=== PATIENT | female | born 1935 | race Caucasian/White ===

== ENCOUNTER → 2016-11-16 | Outpatient (CLI) | payer BC ==
[~2016-11-16] MED LIST: AMB10 PO; ASPI325T39 PO; ATEN50TA8 PO; ATV5 PO; CHOLTAB3 PO; EZET10TA41 PO; GLIP10TA3 PO; HYDR12.56 PO; LISI-725 PO; METF-384 PO; MGN PO; MULT-506 PO; NIFE30TA83 PO; NXM/40 PO
[2016-11-16 09:37] LABS: BASO % 0.5 %; BASO ABS # 0.05 K/uL (0-0.2); COMPLETE YES; EOS % 3.7 %; HEMATOCRIT 40.8 % (37-47); IG% 0.3 %; LYMPH % 34.7 %; LYMPH ABS # 3.18 K/uL (1.2-3.4); MEAN CELL VOLUME 92.1 fL (80-100); MEAN CORPUSCULAR HEMOGLOBIN 28.4 pg (25-34); MEAN CORPUSCULAR HGB CONC 30.9 g/dl (32-36); MONO % 9.7 %; NEUT % 51.1 %; PLATELET COUNT 317 K/uL (130-400); RED BLOOD COUNT 4.43 M/uL (4.2-5.4); WHITE BLOOD COUNT 9.16 K/uL (4.8-10.8)
[2016-11-16 09:51] LABS: ALT/SGPT 18 U/L (12-78); BLOOD UREA NITROGEN 17 mg/dl (7-18); BUN/CREATININE RATIO 20.9 (10-20); CARBON DIOXIDE 25 mmol/L (21-32); CHLORIDE 103 mmol/L (98-107); CHOLESTEROL 122 mg/dl (0-200); GLUCOSE 116 mg/dl (70-99); POTASSIUM 4.2 mmol/L (3.5-5.1); SODIUM 138 mmol/L (136-145); TRIGLYCERIDES 177 mg/dl (0-150); VERY LOW DENSITY LIPOPROT CALC 35 mg/dl
[2016-11-16 09:54] LABS: CALCIUM 9.5 mg/dl (8.5-10.1)
[2016-11-16 10:01] LABS: ALB/GLOB RATIO 0.9 (0.9-2); ALKALINE PHOSPHATASE 52 U/L (45-117); AST/SGOT 17 U/L (15-37); CHOLESTEROL/HDL RATIO 2.8; HDL CHOLESTEROL 43 mg/dl; LDL CHOLESTEROL CALCULATED 44 mg/dl
[2016-11-16 10:25] LABS: ESTIMATED AVERAGE GLUCOSE 160 mg/dl; HA1C FLAG Normal (Normal)
== END | disposition home or self-care (01) ==
LOC: C.LAB1850 06:54
PROVIDERS: ATTEND Family Medicine
DX: I25.10 Atherosclerotic heart disease of native coronary artery without angina pectoris (principal); E78.00 Pure hypercholesterolemia, unspecified; E11.9 Type 2 diabetes mellitus without complications; I10 Essential (primary) hypertension; I48.0 Paroxysmal atrial fibrillation; G31.84 Mild cognitive impairment of uncertain or unknown etiology

== ENCOUNTER 2017-07-08 14:27 | Emergency (ER) | payer BC ==
[~2017-07-08] VITALS: Ht 154.9 cm; Wt 85.0 kg
[2017-07-08 14:33] VITALS: TEMP 36.7; Ht 154.9 cm; Wt 85.0 kg
[2017-07-08] MEDS ORDERED: ALBUTEROL 0.083% NEBU SOLN 3 ML VIAL INH STA (14:51)
[2017-07-08 15:09] VITALS: O2SAT 92
[2017-07-08 15:41] LABS: BASO % 0.2 %; BASO ABS # 0.02 K/uL (0-0.2); EOS % 2.5 %; EOS ABS # 0.21 K/uL (0-0.5); HEMATOCRIT 38.3 % (37-47); HEMOGLOBIN 12.3 g/dL (12.0-16.0); IG# 0.03 K/uL (0.00-0.02); LYMPH % 28.4 %; LYMPH ABS # 2.42 K/uL (1.2-3.4); MEAN CELL VOLUME 93.9 fL (80-100); MEAN CORPUSCULAR HEMOGLOBIN 30.1 pg (25-34); MEAN CORPUSCULAR HGB CONC 32.1 g/dl (32-36); MEAN PLATELET VOLUME 10.1 fL (7.4-10.4); MONO % 8.3 %; MONO ABS # 0.71 K/uL (0.11-0.59); NEUT % 60.2 %; NEUT ABS # 5.12 K/uL (1.4-6.5); PLATELET COUNT 261 K/uL (130-400); RED CELL DISTRIBUTION WIDTH CV 16.1 % (11.5-14.5); RED CELL DISTRIBUTION WIDTH SD 55.2 fL (36.4-46.3); WHITE BLOOD COUNT 8.51 K/uL (4.8-10.8)
[2017-07-08 15:50] LABS: ALBUMIN 3.2 gm/dl (3.4-5.0); ALT/SGPT 17 U/L (12-78); BLOOD UREA NITROGEN 28 mg/dl (7-18); CALCIUM 8.9 mg/dl (8.5-10.1); CARBON DIOXIDE 24 mmol/L (21-32); CREATININE 1.12 mg/dl (0.60-1.20); GLUCOSE 231 mg/dl (70-99); INR 0.9 (0.9-1.1); POTASSIUM 3.7 mmol/L (3.5-5.1); PTT PATIENT 28.9 SECONDS (21.0-31.0); SODIUM 135 mmol/L (136-145)
--- NOTE | 2017-07-08 15:52 | DIAGNOSTIC IMAGING REPORT ---
CHEST 2 VIEWS ROUTINE HISTORY: 81 years-old Female EVALUATE RESPIRATORY DISTRESS.DYSPNEA acute respiratory distress. COMPARISON: Chest radiographs 05/17/2011 and 07/14/2009 TECHNIQUE: PA and lateral views of the chest FINDINGS: Cardiac silhouette is moderately enlarged. Atherosclerosis of the aorta with tortuosity of the descending portion. There is no pneumothorax, pleural effusion, focal airspace consolidation or overt pulmonary edema. Multilevel degenerative changes of the spine are noted. Post traumatic deformity of the right humeral head suggests remote fracture. IMPRESSION: 1. Cardiomegaly without overt pulmonary edema. 2. No focal airspace consolidation to suggest pneumonia. The above report was generated using voice recognition software. It may contain grammatical, syntax or spelling errors. Electronically signed by: Carlos Martinez M.D. 07/08/2017 3:50 PM Dictated Date/Time: 07/08/2017 3:49 PM
[2017-07-08 15:56] LABS: ALKALINE PHOSPHATASE 48 U/L (45-117); AST/SGOT 19 U/L (15-37); TOTAL PROTEIN 7.5 gm/dl (6.4-8.2)
[2017-07-08] MEDS ORDERED: CALC667C4 PO (16:16)
[2017-07-08 16:18] LABS: INFLUENZA B PCR Neg for Influ B (NEG)
[2017-07-08 16:19] LABS: INFLUENZA A PCR POS for Influ A (NEG)
[2017-07-08] MEDS ORDERED: OSELTAMIVIR PHOSPHATE 75 MG CAP PO STA (16:47)
[2017-07-08 17:00] VITALS: BP 130/58; PULSE 77; O2SAT 94
[2017-07-08] MEDS ORDERED: BENZ100C18 PO (17:29)
[2017-07-08] MEDS ORDERED: CEPH-571 PO (17:29)
[2017-07-08] MEDS ORDERED: OSEL75CA12 PO (17:29)
[2017-07-08] MEDS ORDERED: PRVHFAIN INH (17:30)
[2017-07-08] MEDS ORDERED: CEPHALEXIN MONOHYDRATE 250 MG CAP PO ONE (17:30)
--- NOTE | 2017-07-08 19:43 | EMERGENCY ROOM VISIT NOTE ---
History Report prepared by Alida: Jared Johnson Under the Supervision of: Dr. Tobias Santos D.O. First contact with patient: 14:37 Chief Complaint: RESPIRATORY PROBLEMS Stated Complaint: PNEUMONIA Nursing Triage Summary: pt to the ED c/o cough with yellow sputum since yesterday + SOB no O2 at home had a breathing treatment at [facility] office and her O2 went down and they sent her here History of Present Illness The patient is an 81 year old female who presents to the Emergency Room with complaints of a persistent cough for the past 2 days. The patient states that she has been coughing and having a runny nose, and three days ago she had vomiting and diarrhea, though she has not vomited or had an episode of diarrhea today. She denies having any sick contacts, and she states that she was a smoker a long time ago. He has a history of a heart attack in 1989, and she has A-fib and takes a 325mg aspirin daily. Pt denies headache, change in vision, fevers, abdominal pain, chest pain, pain with urination, and melena. Source of History: patient Onset: 2 days ago Position: other (global) Quality: other (cough) Timing: other (persistent) Associated Symptoms: + vomiting, + diarrhea, No abdominal pain Note: Associated symptoms: Runny nose Review of Systems See HPI for pertinent positives & negatives. A total of 10 systems reviewed and were otherwise negative. Past Medical & Surgical Medical Problems: (1) A-fib (2) [place] (myocardial infarction) Social History Smoking Status: Former Smoker Alcohol Use: none Housing Status: lives alone Current/Historical Medications Scheduled Albuterol (Ventolin Hfa), 2 PUFFS INH QID Aspirin (Aspirin Ec), 325 MG PO DAILYBB Atenolol (Tenormin), 75 MG PO BID Benzonatate (Tessalon Perles), 100 MG PO TID Calcium Acetate (Phoslo 667 Mg), 1 CAP PO QAM Cephalexin (Keflex), 1 CAP PO TID Ergocalciferol (Vitamin D), 1 TAB PO DAILY Esomeprazole Magnesium (Nexium), 40 MG PO QAM Ezetimibe/Simvastatin (Vytorin 10MG/40MG), 1 TAB PO QPM Glipizide (Glucotrol), 10 MG PO BID Lisinopril (Zestril), 20 MG PO QAM Lorazepam (Ativan *), 0.5 MG PO BID PRN Magnesium (Magnesium), 400 MG PO BID Metformin Hcl (Glucophage), 1,000 MG PO BID Multivitamin (Multivitamin), 1 TAB PO DAILY Nifedipine Ext Rel (Procardia Xl Ext Rel), 30 MG PO QAM Oseltamivir (Tamiflu), 75 MG PO BID Zolpidem Tartrate (Ambien *), 10 MG PO HS Scheduled PRN Hydrochlorothiazide (Hctz), 12.5 MG PO DAILY PRN for EDEMA Allergies Coded Allergies: Iodinated Contrast Media (Verified Allergy, Intermediate, HIVES, 07/08/17) Penicillin G (Verified Allergy, Unknown, UNKNOWN, 07/08/17) Physical Exam Vital Signs Date Time Temp Pulse Resp B/P (MAP) Pulse Ox O2 Delivery O2 Flow Rate FiO2 07/08/17 17:00 77 22 130/58 94 Room Air 07/08/17 16:02 86 18 143/53 90 Room Air 07/08/17 16:02 79 18 143/53 93 Room Air 07/08/17 15:23 84 07/08/17 15:09 92 Room Air 07/08/17 15:09 92 Room Air 07/08/17 14:33 36.7 81 28 134/67 93 Physical Exam GENERAL: Sitting up in bed, slightly dyspneic on exertion. No significant distress. EYE EXAM: normal conjunctiva. OROPHARYNX: no exudate, no erythema, lips, buccal mucosa, and tongue normal and mucous membranes are moist NECK: supple, no nuchal rigidity, no adenopathy, non-tender, no JVD LUNGS: Diffuse wheezing bilaterally. Normal chest wall mechanics HEART: no murmurs, S1 normal and S2 normal ABDOMEN: abdomen soft, non-tender, normo-active bowel sounds, no masses, no rebound or guarding. BACK: Back is symmetrical on inspection and there is no deformity, no midline tenderness, no CVA tenderness. SKIN: no rashes and no bruising UPPER EXTREMITIES: upper extremities are grossly normal. LOWER EXTREMITIES: Calves are equal bilaterally.No pitting edema. NEURO EXAM: Normal sensorium, cranial nerves II-XII grossly intact, normal speech, no gross weakness of arms, no gross weakness of legs. Medical Decision & Procedures ER Provider Diagnostic Interpretation: Radiology results as stated below per my review and the radiologist's interpretation: CHEST 2 VIEWS ROUTINE HISTORY: 81 years-old Female EVALUATE RESPIRATORY DISTRESS.DYSPNEA acute respiratory distress. COMPARISON: Chest radiographs 05/17/2011 and 07/14/2009 TECHNIQUE: PA and lateral views of the chest FINDINGS: Cardiac silhouette is moderately enlarged. Atherosclerosis of the aorta with tortuosity of the descending portion. There is no pneumothorax, pleural effusion, focal airspace consolidation or overt pulmonary edema. Multilevel degenerative changes of the spine are noted. Post traumatic deformity of the right humeral head suggests remote fracture. IMPRESSION: 1. Cardiomegaly without overt pulmonary edema. 2. No focal airspace consolidation to suggest pneumonia. The above report was generated using voice recognition software. It may contain grammatical, syntax or spelling errors. Electronically signed by: Carlos Martinez M.D. 07/08/2017 3:50 PM Dictated Date/Time: 07/08/2017 3:49 PM Laboratory Results 07/08/17 14:58 Red Blood Count 4.08, Mean Corpuscular Volume 93.9, Mean Corpuscular Hemoglobin 30.1, Mean Corpuscular Hemoglobin Concent 32.1, Mean Platelet Volume 10.1, Neutrophils (%) (Auto) 60.2, Lymphocytes (%) (Auto) 28.4, Monocytes (%) (Auto) 8.3, Eosinophils (%) (Auto) 2.5, Basophils (%) (Auto) 0.2, Neutrophils # (Auto) 5.12, Lymphocytes # (Auto) 2.42, Monocytes # (Auto) 0.71, Eosinophils # (Auto) 0.21, Basophils # (Auto) 0.02 07/08/17 14:58 Test 07/08/17 14:51 07/08/17 14:58 07/08/17 15:01 Urine Color DK YELLOW Urine Appearance CLEAR (CLEAR) Urine pH 5.0 (4.5-7.5) Urine Specific [place] 1.022 (1.000-1.030) Urine Protein NEG (NEG) Urine Glucose (UA) NEG (NEG) Urine Ketones NEG (NEG) Urine Occult Blood NEG (NEG) Urine Nitrite POS (NEG) Urine Bilirubin NEG (NEG) Urine Urobilinogen NEG (NEG) Urine Leukocyte Esterase MODERATE (NEG) Urine WBC (Auto) >30 /hpf (0-5) Urine RBC (Auto) 0-4 /hpf (0-4) Urine Hyaline Casts (Auto) 1-5 /lpf (0-5) Urine Epithelial Cells (Auto) 5-10 /lpf (0-5) Urine Bacteria (Auto) 4+ (NEG) White Blood Count 8.51 K/uL (4.8-10.8) Red Blood Count 4.08 M/uL (4.2-5.4) Hemoglobin 12.3 g/dL (12.0-16.0) Hematocrit 38.3 % (37-47) Mean Corpuscular Volume 93.9 fL (80-100) Mean Corpuscular Hemoglobin 30.1 pg (25-34) Mean Corpuscular Hemoglobin Concent 32.1 g/dl (32-36) Platelet Count 261 K/uL (130-400) Mean Platelet Volume 10.1 fL (7.4-10.4) Neutrophils (%) (Auto) 60.2 % Lymphocytes (%) (Auto) 28.4 % Monocytes (%) (Auto) 8.3 % Eosinophils (%) (Auto) 2.5 % Basophils (%) (Auto) 0.2 % Neutrophils # (Auto) 5.12 K/uL (1.4-6.5) Lymphocytes # (Auto) 2.42 K/uL (1.2-3.4) Monocytes # (Auto) 0.71 K/uL (0.11-0.59) Eosinophils # (Auto) 0.21 K/uL (0-0.5) Basophils # (Auto) 0.02 K/uL (0-0.2) RDW Standard Deviation 55.2 fL (36.4-46.3) RDW Coefficient of Variation 16.1 % (11.5-14.5) Immature Granulocyte % (Auto) 0.4 % Immature Granulocyte # (Auto) 0.03 K/uL (0.00-0.02) Prothrombin Time 9.9 SECONDS (9.0-12.0) Prothromb Time International Ratio 0.9 (0.9-1.1) Activated Partial Thromboplast Time 28.9 SECONDS (21.0-31.0) Partial Thromboplastin Ratio 1.1 Anion Gap 11.0 mmol/L (3-11) Est Creatinine Clear Calc Drug Dose 38.3 ml/min Estimated GFR () 53.0 Estimated GFR (Non- 45.7 BUN/Creatinine Ratio 25.0 (10-20) Calcium Level 8.9 mg/dl (8.5-10.1) Total Bilirubin 0.3 mg/dl (0.2-1) Aspartate Amino Transf (AST/SGOT) 19 U/L (15-37) Alanine Aminotransferase (ALT/SGPT) 17 U/L (12-78) Alkaline Phosphatase 48 U/L (45-117) Troponin I < 0.015 ng/ml (0-0.045) Pro-B-Type Natriuretic Peptide 1389 pg/ml (0-1800) Total Protein 7.5 gm/dl (6.4-8.2) Albumin 3.2 gm/dl (3.4-5.0) Globulin 4.3 gm/dl (2.5-4.0) Albumin/Globulin Ratio 0.8 (0.9-2) Influenza Type A (RT-PCR) POS for Influ A (NEG) Influenza Type B (RT-PCR) Neg for Influ B (NEG) Laboratory results per my review. Medications Administered Medications (Trade) Dose Ordered Sig/Ankit Route Start Time Stop Time Status Last Admin Dose Admin Albuterol Sulfate (Ventolin 0.083% 2.5MG/3ML Neb) 2.5 mg NOW STAT INH 07/08/17 14:51 07/08/17 14:52 DC 07/08/17 15:06 2.5 MG Oseltamivir Phosphate (Tamiflu Cap) 75 mg NOW STAT PO 07/08/17 16:47 07/08/17 16:48 DC 07/08/17 17:05 75 MG Cephalexin Monohydrate (Keflex Cap) 500 mg NOW ONCE PO 07/08/17 17:30 07/08/17 17:31 DC 07/08/17 17:32 500 MG ECG Indication: SOB/dyspnea, other (cough) Rate (beats per minute): 82 Rhythm: atrial fibrillation Findings: other (Normal axis and normal intervals) Change: Patient's EKG interpreted by me ED Course ED COURSE: Vital signs were reviewed and showed normal vitals The patients medical record was reviewed The above diagnostic studies were performed and reviewed. ED treatments and interventions as stated above. 1437: The patient was evaluated in room B11. A complete history and physical examination was performed. 1451: Albuterol Sulfate 2.5mg INH 1521: I reevaluated the patient, and she is doing okay. 1640: On reassessment, the patient is still doing okay. 1647: Tamiflu Cap 75mg PO 1730: Keflex Cap 500mg PO 1736: Upon reevaluation, the patient is able to ambulate well, and she is feeling better. I discussed my findings with the patient and she understands and agrees with the treatment plan. Based on the patients age, coexisting illnesses, exam and lab findings the decision to treat as an outpatient was made. The patient remained stable while under my care. The patient appeared well at the time of discharge. Medical Decision Differential diagnoses includes but is not limited to pneumonia, bronchitis, COPD/Asthma exacerbation, pneumothorax, pulmonary embolism, congestive heart failure, acute coronary syndrome Patient is an 7-year-old female referred in by PCP for cough and runny nose which is been present since this past Saturday. On Saturday she had diarrhea and vomiting but this has resolved. On exam she does have wheezing. EKG was unremarkable. CBC along with BMP, LFTs, bilirubin and troponin was negative. BNP was normal. Influenza A was positive. UA with nitrites, leuks, whites and +4 bacteria. We'll treat at this time. Patient was given Keflex. Patient was placed on Tamiflu. She was ambulated twice from the ER and pulse ox never dropped less than 90%. Patient was updated bedside and discharged follow-up with PCP as an outpatient. Her allergy to penicillin was a headache and consequently I did feel is reasonable to give her Keflex at this time. Discussed with Pt concerning signs and symptoms to watch out for. Pt was instructed to follow up with their PCP and discussed with the patient their option to return to the ED at anytime for persistent or worsening symptoms. The appropriate anticipatory guidance and out-patient management, including indications for return to the emergency department, were explained at length to the patient and understood. Medication Reconcilliation Current Medication List: was personally reviewed by me Blood Pressure Screening Patient's blood pressure: Normal blood pressure Impression Primary Impression: Influenza Additional Impression: UTI (urinary tract infection) Scribe Attestation The scribe's documentation has been prepared under my direction and personally reviewed by me in its entirety. I confirm that the note above accurately reflects all work, treatment, procedures, and medical decision making performed by me. Departure Information Dispostion Home / Self-Care Prescriptions Albuterol (Ventolin Hfa) 60 Puffs/5400 Mcg Aers 2 PUFFS INH QID for 5 Days, INHALER Prov: Tobias Santos, DO 07/08/17 Benzonatate (TESSALON PERLES) 100 Mg Cap 100 MG PO TID for Cough, #30 CAP Prov: Tobias Santos, DO 07/08/17 Cephalexin (KEFLEX) 500 Mg Cap 1 CAP PO TID for 7 Days, #21 CAP Prov: Tobias Santos, DO 07/08/17 Oseltamivir (Tamiflu) 75 Mg Cap 75 MG PO BID, #10 CAP Prov: Tobias Santos, DO 07/08/17 Referrals Christy Go C.R.N.P. (PCP) Forms HOME CARE DOCUMENTATION FORM, IMPORTANT VISIT INFORMATION, WORK / SCHOOL INSTRUCTIONS Patient Instructions ED UTI Cystitis Female, My [facility], Oseltamivir capsules, Rapid Influenza Antigen Nasal or Throat Swab Additional Instructions Please follow up with your primary care doctor or with in the next 24 hours. Any worsening of your symptoms, please return to the ED immediately. This includes any fevers greater than 100.4, worsening pain, chest pain, shortness breath, persistent nausea, vomiting, unable to eat or drink, or any other concerning signs or symptoms from your standpoint. Please take Tamiflu as prescribed. Please take Tylenol or Motrin as needed for muscle aches and fevers. Please take Tessalon Perles as needed for coughing. Please take Keflex as needed for UTI. Problem Qualifiers Additional Impression: UTI (urinary tract infection) Urinary tract infection type: site unspecified Hematuria presence: without hematuria Qualified Codes: N39.0 - Urinary tract infection, site not specified
== END 2017-07-08 17:52 | disposition home or self-care (01) ==
LOC: C.EDB 14:30
DX: J11.1 Influenza due to unidentified influenza virus with other respiratory manifestations (principal); N39.0 Urinary tract infection, site not specified; I48.91 Unspecified atrial fibrillation; I25.2 Old myocardial infarction; Z87.891 Personal history of nicotine dependence; Z79.82 Long term (current) use of aspirin

== ENCOUNTER → 2017-12-18 | Outpatient (CLI) | payer BC ==
[~2017-12-18] MED LIST changes: +CALC667C4 PO; +OSEL75CA12 PO
[2017-12-18 10:49] LABS: ALBUMIN 3.4 gm/dl (3.4-5.0); ALKALINE PHOSPHATASE 54 U/L (45-117); ALT/SGPT 16 U/L (12-78); AST/SGOT 15 U/L (15-37); BLOOD UREA NITROGEN 25 mg/dl (7-18); CARBON DIOXIDE 23 mmol/L (21-32); CREATININE 1.42 mg/dl (0.60-1.20); GLUCOSE 214 mg/dl (70-99); POTASSIUM 5.8 mmol/L (3.5-5.1); SODIUM 134 mmol/L (136-145); TOTAL PROTEIN 7.1 gm/dl (6.4-8.2)
== END | disposition home or self-care (01) ==
LOC: C.LAB1850 09:12
PROVIDERS: ATTEND Nurse Practitioner Family
DX: L03.115 Cellulitis of right lower limb (principal)

== ENCOUNTER → 2017-12-23 | Outpatient (CLI) | payer BC ==
[2017-12-23 10:05] LABS: BLOOD UREA NITROGEN 23 mg/dl (7-18); CALCIUM 8.9 mg/dl (8.5-10.1); CARBON DIOXIDE 22 mmol/L (21-32); GLUCOSE 228 mg/dl (70-99); POTASSIUM 4.8 mmol/L (3.5-5.1); SODIUM 135 mmol/L (136-145)
== END | disposition home or self-care (01) ==
LOC: C.LAB1850 08:51
PROVIDERS: ATTEND Nurse Practitioner Family
DX: R79.89 Other specified abnormal findings of blood chemistry (principal); E87.5 Hyperkalemia

== ENCOUNTER 2020-01-26 00:22 | Observation (INO) ==
--- NOTE | 2020-01-26 00:58 | Emergency Department Note ---
Impression & Plan Hypoxia, CHF (congestive heart failure) ED Provider Note NAME: DONOVAN BERMUDEZ AGE: 84 SEX: F ARRIVES VIA: Ambulance INFORMANT: Patient, her daughter ED PROVIDER(S): Evelin Street DO CHIEF COMPLAINT: Shortness of breath PLAN: Disposition: Admitted to the [facility] hospitalist service Condition: Fair MEDICAL DECISION MAKING: This is an 84-year-old female patient who presents to the emergency department with worsening shortness of breath. Patient describes orthopnea and was noted to have congestive heart failure on chest x-ray. She also has peripheral edema noted on physical exam. Patient was given IV Lasix and began to diurese. The patient's oxygen saturation was 86% n on room air. O2 saturations were stable on 4 L by nasal cannula. The case was discussed with the [facility] hospitalist group and they will evaluate for further management. Triage Nursing notes reviewed and agree them. Additional history obtained from patient's daughter Prior medical records reviewed Vital Signs: reviewed and on Differential diagnosis: CHF, pneumonia, A. fib with RVR, anxiety ER treatment provided: IV Lasix Diagnostics interpreted by me: ECG: Atrial fibrillation at [address] segment elevation or signs of ischemia. There is no ectopy Cardiac Monitoring: A. fib at 56 Laboratory studies: See below Imaging studies: As per my interpretation Chest x-ray: CHF HPI: 84/F arrives for evaluation of increasing shortness of breath. The patient developed some mild shortness of breath around 6 PM this evening. She describes having a very mild cough. She noticed that her shortness of breath became much worse when she attempted to lie flat. She was unable to do so. She had a similar episode 2 years ago and was diagnosed with congestive heart failure at that time. Patient does have a history of A. fib and takes Xarelto. She does take HCTZ. ROS: See above HPI for pertinent positives & negatives. A total of 10 systems reviewed and were otherwise negative. PAST MEDICAL HISTORY:See Below PAST SURGICAL HISTORY:See Below FAMILY HISTORY:See Below SOCIAL HISTORY:See Below HOME MEDICATIONS:See list ALLERGIES:See list VITALS:See Below PHYSICAL EXAMINATION: HEENT: Head - normocephalic and atraumatic Pupils are equal, round, and reactive to light. Extraocular eye muscles are intact, and sclera are anicteric. Nose - moist nasal mucosa without discharge. Mouth - moist buccal mucosa. Oropharynx is nonerythematous and there is no tonsillar exudate or edema noted. Neck: Supple; no JVD, nuchal rigidity, cervical lymphadenopathy, or auscultated bruits. Heart: Irregularly irregular rhythm. There is a normal S1 and S2 with no murmurs, clicks, or gallops appreciated. Lungs: Diffuse rales throughout all lung dockery Abdomen: Soft, completely nontender, nondistended, with good bowel sounds. There are no palpable pulsatile masses or hepatosplenomegaly. There is no guarding, rigidity, or rebound noted. Extremities: She had 1-2+ pitting edema in both lower extremities there are easily palpable peripheral pulses. Skin: warm and dry with good turgor and no rashes. ED COURSE: Times/Reassessments: 0045: Patient was evaluated in room A4. A complete history and physical was performed. Laboratory studies were drawn as above. An order was placed for continuous cardiac monitoring. The patient was in A. fib at a rate of 62. A twelve-lead EKG was obtained as described above. A portable chest x-ray was performed. The patient was given 40 mg of IV Lasix. Case was discussed with the [facility] hospitalist group I have personally spent greater than 30 minutes of critical care time in the direct management of this patient. This includes bedside care, interpretation of diagnostic studies, and testing, discussion with consultants, patient, and family members, and other required patient management activities. This 30 minutes is in excess of all separately billable procedures. Evelin Street DO Past Med/Surg History Medical History (Updated 01/26/20 @ 04:[address] DO) Acute on chronic diastolic CHF (congestive heart failure) Candidal intertrigo Fracture of left distal radius Fracture, humerus closed Hyperkalemia Hypoxia Influenza Left knee DJD Pulmonary edema Rupture of UCL of right thumb UTI (urinary tract infection) Surgical History H/O oral surgery No history of previous surgery S/P knee surgery S/P wisdom tooth extraction Family History Mother Myocardial infarction Father Myocardial infarction Other No pertinent family history Denies family history of Ovarian cancer Prostate cancer Breast cancer Colorectal cancer Social History Smoking Status: Former smoker Hx Alcohol Use: No Hx Substance Use: No Preferred Language: Zimbabwean Communication Ability: Effective Visual Impairment: No Limitations Hearing Ability: Normal Beliefs That Will Affect Care: None marital status: / Current Living Situation: Alone current occupational status: retired Feels Safe at Home: Yes Dental Care, Regularly: No Physical Activity Frequency: 3-4 Times per Week Seatbelt Use: always Sunscreen Use: No Allergies Allergies Allergy/AdvReac Type Severity Reaction Status Date / Time Iodinated Contrast Media Allergy Intermediate HIVES Verified 01/26/20 01:56 penicillin G Allergy Unknown HAPPENED Verified 01/26/20 01:56 MANY YEARS AGO Home Meds Home Medications Medication Instructions Recorded Confirmed Centrum Silver 1 tab PO DAILY 03/13/18 01/26/20 calcium carbonate-vitamin D3 1 tab PO DAILY 03/13/18 01/26/20 [Calcium 600 + D(3)] cholecalciferol (vitamin D3) 1,000 - 2,000 unit PO DAILY 03/13/18 01/26/20 [Vitamin D3] cyanocobalamin (vitamin B-12) 1,000 mcg PO DAILY 03/13/18 01/26/20 [Vitamin B-12] magnesium 250 mg PO DAILY 03/13/18 01/26/20 coenzyme Q10 10 mg capsule 10 mg PO DAILY cap 05/07/19 01/26/20 Previous Rx's Medication Instructions Recorded nitroglycerin 0.4 mg sublingual 0.4 mg SUBLINGUAL DIRECTED PRN 03/02/19 tablet #7 tab glimepiride 2 mg tablet 4 mg PO BID 90 Days #360 tab 08/06/19 lorazepam 0.5 mg tablet 0.5 mg PO BID PRN #180 tab 10/07/19 metformin 500 mg tablet 500 mg PO BID #180 tab 11/06/19 OneTouch Ultra Blue Test Strip #200 ea NS 11/25/19 zolpidem 10 mg tablet 10 mg PO HS PRN #90 tab 12/18/19 atenolol 50 mg tablet 75 mg PO BID #270 tab 01/15/20 esomeprazole magnesium 40 mg 40 mg PO DAILY #90 cap 01/15/20 capsule,delayed release ezetimibe 10 mg-simvastatin 40 mg 1 tab PO PM #90 tab 01/15/20 tablet hydrochlorothiazide 12.5 mg capsule 12.5 mg PO DAILY #90 cap 01/15/20 lisinopril 20 mg tablet 20 mg PO DAILY #90 tab 01/15/20 nifedipine 30 mg tablet,extended 30 mg PO DAILY #90 tab 01/15/20 release 24 hr rivaroxaban 20 mg tablet 20 mg PO DAILY #90 tab 01/15/20 Results & Data (ED) Vital Signs Vital Signs - 24 hr 01/26/20 00:26 01/26/20 00:28 01/26/20 00:29 Temperature 36.7 C Temperature Source Oral Pulse Rate 74 73 69 Pulse Rate [Apical] Pulse Rate from SpO2 Sensor 72 70 Pulse Rhythm Irregular Respiratory Rate 24 26 H 19 Respiratory Effort / Characteristics Spontaneous Labored Respiratory Depth Blood Pressure 154/116 H 166/57 H Blood Pressure [Right Arm] Blood Pressure Mean 125 93 Blood Pressure Mean [Right Arm] Blood Pressure Position Sitting Blood Pressure Position [Right Arm] Pulse Oximetry 95 86 L 97 Oxygen Delivery Method Room Air Oxygen Flow Rate Sepsis Recent Fever Within 48 Hours No Sepsis New/Unexplained Change in Mental Status No Sepsis Action Taken by Nursing No Action Required Oxygen Flow Rate - Titration Pulse Oximetry Post Tiitration 01/26/20 00:30 01/26/20 00:31 01/26/20 00:40 Temperature Temperature Source Pulse Rate 72 86 69 Pulse Rate [Apical] Pulse Rate from SpO2 Sensor 73 71 67 Pulse Rhythm Respiratory Rate 18 26 H 20 Respiratory Effort / Characteristics Respiratory Depth Blood Pressure 166/57 H Blood Pressure [Right Arm] Blood Pressure Mean 95 Blood Pressure Mean [Right Arm] Blood Pressure Position Blood Pressure Position [Right Arm] Pulse Oximetry 96 99 93 Oxygen Delivery Method Oxygen Flow Rate Sepsis Recent Fever Within 48 Hours Sepsis New/Unexplained Change in Mental Status Sepsis Action Taken by Nursing Oxygen Flow Rate - Titration Pulse Oximetry Post Tiitration 01/26/20 00:50 01/26/20 00:56 01/26/20 01:00 Temperature Temperature Source Pulse Rate 66 65 Pulse Rate [Apical] Pulse Rate from SpO2 Sensor 67 68 Pulse Rhythm Respiratory Rate 27 H 22 Respiratory Effort / Characteristics Respiratory Depth Blood Pressure 138/76 Blood Pressure [Right Arm] Blood Pressure Mean 114 Blood Pressure Mean [Right Arm] Blood Pressure Position Blood Pressure Position [Right Arm] Pulse Oximetry 97 86 L 97 Oxygen Delivery Method Nasal Cannula Oxygen Flow Rate 0 Sepsis Recent Fever Within 48 Hours Sepsis New/Unexplained Change in Mental Status Sepsis Action Taken by Nursing Oxygen Flow Rate - Titration 4 Pulse Oximetry Post Tiitration 95 01/26/20 01:01 01/26/20 01:02 01/26/20 01:10 Temperature Temperature Source Pulse Rate 68 69 Pulse Rate [Apical] 73 Pulse Rate from SpO2 Sensor 68 65 Pulse Rhythm Respiratory Rate 22 26 H 23 Respiratory Effort / Characteristics Non-Labored Spontaneous Respiratory Depth Normal Blood Pressure Blood Pressure [Right Arm] 138/76 Blood Pressure Mean Blood Pressure Mean [Right Arm] 96 Blood Pressure Position Blood Pressure Position [Right Arm] Sitting Pulse Oximetry 99 96 95 Oxygen Delivery Method Nasal Cannula Oxygen Flow Rate 4 Sepsis Recent Fever Within 48 Hours Sepsis New/Unexplained Change in Mental Status Sepsis Action Taken by Nursing Oxygen Flow Rate - Titration Pulse Oximetry Post Tiitration 01/26/20 01:20 01/26/20 01:30 01/26/20 01:31 Temperature Temperature Source Pulse Rate 67 59 L 65 Pulse Rate [Apical] Pulse Rate from SpO2 Sensor 64 60 68 Pulse Rhythm Respiratory Rate 22 22 21 Respiratory Effort / Characteristics Respiratory Depth Blood Pressure 135/70 Blood Pressure [Right Arm] Blood Pressure Mean 110 Blood Pressure Mean [Right Arm] Blood Pressure Position Blood Pressure Position [Right Arm] Pulse Oximetry 100 100 100 Oxygen Delivery Method Oxygen Flow Rate Sepsis Recent Fever Within 48 Hours Sepsis New/Unexplained Change in Mental Status Sepsis Action Taken by Nursing Oxygen Flow Rate - Titration Pulse Oximetry Post Tiitration 01/26/20 01:40 01/26/20 01:50 01/26/20 01:57 Temperature Temperature Source Pulse Rate 64 63 67 Pulse Rate [Apical] Pulse Rate from SpO2 Sensor 62 58 L Pulse Rhythm Respiratory Rate 19 23 Respiratory Effort / Characteristics Respiratory Depth Blood Pressure 121/53 L Blood Pressure [Right Arm] Blood Pressure Mean 77 Blood Pressure Mean [Right Arm] Blood Pressure Position Blood Pressure Position [Right Arm] Pulse Oximetry 100 98 Oxygen Delivery Method Oxygen Flow Rate Sepsis Recent Fever Within 48 Hours Sepsis New/Unexplained Change in Mental Status Sepsis Action Taken by Nursing Oxygen Flow Rate - Titration Pulse Oximetry Post Tiitration 01/26/20 02:00 01/26/20 02:01 01/26/20 02:10 Temperature Temperature Source Pulse Rate 66 60 67 Pulse Rate [Apical] Pulse Rate from SpO2 Sensor Pulse Rhythm Respiratory Rate 24 21 21 Respiratory Effort / Characteristics Respiratory Depth Blood Pressure 113/47 L Blood Pressure [Right Arm] Blood Pressure Mean 78 Blood Pressure Mean [Right Arm] Blood Pressure Position Blood Pressure Position [Right Arm] Pulse Oximetry Oxygen Delivery Method Oxygen Flow Rate Sepsis Recent Fever Within 48 Hours Sepsis New/Unexplained Change in Mental Status Sepsis Action Taken by Nursing Oxygen Flow Rate - Titration Pulse Oximetry Post Tiitration 01/26/20 02:20 01/26/20 02:30 01/26/20 02:31 Temperature Temperature Source Pulse Rate 60 63 66 Pulse Rate [Apical] Pulse Rate from SpO2 Sensor Pulse Rhythm Respiratory Rate 18 20 25 H Respiratory Effort / Characteristics Respiratory Depth Blood Pressure 113/49 L Blood Pressure [Right Arm] Blood Pressure Mean 62 Blood Pressure Mean [Right Arm] Blood Pressure Position Blood Pressure Position [Right Arm] Pulse Oximetry Oxygen Delivery Method Oxygen Flow Rate Sepsis Recent Fever Within 48 Hours Sepsis New/Unexplained Change in Mental Status Sepsis Action Taken by Nursing Oxygen Flow Rate - Titration Pulse Oximetry Post Tiitration 01/26/20 02:44 01/26/20 02:50 01/26/20 03:00 Temperature Temperature Source Pulse Rate 71 59 L 56 L Pulse Rate [Apical] Pulse Rate from SpO2 Sensor 59 L 59 L Pulse Rhythm Respiratory Rate 26 H 19 21 Respiratory Effort / Characteristics Respiratory Depth Blood Pressure 139/53 L Blood Pressure [Right Arm] Blood Pressure Mean 115 Blood Pressure Mean [Right Arm] Blood Pressure Position Blood Pressure Position [Right Arm] Pulse Oximetry 100 100 Oxygen Delivery Method Oxygen Flow Rate Sepsis Recent Fever Within 48 Hours Sepsis New/Unexplained Change in Mental Status Sepsis Action Taken by Nursing Oxygen Flow Rate - Titration Pulse Oximetry Post Tiitration 01/26/20 03:01 Temperature Temperature Source Pulse Rate 56 L Pulse Rate [Apical] Pulse Rate from SpO2 Sensor 59 L Pulse Rhythm Respiratory Rate 20 Respiratory Effort / Characteristics Respiratory Depth Blood Pressure Blood Pressure [Right Arm] Blood Pressure Mean Blood Pressure Mean [Right Arm] Blood Pressure Position Blood Pressure Position [Right Arm] Pulse Oximetry 98 Oxygen Delivery Method Oxygen Flow Rate Sepsis Recent Fever Within 48 Hours Sepsis New/Unexplained Change in Mental Status Sepsis Action Taken by Nursing Oxygen Flow Rate - Titration Pulse Oximetry Post Tiitration Laboratory Data Result diagrams: 01/26/20 Unknown 01/26/20 Unknown Administered Medications Discontinued Medications Furosemide (Furosemide 40 Mg/4 Ml Vial) 40 mg IV NOW STA Stop: 01/26/20 01:44 Last Admin: 01/26/20 01:57 Dose: 40 mg Documented by: [id number] Discharge Plan Visit Data Chief Complaint: Shortness of Breath/Dyspnea Stated Complaint: SHORT OF BREATH ED Provider: Evelin Street Discharge Problem: Hypoxia, CHF (congestive heart failure) Discharge Instructions Interventions: ED Discharge Assessment Last Done: 01/26/20 03:32 Discharge Problem: CHF (congestive heart failure) Qualifiers: Heart failure type: unspecified Heart failure chronicity: acute on chronic Qual ified Code(s): I50.9 - Heart failure, unspecified
[2020-01-26 01:10] LABS: Basophils # (auto) 0.06 K/uL (0-0.2); Basophils % (auto) 0.4 %; Eosinophils % (auto) 2.9 %; Hematocrit (blood only) 32.6 % (37-47); Hemoglobin 10.3 g/dL (12.0-16.0); Immature Granulocytes # (auto) 0.03 K/uL (0.00-0.02); Immature Granulocytes % (auto) 0.2 %; Lymphocytes # (auto) 2.91 K/uL (1.2-3.4); Lymphocytes % (auto) 21.2 %; Mean Corpuscular Hemoglobin 28.3 pg (25-34); Mean Corpuscular Hgb Conc 31.6 g/dL (32-36); Mean Corpuscular Volume 89.6 fL (80-100); Mean Platelet Volume 9.2 fL (7.4-10.4); Monocytes # (auto) 1.31 K/uL (0.11-0.59); Monocytes % (auto) 9.5 %; Neutrophils # (auto) 9.02 K/uL (1.4-6.5); Neutrophils % (auto) 65.8 %; Platelet Count 412 K/uL (130-400); RDW Coefficient of Variation 17.9 % (11.5-14.5); RDW Standard Deviation 58.6 fL (36.4-46.3); Red Blood Count 3.64 M/uL (4.2-5.4); White Blood Count 13.73 K/uL (4.8-10.8)
[2020-01-26 01:18] LABS: Alanine Aminotransferase 34 U/L (12-78); Albumin Level 3.5 gm/dl (3.4-5.0); Aspartate Aminotransferase 19 U/L (15-37); BUN Creatinine Ratio 32.9 (10-20); Blood Urea Nitrogen 36 mg/dl (7-18); Calcium 9.2 mg/dl (8.5-10.1); Carbon Dioxide 23 mmol/L (21-32); Chloride 104 mmol/L (98-107); Creatinine Clr Calc Pharmacy 35.3 ml/min; Est GFR (African American) 52.4; Est GFR (Non-African American) 45.2; Glucose 158 mg/dl (70-99); Potassium 4.8 mmol/L (3.5-5.1); Sodium 136 mmol/L (136-145)
[2020-01-26 01:22] LABS: INR 1.2 (0.9-1.1); Partial Thromboplastin Ratio 1.2; Partial Thromboplastin Time 32.8 Seconds (21.0-31.0)
[2020-01-26 01:23] LABS: Albumin Globulin Ratio 0.8 (0.9-2); Alkaline Phosphatase 75 U/L (45-117); Bilirubin,Total 0.6 mg/dl (0.2-1); Globulin 4.4 gm/dl (2.5-4.0); Total Protein 7.9 gm/dl (6.4-8.2); Troponin I < 0.015 ng/ml (0-0.045)
[2020-01-26] MEDS ORDERED: FUROSEMIDE 40 MG/4 ML VIAL IV STA (01:43)
--- NOTE | 2020-01-26 02:48 | History & Physical Report ---
Date of Service January 26, 2020 Assessment & Plan (1) Acute on chronic diastolic CHF (congestive heart failure): Samira Norton is a 84 y/o female with past medical hx of hypertension, hypercholesterolemia, paroxysmal atrial fibrillation on Xarelto, chronic diastolic CHF (March 2018), CAD (IMI, RCA PTCA, 1989), insomnia who presented to [facility] for Dyspnea. - Presumed Acute CHF exacerbation based on CXR and now feeling improved s/p diuretics. - Continue with another round of Lasix 40mg IV in AM - Echo ordered to determine if worsening left sided EF. Last was two years ago. - Trend labs - Try to wean from supplemental Oxygen once further diuresis. Still on 4L in ED. - Discussed low salt diet, less than 2gm per day diet. FENGI: Heart healthy/DM2, Pepcid 20mg PO DVT ppx: C/w home Xarelto Dispo: Med surg tele - Obs Code: Full Code (2) CAD (coronary artery disease): c/w home ezetimibe 10mg-simvastatin 40mg PO ECG PRN for chest pain no chest pain here trop in ED negative (3) Essential hypertension: c/w home lisinopril 20mg hold home HCTZ since giving IV lasix (4) Anxiety: will give dose of Ativan 0.5mg PO tonight. (5) GERD (gastroesophageal reflux disease): home med NF Pepcid 20mg PO ordered (6) Insomnia: Discussed worry about being on ambien and Ativan being 84 y/o. Will hold on ambien, she's going to be needing to pee and would be a fall risk overnight. Will give her her night time dose of Ativan 0.5mg PO and will give Remeron as well as more friendly in the elderly. discussed that she will probably have poor sleep being in the hospital but do not suspect stay to be long (7) Controlled type 2 diabetes with neuropathy: Hold home PO meds Insulin SS odered (8) Obesity: (9) Paroxysmal atrial fibrillation: c/w home Xarelto c/w home atenolol 75mg PO BID History of Present Illness Chief Complaint: Dyspnea Primary Care Provider: Gurmeet Smith DO Samira Norton is a 84 y/o female with past medical hx of hypertension, hypercholesterolemia, paroxysmal atrial fibrillation on Xarelto, chronic diastolic CHF (March 2018), CAD (IMI, RCA PTCA, 1989), insomnia who presented to [facility] for Dyspnea. She noted onset of shortness of breath around 6pm today. She notes it was gradual. She had no chest pain, cough at onset, nausea, vomiting. She doesn't watch her salt intake. She had subs (sandwhiches for lunch today). She notes she doesn't add salt to food but acknowledges that foods can contain salt. She has no recent illness. She noted the shortness of breath was worse when she was moving about the house and did not get better with rest. She denies any worsening leg swelling. She notes she weighs herself daily and has been 179 pounds. She follows with [facility] and saw them in November 2019 with note - The patient follows daily weights at home and notes a dry weight of 177 pounds with a trigger weight of 180 pounds. She typically takes hydrochlorothiazide 12.5 mg daily with an additional dose when necessary for weight gain. She denies needing to take any additional doses of HCTZ. She notes she feels better with Lasix 40mg IV here in ED. She notes she has insomnia and takes Ambien everynight. She also takes Ativan BID. She is requesting medication for sleep including an ambien. Echo 03/14/18 - Normal LV size, mild concentric LVH, EF 50-55% - inferior akinesis at the base - dilated RV w/borderline function - Mild to moderate eccentric mitral regurg and tricuspid regurg - severe pulmonary HTN, estimated PASP 60-65mmHg. Allergies Allergy/AdvReac Type Severity Reaction Status Date / Time Iodinated Contrast Media Allergy Intermediate HIVES Verified 01/26/20 01:56 penicillin G Allergy Unknown HAPPENED Verified 01/26/20 01:56 MANY YEARS AGO Home Medications Home Medications Medication Instructions Recorded Confirmed Type Centrum Silver 1 tab PO DAILY 03/13/18 02/02/20 History calcium carbonate-vitamin D3 1 tab PO DAILY 03/13/18 02/02/20 History [Calcium 600 + D(3)] cholecalciferol (vitamin D3) 1,000 - 2,000 unit PO DAILY 03/13/18 02/02/20 History [Vitamin D3] magnesium 250 mg PO DAILY 03/13/18 02/02/20 History nitroglycerin 0.4 mg sublingual 0.4 mg SUBLINGUAL DIRECTED PRN 03/02/19 02/02/20 Rx tablet #7 tab glimepiride 2 mg tablet 4 mg PO BID 90 Days #360 tab 08/06/19 02/02/20 Rx metformin 500 mg tablet 500 mg PO BID #180 tab 11/06/19 02/02/20 Rx OneTouch Ultra Blue Test Strip #200 ea NS 11/25/19 02/02/20 Rx atenolol 50 mg tablet 75 mg PO BID #270 tab 01/15/20 02/02/20 Rx esomeprazole magnesium 40 mg 40 mg PO DAILY #90 cap 01/15/20 02/02/20 Rx capsule,delayed release ezetimibe 10 mg-simvastatin 40 mg 1 tab PO PM #90 tab 01/15/20 02/02/20 Rx tablet lisinopril 20 mg tablet 20 mg PO DAILY #90 tab 01/15/20 02/02/20 Rx nifedipine 30 mg tablet,extended 30 mg PO DAILY #90 tab 01/15/20 02/02/20 Rx release 24 hr rivaroxaban 20 mg tablet 20 mg PO DAILY #90 tab 01/15/20 02/02/20 Rx mirtazapine 15 mg PO HS #30 tab 01/27/20 02/02/20 Rx coenzyme Q10 100 mg capsule 100 mg PO DAILY 02/02/20 02/02/20 History cyanocobalamin (vitamin B-12) 2,500 mcg SUBLINGUAL DAILY 02/02/20 02/02/20 History 2,500 mcg sublingual tablet furosemide 40 mg tablet 20 mg PO QAM #30 tab 02/02/20 Rx lorazepam 0.5 mg tablet 0.5 mg PO DAILY PRN 02/02/20 02/02/20 History vitamin B complex 1 cap PO DAILY 02/02/20 02/02/20 History Past Med/Surg History Medical History (Updated 01/29/20 @ 23:07 by Sheyla Javier MD) Acute on chronic diastolic CHF (congestive heart failure) Candidal intertrigo Fracture of left distal radius Fracture, humerus closed Hyperkalemia Hypoxia Influenza Left knee DJD Pulmonary edema Pulmonary hypertension Rupture of UCL of right thumb Severe tricuspid regurgitation UTI (urinary tract infection) Surgical History H/O oral surgery No history of previous surgery S/P knee surgery S/P wisdom tooth extraction Family History Mother Myocardial infarction Father Myocardial infarction Other No pertinent family history Denies family history of Ovarian cancer Prostate cancer Breast cancer Colorectal cancer Social History Smoking Status: Former smoker Hx Alcohol Use: No Hx Substance Use: No Preferred Language: Austrian Communication Ability: Effective Visual Impairment: No Limitations Hearing Ability: Normal Beliefs That Will Affect Care: None marital status: / Current Living Situation: Alone current occupational status: retired Feels Safe at Home: Yes Dental Care, Regularly: No Physical Activity Frequency: 3-4 Times per Week Seatbelt Use: always Sunscreen Use: No Review of Systems Review of Systems: All systems reviewed & are unremarkable except as noted in HPI & below Constitutional: no fever and no chills Eyes: no diplopia and no spots in vision Ear, Nose, Mouth, Throat: no nasal congestion, no nasal obstruction and no epistaxis Respiratory: + dyspnea mild cough only with deep breaths on physical exam Cardiovascular: no chest pain and no palpitations Gastrointestinal: no abdominal pain, no nausea and no vomiting Genitourinary: no dysuria and no urinary frequency Musculoskeletal: no back pain and no neck pain Integumentary: no rash and no lesions Neurologic: no localized weakness and no numbness Physical Exam Constitutional: + obese, cooperative and comfortable; no acute distress Eyes: PERRL, conjunctivae normal, anicteric sclerae ENMT: external ear and nose normal, oropharynx normal Neck: normal visual inspection and trachea midline Respiratory: no respiratory distress Auscultation: + diminished lung sounds (at bases) and + crackles (at bases) Cardiovascular: Rate/Rhythm: regular rate and regular rhythm Extremities: no pedal edema Gastrointestinal (Abdomen): Percussion/Palpation: abdomen soft; abdomen nontender, no guarding and abdomen not rigid Musculoskeletal: Head/Neck/Chest: normocephalic and head atraumatic Skin: no rashes, warm and dry Neurologic: moves all extremities and awake Psychiatric: A+Ox3, euthymic affect Results & Data Results & Data ([facility]) Vital Signs (Past 12 Hours) Vital Signs Temp Pulse Pulse Resp BP BP Pulse Ox 01/26/20 01:02 73 26 H 138/76 96 01/26/20 00:56 86 L 01/26/20 00:28 36.7 C 73 26 H 166/57 H 86 L Laboratory Results Laboratory Results - last 24 hr 01/26/20 01/26/20 01/26/20 Unknown Unknown Unknown WBC 13.73 H RBC 3.64 L Hgb 10.3 L Hct 32.6 L MCV 89.6 MCH 28.3 MCHC 31.6 L RDW Std Deviation 58.6 H RDW Coeff of Toby 17.9 H Plt Count 412 H MPV 9.2 Immature Gran % (Auto) 0.2 Neut % (Auto) 65.8 Lymph % (Auto) 21.2 [place] % (Auto) 9.5 Eos % (Auto) 2.9 Baso % (Auto) 0.4 Neut # (Auto) 9.02 H Lymph # (Auto) 2.91 [place] # (Auto) 1.31 H Eos # (Auto) 0.40 Baso # (Auto) 0.06 Immature Gran # (Auto) 0.03 H PT 13.0 H INR 1.2 H APTT 32.8 H PTT Ratio 1.2 Sodium 136 Potassium 4.8 Chloride 104 Carbon Dioxide 23 Anion Gap 9.0 BUN 36 H Creatinine 1.11 Est Cr Clr Drug Dosing 35.3 Est GFR ( Amer) 52.4 Est GFR (Non-Af Amer) 45.2 BUN/Creatinine Ratio 32.9 H Glucose 158 H Calcium 9.2 Total Bilirubin 0.6 AST 19 ALT 34 Alkaline Phosphatase 75 Troponin I < 0.015 Total Protein 7.9 Albumin 3.5 Globulin 4.4 H Albumin/Globulin Ratio 0.8 L Code Status & VTE Plan Code Status full Code VTE Prophylaxis Plan VTE Prophylaxis will be ordered: Yes Supervising Physician Co-Signing Physician Notes Patient seen and examined, chart reviewed, case discussed with Dr. Kelly and I agree with his assessment and plan as documented above Resident Activity Tracking Resident Involvement: Resident Care Provided Care Provided: Adult Hospital Medicine
[2020-01-26] MEDS ORDERED: DEXTROSE 50% 50 ML SYRINGE IV PRN (04:31)
[2020-01-26] MEDS ORDERED: ALUMINUM/MAGNESIUM SUSP 30 ML UDC PO PRN (04:31)
[2020-01-26] MEDS ORDERED: LORazepam 0.5 MG TAB PO STA (04:31)
[2020-01-26] MEDS ORDERED: POLYETHYLENE (MIRALAX) 17 GM PACK PO PRN (04:31)
[2020-01-26] MEDS ORDERED: ONDANSETRON INJ 2 MG/ML 2 ML VIAL IV PRN (04:31)
[2020-01-26] MEDS ORDERED: NITROGLYCERIN SL 0.4 MG/TAB TAB SL PRN (04:31)
[2020-01-26] MEDS ORDERED: ACETAMINOPHEN 325 MG TAB PO PRN (04:31)
[2020-01-26] MEDS ORDERED: MIRTAZAPINE TAB 15 MG TAB PO ONE (04:31)
[2020-01-26] MEDS ORDERED: GLUCOSE 10 TABS/TUBE PO PRN (04:31)
[2020-01-26] MEDS ORDERED: GLUCAGON FOR INJ 1 MG VIAL SQ PRN (04:31)
[2020-01-26] MEDS ORDERED: GLUCOSE 40% GEL 15 GM TUBE PO PRN (04:31)
[2020-01-26] MEDS ORDERED: CARBOHYDRATES FOR HYPOGLYCEMIA PO PRN (04:31)
[2020-01-26] MEDS ORDERED: MAGNESIUM HYDROXIDE SUSP 30 ML UDC PO PRN (04:31)
[2020-01-26] MEDS ORDERED: FUROSEMIDE 40 MG/4 ML VIAL IV SCH (07:00)
[2020-01-26] MEDS ORDERED: FUROSEMIDE 40 MG in SYRINGE 0 ML IV SCH (07:00)
--- NOTE | 2020-01-26 07:39 | XRay Report ---
SINGLE VIEW CHEST CLINICAL HISTORY: Dyspnea. FINDINGS: An AP, portable, upright chest radiograph is compared to study dated 03/13/2018. The examin ation is degraded by portable technique and patient rotation. The heart is markedly enlarged noting atherosclerotic calcification of the thoracic aorta. There is pulmonary vascular congestion. There a re hazy bilateral airspace opacities, most confluent in the lung bases. No large pleural effusion or pneumothorax is seen. The skeletal structures are osteopenic. There is chronic posttraumatic deformit y of the right proximal humerus. IMPRESSION: 1. Cardiomegaly with evidence of congestive failure. 2. Hazy bilateral airspace opacities likely represent a component of interstitial edema. Correlate cl inically for evidence of a superimposed infectious/inflammatory pneumonitis. Radiographic follow-up t o resolution is recommended. ACT 112: Negative or not required by law. Electronically signed by: Sterling Aguirre M.D. 01/26/2020 7:38 AM
[2020-01-26] MEDS: ATENOLOL 25 MG TABLET PO SCH ×2 (08:08→20:36)
[2020-01-26] MEDS: lisinopriL 20 MG TAB PO SCH (08:08)
[2020-01-26] MEDS: RIVAROXABAN 20 MG TAB PO SCH (08:08)
[2020-01-26] MEDS: INSULIN ASPART 100 UNITS/ML 3 ML PEN SC SCH ×4 (08:09→20:19)
--- NOTE | 2020-01-26 08:47 | Electrocardiogram Report ---
Test Reason : Blood Pressure : / mmHG Vent. Rate : 069 BPM Atrial Rate : 060 BPM P-R Int : 000 ms QRS Dur : 102 ms QT Int : 398 ms P-R-T Axes : 000 021 058 degrees QTc Int : 426 ms Probable Atrial fibrillation Abnormal ECG When compared with ECG of 13-MAR-2018 15:15, No significant change Confirmed by Jim Snider ([id number]) on 01/26/2020 8:47:45 AM Referred By: REFERRED SELF Confirmed By:Jim Snider
[2020-01-26] MEDS ORDERED: FAMOTIDINE 20 MG TAB PO SCH (09:00)
[2020-01-26 09:01] LABS: Basophils # (auto) 0.03 K/uL (0-0.2); Basophils % (auto) 0.3 %; Eosinophils # (auto) 0.21 K/uL (0-0.5); Eosinophils % (auto) 2.2 %; Hematocrit (blood only) 31.3 % (37-47); Hemoglobin 9.8 g/dL (12.0-16.0); Immature Granulocytes # (auto) 0.02 K/uL (0.00-0.02); Immature Granulocytes % (auto) 0.2 %; Lymphocytes # (auto) 2.22 K/uL (1.2-3.4); Lymphocytes % (auto) 23.1 %; Mean Corpuscular Hemoglobin 28.1 pg (25-34); Mean Corpuscular Hgb Conc 31.3 g/dL (32-36); Mean Corpuscular Volume 89.7 fL (80-100); Mean Platelet Volume 8.8 fL (7.4-10.4); Monocytes # (auto) 0.87 K/uL (0.11-0.59); Neutrophils # (auto) 6.27 K/uL (1.4-6.5); Neutrophils % (auto) 65.2 %; Platelet Count 375 K/uL (130-400); RDW Coefficient of Variation 17.8 % (11.5-14.5); RDW Standard Deviation 58.1 fL (36.4-46.3); Red Blood Count 3.49 M/uL (4.2-5.4); White Blood Count 9.62 K/uL (4.8-10.8)
[2020-01-26 09:02] LABS: BUN Creatinine Ratio 37.2 (10-20); Calcium 9.3 mg/dl (8.5-10.1); Creatinine Clr Calc Pharmacy 42.1 ml/min; Potassium 4.2 mmol/L (3.5-5.1)
--- NOTE | 2020-01-26 10:09 | XRay Report ---
SINGLE VIEW CHEST CLINICAL HISTORY: Hypoxia. FINDINGS: An AP, portable, upright chest radiograph is compared to study performed earlier the same d ay 01/26/2020. The examination is degraded by portable technique and patient rotation. The heart is ma rkedly enlarged noting atherosclerotic calcification of the thoracic aorta. Pulmonary vascular conges tion has improved. There are mild residual bibasilar airspace opacities. No large pleural effusion or pneumothorax is seen. The skeletal structures are osteopenic. There is chronic posttraumatic deformi ty of the right proximal humerus. IMPRESSION: 1. Cardiomegaly. Pulmonary vascular congestion has improved from today's earlier examination. 2. Bilateral airspace opacities have also improved. Clinical correlation will be required. ACT 112: Negative or not required by law. Electronically signed by: Sterling Aguirre M.D. 01/26/2020 10:07 AM
--- NOTE | 2020-01-26 13:43 | History & Physical Bridge Note ---
Date of Service January 26, 2020 History & Physical Bridge Note I have examined the patient, reviewed the History & Physical and in the interval since the performance of the History & Physical I have noted the following changes of clinical significance: Feeling much better but received Remeron and ativan at 0500 so was very drowsy all AM. Is now weaned off O2 and making plenty of urine. Feels a littl eunsteady on feet. Denies SOB, CP, leg swelling is way down. Is willing to taper off AMbien in favor of Remeron. States she rarely uses ativan at home. Vitals reviewed AAOx3, NAD irreg irreg, no mgr +mild bibasilar cvrackles, no wheezes Abd +BS soft NT ND Ext trace edema bilat to distal legs Skin no rashes Labs and Rads reviewed-CXR improved but still with pulm edema BNP 3500, PCT neg, WBC back to normal 84 yo female here with acute on chronic EF preserved HF await ECHO continue IV lasix this evening and then po in the AM educated on CHF diet and fluid restriction, refer to CHF clinic holding atenolol for bradycardia restart home nifedipine in AM restart home vitamins in AM switch HCTZ permanently to lasix po in AM continue Xarelto for Afib and DVT proph -dc Pepcid and revert to PPI as per home dosing for GERD PT/OT ordered Dispo-can likely go home tomorrow
--- NOTE | 2020-01-26 13:45 | XCELERA ---
[id number] \\[id number]_[id number]
[2020-01-26] MEDS ORDERED: FUROSEMIDE 40 MG in SYRINGE 0 ML IV ONE (17:00)
[2020-01-26] MEDS ORDERED: MIRTAZAPINE TAB 15 MG TAB PO SCH (21:00)
[2020-01-26] MEDS ORDERED: EZETIMIBE/SIMVASTATIN 10/40MG 1 TAB TAB PO SCH (21:00)
[2020-01-27] MEDS: ATENOLOL 25 MG TABLET PO SCH (07:42)
[2020-01-27] MEDS: lisinopriL 20 MG TAB PO SCH (07:43)
[2020-01-27] MEDS: RIVAROXABAN 20 MG TAB PO SCH (07:43)
[2020-01-27 07:57] LABS: Calcium 9.2 mg/dl (8.5-10.1); Creatinine Clr Calc Pharmacy 29.3 ml/min; Est GFR (African American) 42.9
[2020-01-27 08:36] LABS: Potassium 4.2 mmol/L (3.5-5.1)
[2020-01-27 08:37] LABS: Magnesium 2.2 mg/dl (1.8-2.4)
[2020-01-27] MEDS: INSULIN ASPART 100 UNITS/ML 3 ML PEN SC SCH ×2 (08:46→12:43)
[2020-01-27] MEDS ORDERED: NIFEdipine EXTENDED REL 30 MG TABCR PO SCH (09:00)
[2020-01-27] MEDS ORDERED: CALCIUM 600MG + VIT D 400 IU TAB PO SCH (09:00)
[2020-01-27] MEDS ORDERED: PANTOprazole 40 MG TAB PO SCH (09:00)
[2020-01-27] MEDS ORDERED: CHOLECALCIFEROL 1,000 UNITS 25 MCG TAB PO SCH (09:00)
[2020-01-27] MEDS ORDERED: CYANOCOBALAMIN 500 MCG TABLET (VITAMIN B-12) PO SCH (09:00)
[2020-01-27] MEDS ORDERED: FUROSEMIDE 40 MG TAB PO SCH (09:00)
--- NOTE | 2020-01-27 13:07 | Heart Failure Consultation ---
Date of Consultation January 27, 2020 Assessment & Plan (1) Acute on chronic diastolic CHF (congestive heart failure): (2) Pulmonary hypertension: (3) Obesity: Patient appears near euvolemic today. Her weight is at baseline and her symptoms have improved. She was transitioned from IV to oral diuretics this am. Anticipate discharge on Lasix 40 mg daily. Plan to check BMP/magnesium next week for monitoring. We discussed the nature of heart failure and the goals of the program. She is agreeable to participation today. Recommend continued documenting of her daily weights. She was asked to bring these to her heart failure appointments. Dry weight 175-177 lb. Notify CHF team if 2+ lb weight gain overnight or 5+ lb weight gain in 1 week. Recommend low sodium diet, less than 2,000 mg daily. Will need further discussion/education at her follow up. Limit fluid intake. Patient also with severe pulmonary hypertension noted on echocardiogram. Primary service to refer to pulmonology on discharge for PFTs and sleep eval. Disposition: Follow up with the heart failure program 02/02/20 at 1030. Patient will also be following with CM-hiv/aids care nurse. Anticipate discharge day 1-2 phone call. Patient was advised to call sooner for any worsening symptoms. Patient is active with [facility] home health. Lab orders have been faxed for draw before follow up appointment. History of Present Illness Attending Physician: Sheyla Javier MD History of Present Illness Patient is an 84 year old female with a past medial history of diastolic congestive heart failure (2018), CAD, HTN, GERD, anxiety, atrial fibrillation, moderate tricuspid regurgitation, and pulmonary hypertension. Dr. Garcia is her primary stretching machine tender frame. Patient is current admitted for acute on chronic diastolic CHF. She presented with shortness of breath, weight gain, and edema. She admits to dietary indiscretion leading up to admission. ProBNP is elevated at 3551. Chest xray is consistent with pulmonary edema. Echocardiogram confirms preserved systolic function. She was treated with IV diuretics and has noted improvement. Her weight is down 6 lb overnight. Today she reports her shortness of breath is at baseline and her edema has resolved. She denies chest pain, cough, orthopnea, PND. Allergies Allergy/AdvReac Type Severity Reaction Status Date / Time Iodinated Contrast Media Allergy Intermediate HIVES Verified 01/26/20 01:56 penicillin G Allergy Unknown HAPPENED Verified 01/26/20 01:56 MANY YEARS AGO Home Medications Home Medications Medication Instructions Recorded Confirmed Type Centrum Silver 1 tab PO DAILY 03/13/18 01/26/20 History calcium carbonate-vitamin D3 1 tab PO DAILY 03/13/18 01/26/20 History [Calcium 600 + D(3)] cholecalciferol (vitamin D3) 1,000 - 2,000 unit PO DAILY 03/13/18 01/26/20 History [Vitamin D3] cyanocobalamin (vitamin B-12) 1,000 mcg PO DAILY 03/13/18 01/26/20 History [Vitamin B-12] magnesium 250 mg PO DAILY 03/13/18 01/26/20 History nitroglycerin 0.4 mg sublingual 0.4 mg SUBLINGUAL DIRECTED PRN 03/02/19 01/26/20 Rx tablet #7 tab coenzyme Q10 10 mg capsule 10 mg PO DAILY cap 05/07/19 01/26/20 History glimepiride 2 mg tablet 4 mg PO BID 90 Days #360 tab 08/06/19 01/26/20 Rx metformin 500 mg tablet 500 mg PO BID #180 tab 11/06/19 01/26/20 Rx Sophiris BioTouch Ultra Blue Test Strip #200 ea NS 11/25/19 Rx atenolol 50 mg tablet 75 mg PO BID #270 tab 01/15/20 01/26/20 Rx esomeprazole magnesium 40 mg 40 mg PO DAILY #90 cap 01/15/20 01/26/20 Rx capsule,delayed release ezetimibe 10 mg-simvastatin 40 mg 1 tab PO PM #90 tab 01/15/20 01/26/20 Rx tablet lisinopril 20 mg tablet 20 mg PO DAILY #90 tab 01/15/20 01/26/20 Rx nifedipine 30 mg tablet,extended 30 mg PO DAILY #90 tab 01/15/20 01/26/20 Rx release 24 hr rivaroxaban 20 mg tablet 20 mg PO DAILY #90 tab 01/15/20 01/26/20 Rx furosemide 40 mg PO QAM #30 tab 01/27/20 Rx mirtazapine 15 mg PO HS #30 tab 01/27/20 Rx Patient History Medical History (Updated 01/27/20 @ 13:03 by Denise Sanchez PA-C) Acute on chronic diastolic CHF (congestive heart failure) Candidal intertrigo Fracture of left distal radius Fracture, humerus closed Hyperkalemia Hypoxia Influenza Left knee DJD Pulmonary edema Rupture of UCL of right thumb UTI (urinary tract infection) Surgical History H/O oral surgery No history of previous surgery S/P knee surgery S/P wisdom tooth extraction Family History Mother Myocardial infarction Father Myocardial infarction Other No pertinent family history Denies family history of Ovarian cancer Prostate cancer Breast cancer Colorectal cancer Social History Smoking Status: Former smoker Hx Alcohol Use: No Hx Substance Use: No Preferred Language: Sinhala Communication Ability: Effective Visual Impairment: No Limitations Hearing Ability: Normal Beliefs That Will Affect Care: None marital status: / Current Living Situation: Alone current occupational status: retired Feels Safe at Home: Yes Dental Care, Regularly: No Physical Activity Frequency: 3-4 Times per Week Seatbelt Use: always Sunscreen Use: No Review of Systems Review of Systems: All systems reviewed & are unremarkable except as noted in HPI & below Physical Exam Physical Exam: Constitutional: Alert, oriented, in no acute distress HEENT: Head is atraumatic and normocephalic. EOMs intact. Sclera anicteric. Face is symmetric. No perioral cyanosis. Mucous membranes moist. Neck: Supple, no JVD Pulmonary: Normal respiratory effort, mild crackles noted on the right otherwise clear to auscultation. Cardiac: Regular rate and rhythm. Normal S1 and S2, no gallops, no rubs, no murmurs Extremities: 2+ radial pulses bilaterally. 2+ posterior tibialis pulses bilaterally. No pitting edema. No cyanosis or clubbing. Abdomen: Normal bowel sounds, soft, non-tender, no abdominal mass palpated Skin: Normal skin color, turgor, and pigmentation, no rash, no skin lesions Neurological: Patient is awake, alert, and oriented. Pleasant and cooperative. Answers questions appropriately. Speech is clear. Normal movement in all 4 ex tremities. Results & Data ([facility]) Vital Signs (Past 12 Hours) Vital Signs Temp Pulse Resp BP Pulse Ox 01/27/20 11:45 97.9 F 63 18 114/68 95 08/26/20 09:33 91 01/27/20 07:27 98.6 F 61 18 118/70 91 01/27/20 04:04 98.1 F 52 L 18 108/64 94 Coding Level of Care Code 72268 Inpt Consult Level 3 Diagnoses Acute on chronic diastolic CHF (congestive heart failure) I50.33 Pulmonary hypertension I27.20 Obesity E66.9
--- NOTE | 2020-01-27 13:07 | Discharge Summary ---
Date of Service January 27, 2020 Admission HPI Per Admitting Provider Samira Norton is a 84 y/o female with past medical hx of hypertension, hypercholesterolemia, paroxysmal atrial fibrillation on Xarelto, chronic diastolic CHF (March 2018), CAD (IMI, RCA PTCA, 1989), insomnia who presented to [facility] for Dyspnea. She noted onset of shortness of breath around 6pm today. She notes it was gradual. She had no chest pain, cough at onset, nausea, vomiting. She doesn't watch her salt intake. She had subs (sandwhiches for lunch today). She notes she doesn't add salt to food but acknowledges that foods can contain salt. She has no recent illness. She noted the shortness of breath was worse when she was moving about the house and did not get better with rest. She denies any worsening leg swelling. She notes she weighs herself daily and has been 179 pounds. She follows with [facility] Card and saw them in November 2019 with note - The patient follows daily weights at home and notes a dry weight of 177 pounds with a trigger weight of 180 pounds. She typically takes hydrochlorothiazide 12.5 mg daily with an additional dose when necessary for weight gain. She denies needing to take any additional doses of HCTZ. She notes she feels better with Lasix 40mg IV here in ED. She notes she has insomnia and takes Ambien everynight. She also takes Ativan BID. She is requesting medication for sleep including an ambien. Echo 03/14/18 - Normal LV size, mild concentric LVH, EF 50-55% - inferior akinesis at the base - dilated RV w/borderline function - Mild to moderate eccentric mitral regurg and tricuspid regurg - severe pulmonary HTN, estimated PASP 60-65mmHg. Principal Diagnosis Acute on chronic diastolic CHF, severe pulmonary hypertension, acute respiratory failure with hypoxia Discharge Exam Constitutional WD/WN, vitals as above Eyes + anicteric sclerae Neck trachea midline, no thyromegaly Respiratory normal respiratory effort; no labored breathing Auscultation: + crackles (Mild at the bases bilaterally); no rhonchi and no wheezes Cardiovascular Rate/Rhythm: regular rate and + irregularly irregular Heart Sounds: no murmur Extremities: no edema Chest (Breasts) Chest: normal inspection of chest Gastrointestinal (Abdomen) normal bowel sounds, soft, nontender, no hepatosplenomegaly Musculoskeletal Extremities: extremities normal to inspection; no cyanosis and no clubbing Skin no rashes, warm and dry Neurologic moves all extremities and awake; no focal motor deficits Psychiatric A+Ox3, euthymic affect Lymphatic no lymphedema Discharge Data Allergies Allergy/AdvReac Type Severity Reaction Status Date / Time Iodinated Contrast Media Allergy Intermediate HIVES Verified 01/26/20 01:56 penicillin G Allergy Unknown HAPPENED Verified 01/26/20 01:56 MANY YEARS AGO Consultations 01/26/20 01:53 ED Decision to Admit Stat 01/26/20 13:38 [facility] [place] CHF Program Referral Routine Procedures Performed Echocardiogram Ordered Studies Chest x-ray x2 Hospital Course (1) Acute on chronic diastolic CHF (congestive heart failure): Samira Norton is a 84 y/o female with past medical hx of hypertension, hypercholesterolemia, paroxysmal atrial fibrillation on Xarelto, chronic diastolic CHF (March 2018), CAD (IMI, RCA PTCA, 1989), insomnia who presented to [facility] for Dyspnea secondary to acute on chronic diastolic CHF. Pulm edema on CXR, proBNP significantly elevated, and now feeling much improved s/p IV diuretics. Lost weight and neg I/Os ECHO now with low normal LVEF 45-50% decreased from previous, basal inferior wall akinesis and distal septal hypokinesis unchanged, mod-severe TR, severe Pulm HTN Convert from IV lasix to lasix 40mg po qday and dc home HCTZ f/u with CHF clinic is planned -needs outpt Pulm f/u for severe PHTN -counseled on low Na+ diet, daily weights, fluid restriction (2) Hypoxia: Requiring 4LNC upon admission with pulm edema on CXR ProBNP elevated, PCT negative and not infectious process in lungs, no cough or fevers -diuresed and improved, weaned to room air (3) CAD (coronary artery disease): With h/o IMI, RCA PTCA, 1989 No chest pain here -continue atenolol, Vytorin, lisinopril, and Xarelto -not on ASA--> unsure why not? F/u with PCP and Cardiology (4) Essential hypertension: BPs controlled -continue home lisinopril 20mg, atenolol, nifedipine dc home HCTZ as starting lasix instead (5) Anxiety: advised against taking lorazepam at home in elderly given risk of falls -dc ativan started Remeron (6) GERD (gastroesophageal reflux disease): continue PPI (7) Insomnia: Discussed worry about being on ambien and Ativan being 84 y/o. Pt agreeable to stopping Ambien--> she did not take it here x 2 nights and did well on Remeron 15mg hs -continue Remeron for anxiety but also helps with sleep (8) Controlled type 2 diabetes with neuropathy: continue home meds (9) Obesity: BMI 34.2 needs weight loss counseling (10) Paroxysmal atrial fibrillation: Chronic atrial fibrillation --rates controlled to bradycardic at times -continue atenolol and Xarelto (11) Pulmonary hypertension: Noted to be severe on ECHO both in 2018 and now Has a h/o smoking but quit 40 years ago Never had PFTs, sleep study, RHC -have arranged for outpt f/u with Pulm no O2 requirement during daytime continue diuresis (12) Severe tricuspid regurgitation: noted on ECHO, f/u with Cardio Dispo-stable for dc to home Total Time Total Time Spent Total Time Spent (In Minutes): 45 min Total Time Includes: Examination of the Patient, Discharge Planning and Medication Reconciliation Discharge Plan Discharge Items Patient Disposition: Home - Home Health Services Reason For Visit: ACUTE CHF Discharge Diagnosis: Acute on chronic diastolic CHF, severe pulmonary hypertension, acute respiratory failure with hypoxia Condition on Discharge: Good Activity: As commented below Lifting: Gradually increase as tolerated Bathing: No limitations Exercise/Sports: Gradually increase as tolerated Weightbearing: Full weightbearing Non-emergency contact: Primary Care Provider, Hog Confinement System Manager and Website Project Manager Call non-emergency contact if: you have any medication questions and your symptoms worsen Follow-up/Referrals: Neo Garcia MD [Physician] - 02/02/20 10:30 am (You have a cardiology appointment on 02/01 at 10:30. Please call [phone] if you can not keep this appointment.) Gurmeet Smith DO [Primary Care Provider] - 02/11/20 9:20 am (You have an appointment with Michael Tapia on 02/10 at 9:20. Please call [phone] if you can not keep this appointment.) Chris Multani MD [Physician] - 09/02/20 10:00 am (A new patient appt. has been scheduled for you with Dr. Multani, Pulmonology on 02/02 at 10:00am.) Diet: Low Sodium (2gm) Fluids: 1800ml (7 cups) Addtl Attending Provider Instructions: You are admitted for congestive heart failure and was treated with IV Lasix to get extra fluid off. Please continue taking Lasix 40 mg by mouth once daily and follow-up with Ms. Gamboafer Laura from the CHF clinic as scheduled. You will stop taking your HCTZ as you will now be on Lasix as you are diuretic. You were found to have severe pulmonary hypertension and should follow-up with the engagement specialist as has been scheduled for you for further evaluation. You may need pulmonary function testing of the lungs and an overnight sleep study as part of the work-up for this. You are also since discontinued from your Ambien and Ativan will be taking Remeron instead for sleep at nighttime which is a safer drug for you. Call your Primary Care doctor if any of the following symptoms or problems start or get worse: * Shortness of breath or difficulty breathing * Wake up at night short of breath * Chest pain * Cough * Swelling of your hands, feet, or legs * More fatigued or tired with your normal activity * Palpitations - sudden fast heart beats WEIGHT * Weigh yourself every morning after using the bathroom. * Use the same scale. * Wear the same amount of clothing. * Write your weight down on a chart. * Call your Primary Care doctor if you gain more than 2-3 pounds in 1-2 days. MEDICATIONS * Use this discharge instruction sheet for medication instructions. * Take your medications at the time your doctor ordered. * Do not skip a dose of your medicines. * If you miss a dose of medicine, take it as soon as possible, but DO NOT DOUBLE A DOSE. * Read your medicine information when you get home. * Know all of the side effects of your medicine. If in doubt, ask your pharmacist * Call your Primary Care doctor's office if you have any side effects. * Be sure all of your doctors know what medicine and herbs you take (including cold, flu, and herbal medicine). Take the following with you to your follow-up doctor appointments: * Weight Chart * Medication List * List of questions Do not drink excessive alcohol, beer or wine. Pending Studies at Discharge: No Stand-Alone Forms: [facility], Smoking Cessation Medications and DC Order Prescriptions: New furosemide 40 mg Tablet 40 mg PO QAM Qty: 30 RF: 0 mirtazapine 15 mg Tablet 15 mg PO HS Qty: 30 RF: 0 Continued glimepiride 2 mg tablet 4 mg PO BID 90 Days Qty: 360 RF: 3 (DME) OneTouch Ultra Blue Test Strip Strip See Dose Instructions .ROUTE .MEDSUPPLY Qty: 200 RF: 11 atenolol 50 mg tablet 75 mg PO BID Qty: 270 RF: 3 esomeprazole magnesium 40 mg capsule,delayed release(DR/EC) 40 mg PO DAILY Qty: 90 RF: 3 ezetimibe-simvastatin 10-40 mg tablet 1 tab PO PM Qty: 90 RF: 3 lisinopril 20 mg tablet 20 mg PO DAILY Qty: 90 RF: 3 nifedipine 30 mg tablet extended release 24hr 30 mg PO DAILY Qty: 90 RF: 3 Xarelto 20 mg tablet 20 mg PO DAILY Qty: 90 RF: 3 nitroglycerin [Nitrostat] 0.4 mg tablet, sublingual 0.4 mg Sublingual DIRECTED PRN (Reason: Chest Pain) Qty: 7 RF: 5 coenzyme Q10 10 mg capsule 10 mg PO DAILY RF: 0 metformin 500 mg tablet 500 mg PO BID Qty: 180 RF: 3 cyanocobalamin (vitamin B-12) [Vitamin B-12] 1,000 mcg Tablet 1,000 mcg PO DAILY RF: 0 magnesium 250 mg Tablet 250 mg PO DAILY RF: 0 cholecalciferol (vitamin D3) [Vitamin D3] 1,000 unit Capsule 1,000 - 2,000 unit PO DAILY RF: 0 Centrum Silver 0.4-300-250 mg-mcg-mcg Tablet 1 tab PO DAILY RF: 0 calcium carbonate-vitamin D3 [Calcium 600 + D(3)] 600 mg(1,500mg) -400 unit Tablet 1 tab PO DAILY RF: 0 Discontinued lorazepam 0.5 mg tablet 0.5 mg PO BID PRN (Reason: Anxiety) Qty: 180 RF: 0 zolpidem 10 mg tablet 10 mg PO HS PRN (Reason: Sleep) Qty: 90 RF: 0 hydrochlorothiazide 12.5 mg capsule 12.5 mg PO DAILY Qty: 90 RF: 3 Discharge Orders: Discharge Order (Routine); Ordered 01/27/20 Ordered By: Sheyla Javier Admission Data Admit Date/Time: 01/26/20 03:06 Attending Provider: Sheyla Javier Admit Provider: Jesse Kelly Primary Care Provider: Gurmeet Smith Other Providers: Lidya Gallardo ; [facility],Home Healthcare ; Denise Sanchez Other Interventions: Discharge Summary Assessment (RN) Last Done: 01/27/20 13:24 Coding Level of Care Code 20055 OBS Care - Discharge Diagnoses Acute on chronic diastolic CHF (congestive heart failure) I50.33 Hypoxia R09.02 CAD (coronary artery disease) I25.10 Essential hypertension I10 Anxiety F41.9 GERD (gastroesophageal reflux disease) K21.9 Insomnia G47.00 Controlled type 2 diabetes with neuropathy E11.40 Obesity E66.9 Paroxysmal atrial fibrillation I48.0 Pulmonary hypertension I27.20 Severe tricuspid regurgitation I07.1
== END 2020-01-27 15:11 | disposition home health service (06) ==
LOC: 2N 00:22 → ED 00:22 → SUATTDRO 03:06 → 2N 03:32

== ENCOUNTER 2021-03-27 09:57 | Inpatient (IN) ==
[2021-03-27] MEDS ORDERED: ONDANSETRON INJ 2 MG/ML 2 ML VIAL IV STA (10:57)
[2021-03-27] MEDS ORDERED: SODIUM CHLORIDE 0.9% 500 ML IV SCH (11:00)
[2021-03-27] MEDS ORDERED: SODIUM CHLORIDE 0.9% 1000ML 1,000 ML IV SCH (11:00)
--- NOTE | 2021-03-27 11:25 | XRay Report ---
XR chest 1V portable HISTORY: 85 years-old Female weakness, cough, pending covid acute cough with weakness COMPARISON: Chest radiograph 01/26/2020 TECHNIQUE: Portable AP view the chest FINDINGS: Cardiac silhouette is enlarged. Calcific plaque of the thoracic aorta. Mild pulmonary vascular conges tion. No pneumothorax, large pleural effusion or lobar airspace consolidation. Minimal left lung base opacities. Degenerative changes of the shoulders and spine. IMPRESSION: 1. Cardiomegaly with pulmonary vascular congestion. 2. Minimal left lung base opacities are likely atelectatic. A mild pneumonitis is considered less lik dm. ACT 112: Negative or not required by law. The above report was generated using voice recognition software. It may contain grammatical, syntax o r spelling errors. Electronically signed by: Asa Martinez M.D. 03/27/2021 11:23 AM
[2021-03-27 12:09] LABS: Basophils # (auto) 0.01 K/uL (0-0.2); Basophils % (auto) 0.1 %; Hematocrit (blood only) 39.3 % (37-47); Hemoglobin 12.7 g/dL (12.0-16.0); Immature Granulocytes # (auto) 0.01 K/uL (0.00-0.02); Immature Granulocytes % (auto) 0.1 %; Lymphocytes # (auto) 1.41 K/uL (1.2-3.4); Lymphocytes % (auto) 17.2 %; Mean Corpuscular Hemoglobin 29.3 pg (25-34); Mean Corpuscular Hgb Conc 32.3 g/dL (32-36); Mean Corpuscular Volume 90.8 fL (80-100); Mean Platelet Volume 9.7 fL (7.4-10.4); Monocytes # (auto) 0.96 K/uL (0.11-0.59); Monocytes % (auto) 11.7 %; Neutrophils # (auto) 5.81 K/uL (1.4-6.5); Neutrophils % (auto) 70.9 %; Platelet Count 205 K/uL (130-400); RDW Standard Deviation 61.1 fL (36.4-46.3); Red Blood Count 4.33 M/uL (4.2-5.4)
[2021-03-27 12:33] LABS: Albumin Level 3.1 gm/dl (3.4-5.0); BUN Creatinine Ratio 25.9 (10-20); Creatinine Clr Calc Pharmacy 24.3 ml/min; Est GFR (African American) 34.2 ml/min; Est GFR (Non-African American) 29.5 ml/min; Magnesium 2.8 mg/dl (1.8-2.4); Potassium 4.6 mmol/L (3.5-5.1)
[2021-03-27 12:55] LABS: Appearance Urine Cloudy (Clear); Bacteria Urine Automated 4+ (Negative); Bilirubin Urine Negative (Negative); Blood Urine 2+ (Negative); Color Urine Dark Yellow; Glucose Urine UA 2+ (Negative); Ketones Urine Trace (Negative); Leukocyte Esterase Urine 1+ (Negative); Nitrite Urine Negative (Negative); Protein Urine 2+ (Negative); Specific Gravity Urine 1.021 (1.000-1.030); Urobilinogen Urine Negative (Negative); WBC Urine Automated >30 /hpf (0-5)
[2021-03-27 12:57] LABS: Albumin Globulin Ratio 0.7 (0.9-2); Bilirubin,Total 0.3 mg/dl (0.2-1); Globulin 4.3 gm/dl (2.5-4.0); Thyroid Stimulating Hormone 0.888 uIu/ml (0.300-4.500); Total Protein 7.4 gm/dl (6.4-8.2); Troponin I 2.75 ng/ml (0-0.045)
[2021-03-27] MEDS ORDERED: NITROGLYCERIN 2% OINTMENT 30GM TUBE EXT STA (13:19)
[2021-03-27] MEDS ORDERED: FUROSEMIDE 40 MG/4 ML VIAL IV STA (13:19)
[2021-03-27] MEDS ORDERED: cefTRIAXone SODIUM 2,000 MG/70 ML BAG IV STA (14:18)
[2021-03-27] MEDS ORDERED: dexAMETHasone**PF** 10 MG/ML VIAL IV ONE (14:18)
--- NOTE | 2021-03-27 14:26 | History & Physical Report ---
Date of Service March 27, 2021 Assessment & Plan (1) COVID: Plan: Samira is an 85-year-old female with a past medical history of pulmonary hypertension, diastolic CHF, paroxysmal A. fib, type 2 diabetes with neuropathy, GERD, hypertension, anxiety, and coronary artery disease who presented to the emergency department with weakness and hypoxia and who was found to be Covid positive. She has not had chest pain, but has had an elevated troponin of 2.0 on admission. Acute hypoxic respiratory failure 2/2 Covid pneumonia +/- Acute on Chronic diastolic CHR Day 3 of illness No leukocytosis Covid positive CXR: Cardiomegaly with pulmonary vascular congestion, trace left lung base opacities likely atelectatic Requiring 3 L nasal cannula oxygen, no home requirement Creatinine 1.57, baseline 1.31.5 Troponin 2.750, BNP 8802 TSH normal CRP pending No transaminitis - Severe COVID PNA requiring supplemental oxygen, not on BiPAP/HFNC. Remdesivir deferred for GFR less than 30 (2) NSTEMI (non-ST elevated myocardial infarction): Plan: History of diastolic CHF, CXR with evidence of vascular congestion Troponin 2.7 on admit, no ST wave changes on EKG Clinically asymptomatic, no chest pain Continue beta-saul, JOSE held for elevated creatinine TTE pending Cards consulted (3) CAD (coronary artery disease): Plan: NSTEMI No chest pain Anticoagulated on rivaroxaban EKG on admission A. fib, no territorial ST wave changes Echo pending Troponins trended (4) Anxiety: Plan: Continue home Ativan (5) Controlled type 2 diabetes with neuropathy: Plan: Lantus 8 units twice daily SSI CF 50, ratio 17 Glycemic consult placed for type II DM with steroid treatment and NSTEMI A1c pending (6) Paroxysmal atrial fibrillation: Plan: Anticoagulated with rivaroxaban Rate controlled, continue atenolol 75 mg p.o. twice daily (7) Hypoxia: Plan: 2/2 Covid with multifactorial underlying CHF, see above (8) Asymptomatic bacteriuria: Plan: UTI versus asymptomatic bacteriuria 4+ bacteria on UA Received empiric Rocephin in ER UC pending Patient asymptomatic, no urinary symptoms Defer additional treatment at this time, follow clinically (9) Elevated serum creatinine: Plan: ? Prerenal azotemia versus MARIMAR Baseline creatinine approximately 1.31.5, elevated to 1.57 JOSE held Evidence of congestive failure, TTE and NSTEMI eval as above Continue Lasix daily at this time History of Present Illness Primary Care Provider: Gurmeet Smith DO Samira is an 85-year-old female with a past medical history of pulmonary hypertension, diastolic CHF, paroxysmal A. fib, type 2 diabetes with neuropathy, GERD, hypertension, anxiety, and coronary artery disease who presented to the emergency department with weakness and hypoxia and who was found to be Covid positive. She has not had chest pain, but has had an elevated troponin of 2.0 on admission. Samira reports she came in because her daughter wanted her to come in. Started feeling sick 2 days ago. Developed a cough productive for some yellow-whie sputum. Strong cough all night. +Nausea. 1x episode of emesis on Saturday, no blood or bile. Temp at home 99.9* at home, had chills on Saturday. No change in taste or smell. Does not feel short of breath. Has not been short o breath, but got lightheaded when moving quickly to the bathroom. Has not eaten much since saturday except jello, but is hungry. No diarrhea. No abdominal pain. No recent sick conacts. Had 2x doses of Spreadsave vaccinations. Last one was 'a w hile ago' and was scheduled for a booster on Apr 10 Hx CHF, follows with Linda Sanchez and Dr. Garcia. Had a DE in 1989, felt like lloyd chapman. Medical History: Reviewed Medications: Reviewed. has not taken yet today. Surgical History: Reviewed Allergies: Reviewed. PCN, contast dye --> hives. Social History: No tobacco product,alcohol, or rec drug use. Code Status: DNR/DNI. Allergies Allergy/AdvReac Type Severity Reaction Status Date / Time Iodinated Contrast Media Allergy Intermediate HIVES Verified 02/13/21 13:06 penicillin G Allergy Unknown HAPPENED Verified 02/13/21 13:06 MANY YEARS AGO Home Medications Medication Instructions Recorded Confirmed Type calcium carbonate 600 mg (1,500 1 tab PO DAILY 03/13/18 02/13/21 History mg)-vitamin D3 400 unit tablet (Calcium 600 + D(3)) cholecalciferol (vitamin D3) 25 1,000 - 2,000 unit PO DAILY 03/13/18 02/13/21 History mcg (1,000 unit) capsule (Vitamin D3) magnesium 250 mg tablet 250 mg PO DAILY 03/13/18 02/13/21 History nitroglycerin 0.4 mg sublingual 0.4 mg SUBLINGUAL DIRECTED PRN 03/02/19 02/13/21 Rx tablet (Nitrostat) #7 tab atenolol 50 mg tablet 75 mg PO BID #270 tab 01/15/20 02/13/21 Rx coenzyme Q10 100 mg capsule 100 mg PO DAILY 02/02/20 02/13/21 History cyanocobalamin (vitamin B-12) 2,500 mcg SUBLINGUAL DAILY 02/02/20 02/13/21 History 2,500 mcg sublingual tablet lorazepam 0.5 mg tablet 0.5 mg PO DAILY PRN 02/02/20 02/13/21 History vitamin B complex 1 cap PO DAILY 02/02/20 02/13/21 History Jobst Stockings (misc) #1 ea 02/23/20 01/12/21 Rx OUTSIDE motorized scooter #1 ea 03/15/20 01/12/21 Rx polyethylene glycol 3350 17 17 g PO DAILY PRN #119 g 08/08/20 02/13/21 Rx gram/dose oral powder (Miralax) glimepiride 2 mg tablet 4 mg PO BID 90 Days #360 tab 10/13/20 02/13/21 Rx furosemide 20 mg tablet 20 mg PO DAILY #90 tab 01/09/21 02/13/21 Rx lisinopril 20 mg tablet 20 mg PO DAILY #90 tab 01/09/21 02/13/21 Rx nifedipine 30 mg tablet,extended 30 mg PO DAILY #90 tab 01/09/21 02/13/21 Rx release 24 hr rivaroxaban 15 mg tablet (Xarelto) 15 mg PO DAILY #90 tab 01/09/21 02/13/21 Rx empagliflozin 25 mg tablet 25 mg PO DAILY #90 tab 01/13/21 02/13/21 Rx (Jardiance) esomeprazole magnesium 40 mg 40 mg PO DAILY #90 cap 01/30/21 02/13/21 Rx capsule,delayed release blood sugar diagnostic #400 ea 02/27/21 Rx ezetimibe 10 mg-simvastatin 40 mg 1 tab PO PM 03/27/21 03/27/21 History tablet (Vytorin) mirtazapine 15 mg tablet (Remeron) 15 mg PO HS 03/27/21 03/27/21 History dxexohplafij-Vc-kcmt-minerals 18 1 tab PO DAILY 03/27/21 03/27/21 History mg-0.4 mg tablet Past Med/Surg History Medical History Acid reflux Acute on chronic diastolic CHF (congestive heart failure) Candidal intertrigo Diabetes Fracture of left distal radius Fracture, humerus closed Heart attack Hyperkalemia Hypoxia Influenza Irregular heartbeat Left knee DJD Pulmonary edema Pulmonary hypertension Rupture of UCL of right thumb Seasonal allergies Severe tricuspid regurgitation UTI (urinary tract infection) Surgical History H/O oral surgery No history of previous surgery S/P knee surgery S/P wisdom tooth extraction Family History Mother Myocardial infarction Father Myocardial infarction Other Hearing loss Heart disease No pertinent family history Denies family history of Ovarian cancer Prostate cancer No family history of adverse response to anesthesia No family history of bleeding disorder Allergies Breast cancer Colorectal cancer Cancer Hypertension Stroke Asthma Social History Smoking Status: Former smoker Tobacco Type: Cigarettes Second Hand Exposure: No; Hx Alcohol Use: No Hx Substance Use: No Preferred Language: Georgian Communication Ability: Effective Visual Impairment: No Limitations Hearing Ability: Normal Beliefs That Will Affect Care: None marital status: / Current Living Situation: Alone current occupational status: retired How many Children do You have: 1 Feels Safe at Home: Yes Childhood Exposure to Second-Hand Smoke: No caffeine: No Dental Care, Regularly: No Physical Activity Frequency: 3-4 Times per Week Seatbelt Use: always Sunscreen Use: No Assistive Devices: Glasses Review of Systems Review of Systems: All systems reviewed & are unremarkable except as noted in HPI & below Physical Exam Physical Exam: General: A&Ox3. NAD. Cooperative. HEENT: Atraumatic, normocephalic. Pulm: Slight end expiratory wheeze, bibasilar crackles without rales. Symmetrical chest rise. No increase work of breathing. No respiratory distress. Cardiac: RRR, -mrg. Radial pulses intact and symmetrical. No lower leg edema. On 3 L nasal cannula Abdominal: Nontender, nondistended, soft. BS present. Extremities: Warm, dry, moving all extremities equally. Results & Data Results & Data ([facility]) Vital Signs (Past 12 Hours) Vital Signs Temp Pulse Pulse Resp BP BP Pulse Ox 03/27/21 12:00 70 18 181/92 H 98 03/27/21 11:00 76 20 03/27/21 10:38 81 L 03/27/21 10:04 36.9 C 72 18 137/60 91 PG Care Time/CCT Total # of Minutes Spent Total Time Spent with Patient: Total time spent is greater than 50% in coordination of care (as documented) at patient's floor/unit and/or counseling patient: Coding Level of Care Code 98158 Initial Inpt Care Lvl 3 Diagnoses NSTEMI (non-ST elevated myocardial infarction) I21.4 CAD (coronary artery disease) I25.10 Anxiety F41.9 Controlled type 2 diabetes with neuropathy E11.40 Paroxysmal atrial fibrillation I48.0 Hypoxia R09.02 COVID U07.1 Asymptomatic bacteriuria R82.71 Elevated serum creatinine R79.89
[2021-03-27] MEDS ORDERED: PHARMACY GLYCEMIC MGMT CONSULT PRN (17:02)
[2021-03-27] MEDS ORDERED: GLUCAGON FOR INJ 1 MG VIAL SQ PRN (17:02)
[2021-03-27] MEDS ORDERED: DEXTROSE 50% 50 ML SYRINGE IV PRN (17:02)
[2021-03-27] MEDS ORDERED: LORazepam 0.5 MG TAB PO PRN (17:02)
[2021-03-27] MEDS ORDERED: GLUCOSE 40% GEL 15 GM TUBE PO PRN (17:02)
[2021-03-27] MEDS ORDERED: GLUCOSE 10 TABS/TUBE PO PRN (17:02)
[2021-03-27] MEDS ORDERED: CARBOHYDRATES FOR HYPOGLYCEMIA PO PRN (17:02)
[2021-03-27] MEDS: RIVAROXABAN 15 MG TAB PO SCH (18:34)
[2021-03-27] MEDS: INSULIN ASPART 100 UNITS/ML 3 ML PEN SC SCH ×2 (18:34→21:30)
--- NOTE | 2021-03-27 20:09 | Emergency Department Note ---
Impression & Plan COVID-19, Non-ST elevation TN (NSTEMI), CHF (congestive heart failure), Weakness, Acute UTI (urinary tract infection) ED Provider Note INFORMANT: Patient ED PROVIDER(S): Jose Martin Donaldson MD CHIEF COMPLAINT: Weakness and flulike symptoms PLAN: Disposition: Admitted Condition: Guarded Outpatient prescription management: none Referral: None MEDICAL DECISION MAKING: Patient presented with complaints. IV was established. ECG was performed and revealed atrial fibrillation. No ST elevation. X-ray revealed findings concerning for mild CHF as well as pneumonitis. Patient was requiring supplemental oxygen. Covid testing was performed and was positive. Patient had an elevated BNP and significant elevation of troponin concerning for non-ST elevation TN and CHF. Nitropaste applied. Patient is already anticoagulated. Patient given IV Lasix. IV Decadron was given due to hypoxia and therapy. Consultation was made did not any hospital service. Patient was evaluated in the ER for further management. Triage Nursing notes reviewed and agree them. Vital Signs: reviewed and remarkable for hypoxia Differential diagnosis: 19, reactive airway disease, pneumonia, pneumothorax, COPD, CHF, infections, cardiac ischemia, pulmonary embolism, musculoskeletal, gastrointestinal, as well as other pathologies. Diagnostics interpreted by me: EC-lead ECG was atrial fibrillation at [address] No [address] elevation or depression. No PVCs.. Cardiac Monitoring: Cardiac monitoring ordered by me: The patient was placed on continuous cardiac monitoring and observed. It revealed atrial fibrillation at 66 beats per minute without ectopy or evidence of dysrhythmia. Imaging studies: Chest x-ray as above. HPI: The patient is a 85 year old female who presents to the Emergency Room with complaints of weakness. This started 5 days and is just. The patient also notes the following associated symptoms, nausea, vomiting or diarrhea, cough, fever, chills. The patient has no known relieving factors. Current pain is rated as 0/10. Patient is pending Covid testing. Pt denies LOC, headaches, diaphoresis, visual changes, neck pain, chest pain, breathing difficulties, a bdominal pain, back pain, melena, hematochezia, urinary symptoms, numbness, lymphadenopathy, rash, or other complaints. ROS: See above HPI for pertinent positives & negatives. A total of 10 systems reviewed and were otherwise negative. PAST MEDICAL HISTORY:See Below , CHF diabetes PAST SURGICAL HISTORY:See Below, FAMILY HISTORY:See Below SOCIAL HISTORY:See Below, retired HOME MEDICATIONS:See Below ALLERGIES:See Below VITALS:See Below PHYSICAL EXAMINATION: GENERAL: Awake, tired-appearing, in no distress HENT: Normocephalic, atraumatic. Oropharynx unremarkable. EYES: Normal conjunctiva. Sclera non-icteric. NECK: Inspection normal. Non-tender. Supple. No nuchal rigidity. FROM. No masses. RESPIRATORY: Few scattered crackles otherwise clear to auscultation. No wheezes. Normal respiratory effort. CARDIAC: Normal rate. Irregular rhythm. No murmurs. No rubs. Extremities warm and well perfused. Pulses equal. No JVD. GI: Soft, non-distended. No tenderness to palpation. No rebound or guarding. No masses. RECTAL: Deferred. MUSCULOSKELETAL: Atraumatic. Chest examination reveals no tenderness. The back is symmetrical on inspection without obvious abnormality. There is no CVA tenderness to palpation. No joint edema. LOWER EXTREMITIES: Calves are equal size bilaterally and non-tender. Minimal edema. No discoloration. NEURO: Normal sensorium. No sensory or motor deficits noted. SKIN: No rash or jaundice noted. CRITICAL CARE: I have personally spent greater than 35 minutes of critical care time in the direct management of this patient. This includes bedside care, interpretation o f diagnostic studies, and testing, discussion with consultants, patient, and family members, and other required patient management activities. These minutes are in excess of all separately billable procedures. Jose Martin Donaldson MD Past Med/Surg History Medical History Acid reflux Acute on chronic diastolic CHF (congestive heart failure) Candidal intertrigo Diabetes Fracture of left distal radius Fracture, humerus closed Heart attack Hyperkalemia Hypoxia Influenza Irregular heartbeat Left knee DJD Pulmonary edema Pulmonary hypertension Rupture of UCL of right thumb Seasonal allergies Severe tricuspid regurgitation UTI (urinary tract infection) Surgical History H/O oral surgery No history of previous surgery S/P knee surgery S/P wisdom tooth extraction Family History Mother Myocardial infarction Father Myocardial infarction Other Hearing loss Heart disease No pertinent family history Denies family history of Ovarian cancer Prostate cancer No family history of adverse response to anesthesia No family history of bleeding disorder Allergies Breast cancer Colorectal cancer Cancer Hypertension Stroke Asthma Social History Smoking Status: Former smoker Tobacco Type: Cigarettes Second Hand Exposure: No; Do You Dip or Chew Tobacco: No; Hx Alcohol Use: No Hx Substance Use: No Preferred Language: French Communication Ability: Effective Visual Impairment: No Limitations Hearing Ability: Normal Hospitality Host Required: No Beliefs That Will Affect Care: None marital status: / Current Living Situation: Alone current occupational status: retired How many Children do You have: 1 Other Information That Helps Us Care for You: No Feels Safe at Home: Yes Safety Concerns: Feels Safe At This Time Childhood Exposure to Second-Hand Smoke: No caffeine: No Dental Care, Regularly: No Physical Activity Frequency: 3-4 Times per Week Seatbelt Use: always Sunscreen Use: No Assistive Devices: Denture - Upper, Denture - Lower, Glasses and Oxygen - Continuous Allergies Allergies Allergy/AdvReac Type Severity Reaction Status Date / Time Iodinated Contrast Media Allergy Intermediate HIVES Verified 02/13/21 13:06 penicillin G Allergy Unknown HAPPENED Verified 02/13/21 13:06 MANY YEARS AGO Home Meds Home Medications Medication Instructions Recorded Confirmed calcium carbonate 600 mg (1,500 1 tab PO DAILY 03/13/18 03/27/21 mg)-vitamin D3 400 unit tablet (Calcium 600 + D(3)) cholecalciferol (vitamin D3) 25 1,000 unit PO DAILY 03/13/18 03/27/21 mcg (1,000 unit) capsule (Vitamin D3) magnesium 250 mg tablet 250 mg PO DAILY 03/13/18 03/27/21 coenzyme Q10 100 mg capsule 100 mg PO DAILY 02/02/20 03/27/21 cyanocobalamin (vitamin B-12) 2,500 mcg SUBLINGUAL DAILY 02/02/20 03/27/21 2,500 mcg sublingual tablet lorazepam 0.5 mg tablet 0.5 mg PO DAILY PRN 02/02/20 03/27/21 vitamin B complex 1 cap PO DAILY 02/02/20 03/27/21 ezetimibe 10 mg-simvastatin 40 mg 1 tab PO PM 03/27/21 03/27/21 tablet (Vytorin) mirtazapine 15 mg tablet (Remeron) 15 mg PO HS 03/27/21 03/27/21 frbuqttxucsh-Xj-yfkh-minerals 18 1 tab PO DAILY 03/27/21 03/27/21 mg-0.4 mg tablet Previous Rx's Medication Instructions Recorded nitroglycerin 0.4 mg sublingual 0.4 mg SUBLINGUAL DIRECTED PRN 03/02/19 tablet (Nitrostat) #7 tab atenolol 50 mg tablet 75 mg PO BID #270 tab 01/15/20 Jobst Stockings (misc) #1 ea 02/23/20 OUTSIDE motorized scooter #1 ea 03/15/20 polyethylene glycol 3350 17 17 g PO DAILY PRN #119 g 08/08/20 gram/dose oral powder (Miralax) glimepiride 2 mg tablet 4 mg PO BID 90 Days #360 tab 10/13/20 furosemide 20 mg tablet 20 mg PO DAILY #90 tab 01/09/21 lisinopril 20 mg tablet 20 mg PO DAILY #90 tab 01/09/21 nifedipine 30 mg tablet,extended 30 mg PO DAILY #90 tab 01/09/21 release 24 hr rivaroxaban 15 mg tablet (Xarelto) 15 mg PO DAILY #90 tab 01/09/21 empagliflozin 25 mg tablet 25 mg PO DAILY #90 tab 01/13/21 (Jardiance) esomeprazole magnesium 40 mg 40 mg PO DAILY #90 cap 01/30/21 capsule,delayed release blood sugar diagnostic #400 ea 02/27/21 Results & Data (ED) Vital Signs Vital Signs - 24 hr 03/27/21 10:04 03/27/21 10:38 03/27/21 11:00 Temperature 36.9 C Temperature Source Skin Pulse Rate 72 76 Pulse Rate [Right Finger] Pulse Rhythm Regular Pulse Rhythm [Right Finger] Pulse Strength [Right Finger] Respiratory Rate 18 20 Respiratory Effort / Characteristics Respiratory Depth Respiratory Pattern Blood Pressure 137/60 Blood Pressure [Right Arm] Blood Pressure Mean 85 Blood Pressure Mean [Right Arm] Blood Pressure Position [Right Arm] Pulse Oximetry 91 81 L Oxygen Delivery Method Room Air Room Air Nasal Cannula Oxygen Flow Rate 0 3 Sepsis Recent Fever Within 48 Hours Yes Sepsis New/Unexplained Change in Mental Status No Sepsis Action Taken by Nursing No Action Required Oxygen Flow Rate - Titration 3 Pulse Oximetry Post Tiitration 94 03/27/21 12:00 03/27/21 14:00 Temperature Temperature Source Pulse Rate Pulse Rate [Right Finger] 70 77 Pulse Rhythm Pulse Rhythm [Right Finger] Regular Regular Pulse Strength [Right Finger] Normal Normal Respiratory Rate 18 20 Respiratory Effort / Characteristics Non-Labored Non-Labored Respiratory Depth Normal Normal Respiratory Pattern Regular Regular Blood Pressure Blood Pressure [Right Arm] 181/92 H 124/62 Blood Pressure Mean Blood Pressure Mean [Right Arm] 121 82 Blood Pressure Position [Right Arm] Lying Pulse Oximetry 98 96 Oxygen Delivery Method Nasal Cannula Room Air Oxygen Flow Rate 3 Sepsis Recent Fever Within 48 Hours Sepsis New/Unexplained Change in Mental Status Sepsis Action Taken by Nursing Oxygen Flow Rate - Titration Pulse Oximetry Post Tiitration Laboratory Data Result diagrams: 03/27/21 11:55 03/27/21 11:55 Lab Results 03/27/21 03/27/21 03/27/21 Range/Units 11:55 11:55 11:55 WBC 8.20 (4.8-10.8) K/uL RBC 4.33 (4.2-5.4) M/uL Hgb 12.7 (12.0-16.0) g/dL Hct 39.3 (37-47) % MCV 90.8 (80-100) fL MCH 29.3 (25-34) pg MCHC 32.3 (32-36) g/dL RDW Std Deviation 61.1 H (36.4-46.3) fL RDW Coeff of Toby 18.0 H (11.5-14.5) % Plt Count 205 (130-400) K/uL MPV 9.7 (7.4-10.4) fL Immature Gran % (Auto) 0.1 % Neut % (Auto) 70.9 % Lymph % (Auto) 17.2 % [place] % (Auto) 11.7 % Eos % (Auto) 0.0 % Baso % (Auto) 0.1 % Neut # (Auto) 5.81 (1.4-6.5) K/uL Lymph # (Auto) 1.41 (1.2-3.4) K/uL [place] # (Auto) 0.96 H (0.11-0.59) K/uL Eos # (Auto) 0.00 (0-0.5) K/uL Baso # (Auto) 0.01 (0-0.2) K/uL Immature Gran # (Auto) 0.01 (0.00-0.02) K/uL Sodium 132 L (136-145) mmol/L Potassium 4.6 (3.5-5.1) mmol/L Chloride 100 (98-107) mmol/L Carbon Dioxide 23 (21-32) mmol/L Anion Gap 9.0 (3-11) BUN 41 H (7-18) mg/dl Creatinine 1.57 H (0.6-1.2) mg/dl Est Cr Clr Drug Dosing 24.3 ml/min Est GFR ( Amer) 34.2 ml/min Est GFR (Non-Af Amer) 29.5 ml/min BUN/Creatinine Ratio 25.9 H (10-20) Glucose 91 (70-99) mg/dl Calcium 9.0 (8.5-10.1) mg/dl Magnesium 2.8 H (1.8-2.4) mg/dl Total Bilirubin 0.3 (0.2-1) mg/dl AST 35 (15-37) U/L ALT 18 (12-78) U/L Alkaline Phosphatase 54 (45-117) U/L Troponin I 2.750 H* (0-0.045) ng/ml NT-Pro-B Natriuret Pep 8802 H Cancelled (0-1800) pg/ml Total Protein 7.4 (6.4-8.2) gm/dl Albumin 3.1 L (3.4-5.0) gm/dl Globulin 4.3 H (2.5-4.0) gm/dl Albumin/Globulin Ratio 0.7 L (0.9-2) TSH 0.888 (0.300-4.500) uIu/ml Administered Medications Insulin Aspart (Insulin Aspart 100 Units/Ml 3 Ml Pen) 0 units SC ACHS OTILIA Stop: 04/26/21 17:59 Last Admin: 03/27/21 18:34 Dose: 2 units Documented by: [id number] Cosigned by: [id number] Rivaroxaban (Rivaroxaban 15 Mg Tab) 15 mg PO QDD OTILIA Stop: 04/26/21 17:29 Last Admin: 03/27/21 18:34 Dose: 15 mg Documented by: [id number] Discontinued Medications Dexamethasone Sodium Phosphate (DexamethasonePf 10 Mg/Ml Vial) 6 mg IV NOW ONE Stop: 03/27/21 14:19 Last Admin: 03/27/21 14:56 Dose: 6 mg Documented by: [id number] Furosemide (Furosemide 40 Mg/4 Ml Vial) 40 mg IV NOW STA Stop: 03/27/21 13:20 Last Admin: 03/27/21 14:25 Dose: 40 mg Documented by: [id number] Sodium Chloride (Nss) 500 mls @ 999 mls/hr IV .Q31M OTILIA Stop: 03/27/21 11:30 Last Infusion: 03/27/21 13:46 Dose: 0 mls/hr Documented by: [id number] Admin: 03/27/21 12:38 Dose: 999 mls/hr Documented by: [id number] Sodium Chloride (Nss 1000ml) 1,000 mls @ 125 mls/hr IV .Q8H OTILIA Stop: 03/27/21 18:59 Last Infusion: 03/27/21 17:04 Dose: 0 mls/hr Documented by: [id number] Admin: 03/27/21 12:38 Dose: 125 mls/hr Documented by: [id number] Ceftriaxone Sodium (Rocephin) 2,000 mg in 70 mls @ 140 mls/hr IV NOW STA Stop: 03/27/21 14:47 Last Infusion: 03/27/21 15:26 Dose: 0 mls/hr Documented by: [id number] Admin: 03/27/21 14:35 Dose: 140 mls/hr Documented by: [id number] Nitroglycerin (Nitroglycerin 2% Ointment 30gm Tube) 0.5 inch EXT NOW STA Stop: 03/27/21 13:20 Last Admin: 03/27/21 14:25 Dose: 0.5 inch Documented by: [id number] Ondansetron HCl (Ondansetron Inj 2 Mg/Ml 2 Ml Vial) 4 mg IV NOW STA Stop: 03/27/21 10:58 Last Admin: 03/27/21 12:37 Dose: 4 mg Documented by: [id number] Imaging Data Radiologist's Impression: Chest X-Ray 03/27/21 10:57 XR chest 1V portable HISTORY: 85 years-old Female weakness, cough, pending covid acute cough with weakness COMPARISON: Chest radiograph 01/26/2020 TECHNIQUE: Portable AP view the chest FINDINGS: Cardiac silhouette is enlarged. Calcific plaque of the thoracic aorta. Mild pulmonary vascular congestion. No pneumothorax, large pleural effusion or lobar airspace consolidation. Minimal left lung base opacities. Degenerative changes of the shoulders and spine. IMPRESSION: 1. Cardiomegaly with pulmonary vascular congestion. 2. Minimal left lung base opacities are likely atelectatic. A mild pneumonitis is considered less likely. ACT 112: Negative or not required by law. The above report was generated using voice recognition software. It may contain grammatical, syntax or spelling errors. Electronically signed by: Asa Martinez M.D. 03/27/2021 11:23 AM Discharge Plan Visit Data Chief Complaint: Weakness Stated Complaint: COVID RESULTS PENDING/UNABLE TO EAT/DRINK/WEAK ED Provider: Jose Martin Donaldson Discharge Problem: COVID-19, Non-ST elevation TN (NSTEMI), CHF (congestive heart failure), Weakness, Acute UTI (urinary tract infection) Patient Disposition: Admitted As Inpatient Discharge Instructions Interventions: ED Discharge Assessment Last Done: 03/27/21 16:19
[2021-03-27] MEDS ORDERED: INSULIN GLARGINE SOLOSTAR 100 UNITS/ML 3 ML PEN SC SCH ×2 (21:00)
[2021-03-27] MEDS: MIRTAZAPINE TAB 15 MG TAB PO SCH (21:22)
[2021-03-27] MEDS: ATENOLOL 25 MG TABLET PO SCH (21:22)
[2021-03-27] MEDS: EZETIMIBE/SIMVASTATIN 10/40MG 1 TAB TAB PO SCH (21:24)
[2021-03-27] MEDS: guaiFENesin 600 MG TABCR PO SCH (23:20)
[2021-03-28] MEDS ORDERED: INSULIN ASPART 100 UNITS/ML 3 ML PEN SC SCH (02:00)
--- NOTE | 2021-03-28 05:20 | Electrocardiogram Report ---
Test Reason : Blood Pressure : / mmHG Vent. Rate : 073 BPM Atrial Rate : 357 BPM P-R Int : 000 ms QRS Dur : 104 ms QT Int : 376 ms P-R-T Axes : 000 005 078 degrees QTc Int : 414 ms Atrial fibrillation Nonspecific T wave abnormality Abnormal ECG When compared with ECG of 26-JAN-2020 00:28, No significant change was found Confirmed by Karlos Ham ([id number]) on 03/28/2021 5:19:52 AM Referred By: Confirmed By:Karlos Ham
[2021-03-28 07:25] LABS: Basophils # (auto) 0.01 K/uL (0-0.2); Basophils % (auto) 0.2 %; Hematocrit (blood only) 39.2 % (37-47); Hemoglobin 12.3 g/dL (12.0-16.0); Immature Granulocytes # (auto) 0.01 K/uL (0.00-0.02); Immature Granulocytes % (auto) 0.2 %; Lymphocytes # (auto) 1.52 K/uL (1.2-3.4); Lymphocytes % (auto) 34.9 %; Mean Corpuscular Hemoglobin 29.4 pg (25-34); Mean Corpuscular Hgb Conc 31.4 g/dL (32-36); Mean Corpuscular Volume 93.6 fL (80-100); Mean Platelet Volume 9.7 fL (7.4-10.4); Monocytes # (auto) 0.67 K/uL (0.11-0.59); Monocytes % (auto) 15.4 %; Neutrophils # (auto) 2.15 K/uL (1.4-6.5); Neutrophils % (auto) 49.3 %; Platelet Count 183 K/uL (130-400); RDW Coefficient of Variation 17.7 % (11.5-14.5); RDW Standard Deviation 60.9 fL (36.4-46.3); Red Blood Count 4.19 M/uL (4.2-5.4); White Blood Count 4.36 K/uL (4.8-10.8)
[2021-03-28 07:58] LABS: Albumin Level 2.5 gm/dl (3.4-5.0); BUN Creatinine Ratio 30.4 (10-20); Calcium 8.4 mg/dl (8.5-10.1); Creatinine Clr Calc Pharmacy 27.7 ml/min; Est GFR (African American) 40.4 ml/min; Est GFR (Non-African American) 34.8 ml/min; Potassium 4.6 mmol/L (3.5-5.1)
[2021-03-28 08:01] LABS: Albumin Globulin Ratio 0.6 (0.9-2); Bilirubin,Total 0.3 mg/dl (0.2-1); Total Protein 6.5 gm/dl (6.4-8.2)
[2021-03-28 08:44] LABS: Estimated Average Glucose 171 mg/dl; Hemoglobin A1C 7.6 % (4.5-5.6)
[2021-03-28] MEDS ORDERED: FUROSEMIDE 40 MG/4 ML VIAL IV SCH (09:00)
[2021-03-28] MEDS ORDERED: INSULIN HUMAN NPH SC SCH (09:00)
[2021-03-28] MEDS: dexAMETHasone 6 MG in SYRINGE 0 ML IV SCH (09:01)
[2021-03-28] MEDS: NIFEdipine EXTENDED REL 30 MG TABCR PO SCH (09:02)
[2021-03-28] MEDS: ATENOLOL 25 MG TABLET PO SCH ×2 (09:04→21:01)
[2021-03-28] MEDS: INSULIN ASPART 100 UNITS/ML 3 ML PEN SC SCH ×4 (09:11→21:10)
[2021-03-28] MEDS: guaiFENesin 600 MG TABCR PO SCH ×2 (09:25→21:01)
[2021-03-28] MEDS: ACETAMINOPHEN 325 MG TAB PO PRN (10:38)
--- NOTE | 2021-03-28 11:17 | Pharmacy Report ---
Pharmacy Glycemic Short Note 2 - Date of Service March 28, 2021 - Glycemic Short BSG Results (Last 24 hours): 03/27/21 03/27/21 03/27/21 11:55 16:44 19:58 Glucose 91 POC Glucose 94 210 H 03/28/21 03/28/21 03/28/21 02:28 06:48 07:29 Glucose 129 H POC Glucose 164 H 116 H OUTPATIENT ANTIDIABETIC REGIMEN: * Jardiance 25 mg PO daily * Glimepiride 4 mg PO BID * HbA1c: 7.9% (01/06/21) ASSESSMENT: * MM is a 85 year old female presented to ED on 03/27 with weakness and flu-like symptoms * Subsequently diagnosed with COVID-19 pneumonia and NSTEMI (troponin of 2.7, but asymptomatic) * Reasonably well-controlled diabetes as an outpatient with oral agents only * BSG of 91 mg/dL on admission, given IV dexamethasone likely leading to elevated BSG of 210 mg/dL at HS * Dexamethasone 6 mg IV daily ordered ongoing -will cover with [facility] PLAN FOR INPATIENT GLYCEMIC CONTROL: * Hold outpatient oral diabetes medications * Basal insulin * NPH 25 units SC daily to be given with IV dexamethasone * Lantus 0-15 units (see EHR for details) * Bolus insulin * NovoLog per scale ACHS or Q6hrs while NPO * Goal Range: Low 110 mg/dL - High 140 mg/dL * Correction Factor: 20 mg/dL/unit * Nutritional / Prandial insulin per carb ratio of 1 unit per 6 grams CHO consumed PLAN FOR DISCHARGE: * Continue outpatient regimen * HbA1c of 7.9% is reasonable for patient based on age/comorbidities
--- NOTE | 2021-03-28 12:43 | Cardiology Consultation ---
Date of Consultation March 28, 2021 Assessment & Plan (1) Elevated troponin: -likely secondary to her COVID infection. -no evidence of coronary ischemia. -we can check an out patient echocardiogram once she has recovered. (2) COVID-19: -COVID-19 pneumonia despite being fully vaccinated. -management per Dr. Lugo. (3) CAD (coronary artery disease): -suffered an IMI in 1991. -had a PTCA done to the RCA at that time. -quiescent on medical management. (4) Essential hypertension: -adequate control on current regimen. (5) Hypercholesterolemia: -continue Vytorin. History of Present Illness Attending Physician: Federico Lugo, DO History of Present Illness Mrs. Norton is an 85-year-old female admitted yesterday with COVID pneumonia and elevated troponin I level. This consultation was ordered to assist in her cardiac management. Of note, patient is well known to me from the outpatient setting. The patient claims she is in her usual state of health until approximately 3 days prior to presentation. She began to note shortness of breath, fever, and a nonproductive cough. She presented for outpatient testing which came back positive for COVID. She presented to the emergency room as her symptoms were progressive. At no time has the patient experienced chest discomfort. She specifically denies angina pectoris. She does carry history of coronary artery disease having suffered an inferior wall myocardial function back in 1989. This was treated with a right coronary artery PTCA. The patient has done well from a cardiac perspective since that time. She has never experienced exertional angina pectoris and has not required any sublingual nitroglycerin. The patient does carry history of paroxysmal atrial fibrillation. There has bee n no recurrence to the best of her knowledge. She specifically denies palpitations. She does not take long-term anticoagulation due to her elevated fall risk. Currently, patient is resting comfortably in bed without complaints. Past medical and surgical history 1. Coronary artery disease-see above 2. RCA PTCA-1989 3. Hypertension 4. Hypercholesterolemia 5. Paroxysmal atrial fibrillation 6. Mild LV [id number]-29-63%, January 2020 7. Chronic combined CHF 8. Mild aortic insufficiency 9. Moderate mitral regurgitation 10. Chronic renal failure 11. Diabetes mellitus 12. GERD 13. Osteoporosis 14. Obesity 15. Anxiety 16. Appendectomy Social history The patient is a and lives alone No tobacco or alcohol. Family history Noncontributory Review of systems A 10 point review of systems was undertaken and negative except for that described above. Allergies Allergy/AdvReac Type Severity Reaction Status Date / Time Iodinated Contrast Media Allergy Intermediate HIVES Verified 02/13/21 13:06 penicillin G Allergy Unknown HAPPENED Verified 02/13/21 13:06 MANY YEARS AGO Home Medications Medication Instructions Recorded Confirmed Type calcium carbonate 600 mg (1,500 1 tab PO DAILY 03/13/18 03/27/21 History mg)-vitamin D3 400 unit tablet (Calcium 600 + D(3)) cholecalciferol (vitamin D3) 25 1,000 unit PO DAILY 03/13/18 03/27/21 History mcg (1,000 unit) capsule (Vitamin D3) magnesium 250 mg tablet 250 mg PO DAILY 03/13/18 03/27/21 History nitroglycerin 0.4 mg sublingual 0.4 mg SUBLINGUAL DIRECTED PRN 03/02/19 03/27/21 Rx tablet (Nitrostat) #7 tab atenolol 50 mg tablet 75 mg PO BID #270 tab 01/15/20 03/27/21 Rx coenzyme Q10 100 mg capsule 100 mg PO DAILY 02/02/20 03/27/21 History cyanocobalamin (vitamin B-12) 2,500 mcg SUBLINGUAL DAILY 02/02/20 03/27/21 History 2,500 mcg sublingual tablet lorazepam 0.5 mg tablet 0.5 mg PO DAILY PRN 02/02/20 03/27/21 History vitamin B complex 1 cap PO DAILY 02/02/20 03/27/21 History Jobst Stockings (misc) #1 ea 02/23/20 01/12/21 Rx OUTSIDE motorized scooter #1 ea 03/15/20 01/12/21 Rx polyethylene glycol 3350 17 17 g PO DAILY PRN #119 g 08/08/20 03/27/21 Rx gram/dose oral powder (Miralax) glimepiride 2 mg tablet 4 mg PO BID 90 Days #360 tab 10/13/20 03/27/21 Rx furosemide 20 mg tablet 20 mg PO DAILY #90 tab 01/09/21 03/27/21 Rx lisinopril 20 mg tablet 20 mg PO DAILY #90 tab 01/09/21 03/27/21 Rx nifedipine 30 mg tablet,extended 30 mg PO DAILY #90 tab 01/09/21 03/27/21 Rx release 24 hr rivaroxaban 15 mg tablet (Xarelto) 15 mg PO DAILY #90 tab 01/09/21 03/27/21 Rx empagliflozin 25 mg tablet 25 mg PO DAILY #90 tab 01/13/21 03/27/21 Rx (Jardiance) esomeprazole magnesium 40 mg 40 mg PO DAILY #90 cap 01/30/21 03/27/21 Rx capsule,delayed release blood sugar diagnostic #400 ea 02/27/21 Rx ezetimibe 10 mg-simvastatin 40 mg 1 tab PO PM 03/27/21 03/27/21 History tablet (Vytorin) mirtazapine 15 mg tablet (Remeron) 15 mg PO HS 03/27/21 03/27/21 History kyeanvghplfh-Wl-govo-minerals 18 1 tab PO DAILY 03/27/21 03/27/21 History mg-0.4 mg tablet Patient History Medical History Acid reflux Acute on chronic diastolic CHF (congestive heart failure) Candidal intertrigo Diabetes Fracture of left distal radius Fracture, humerus closed Heart attack Hyperkalemia Hypoxia Influenza Irregular heartbeat Left knee DJD Pulmonary edema Pulmonary hypertension Rupture of UCL of right thumb Seasonal allergies Severe tricuspid regurgitation UTI (urinary tract infection) Surgical History H/O oral surgery No history of previous surgery S/P knee surgery S/P wisdom tooth extraction Family History Mother Myocardial infarction Father Myocardial infarction Other Hearing loss Heart disease No pertinent family history Denies family history of Ovarian cancer Prostate cancer No family history of adverse response to anesthesia No family history of bleeding disorder Allergies Breast cancer Colorectal cancer Cancer Hypertension Stroke Asthma Social History Smoking Status: Former smoker Tobacco Type: Cigarettes Second Hand Exposure: No; Do You Dip or Chew Tobacco: No; Hx Alcohol Use: No Hx Substance Use: No Preferred Language: Portuguese Communication Ability: Effective Visual Impairment: No Limitations Hearing Ability: Normal 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 Lugo as patient in [facility] isolation. Results & Data ([facility]) Vital Signs (Past 12 Hours) Vital Signs Temp Pulse Pulse Resp BP BP Pulse Ox 03/28/21 11:49 36.4 C L 61 20 125/59 L 95 03/28/21 07:49 52 L 03/28/21 07:31 36.9 C 60 18 133/70 94 03/28/21 02:29 36.8 C 57 L 18 116/58 L 98 Laboratory Results CBC notes hemoglobin 12.3, hematocrit 39.2, white count 4.36, a platelet count 183 1000. Electrolytes note a sodium of 135, potassium 4.6, chloride 103, bicarb 27, BUN 42, creatinine 1.37, and glucose of 129. Initial troponin was 2.75 with follow-up values of 2.16 and 1.96. BNP is elevated 8802. Diagnostic Findings EKG notes atrial fibrillation with a nonspecific T-wave abnormality. This is unchanged from prior tracing. PG Care Time/CCT Total # of Minutes Spent Total Time Spent with Patient: Total time spent is greater than 50% in coordination of care (as documented) at patient's floor/unit and/or counseling patient: Coding Level of Care Code 41576 Initial Inpt Care Lvl 3 Diagnoses Elevated troponin R77.8 COVID-19 U07.1 CAD (coronary artery disease) I25.10 Essential hypertension I10 Hypercholesterolemia E78.00
--- NOTE | 2021-03-28 13:49 | Hospitalist Progress Note ---
Date of Service March 28, 2021 Assessment & Plan (1) COVID: Plan: Samira is an 85-year-old female with a past medical history of pulmonary hypertension, diastolic CHF, paroxysmal A. fib, type 2 diabetes with neuropathy, GERD, hypertension, anxiety, and coronary artery disease who presented to the emergency department with weakness and hypoxia and who was found to be Covid positive. She has not had chest pain, but has had an elevated troponin of 2.0 on admission. Acute hypoxic respiratory failure 2/2 Covid pneumonia +/- Acute on Chronic diastolic CHR Day 3 of illness when admitted productive cough, yellow sputum down to room air continue dexamethasone 6mg IV daily add Rocephin 2gm IV daily and Zithromax 500mg PO daily CXR: Cardiomegaly with pulmonary vascular congestion, trace left lung base opacities likely atelectatic likely home tomorrow, she is moving about the room independently (2) NSTEMI (non-ST elevated myocardial infarction): Plan: History of diastolic CHF, CXR with evidence of vascular congestion Troponin 2.7 on admit, no ST wave changes on EKG Clinically asymptomatic, no chest pain lower dose of atenolol to 25mg BID as she had some bradycardia this morning anticoagulated with Xarelto (3) CAD (coronary artery disease): Plan: NSTEMI, type II No chest pain Anticoagulated on rivaroxaban EKG on admission A. fib, no territorial ST wave changes echo can be done outpatient troponin trending down (4) Anxiety: Plan: Continue home Ativan (5) Controlled type 2 diabetes with neuropathy: Plan: Lantus 8 units twice daily SSI CF 50, ratio 17 Glycemic consult placed for type II DM with steroid treatment and NSTEMI monitor for hypoglycemia, no issues (6) Paroxysmal atrial fibrillation: Plan: Anticoagulated with rivaroxaban Rate controlled, continue atenolol 25mg BID (7) Hypoxia: Plan: 2/2 Covid with multifactorial underlying CHF, see above resolved, down to room air today (8) Asymptomatic bacteriuria: Plan: UTI versus asymptomatic bacteriuria 4+ bacteria on UA follow up urine culture on Rocephin for lungs (9) Elevated serum creatinine: Plan: ? Prerenal azotemia versus MARIMAR Baseline creatinine approximately 1.31.5, elevated to 1.57 JOSE held down to 1.3 today, made a lot of urine with Lasix Plan: discharge to home tomorrow Admission and Anticipated Discharge Date Admission Date: March 27, 2021 Subjective patient says she is feeling better, she was sleeping in her chair when I came in she is walking around independently in the room, no issues with balance has a cough, productive of dark yellow sputum, mild dyspnea but not really bad, breathing room air troponin trending down, can stop Nitro patch no chest pain or pressure today or yesterday or days prior to admission appreciate consult from Dr. Garcia, no plans for cath, will get echo as outpatient and follow up Review of Systems Review of Systems: All systems reviewed & are unremarkable except as noted in Subjective Respiratory: + cough and + sputum production (yellow, thick) Cardiovascular: no chest pain, no chest pain at rest, no chest pain with activity, no radiating jaw, neck or arm pain, no dyspnea and no dyspnea on exertion Physical Exam Physical Exam: General: well developed, well nourished, no acute distress, comfortable Neck: supple, trachea midline, normal thyroid Lungs: clear to auscultation bilaterally, normal respiratory effort, no accessory muscle use, no distress Heart: regular S1 and S2, no murmur, peripheral pulses normal, capillary refill normal, no edema Abdomen: soft, NT, ND, + BS, no hepatomegaly, normal to percussion Extremities: normal in appearance, no cyanosis, no petechiae, strength is 5/5 bilaterally Neuro: awake, cooperative, moves all extremities, no focal motor deficits, CN II-XII intact, sensation in extremities intact, normal speech Skin: warm, dry, no rash, normal turgor Psych: Awake, alert oriented x 3, euthymic affect Results & Data Results & Data ([facility]) Vital Signs (Past 12 Hours) Vital Signs Temp Pulse Pulse Resp BP BP Pulse Ox 03/28/21 11:49 36.4 C L 61 20 125/59 L 95 03/28/21 07:49 52 L 03/28/21 07:31 36.9 C 60 18 133/70 94 03/28/21 02:29 36.8 C 57 L 18 116/58 L 98 Laboratory Results Laboratory Results - last 24 hr 03/27/21 03/27/21 03/27/21 16:44 18:02 19:58 WBC RBC Hgb Hct MCV MCH MCHC RDW Std Deviation RDW Coeff of Toby Plt Count MPV Immature Gran % (Auto) Neut % (Auto) Lymph % (Auto) Navarro % (Auto) Eos % (Auto) Baso % (Auto) Neut # (Auto) Lymph # (Auto) [place]arro # (Auto) Eos # (Auto) Baso # (Auto) Immature Gran # (Auto) Sodium Potassium Chloride Carbon Dioxide Anion Gap BUN Creatinine Est Cr Clr Drug Dosing Est GFR ( Amer) Est GFR (Non-Af Amer) BUN/Creatinine Ratio Glucose POC Glucose 94 210 H Estimat Average Glucose Hemoglobin A1c Calcium Total Bilirubin AST ALT Alkaline Phosphatase Troponin I 2.160 H* Total Protein Albumin Globulin Albumin/Globulin Ratio 03/28/21 03/28/21 03/28/21 00:27 02:28 06:48 WBC 4.36 L RBC 4.19 L Hgb 12.3 Hct 39.2 MCV 93.6 MCH 29.4 MCHC 31.4 L RDW Std Deviation 60.9 H RDW Coeff of Toby 17.7 H Plt Count 183 MPV 9.7 Immature Gran % (Auto) 0.2 Neut % (Auto) 49.3 Lymph % (Auto) 34.9 Navarro % (Auto) 15.4 Eos % (Auto) 0.0 Baso % (Auto) 0.2 Neut # (Auto) 2.15 Lymph # (Auto) 1.52 Navarro # (Auto) 0.67 H Eos # (Auto) 0.00 Baso # (Auto) 0.01 Immature Gran # (Auto) 0.01 Sodium Potassium Chloride Carbon Dioxide Anion Gap BUN Creatinine Est Cr Clr Drug Dosing Est GFR ( Amer) Est GFR (Non-Af Amer) BUN/Creatinine Ratio Glucose POC Glucose 164 H Estimat Average Glucose Hemoglobin A1c Calcium Total Bilirubin AST ALT Alkaline Phosphatase Troponin I 1.960 H* Total Protein Albumin Globulin Albumin/Globulin Ratio 03/28/21 03/28/21 03/28/21 06:48 06:48 07:29 WBC RBC Hgb Hct MCV MCH MCHC RDW Std Deviation RDW Coeff of Toby Plt Count MPV Immature Gran % (Auto) Neut % (Auto) Lymph % (Auto) Navarro % (Auto) Eos % (Auto) Baso % (Auto) Neut # (Auto) Lymph # (Auto) Navarro # (Auto) Eos # (Auto) Baso # (Auto) Immature Gran # (Auto) Sodium 135 L Potassium 4.6 Chloride 103 Carbon Dioxide 27 Anion Gap 5.0 BUN 42 H Creatinine 1.37 H Est Cr Clr Drug Dosing 27.7 Est GFR ( Amer) 40.4 Est GFR (Non-Af Amer) 34.8 BUN/Creatinine Ratio 30.4 H Glucose 129 H POC Glucose 116 H Estimat Average Glucose 171 Hemoglobin A1c 7.6 H Calcium 8.4 L Total Bilirubin 0.3 AST 33 ALT 17 Alkaline Phosphatase 46 Troponin I Total Protein 6.5 Albumin 2.5 L Globulin 4.0 Albumin/Globulin Ratio 0.6 L 03/28/21 11:51 WBC RBC Hgb Hct MCV MCH MCHC RDW Std Deviation RDW Coeff of Toby Plt Count MPV Immature Gran % (Auto) Neut % (Auto) Lymph % (Auto) Navarro % (Auto) Eos % (Auto) Baso % (Auto) Neut # (Auto) Lymph # (Auto) Navarro # (Auto) Eos # (Auto) Baso # (Auto) Immature Gran # (Auto) Sodium Potassium Chloride Carbon Dioxide Anion Gap BUN Creatinine Est Cr Clr Drug Dosing Est GFR ( Amer) Est GFR (Non-Af Amer) BUN/Creatinine Ratio Glucose POC Glucose 226 H Estimat Average Glucose Hemoglobin A1c Calcium Total Bilirubin AST ALT Alkaline Phosphatase Troponin I Total Protein Albumin Globulin Albumin/Globulin Ratio Medications Administered Current Inpatient Medications Acetaminophen (Acetaminophen 325 Mg Tab) 650 mg PO Q4H PRN PRN Reason: Pain or Fever Stop: 04/26/21 17:01 Last Admin: 03/28/21 10:38 Dose: 650 mg Documented by: Atenolol (Atenolol 25 Mg Tablet) 75 mg PO BID OTILIA Stop: 04/26/21 20:59 Last Admin: 03/28/21 09:04 Dose: Not Given Documented by: Dextrose (Dextrose 50% 50 Ml Syringe) 25 - 50 ml IV UD PRN; Protocol PRN Reason: Hypoglycemia Protocol Stop: 04/26/21 17:01 Ezetimibe/Simvastatin (Ezetimibe/Simvastatin 10/40mg 1 Tab Tab) 1 tab PO PM OTLIIA Stop: 04/26/21 20:59 Last Admin: 03/27/21 21:24 Dose: 1 tab Documented by: Furosemide (Furosemide 40 Mg/4 Ml Vial) 20 mg IV DAILY OTILIA Stop: 04/27/21 08:59 Last Admin: 03/28/21 09:26 Dose: 20 mg Documented by: Glucagon (Glucagon For Inj 1 Mg Vial) 1 mg SQ UD PRN; Protocol PRN Reason: Hypoglycemia Protocol Stop: 04/26/21 17:01 Glucose (Glucose 10 Tabs/Tube) 4 - 8 tabs PO UD PRN; Protocol PRN Reason: Hypoglycemia Protocol Stop: 04/26/21 17:01 Glucose (Glucose 40% Gel 15 Gm Tube) 15 - 30 gm PO UD PRN; Protocol PRN Reason: Hypoglycemia Protocol Stop: 04/26/21 17:01 Guaifenesin (Guaifenesin 600 Mg Tabcr) 600 mg PO Q12 OTILIA Stop: 04/27/21 08:59 Last Admin: 03/28/21 09:25 Dose: 600 mg Documented by: Dexamethasone 6 mg/ Syringe 1.5 mls @ 1 mls/min IV DAILY OTILIA Stop: 04/07/21 08:59 Last Admin: 03/28/21 09:01 Dose: 1 mls/min Documented by: Insulin Aspart (Insulin Aspart 100 Units/Ml 3 Ml Pen) 0 units SC ACHS OTILIA Stop: 04/26/21 17:59 Last Admin: 03/28/21 12:53 Dose: 10 units Documented by: Insulin Glargine (Insulin Glargine Solostar 100 Units/Ml 3 Ml Pen) 0 units SC HS OTILIA; Protocol Stop: 04/27/21 20:59 Insulin Human NPH (Insulin Human Nph) 30 units SC DAILY OTILIA Stop: 04/27/21 08:59 Lorazepam (Lorazepam 0.5 Mg Tab) 0.5 mg PO DAILY PRN PRN Reason: Anxiety Stop: 04/26/21 17:01 Melatonin (Melatonin 3 Mg Tab) 3 mg PO HS PRN PRN Reason: Sleep Stop: 04/26/21 22:10 Mirtazapine (Mirtazapine Tab 15 Mg Tab) 15 mg PO HS OTILIA Stop: 04/26/21 20:59 Last Admin: 03/27/21 21:22 Dose: 15 mg Documented by: Miscellaneous (Carbohydrates For Hypoglycemia ) 15 - 30 gm PO UD PRN PRN Reason: Hypoglycemia Protocol Stop: 04/26/21 17:01 Miscellaneous Information (Pharmacy Glycemic Mgmt Consult) 1 ea N/A UD PRN; Protocol PRN Reason: Consult Stop: 04/26/21 17:01 Nifedipine (Nifedipine Extended Rel 30 Mg Tabcr) 30 mg PO DAILY [facility] Stop: 04/27/21 08:59 Last Admin: 03/28/21 09:02 Dose: 30 mg Documented by: Rivaroxaban (Rivaroxaban 15 Mg Tab) 15 mg PO QDD [facility] Stop: 04/26/21 17:29 Last Admin: 03/27/21 18:34 Dose: 15 mg Documented by: PG Care Time/CCT Total # of Minutes Spent Total Time Spent with Patient: Total time spent is greater than 50% in coordination of care (as documented) at patient's floor/unit and/or counseling patient: Coding Level of Care Code 85292 Subseq Hosp Care Lvl 3 Diagnoses COVID U07.1 NSTEMI (non-ST elevated myocardial infarction) I21.4 CAD (coronary artery disease) I25.10 Anxiety F41.9 Controlled type 2 diabetes with neuropathy E11.40 Paroxysmal atrial fibrillation I48.0 Hypoxia R09.02 Asymptomatic bacteriuria R82.71 Elevated serum creatinine R79.89
[2021-03-28] MEDS: AZITHROMYCIN 250 MG TAB PO SCH (15:08)
[2021-03-28] MEDS: cefTRIAXone SODIUM 2,000 MG in DEXTROSE 5% 50 ML IV SCH (15:09)
[2021-03-28] MEDS: RIVAROXABAN 15 MG TAB PO SCH (15:57)
[2021-03-28] MEDS: MELATONIN 3 MG TAB PO PRN (21:00)
[2021-03-28] MEDS: EZETIMIBE/SIMVASTATIN 10/40MG 1 TAB TAB PO SCH (21:01)
[2021-03-28] MEDS: MIRTAZAPINE TAB 15 MG TAB PO SCH (21:01)
[2021-03-28] MEDS: INSULIN GLARGINE SOLOSTAR 100 UNITS/ML 3 ML PEN SC SCH (21:10)
[2021-03-29 08:07] LABS: Hematocrit (blood only) 42.1 % (37-47); Hemoglobin 13.7 g/dL (12.0-16.0); Mean Corpuscular Hemoglobin 29.8 pg (25-34); Mean Corpuscular Hgb Conc 32.5 g/dL (32-36); Mean Corpuscular Volume 91.5 fL (80-100); Mean Platelet Volume 9.7 fL (7.4-10.4); Platelet Count 218 K/uL (130-400); RDW Coefficient of Variation 17.6 % (11.5-14.5); RDW Standard Deviation 59.6 fL (36.4-46.3); White Blood Count 7.83 K/uL (4.8-10.8)
[2021-03-29] MEDS: cefTRIAXone SODIUM 2,000 MG in DEXTROSE 5% 50 ML IV SCH (08:25)
[2021-03-29] MEDS: ATENOLOL 25 MG TABLET PO SCH ×2 (08:25→21:05)
[2021-03-29] MEDS: dexAMETHasone 6 MG in SYRINGE 0 ML IV SCH (08:25)
[2021-03-29] MEDS: NIFEdipine EXTENDED REL 30 MG TABCR PO SCH (08:26)
[2021-03-29] MEDS: guaiFENesin 600 MG TABCR PO SCH ×2 (08:26→21:05)
[2021-03-29] MEDS: AZITHROMYCIN 250 MG TAB PO SCH (08:26)
[2021-03-29 08:37] LABS: BUN Creatinine Ratio 33.3 (10-20); C Reactive Protein 4.48 mg/dl (0-0.29); Creatinine Clr Calc Pharmacy 24.7 ml/min; Est GFR (African American) 35.3 ml/min; Est GFR (Non-African American) 30.5 ml/min; Potassium 4.7 mmol/L (3.5-5.1)
[2021-03-29 08:42] LABS: Troponin I 0.569 ng/ml (0-0.045)
[2021-03-29] MEDS ORDERED: INSULIN HUMAN NPH SC SCH (09:00)
[2021-03-29] MEDS: INSULIN ASPART 100 UNITS/ML 3 ML PEN SC SCH ×4 (09:19→21:20)
--- NOTE | 2021-03-29 10:55 | Hospitalist Progress Note ---
Date of Service March 29, 2021 Assessment & Plan (1) COVID: Plan: Samira is an 85-year-old female with a past medical history of pulmonary hypertension, diastolic CHF, paroxysmal A. fib, type 2 diabetes with neuropathy, GERD, hypertension, anxiety, and coronary artery disease who presented to the emergency department with weakness and hypoxia and who was found to be Covid positive. She has not had chest pain, but has had an elevated troponin of 2.0 on admission. Acute hypoxic respiratory failure 2/2 Covid pneumonia +/- Acute on Chronic diastolic CHR Day 3 of illness when admitted productive cough, yellow sputum, difficult time getting up sputum alternating between room air and 2L continue dexamethasone 6mg IV daily, day 3 add Rocephin 2gm IV daily and Zithromax 500mg PO daily, day 2 today get patient flutter valve, continue Mucinex CRP is 4, did not have one on admission, unsure how it is trending repeat CXR tomorrow keep in hospital at least another 24 hours since she required 2L this morning moving about the room independently (2) Hypoxia: Plan: 2/2 Covid with multifactorial underlying CHF, see above alternating between 2L and room air today, borderline if she can go home observe another 24 hours, see how she trends, discussed that oxygen requirements can go up prior to someone getting better (3) NSTEMI (non-ST elevated myocardial infarction): Plan: History of diastolic CHF, CXR with evidence of vascular congestion Troponin 2.7 on admit, no ST wave changes on EKG Clinically asymptomatic, no chest pain lower dose of atenolol to 25mg BID, HR in 70s anticoagulated with Xarelto troponin down to 0.[address] Garcia recommends outpatient echo, no inpatient work up at this time (4) Elevated serum creatinine: Plan: ? Prerenal azotemia versus MARIMAR Baseline creatinine approximately 1.31.5 continue to hold JOSE Cr is 1.5 today, BUN up in 50's, got Lasix 20mg IV yesterday, held this morning repeat tomorrow (5) CAD (coronary artery disease): Plan: NSTEMI, type II No chest pain Anticoagulated on rivaroxaban EKG on admission A. fib, no territorial ST wave changes echo can be done outpatient troponin trending down to 0.5 (6) Anxiety: Plan: Continue home Ativan (7) Controlled type 2 diabetes with neuropathy: Plan: Lantus 8 units twice daily SSI CF 50, ratio 17 Glycemic consult placed for type II DM with steroid treatment and NSTEMI monitor for hypoglycemia, no issues (8) Paroxysmal atrial fibrillation: Plan: Anticoagulated with rivaroxaban Rate controlled, continue atenolol 25mg BID (9) Asymptomatic bacteriuria: Plan: UTI versus asymptomatic bacteriuria 4+ bacteria on UA follow up urine culture on Rocephin for lungs Plan: likely for discharge tomorrow, depends on if she can remain off oxygen Admission and Anticipated Discharge Date Admission Date: March 27, 2021 Subjective patient dropped to high 80's this morning on room air, placed on 2L and she is 97% removed oxygen during my visit, down to 91-93% she has a mild end expiratory audible wheeze, coughing but difficult time bringing up sputum eating okay, getting around the room fine troponin down to 0.5 from 1.97, Cr is 1.5, BUN up to 50's, held Nikolay this morning discussed that it is likely a little too early to get her home, better to watch her at least another 24 hours called her daughter to discuss, she agrees, don't want patient to go home too early Review of Systems Review of Systems: All systems reviewed & are unremarkable except as noted in Subjective Respiratory: + cough, + chest congestion, + dyspnea, + dyspnea on exertion, + sputum production and + wheezing Physical Exam Physical Exam: General: well developed, well nourished, no acute distress, comfortable Neck: supple, trachea midline, normal thyroid Lungs: crackles right base, audible expiratory wheeze, normal respiratory effort, no accessory muscle use, no distress, + cough Heart: regular S1 and S2, no murmur, peripheral pulses normal, capillary refill normal, no edema Abdomen: soft, NT, ND, + BS, no hepatomegaly, normal to percussion Extremities: normal in appearance, no cyanosis, no petechiae, strength is 5/5 bilaterally Neuro: awake, cooperative, moves all extremities, no focal motor deficits, CN II-XII intact, sensation in extremities intact, normal speech Skin: warm, dry, no rash, normal turgor Psych: Awake, alert oriented x 3, euthymic affect Results & Data Results & Data ([facility]) Vital Signs (Past 12 Hours) Vital Signs Temp Pulse Pulse Resp BP BP Pulse Ox 03/29/21 07:53 36.7 C 67 18 129/58 L 99 03/29/21 07:38 59 L 03/29/21 06:11 99 03/29/21 05:46 88 L 03/29/21 03:31 36.8 C 60 18 130/84 92 03/28/21 23:06 36.5 C 67 20 133/58 L 93 Laboratory Results Laboratory Results - last 24 hr 03/28/21 03/28/21 03/28/21 11:51 16:41 20:45 WBC RBC Hgb Hct MCV MCH MCHC RDW Std Deviation RDW Coeff of Toby Plt Count MPV Sodium Potassium Chloride Carbon Dioxide Anion Gap BUN Creatinine Est Cr Clr Drug Dosing Est GFR ( Amer) Est GFR (Non-Af Amer) BUN/Creatinine Ratio Glucose POC Glucose 226 H 217 H 191 H Calcium Troponin I C-Reactive Protein 03/29/21 03/29/21 03/29/21 07:40 07:42 07:50 WBC 7.83 RBC 4.60 Hgb 13.7 Hct 42.1 MCV 91.5 MCH 29.8 MCHC 32.5 RDW Std Deviation 59.6 H RDW Coeff of Toby 17.6 H Plt Count 218 MPV 9.7 Sodium 135 L Potassium 4.7 Chloride 103 Carbon Dioxide 26 Anion Gap 6.0 BUN 51 H Creatinine 1.53 H Est Cr Clr Drug Dosing 24.7 Est GFR ( Amer) 35.3 Est GFR (Non-Af Amer) 30.5 BUN/Creatinine Ratio 33.3 H Glucose 82 POC Glucose 79 Calcium 9.0 Troponin I 0.569 H* C-Reactive Protein 4.48 H Medications Administered Current Inpatient Medications Acetaminophen (Acetaminophen 325 Mg Tab) 650 mg PO Q4H PRN PRN Reason: Pain or Fever Stop: 04/26/21 17:01 Last Admin: 03/28/21 10:38 Dose: 650 mg Documented by: Atenolol (Atenolol 25 Mg Tablet) 25 mg PO BID [facility] Stop: 04/27/21 20:59 Last Admin: 03/29/21 08:25 Dose: 25 mg Documented by: Azithromycin (Azithromycin 250 Mg Tab) [facility] [place] Protocol Stop: 04/04/21 13:59 Last Admin: 03/29/21 08:26 Dose: 500 mg Documented by: Dextrose (Dextrose 50% 50 Ml Syringe) 25 - 50 ml IV UD PRN; Protocol PRN Reason: Hypoglycemia Protocol Stop: 04/26/21 17:01 Ezetimibe/Simvastatin (Ezetimibe/Simvastatin 10/40mg 1 Tab Tab) 1 tab PO PM OTILIA Stop: 04/26/21 20:59 Last Admin: 03/28/21 21:01 Dose: 1 tab Documented by: Glucagon (Glucagon For Inj 1 Mg Vial) 1 mg SQ UD PRN; Protocol PRN Reason: Hypoglycemia Protocol Stop: 04/26/21 17:01 Glucose (Glucose 10 Tabs/Tube) 4 - 8 tabs PO UD PRN; Protocol PRN Reason: Hypoglycemia Protocol Stop: 04/26/21 17:01 Glucose (Glucose 40% Gel 15 Gm Tube) 15 - 30 gm PO UD PRN; Protocol PRN Reason: Hypoglycemia Protocol Stop: 04/26/21 17:01 Guaifenesin (Guaifenesin 600 Mg Tabcr) 600 mg PO Q12 OTILIA Stop: 04/27/21 08:59 Last Admin: 03/29/21 08:26 Dose: 600 mg Documented by: Dexamethasone 6 mg/ Syringe 1.5 mls @ 1 mls/min IV DAILY OTILIA Stop: 04/07/21 08:59 Last Admin: 03/29/21 08:25 Dose: 1 mls/min Documented by: Ceftriaxone Sodium 2,000 mg/ (Dextrose) 70 mls @ 100 mls/hr IV DAILY OTILIA; Protocol Stop: 04/04/21 13:59 Last Infusion: 03/29/21 09:18 Dose: Infused Documented by: Insulin Aspart (Insulin Aspart 100 Units/Ml 3 Ml Pen) 0 units SC [facility] WITH [facility] Stop: 04/26/21 17:59 Last Admin: 03/29/21 09:19 Dose: 6 units Documented by: Insulin Glargine (Insulin Glargine Solostar 100 Units/Ml 3 Ml Pen) 0 units SC [facility]; Protocol Stop: 04/27/21 20:59 Last Admin: 03/28/21 21:10 Dose: 8 units Documented by: Insulin Human NPH (Insulin Human Nph) 30 units SC DAILY [facility] Stop: 04/27/21 08:59 Last Admin: 03/29/21 09:20 Dose: 30 units Documented by: Lorazepam (Lorazepam 0.5 Mg Tab) 0.5 mg PO DAILY PRN PRN Reason: Anxiety Stop: 04/26/21 17:01 Melatonin (Melatonin 3 Mg Tab) 3 mg PO HS PRN PRN Reason: Sleep Stop: 04/26/21 22:10 Last Admin: 03/28/21 21:00 Dose: 3 mg Documented by: Mirtazapine (Mirtazapine Tab 15 Mg Tab) 15 mg PO HS OTILIA Stop: 04/26/21 20:59 Last Admin: 03/28/21 21:01 Dose: 15 mg Documented by: Miscellaneous (Carbohydrates For Hypoglycemia ) 15 - 30 gm PO UD PRN PRN Reason: Hypoglycemia Protocol Stop: 04/26/21 17:01 Miscellaneous Information (Pharmacy Glycemic Mgmt Consult) 1 ea N/A UD PRN; Protocol PRN Reason: Consult Stop: 04/26/21 17:01 Nifedipine (Nifedipine Extended Rel 30 Mg Tabcr) 30 mg PO DAILY OTILIA Stop: 04/27/21 08:59 Last Admin: 03/29/21 08:26 Dose: 30 mg Documented by: Rivaroxaban (Rivaroxaban 15 Mg Tab) 15 mg PO QDD OTILIA Stop: 04/26/21 17:29 Last Admin: 03/28/21 15:57 Dose: 15 mg Documented by: PG Care Time/CCT Total # of Minutes Spent Total Time Spent with Patient: Total time spent is greater than 50% in coordination of care (as documented) at patient's floor/unit and/or counseling patient: Coding Level of Care Code 00616 Subseq Hosp Care Lvl 3 Diagnoses COVID U07.1 NSTEMI (non-ST elevated myocardial infarction) I21.4 CAD (coronary artery disease) I25.10 Anxiety F41.9 Controlled type 2 diabetes with neuropathy E11.40 Paroxysmal atrial fibrillation I48.0 Hypoxia R09.02 Asymptomatic bacteriuria R82.71 Elevated serum creatinine R79.89
[2021-03-29] MEDS: RIVAROXABAN 15 MG TAB PO SCH (17:33)
[2021-03-29] MEDS: MIRTAZAPINE TAB 15 MG TAB PO SCH (21:04)
[2021-03-29] MEDS: EZETIMIBE/SIMVASTATIN 10/40MG 1 TAB TAB PO SCH (21:05)
[2021-03-29] MEDS: MELATONIN 3 MG TAB PO PRN (21:18)
[2021-03-29] MEDS: INSULIN GLARGINE SOLOSTAR 100 UNITS/ML 3 ML PEN SC SCH (22:12)
[2021-03-30 06:29] LABS: Hematocrit (blood only) 38.6 % (37-47); Hemoglobin 12.1 g/dL (12.0-16.0); Mean Corpuscular Hemoglobin 28.9 pg (25-34); Mean Corpuscular Hgb Conc 31.3 g/dL (32-36); Mean Corpuscular Volume 92.1 fL (80-100); Mean Platelet Volume 9.1 fL (7.4-10.4); Platelet Count 171 K/uL (130-400); RDW Coefficient of Variation 17.5 % (11.5-14.5); RDW Standard Deviation 59.6 fL (36.4-46.3); Red Blood Count 4.19 M/uL (4.2-5.4); White Blood Count 6.11 K/uL (4.8-10.8)
[2021-03-30 06:51] LABS: BUN Creatinine Ratio 38.8 (10-20); C Reactive Protein 2.16 mg/dl (0-0.29); Calcium 8.4 mg/dl (8.5-10.1); Creatinine Clr Calc Pharmacy 32.7 ml/min; Est GFR (African American) 49.4 ml/min; Est GFR (Non-African American) 42.6 ml/min; Potassium 4.7 mmol/L (3.5-5.1)
[2021-03-30 07:03] LABS: Troponin I 0.275 ng/ml (0-0.045)
[2021-03-30] MEDS: dexAMETHasone 6 MG in SYRINGE 0 ML IV SCH (08:54)
[2021-03-30] MEDS: AZITHROMYCIN 250 MG TAB PO SCH (08:55)
[2021-03-30] MEDS: cefTRIAXone SODIUM 2,000 MG in DEXTROSE 5% 50 ML IV SCH (08:55)
[2021-03-30] MEDS: guaiFENesin 600 MG TABCR PO SCH (08:56)
[2021-03-30] MEDS: ATENOLOL 25 MG TABLET PO SCH (08:56)
[2021-03-30] MEDS: NIFEdipine EXTENDED REL 30 MG TABCR PO SCH (08:56)
[2021-03-30] MEDS: INSULIN ASPART 100 UNITS/ML 3 ML PEN SC SCH (08:57)
[2021-03-30] MEDS ORDERED: INSULIN HUMAN NPH SC SCH (09:00)
[2021-03-30] MEDS: ACETAMINOPHEN 325 MG TAB PO PRN (09:09)
--- NOTE | 2021-03-30 09:15 | XRay Report ---
XR chest 1V portable HISTORY: 85 years-old Female COVID pneumonia acute shortness of breath with reported pneumonia COMPARISON: Chest radiograph 03/27/2021 TECHNIQUE: Portable AP view of the chest FINDINGS: Cardiac silhouette is enlarged, unchanged. Atherosclerotic plaque of the thoracic aorta. Ill-defined left lung base opacities are unchanged. There are new peripheral predominant right midlung and right lung base ill-defined interstitial opacities. No pneumothorax or large pleural effusion. Degenerative changes of the shoulders and spine. Chronic deformity of the right proximal humerus. IMPRESSION: Mildly progressed right lung opacities suggestive of viral pneumonia. ACT 112: Negative or not required by law. The above report was generated using voice recognition software. It may contain grammatical, syntax o r spelling errors. Electronically signed by: Asa Martinez M.D. 03/30/2021 9:13 AM
[2021-03-30] MEDS ORDERED: FUROSEMIDE 20 MG TAB PO SCH (09:45)
--- NOTE | 2021-03-30 09:58 | Discharge Summary ---
Date of Service March 30, 2021 Admission HPI Per Admitting Provider Samira is an 85-year-old female with a past medical history of pulmonary hypertension, diastolic CHF, paroxysmal A. fib, type 2 diabetes with neuropathy, GERD, hypertension, anxiety, and coronary artery disease who presented to the emergency department with weakness and hypoxia and who was found to be Covid positive. She has not had chest pain, but has had an elevated troponin of 2.0 on admission. Samira reports she came in because her daughter wanted her to come in. Started feeling sick 2 days ago. Developed a cough productive for some yellow-whie sputum. Strong cough all night. +Nausea. 1x episode of emesis on Saturday, no blood or bile. Temp at home 99.9* at home, had chills on Saturday. No change in taste or smell. Does not feel short of breath. Has not been short o breath, but got lightheaded when moving quickly to the bathroom. Has not eaten much since saturday except jello, but is hungry. No diarrhea. No abdominal pain. No recent sick conacts. Had 2x doses of [employer] vaccinations. Last one was 'a w hile ago' and was scheduled for a booster on Apr 10 Hx CHF, follows with Linda Sanchez and Dr. Garcia. Had a TN in 1989, felt like indigestion. Medical History: Reviewed Medications: Reviewed. has not taken yet today. Surgical History: Reviewed Allergies: Reviewed. PCN, contast dye --> hives. Social History: No tobacco product,alcohol, or rec drug use. Code Status: DNR/DNI. Principal Diagnosis COVID 19 infection Possible bacterial pneumonia NSTEMI Discharge Exam General: well developed, well nourished, no acute distress, comfortable Neck: supple, trachea midline, normal thyroid Lungs: clear to auscultation bilaterally, normal respiratory effort, no accessory muscle use, no distress, + cough Heart: regular S1 and S2, no murmur, peripheral pulses normal, capillary refill normal, no edema Abdomen: soft, NT, ND, + BS, no hepatomegaly, normal to percussion Extremities: normal in appearance, no cyanosis, no petechiae, strength is 5/5 bilaterally Neuro: awake, cooperative, moves all extremities, no focal motor deficits, CN II-XII intact, sensation in extremities intact, normal speech Skin: warm, dry, no rash, normal turgor Psych: Awake, alert oriented x 3, euthymic affect Discharge Data Allergies Allergy/AdvReac Type Severity Reaction Status Date / Time Iodinated Contrast Media Allergy Intermediate HIVES Verified 02/13/21 13:06 penicillin G Allergy Unknown HAPPENED Verified 02/13/21 13:06 MANY YEARS AGO Consultations 03/27/21 17:02 Consult Cardiology Routine Hospital Course (1) COVID: Samira is an 85-year-old female with a past medical history of pulmonary hypertension, diastolic CHF, paroxysmal A. fib, type 2 diabetes with neuropathy, GERD, hypertension, anxiety, and coronary artery disease who presented to the emergency department with weakness and hypoxia and who was found to be Covid positive. She has not had chest pain, but has had an elevated troponin of 2.0 on admission. Acute hypoxic respiratory failure 2/2 Covid pneumonia +/- Acute on Chronic diastolic CHR Day 3 of illness when admitted productive cough, yellow sputum, difficult time getting up sputum alternating between room air and 2L for a few days continue dexamethasone 6mg IV daily, day 4 will change to 6mg PO daily, complete 6 more days at home added Rocephin 2gm IV daily and Zithromax 500mg PO daily on 03/28, completed 3 days here recommend taking Zithromax 500mg daily x 2 more days and Cefdinir 300mg BID x 4 more days at home flutter valve really helping mobilize sputum, will take home and continue to use several times a day Mucinex 600 BID to thin out secretions CRP was 4, down to 2 today, moving in right direction with dexamethasone CXR: right lower lobe viral pneumonia 2 step today: no oxygen at rest, 2L needed on exertion, arranged for home oxygen follow up with PCP instructed to get a finger pulse oximeter to monito oxygen levels at home told to return to ED if her oxygen is < 88% despite the 2L (2) Hypoxia: room air at rest, 2L on exertion, arranged for home oxygen has been stable here for 3 days so unlikely that she would get worse (3) NSTEMI (non-ST elevated myocardial infarction): History of diastolic CHF, CXR with evidence of vascular congestion Troponin 2.7 on admit, no ST wave changes on EKG Clinically asymptomatic, no chest pain lower dose of atenolol to 25mg BID, HR in 70s add aspirin 81mg daily anticoagulated with Xarelto troponin down to 0.[address] Garcia recommends outpatient echo, no inpatient work up at this time (4) Elevated serum creatinine: ? Prerenal azotemia versus MARIMAR Baseline creatinine approximately 1.31.5 Cr is 1.1 today, BUN coming down, resume lasix 20mg PO daily resume lisinopril (5) CAD (coronary artery disease): NSTEMI, type II No chest pain Anticoagulated on rivaroxaban EKG on admission A. fib, no territorial ST wave changes echo can be done outpatient troponin trending down to 0.5, then 0.2 today start aspirin 81mg daily (6) Anxiety: Continue home Ativan (7) Controlled type 2 diabetes with neuropathy: resume outpatient regimen low carb diet will be on dexamethasone 6mg daily, should have less hyperglycemic effects (8) Paroxysmal atrial fibrillation: Anticoagulated with rivaroxaban Rate controlled, continue atenolol 25mg BID d/c to home Total Time Total Time Spent Total Time Spent (In Minutes): 35 Total Time Includes: Examination of the Patient, Discharge Planning, Medication Reconciliation and Communication With Other Providers Discharge Plan Discharge Items Patient Disposition: Home - Home Health Services Reason For Visit: COVID, NSTEMI, HYPOXIA Discharge Diagnosis: COVID pneumonia suspected bacterial pneumonia possible non-ST elevation TN Condition on Discharge: Good Goals: complete course of steroids and antibiotics follow up with cardiology in 2 weeks for echocardiogram, follow up for NSTEMI Activity: Resume your previous activity Non-emergency contact: Primary Care Provider Call non-emergency contact if: you have any medication questions, your symptoms worsen and you have a fever Follow-up/Referrals: Neo Garcia MD [Physician] - (2 weeks, appointment for NSTEMI and needs echocardiogram at that visit) Gurmeet Smith DO [Primary Care Provider] - (one week) Diet: Carb Consistent or DM2 and Heart Healthy Addtl Attending Provider Instructions: Medications: - DEXAMETHASONE: 6mg daily for 6 more days to complete 10 days total treatment - CEFDINIR: 300mg twice a day for 4 days, start tomorrow morning as you received Rocephin IV this morning - ZITHROMAX: 500mg daily for 2 more days, start tomorrow morning - ATENOLOL: note that I reduced the dose to 25mg twice a day as you had some slow heart rates on the 75mg dose - MUCINEX: obtain over the counter, can take 600mg twice a day for the next week to help thin mucous/secretions COVID 19 infection, mild pneumonia, possible secondary bacterial infection with productive cough, yellow mucous finish the dexamethasone as prescribed above, this if for COVID 19 complete the Cefdinir and Zithromax for the bacterial infection, take Mucinex for secretions please continue to use the flutter valve (green aparatus) several times a day to help loosen and mobilize mucous and get it out of lungs use oxygen, 2L on exertion, for the next 1-2 weeks, you did not need any oxygen at rest if you feel like you are getting worse instead of better, check oxygen levels at home with finger pulse oximeter if your numbers are less than 88% on room air then you can wear the 2L of oxygen at all times if your numbers are less than 88% despite the 2L, then return to emergency room stay well nourished, well hydrated, get rest but also be sure to be moving around the house NSTEMI, possible mild heart attack evaluated by cardiology, since you never had chest pain and there were no EKG changes, this was considered mild, might even be due to COVID infection recommend taking aspirin 81mg daily continue on Atenolol and Xarelto should follow up with Dr. Garcia in two weeks for echo and hospital follow up Pending Studies at Discharge: No Stand-Alone Forms: [facility], Smoking Cessation Medications and DC Order Prescriptions: New azithromycin 250 mg Tablet 500 mg PO QAM 2 Days Qty: 4 RF: 0 atenolol 25 mg Tablet 25 mg PO BID 30 Days Qty: 60 RF: 3 cefdinir 300 mg capsule 300 mg PO BID 4 Days Qty: 8 RF: 0 dexamethasone 4 mg tablet 6 mg PO DAILY 6 Days Qty: 9 RF: 0 guaifenesin [Mucinex] 600 mg Tablet Extended Release 12hr 600 mg PO Q12 7 Days Qty: 14 RF: 0 [facility] See Rx Instructions .ROUTE .MEDSUPPLY Qty: 1 RF: 0 (DME) OUTSIDE motorized scooter See Rx Instructions .Route .MEDSUPPLY Qty: 1 RF: 0 glimepiride 2 mg tablet 4 mg PO BID 90 Days Qty: 360 RF: 3 Xarelto 15 mg tablet 15 mg PO DAILY Qty: 90 RF: 3 lisinopril 20 mg tablet 20 mg PO DAILY Qty: 90 RF: 3 furosemide 20 mg tablet 20 mg PO DAILY Qty: 90 RF: 3 nifedipine 30 mg tablet extended release 24hr 30 mg PO DAILY Qty: 90 RF: 3 esomeprazole magnesium 40 mg capsule,delayed release(DR/EC) 40 mg PO DAILY Qty: 90 RF: 3 (DME) blood sugar diagnostic Strip See Rx Instructions .ROUTE .MEDSUPPLY Qty: 400 RF: 3 nitroglycerin [Nitrostat] 0.4 mg tablet, sublingual 0.4 mg Sublingual DIRECTED PRN (Reason: Chest Pain) Qty: 7 RF: 5 polyethylene glycol 3350 [Miralax] 17 gram/dose powder 17 g PO DAILY PRN (Reason: constipation) Qty: 119 RF: 2 lorazepam 0.5 mg tablet 0.5 mg PO DAILY PRN (Reason: Anxiety) RF: 0 coenzyme Q10 100 mg capsule 100 mg PO DAILY RF: 0 cyanocobalamin (vitamin B-12) 2,500 mcg tablet, sublingual 2,500 mcg sublingual DAILY RF: 0 vitamin B complex Capsule 1 cap PO DAILY RF: 0 Jardiance 25 mg tablet 25 mg PO DAILY Qty: 90 RF: 3 magnesium 250 mg Tablet 250 mg PO DAILY RF: 0 cholecalciferol (vitamin D3) [Vitamin D3] 1,000 unit Capsule 1,000 unit PO DAILY RF: 0 calcium carbonate-vitamin D3 [Calcium 600 + D(3)] 600 mg(1,500mg) -400 unit Tablet 1 tab PO DAILY RF: 0 Women's Daily Multivitamin 18-0.4 mg Tablet 1 tab PO DAILY RF: 0 mirtazapine [Remeron] 15 mg tablet 15 mg PO HS RF: 0 ezetimibe-simvastatin [Vytorin 10-40] 10-40 mg tablet 1 tab PO PM RF: 0 Discontinued atenolol 50 mg tablet 75 mg PO BID Qty: 270 RF: 3 Discharge Orders: Discharge Order (Routine); Ordered 03/30/21 Ordered By: Federico Escobedo/Other Patient Handouts: A1C, Managing Type 2 Diabetes Admission Data Admit Date/Time: 03/27/21 15:16 Attending Provider: Federico Lugo Admit Provider: Arturo Farias Primary Care Provider: Gurmeet Smith Other Providers: Karlos Ham ; [facility] Coding Level of Care Code D/C DAY MANAGEMENT >30 MINS Diagnoses COVID U07.1 Hypoxia R09.02 NSTEMI (non-ST elevated myocardial infarction) I21.4 Elevated serum creatinine R79.89 CAD (coronary artery disease) I25.10 Anxiety F41.9 Controlled type 2 diabetes with neuropathy E11.40 Paroxysmal atrial fibrillation I48.0
[2021-03-30] MEDS ORDERED: INSULIN ASPART 100 UNITS/ML 3 ML PEN SC SCH ×2 (11:30→21:00)
--- NOTE | 2021-04-05 13:45 | Coding Query ---
CODING QUERY To promote full compliance with coding requirements relating to patient care, provider participation is requested in all cases of it solutions architect uncertainty. Please assist us with the question(s) below: Coding Question(s): Pt admitted with Covid - 19 Pneumonia and NSTEMI. Progress notes document both NSTEMI and Type II IL. Patient with CAD and prior IL . Seeking to clarify the type of IL POA. Please check below. Thanks for your help! Tereso LARES [facility] Physician's Response(s): NSTEMI, POA __x____ Type II IL , POA Cannot Clinically Correlate if NSTEMI or Type II IL was present on admission Other, please document: Principal Diagnosis: "that condition established after study, to be chiefly responsible for occasioning the admission of the patient to the hospital for care." Co-Existing Principal Diagnosis: "when two or more diagnoses equally meet the criteria for principal diagnosis as determined by the circumstances of admission, diagnostic work up, and/or therapy provided, and the Alphabetic Index, Tabular List, or another coding guideline does not provide sequencing direction, any one of the diagnoses may be sequenced first." "When the physician has documented what appears to be a current diagnosis in the body of the record, but has not included the diagnosis in the final diagnostic statement, the physician should be asked whether the diagnosis should be added." (Source Coding Clinic 2 QTR90. p3-4) JANY
== END 2021-03-30 16:39 | disposition home health service (06) | DRG 177 ==
LOC: ED 09:57 → 2S 15:16 → SUATTDRO 15:16 → 2S 16:19

== ENCOUNTER 2022-02-09 13:11 | Inpatient (IN) ==
--- NOTE | 2022-02-09 14:19 | Emergency Department Note ---
ED Visit Note I was consulted by the Advanced Practice Provider. I saw the patient personally and performed a substantive portion of the visit. This includes aspects of the HPI, MDM, diagnostic interpretations, and disposition/plan. Patient does have some dyspnea. She has history of CHF. A cardiac/pulmonary work-up has been ordered. Of note, the epistaxis that had brought her to the hospital has resolved spontaneously. Patient was found to be hypoxic with exertion despite diuresis. Hospitalization has been recommended. .
[2022-02-09 14:23] LABS: Eosinophils # (auto) 0.23 K/uL (0-0.50); Eosinophils % (auto) 2.4 %; Hematocrit (blood only) 41.3 % (34.1-44.9); Hemoglobin 12.4 g/dl (12.0-16.0); Immature Granulocytes # (auto) 0.03 K/uL (0.00-0.02); Immature Granulocytes % (auto) 0.3 %; Lymphocytes # (auto) 2.82 K/uL (1.2-3.4); Lymphocytes % (auto) 29.4 %; Mean Corpuscular Hemoglobin 26.6 pg (25.0-34.0); Mean Corpuscular Volume 88.4 fL (80.0-100.0); Mean Platelet Volume 9.1 fL (9.4-12.3); Monocytes # (auto) 0.94 K/uL (0.24-0.82); Monocytes % (auto) 9.8 %; Neutrophils # (auto) 5.47 K/uL (1.4-6.5); Neutrophils % (auto) 57.1 %; Platelet Count 271 K/uL (130-400); RDW Coefficient of Variation 17.8 % (11.5-14.5); RDW Standard Deviation 56.9 fL (36.4-46.3); Red Blood Count 4.67 M/uL (3.93-5.22); White Blood Count 9.59 K/ul (4.8-10.8)
[2022-02-09 14:39] LABS: Albumin Globulin Ratio 1.3 (0.9-2); Albumin Level 3.9 gm/dl (3.4-5.0); BUN Creatinine Ratio 28.2 (10-20); Bilirubin,Total 0.6 mg/dl (0.2-1.0); Calcium 9.3 mg/dl (8.5-10.1); Creatinine Clr Calc Pharmacy 35.6 ml/min; Est GFR (African American) 48.5 ml/min; Est GFR (Non-African American) 41.9 ml/min; Globulin 3.1 gm/dl (2.5-4.0)
[2022-02-09 14:40] LABS: Troponin I High Sensitivity 20.6 pg/ml (0-14)
[2022-02-09] MEDS ORDERED: FUROSEMIDE 40 MG/4 ML VIAL IV STA (14:56)
--- NOTE | 2022-02-09 14:59 | XRay Report ---
XR chest 1V portable HISTORY: 86 years-old Female CHF, weight increase acute shortness of breath with possible congestive heart failure COMPARISON: Chest radiograph 03/30/2021 TECHNIQUE: Portable AP view of the chest FINDINGS: Cardiac silhouette is enlarged. Atherosclerosis of the aorta. Pulmonary vascular congestion. Mild rig ht hemidiaphragmatic elevation with mild bibasilar opacities. No pneumothorax. Degenerative changes o f the shoulders and spine. IMPRESSION: 1. Cardiomegaly with pulmonary vascular congestion. 2. Mild bibasilar densities suggestive of atelectasis versus pneumonitis. ACT 112: Negative or not required by law. The above report was generated using voice recognition software. It may contain grammatical, syntax o r spelling errors. Electronically signed by: Asa Martinez M.D. 02/09/2022 2:58 PM
--- NOTE | 2022-02-09 16:22 | Emergency Department Note ---
History of Present Illness General Chief complaint: Nose Bleed (Minor) Time Seen by Provider: 02/09/22 13:45 History of Present Illness This is an 86-year-old female with a history of atrial fibrillation on Xarelto, CHF follows with CHF clinic, CAD, type 2 diabetes, pulmonary hypertension, accompanied by her daughter who presents via EMS for right-sided epistaxis as well as recent weight gain, lower extremity edema, and daughter is concerned that her breathing is more labored than it normally is. Epistaxis This began spontaneously earlier today when the patient bent over forward to pick something up. She put her head back and felt a draining down the back of her throat for little bit and then this resolved spontaneously. She denies any bleeding right now. Has had several intermittent nosebleeds over the past year, but nothing requiring emergency evaluation. Denies any recent trauma. Has not seen ENT for nosebleeds. Remainder of symptoms Patient endorses a recent weight gain. 2 days ago she was 190 pounds which according to most recent cardiology note is her "trigger weight" though she has not taken an extra dose of Lasix like she has in the past when her weight goes up. Her daughter thinks that she is breathing harder than normal although the patient does not feel like it is much harder to breathe than normal. Patient and daughter do agree that she has a lot of edema in her lower extremities, likely more than normal. Patient is still sleeping on 1 pillow at night, and denies any orthopnea. She does feel more short of breath anytime she exerts herself. Lives in independent living at a long-term care facility but functions on her own on a daily basis. Symptoms or not accompanied by any chest pain or leg pain. Continues to take her medications as prescribed. Does not use oxygen at home. She takes Lasix 20 mg every other day, and is able to take an extra dose when she reaches 190 pounds. Her scale ran out of batteries 2 days ago so she has not checked her weights since then. Did take a dose of Lasix today. Denies any fevers, chills, body aches, nausea, vomiting, abdominal bloating, paroxysmal nocturnal dyspnea, recent falls, numbness or tingling or weakness in her extremities, lightheadedness, dizziness. Home Medications Medication Instructions Recorded Confirmed Type calcium carbonate 600 mg-vitamin 1 tab PO DAILY 03/13/18 02/09/22 History D3 10 mcg (400 unit) tablet (Calcium 600 + D(3)) cholecalciferol (vitamin D3) 25 1,000 unit PO DAILY 03/13/18 02/09/22 History mcg (1,000 unit) capsule (Vitamin D3) magnesium 250 mg tablet 250 mg PO DAILY 03/13/18 02/09/22 History nitroglycerin 0.4 mg sublingual 0.4 mg sublingual DIRECTED PRN 03/02/19 02/09/22 Rx tablet (Nitrostat) Chest Pain #7 tabs coenzyme Q10 100 mg capsule 100 mg PO DAILY 02/02/20 02/09/22 History cyanocobalamin (vitamin B-12) 2,500 mcg sublingual DAILY 02/02/20 02/09/22 History 2,500 mcg sublingual tablet OUTSIDE motorized scooter #1 ea 03/15/20 01/01/22 Rx polyethylene glycol 3350 17 17 g PO DAILY PRN constipation 08/08/20 02/09/22 Rx gram/dose oral powder (Miralax) #119 grams empagliflozin 25 mg tablet 25 mg PO DAILY #90 tabs 01/13/21 02/09/22 Rx (Jardiance) esomeprazole magnesium 40 mg 40 mg PO DAILY #90 caps 01/30/21 02/09/22 Rx capsule,delayed release blood sugar diagnostic #400 ea 02/27/21 01/01/22 Rx atenolol 25 mg tablet 25 mg PO BID 30 days #180 tabs 04/12/21 02/09/22 Rx mirtazapine 15 mg tablet (Remeron) 15 mg PO HS #90 tabs 07/14/21 02/09/22 Rx glimepiride 2 mg tablet 4 mg PO BID 90 days #360 tabs 10/16/21 02/09/22 Rx lorazepam 0.5 mg tablet 0.5 mg PO DAILY PRN Anxiety #30 12/07/21 02/09/22 Rx tabs melatonin 10 mg capsule 10 mg PO HS 01/01/22 02/09/22 History Jobst Stockings (misc) #1 ea 01/02/22 Rx Jaylen Hose #1 ea 01/05/22 Rx ezetimibe 10 mg-simvastatin 40 mg 1 tab PO PM #90 tabs 01/12/22 02/09/22 Rx tablet (Vytorin) furosemide 20 mg tablet 20 mg PO Q OTHER DAY #45 tabs 01/12/22 02/09/22 Rx lisinopril 20 mg tablet 20 mg PO DAILY #90 tabs 01/12/22 02/09/22 Rx nifedipine 30 mg tablet,extended 30 mg PO DAILY #90 tabs 01/12/22 02/09/22 Rx release 24 hr rivaroxaban 15 mg tablet (Xarelto) 15 mg PO DAILY #90 tabs 01/12/22 02/09/22 Rx multivitamin with minerals 1 tab PO DAILY 02/09/22 02/09/22 History (Multiple Vitamin-Minerals tablet) Allergies Allergy/AdvReac Type Severity Reaction Status Date / Time Iodinated Contrast Media Allergy Intermediate HIVES Verified 01/01/22 11:33 penicillin G Allergy Unknown HAPPENED Verified 01/01/22 11:33 MANY YEARS AGO Past Med/Surg History Medical History Acid reflux Acute on chronic diastolic CHF (congestive heart failure) Acute UTI (urinary tract infection) Candidal intertrigo Diabetes Elevated troponin Fracture of left distal radius Fracture, humerus closed Heart attack Hyperkalemia Hypoxia Hypoxia Influenza Irregular heartbeat Left knee DJD Non-ST elevation IA (NSTEMI) Pulmonary edema Pulmonary hypertension Rupture of UCL of right thumb Seasonal allergies Severe tricuspid regurgitation UTI (urinary tract infection) Surgical History H/O oral surgery No history of previous surgery S/P knee surgery S/P wisdom tooth extraction Family History Mother Myocardial infarction Father Myocardial infarction Other Hearing loss Heart disease No pertinent family history Denies family history of Ovarian cancer Prostate cancer No family history of adverse response to anesthesia No family history of bleeding disorder Allergies Breast cancer Colorectal cancer Cancer Hypertension Stroke Asthma Social History Smoking Status: Former smoker Tobacco Type: Cigarettes Second Hand Exposure: No; Hx Alcohol Use: No Hx Substance Use: No Preferred Language: Citizen Of [place] Communication Ability: Effective Visual Impairment: No Limitations Hearing Ability: Normal 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 and A total of 10 systems reviewed and were otherwise negative Physical Exam Vital Signs Vital Signs - 24 hr 02/09/22 13:18 02/09/22 14:34 02/09/22 14:51 Temperature 97.7 F Temperature Source Oral Pulse Rate 75 Pulse Rate [Apical] 87 Respiratory Rate 20 22 Respiratory Effort / Characteristics Non-Labored Spontaneous Respiratory Depth Normal Respiratory Pattern Regular Blood Pressure 125/53 L Blood Pressure [Right Arm] Blood Pressure Mean 77 Blood Pressure Mean [Right Arm] Pulse Oximetry 92 92 95 Oxygen Delivery Method Room Air Room Air Nasal Cannula Oxygen Flow Rate 2 Sepsis Recent Fever Within 48 Hours No Sepsis New/Unexplained Change in Mental Status No Sepsis Action Taken by Nursing No Action Required 02/09/22 16:00 02/09/22 18:00 Temperature Temperature Source Pulse Rate Pulse Rate [Apical] 82 73 Respiratory Rate 20 18 Respiratory Effort / Characteristics Respiratory Depth Respiratory Pattern Blood Pressure Blood Pressure [Right Arm] 130/65 128/85 Blood Pressure Mean Blood Pressure Mean [Right Arm] 86 99 Pulse Oximetry 93 91 Oxygen Delivery Method Room Air Room Air Oxygen Flow Rate Sepsis Recent Fever Within 48 Hours Sepsis New/Unexplained Change in Mental Status Sepsis Action Taken by Nursing CONSTITUTIONAL: Well developed, well nourished, pleasant, conversational, mild work of breathing appreciated. HEAD: Normocephalic, atraumatic. EYES: conjunctivae normal, extraocular muscles intact. ENMT: External ears normal. Nose with trace dried blood at the right nare. No septal hematoma. Right septum is slightly friable although no hemorrhage or obvious source of the bleed is identified. No blood visualized in the posterior oropharynx. Oral mucous membranes moist. Oropharynx normal. NECK: Full active range of motion. No JVD or hepatojugular reflux. RESPIRATORY: Mild tachypnea with mild amount of increased work of breathing, not tripoding, not in respiratory distress. Decreased air movement bilateral bases with associated rales bilaterally. No wheezing. CARDIOVASCULAR: Regular rate and rhythm. No murmurs, rubs, or gallops. ABDOMEN: Normal bowel sounds. Abdomen is soft, nontender. Trace edema. No masses MUSCULOSKELETAL: Spontaneously moves bilateral upper and lower extremities. 2- 3+ pitting edema in bilateral lower extremities. No tenderness in bilateral lower extremities, no skin color changes. SKIN: [place], warm, dry. NEUROLOGIC: Alert and oriented x 3. No acute motor or sensory deficits. Cranial nerves grossly intact. PSYCHIATRIC: Appropriate. Normal affect. Course Reevaluation(s) Reevaluation #1: Patient urinated 3 times after receiving IV Lasix. When I evaluated her she was 92% on room air. I ambulated her long term down the bain and back, and her oxygen saturation dropped to 85%. This was evaluated by myself and I also confirmed this reading after placing the patient back on the monitor in the room, found to be 86% with a good pleth. Recommended admission for further management Administered Medications Discontinued Medications Furosemide (Furosemide 40 Mg/4 Ml Vial) 40 mg IV ONE STA Stop: 02/09/22 14:57 Last Admin: 02/09/22 15:23 Dose: 40 mg Documented By: NEELIMA Medical Decision Making Differential Diagnosis Anterior epistaxis, posterior epistaxis, coagulopathy, trauma, CHF exacerbation, IA, PE, pneumonia, viral infection, aortic pathology, electrolyte disturbance, anemia, among other pathology Laboratory Data Result diagrams: 02/09/22 13:25 02/09/22 13:25 Lab Results 02/09/22 02/09/22 02/09/22 Range/Units 13:25 13:25 13:25 WBC 9.59 (4.8-10.8) K/ul RBC 4.67 (3.93-5.22) M/uL Hgb 12.4 (12.0-16.0) g/dl Hct 41.3 (34.1-44.9) % MCV 88.4 (80.0-100.0) fL MCH 26.6 (25.0-34.0) pg MCHC 30.0 L (32.0-36.0) g/dL RDW Std Deviation 56.9 H (36.4-46.3) fL RDW Coeff of Toby 17.8 H (11.5-14.5) % Plt Count 271 (130-400) K/uL MPV 9.1 L (9.4-12.3) fL Immature Gran % (Auto) 0.3 % Neut % (Auto) 57.1 % Lymph % (Auto) 29.4 % Geary % (Auto) 9.8 % Eos % (Auto) 2.4 % Baso % (Auto) 1.0 % Neut # (Auto) 5.47 (1.4-6.5) K/uL Lymph # (Auto) 2.82 (1.2-3.4) K/uL Geary # (Auto) 0.94 H (0.24-0.82) K/uL Eos # (Auto) 0.23 (0-0.50) K/uL Baso # (Auto) 0.10 (0-0.2) K/uL Immature Gran # (Auto) 0.03 H (0.00-0.02) K/uL Sodium 138 (136-145) mmol/L Potassium 5.0 (3.5-5.1) mmol/L Chloride 107 (98-107) mmol/L Carbon Dioxide 23 (21-32) mmol/L Anion Gap 8 (3-11) BUN 33 H (6-23) mg/dl Creatinine 1.17 (0.6-1.2) mg/dl Est Cr Clr Drug Dosing 35.6 ml/min Est GFR ( Amer) 48.5 ml/min Est GFR (Non-Af Amer) 41.9 ml/min BUN/Creatinine Ratio 28.2 H (10-20) Glucose 208 H (70-99(Fasting)) mg/dl Calcium 9.3 (8.5-10.1) mg/dl Total Bilirubin 0.6 (0.2-1.0) mg/dl AST 23 (13-39) U/L ALT 14 (7-52) U/L Alkaline Phosphatase 71 (34-104) U/L Troponin I High Sens 20.6 H (0-14) pg/ml B-Natriuretic Peptide 1264 H (0-100) pg/ml Total Protein 7.0 (6.0-8.3) gm/dl Albumin 3.9 (3.4-5.0) gm/dl Globulin 3.1 (2.5-4.0) gm/dl Albumin/Globulin Ratio 1.3 (0.9-2) SARS-CoV-2, RNA, NAAT (NEGATIVE) 02/09/22 02/09/22 Range/Units 14:55 15:28 WBC (4.8-10.8) K/ul RBC (3.93-5.22) M/uL Hgb (12.0-16.0) g/dl Hct (34.1-44.9) % MCV (80.0-100.0) fL MCH (25.0-34.0) pg MCHC (32.0-36.0) g/dL RDW Std Deviation (36.4-46.3) fL RDW Coeff of Toby (11.5-14.5) % Plt Count (130-400) K/uL MPV (9.4-12.3) fL Immature Gran % (Auto) % Neut % (Auto) % Lymph % (Auto) % Geary % (Auto) % Eos % (Auto) % Baso % (Auto) % Neut # (Auto) (1.4-6.5) K/uL Lymph # (Auto) (1.2-3.4) K/uL Geary # (Auto) (0.24-0.82) K/uL Eos # (Auto) (0-0.50) K/uL Baso # (Auto) (0-0.2) K/uL Immature Gran # (Auto) (0.00-0.02) K/uL Sodium (136-145) mmol/L Potassium (3.5-5.1) mmol/L Chloride (98-107) mmol/L Carbon Dioxide (21-32) mmol/L Anion Gap (3-11) BUN (6-23) mg/dl Creatinine (0.6-1.2) mg/dl Est Cr Clr Drug Dosing ml/min Est GFR ( Amer) ml/min Est GFR (Non-Af Amer) ml/min BUN/Creatinine Ratio (10-20) Glucose (70-99(Fasting)) mg/dl Calcium (8.5-10.1) mg/dl Total Bilirubin (0.2-1.0) mg/dl AST (13-39) U/L ALT (7-52) U/L Alkaline Phosphatase (34-104) U/L Troponin I High Sens 18.5 H (0-14) pg/ml B-Natriuretic Peptide (0-100) pg/ml Total Protein (6.0-8.3) gm/dl Albumin (3.4-5.0) gm/dl Globulin (2.5-4.0) gm/dl Albumin/Globulin Ratio (0.9-2) SARS-CoV-2, RNA, NAAT NEGATIVE (NEGATIVE) Imaging Data Attestation: I personally reviewed and interpreted this imaging study as follows: My Impression: I agree with the radiologist's interpretation Radiologist's Impression: Chest X-Ray 02/09/22 14:11 XR chest 1V portable HISTORY: 86 years-old Female CHF, weight increase acute shortness of breath with possible congestive heart failure COMPARISON: Chest radiograph 03/30/2021 TECHNIQUE: Portable AP view of the chest FINDINGS: Cardiac silhouette is enlarged. Atherosclerosis of the aorta. Pulmonary vascular congestion. Mild right hemidiaphragmatic elevation with mild bibasilar opacitie s. No pneumothorax. Degenerative changes of the shoulders and spine. IMPRESSION: 1. Cardiomegaly with pulmonary vascular congestion. 2. Mild bibasilar densities suggestive of atelectasis versus pneumonitis. ACT 112: Negative or not required by law. The above report was generated using voice recognition software. It may contain grammatical, syntax or spelling errors. Electronically signed by: Asa Martinez M.D. 02/09/2022 2:58 PM ECG Data Attestation: I personally reviewed and interpreted this ECG as follows: (Shown. Intervals within normal limits. Normal axis. No acute ST elevation or evidence of active ischemia. No significant change from prior ECG from March 27, 2021) [facility] Narrative 86-year-old female with no significant cardiopulmonary history as described above presents with epistaxis earlier today that has spontaneously resolved, as well as recent weight gain, difficulty breathing, lower extremity edema. On initial exam, her oxygen saturation is 91% on room air and she does have some mild increased work of breathing and mild tachypnea. Her lung sounds are decreased in the bases. No evidence of acute epistaxis or anything requiring cauterization. 2-3+ pitting edema in bilateral lower extremities is appreciated extending into the thighs. Placed on 2 L nasal cannula improved to 96%. Chest x-ray demonstrates cardiomegaly and vascular congestion consistent with CHF. ECG is largely unchanged from baseline. Troponin is slightly elevated, repeat troponin is stable, no change, this could be her baseline. BNP elevated at 1264, unclear if this is baseline or elevated above baseline. No leukocytosis, no anemia, glucose is elevated to 208 which appears to be stable. Renal function is at baseline creatinine at 1.17. 40 mg IV Lasix was administered with good response. Her work of breathing unfortunately did not significantly improve and she remained around 92% on room air. I ambulated the patient while evaluating her pulse oximetry and she desaturated to 85%. Unable to discharge home in this state. Case was discussed with hospitalist Dr. Smith who agreed to admit the patient for ongoing management. Impression & Plan CHF exacerbation, Hypoxemia Discharge Plan Visit Data Chief Complaint: Nose Bleed (Minor) ED Provider: Sterling White ED Midlevel Provider: Nathanael Henderson Discharge Problem: CHF exacerbation, Hypoxemia Patient Disposition: Admitted As Inpatient Discharge Instructions Interventions: ED Discharge Assessment Last Done: 02/09/22 19:00 Forms Stand Alone Forms: My [facility] [employer] Prescriptions Prescriptions: No Action (DME) OUTSIDE motorized scooter See Rx Instructions .Route .MEDSUPPLY Qty: 1 0RF Rx Instructions: DIRECTED FOR OUTSIDE USE THERAPIST EVALUATION FOR POWER MOBILITY esomeprazole magnesium 40 mg capsule,delayed release(DR/EC) 40 mg PO DAILY Qty: 90 3RF (DME) blood sugar diagnostic Strip See Rx Instructions .ROUTE .MEDSUPPLY Qty: 400 3RF Dose Instruction: As directed Rx Instructions: Test 4 Times Daily mirtazapine [Remeron] 15 mg tablet 15 mg PO HS Qty: 90 3RF glimepiride 2 mg tablet 4 mg PO BID 90 Days Qty: 360 3RF lorazepam 0.5 mg tablet 0.5 mg PO DAILY PRN (Reason: Anxiety) Qty: 30 0RF (DME) [facility] See Rx Instructions .ROUTE .MEDSUPPLY Qty: 1 0RF Rx Instructions: THERAPIST EVALUATION FOR POWERED MOBILITY (DME[place] [place] .MEDSUPPLY Qty: 1 0RF Rx Instructions: As directed Xarelto 15 mg tablet 15 mg PO DAILY Qty: 90 3RF Rx Instructions: must administer with evening meal nifedipine 30 mg tablet extended release 24hr 30 mg PO DAILY Qty: 90 3RF lisinopril 20 mg tablet 20 mg PO DAILY Qty: 90 3RF furosemide 20 mg tablet 20 mg PO Q OTHER DAY Qty: 45 1RF ezetimibe-simvastatin [Vytorin 10-40] 10-40 mg tablet 1 tab PO PM Qty: 90 3RF nitroglycerin [Nitrostat] 0.4 mg tablet, sublingual 0.4 mg Sublingual DIRECTED PRN (Reason: Chest Pain) Qty: 7 5RF atenolol 25 mg tablet 25 mg PO BID 30 Days Qty: 180 3RF polyethylene glycol 3350 [Miralax] 17 gram/dose powder 17 g PO DAILY PRN (Reason: constipation) Qty: 119 2RF melatonin 10 mg capsule 10 mg PO HS coenzyme Q10 100 mg capsule 100 mg PO DAILY cyanocobalamin (vitamin B-12) 2,500 mcg tablet, sublingual 2,500 mcg sublingual DAILY Jardiance 25 mg tablet 25 mg PO DAILY Qty: 90 3RF magnesium 250 mg Tablet 250 mg PO DAILY cholecalciferol (vitamin D3) [Vitamin D3] 1,000 unit Capsule 1,000 unit PO DAILY calcium carbonate-vitamin D3 [Calcium 600 + D(3)] 600 mg(1,500mg) -400 unit Tablet 1 tab PO DAILY Multiple Vitamin-Minerals Tablet 1 tab PO DAILY Referrals Referrals: Gurmeet Smith DO [Primary Care Provider] - : CHF exacerbation Qualifiers: Heart failure type: unspecified Qualified Code(s): I50.9 - Heart failure, unspecified
--- NOTE | 2022-02-09 17:43 | History & Physical Report ---
Date of Service February 09, 2022 Assessment & Plan (1) CHF exacerbation: Plan: Acute on chronic heart failure with exacerbation resulting in dyspnea with hypoxia with activity - HFpEF- ECHO 2019 EF 50-55%, mild LVH mild MR - Continue BB - Diuresed with 40mg IV Lasix at 1500- repeat at 2100 and in AM on 02/10/22 - goal negative 750-1liter negative - She is normally on 20mg PO lasix every other day - Daily standing weights - Limited ECHO in AM (2) Left knee DJD: Plan: Chronic pain with recent injection - PT/OT consultation (3) CAD (coronary artery disease): Plan: NSTEMI in 1989 treated with RCA PTCA- chronic problem controlled - As above continue BB, Xarelto, ACEi, nifedipine, Zetia - NTG prn for chest pain- she reports never using - no angina (4) Essential hypertension: Plan: As above (5) GERD (gastroesophageal reflux disease): Plan: Continue PPI (6) Hypercholesterolemia: Plan: As above (7) Controlled type 2 diabetes with neuropathy: Plan: Hold home oral agents - Aspart sliding scale - carb consistent diet (8) Obesity: Plan: Difficult for her to engage in more activity with her knee pain, but she is doing chair excercises at home - continue management of other co-morbid as above (9) Paroxysmal atrial fibrillation: Plan: Remains on Xarelto- this is her first episode of spont nasal bleeding while being on this - no GI bleeding reported, HGB stable - follow for any re-occurance History of Present Illness Primary Care Provider: Gurmeet Smith, DO 86 YOF with medical history of: HFpEF, Mitral Regurge, HTN, Anxiety, RLS, DMII, OA, chronic knee pain, HLD, CAD, AFib (on Xarelto), COVID 19 (2020), dyspnea. The patient came to the EMD today for complaints of nose bleed and was noted to have increase in dyspnea, weight gain, and hypoxia with ambulation. Patient reprots that she is to follow up with the CHF clinic . She reports that she normally weighs herself every day but her scale broke yesterday. She normally has been weighing in the 190 range. Patient review of CHF clinic notes have her dry weight around 180-185, which patient and daughter confirm. The patient reports no salty foods but some dietary indiscretions. She has noted that her symptoms have gotten worse over the past 2 weeks. She has been evaluated in the past for her dyspnea with Pulmonary where she was to have walk test and CT scan of chest done in 2019 however this appears to have not been accomplished. She has not missed any doses of her Xarelto. Patient reports difficulty with her knees and did just have injection for her left knee. Patient will be admitted to continue with IV diuresis as well as PT/OT and follow for any further bleeding eppisodes while on her Xarelto. COVID test on admission is: NEGATIVE Allergies Allergy/AdvReac Type Severity Reaction Status Date / Time Iodinated Contrast Media Allergy Intermediate HIVES Verified 01/01/22 11:33 penicillin G Allergy Unknown HAPPENED Verified 01/01/22 11:33 MANY YEARS AGO Home Medications Medication Instructions Recorded Confirmed Type calcium carbonate 600 mg-vitamin 1 tab PO DAILY 03/13/18 02/09/22 History D3 10 mcg (400 unit) tablet (Calcium 600 + D(3)) cholecalciferol (vitamin D3) 25 1,000 unit PO DAILY 03/13/18 02/09/22 History mcg (1,000 unit) capsule (Vitamin D3) magnesium 250 mg tablet 250 mg PO DAILY 03/13/18 02/09/22 History nitroglycerin 0.4 mg sublingual 0.4 mg sublingual DIRECTED PRN 03/02/19 02/09/22 Rx tablet (Nitrostat) Chest Pain #7 tabs coenzyme Q10 100 mg capsule 100 mg PO DAILY 02/02/20 02/09/22 History cyanocobalamin (vitamin B-12) 2,500 mcg sublingual DAILY 02/02/20 02/09/22 History 2,500 mcg sublingual tablet OUTSIDE motorized scooter #1 ea 03/15/20 01/01/22 Rx polyethylene glycol 3350 17 17 g PO DAILY PRN constipation 08/08/20 02/09/22 Rx gram/dose oral powder (Miralax) #119 grams empagliflozin 25 mg tablet 25 mg PO DAILY #90 tabs 01/13/21 02/09/22 Rx (Jardiance) esomeprazole magnesium 40 mg 40 mg PO DAILY #90 caps 01/30/21 02/09/22 Rx capsule,delayed release blood sugar diagnostic #400 ea 02/27/21 01/01/22 Rx atenolol 25 mg tablet 25 mg PO BID 30 days #180 tabs 04/12/21 02/09/22 Rx mirtazapine 15 mg tablet (Remeron) 15 mg PO HS #90 tabs 07/14/21 02/09/22 Rx glimepiride 2 mg tablet 4 mg PO BID 90 days #360 tabs 10/16/21 02/09/22 Rx lorazepam 0.5 mg tablet 0.5 mg PO DAILY PRN Anxiety #30 12/07/21 02/09/22 Rx tabs melatonin 10 mg capsule 10 mg PO HS 01/01/22 02/09/22 History Jobst Stockings (misc) #1 ea 01/02/22 Rx Jaylen Hose #1 ea 01/05/22 Rx ezetimibe 10 mg-simvastatin 40 mg 1 tab PO PM #90 tabs 01/12/22 02/09/22 Rx tablet (Vytorin) furosemide 20 mg tablet 20 mg PO Q OTHER DAY #45 tabs 01/12/22 02/09/22 Rx lisinopril 20 mg tablet 20 mg PO DAILY #90 tabs 01/12/22 02/09/22 Rx nifedipine 30 mg tablet,extended 30 mg PO DAILY #90 tabs 01/12/22 02/09/22 Rx release 24 hr rivaroxaban 15 mg tablet (Xarelto) 15 mg PO DAILY #90 tabs 01/12/22 02/09/22 Rx multivitamin with minerals 1 tab PO DAILY 02/09/22 02/09/22 History (Multiple Vitamin-Minerals tablet) Past Med/Surg History Medical History Acid reflux Acute on chronic diastolic CHF (congestive heart failure) Acute UTI (urinary tract infection) Candidal intertrigo Diabetes Elevated troponin Fracture of left distal radius Fracture, humerus closed Heart attack Hyperkalemia Hypoxia Hypoxia Influenza Irregular heartbeat Left knee DJD Non-ST elevation VT (NSTEMI) Pulmonary edema Pulmonary hypertension Rupture of UCL of right thumb Seasonal allergies Severe tricuspid regurgitation UTI (urinary tract infection) Surgical History H/O oral surgery No history of previous surgery S/P knee surgery S/P wisdom tooth extraction Family History Mother Myocardial infarction Father Myocardial infarction Other Hearing loss Heart disease No pertinent family history Denies family history of Ovarian cancer Prostate cancer No family history of adverse response to anesthesia No family history of bleeding disorder Allergies Breast cancer Colorectal cancer Cancer Hypertension Stroke Asthma Social History Smoking Status: Former smoker Tobacco Type: Cigarettes Second Hand Exposure: No; Hx Alcohol Use: No Hx Substance Use: No Preferred Language: Bulgarian Communication Ability: Effective Visual Impairment: No Limitations Hearing Ability: Normal Button Sawyer Required: No Beliefs That Will Affect Care: None marital status: / Current Living Situation: Alone current occupational status: retired How many Children do You have: 1 Feels Safe at Home: Yes Childhood Exposure to Second-Hand Smoke: No caffeine: No Dental Care, Regularly: No Physical Activity Frequency: 3-4 Times per Week Seatbelt Use: always Sunscreen Use: No Assistive Devices: Oxygen - Continuous (pt wears prn) Review of Systems Review of Systems: REVIEW OF SYSTEMS: Constitutional: No fever, sweats or chills Eyes: No diplopia, no worsening or blurred vision ENT: (+) nose bleed- stopped, Hearing aids, no trouble swallowing Respiratory: (+) dyspnea with exertion, edema No cough, sputum, dyspnea at rest Cardiovascular: No chest pain, tightness or palpitations Abdomen: No pain, nausea, vomiting, diarrhea or constipation Musculoskeletal: (+) knee joint pain, calf pain, swelling Neurologic: No weakness, numbness/tingling, or balance problems Psychiatric: (+) anxiety Skin: No rash or itch Physical Exam Physical Exam: PHYSICAL EXAM: General: awake, alert, no apparent distress Head: Normocephalic, atraumatic ENT: PERRL, EOMI, no pharyngeal exudate, mucous membranes moist, nose bleed self resolved no trauma Neuro: AAO x 3, speech clear and appropriate, strength intact bilaterally 5/5, sensation intact and equal all extremities and dermatomes, no pronator drift Chest: equal rise and fall of the chest, no accessory muscle use, no heaves or thrills, scattered crackles mid lung bilaterally, on room air, Cardiac: Regular rate and rhythm, telemetry reviewed-NSR, skin warm dry, cap refill <3 seconds, peripheral pulses +2 no JVD, no murmur, +2 edema in ankles and feet GI: NABS x 4 quadrants, soft, nontender to palpation, no rebound, guarding or tenderness : Spontaneously voiding, no pain, no CVA tenderness, Psych: Normal mood and affect Skin: no rash or erythema Results & Data Results & Data ([facility]) Vital Signs (Past 12 Hours) Vital Signs Temp Pulse Pulse Resp BP BP Pulse Ox 02/09/22 16:00 82 20 130/65 93 02/09/22 14:51 87 22 95 02/09/22 14:34 92 02/09/22 13:18 36.5 C 75 20 125/53 L 92 O2 Del Method O2 Flow Rate 02/09/22 16:00 Room Air 02/09/22 14:51 Nasal Cannula 2 02/09/22 14:34 Room Air 02/09/22 13:18 Room Air Laboratory Results Laboratory Results - last 24 hr 02/09/22 02/09/22 02/09/22 13:25 13:25 13:25 WBC 9.59 RBC 4.67 Hgb 12.4 Hct 41.3 MCV 88.4 MCH 26.6 MCHC 30.0 L RDW Std Deviation 56.9 H RDW Coeff of Toby 17.8 H Plt Count 271 MPV 9.1 L Immature Gran % (Auto) 0.3 Neut % (Auto) 57.1 Lymph % (Auto) 29.4 [place] % (Auto) 9.8 Eos % (Auto) 2.4 Baso % (Auto) 1.0 Neut # (Auto) 5.47 Lymph # (Auto) 2.82 [place] # (Auto) 0.94 H Eos # (Auto) 0.23 Baso # (Auto) 0.10 Immature Gran # (Auto) 0.03 H Sodium 138 Potassium 5.0 Chloride 107 Carbon Dioxide 23 Anion Gap 8 BUN 33 H Creatinine 1.17 Est Cr Clr Drug Dosing 35.6 Est GFR ( Amer) 48.5 Est GFR (Non-Af Amer) 41.9 BUN/Creatinine Ratio 28.2 H Glucose 208 H Calcium 9.3 Total Bilirubin 0.6 AST 23 ALT 14 Alkaline Phosphatase 71 Troponin I High Sens 20.6 H B-Natriuretic Peptide 1264 H Total Protein 7.0 Albumin 3.9 Globulin 3.1 Albumin/Globulin Ratio 1.3 SARS-CoV-2, RNA, NAAT 02/09/22 02/09/22 14:55 15:28 WBC RBC Hgb Hct MCV MCH MCHC RDW Std Deviation RDW Coeff of Toby Plt Count MPV Immature Gran % (Auto) Neut % (Auto) Lymph % (Auto) [place] % (Auto) Eos % (Auto) Baso % (Auto) Neut # (Auto) Lymph # (Auto) [place] # (Auto) Eos # (Auto) Baso # (Auto) Immature Gran # (Auto) Sodium Potassium Chloride Carbon Dioxide Anion Gap BUN Creatinine Est Cr Clr Drug Dosing Est GFR ( Amer) Est GFR (Non-Af Amer) BUN/Creatinine Ratio Glucose Calcium Total Bilirubin AST ALT Alkaline Phosphatase Troponin I High Sens 18.5 H B-Natriuretic Peptide Total Protein Albumin Globulin Albumin/Globulin Ratio SARS-CoV-2, RNA, NAAT NEGATIVE Diagnostic Findings Chest X-Ray 02/09/22 14:11 XR chest 1V portable HISTORY: 86 years-old Female CHF, weight increase acute shortness of breath with possible congestive heart failure COMPARISON: Chest radiograph 03/30/2021 TECHNIQUE: Portable AP view of the chest FINDINGS: Cardiac silhouette is enlarged. Atherosclerosis of the aorta. Pulmonary vascular congestion. Mild right hemidiaphragmatic elevation with mild bibasilar opacities. No pneumothorax. Degenerative changes of the shoulders and spine. IMPRESSION: 1. Cardiomegaly with pulmonary vascular congestion. 2. Mild bibasilar densities suggestive of atelectasis versus pneumonitis. ACT 112: Negative or not required by law. The above report was generated using voice recognition software. It may contain grammatical, syntax or spelling errors. Electronically signed by: Asa Martinez M.D. 02/09/2022 2:58 PM Medications Administered Home Medications calcium carbonate 600 mg-vitamin D3 10 mcg (400 unit) tablet (Calcium 600 + D(3)) 1 tab PO DAILY 03/13/18 [History Confirmed 01/01/22] cholecalciferol (vitamin D3) 25 mcg (1,000 unit) capsule (Vitamin D3) 1,000 unit PO DAILY 03/13/18 [History Confirmed 01/01/22] magnesium 250 mg tablet 250 mg PO DAILY 03/13/18 [History Confirmed 01/01/22] nitroglycerin 0.4 mg sublingual tablet (Nitrostat) 0.4 mg sublingual DIRECTED PRN Chest Pain #7 tabs 03/02/19 [Rx Confirmed 01/01/22] coenzyme Q10 100 mg capsule 100 mg PO DAILY 02/02/20 [History Confirmed 01/01/22] cyanocobalamin (vitamin B-12) 2,500 mcg sublingual tablet 2,500 mcg sublingual DAILY 02/02/20 [History Confirmed 01/01/22] OUTSIDE motorized scooter #1 ea 03/15/20 [Rx Confirmed 01/01/22] polyethylene glycol 3350 17 gram/dose oral powder (Miralax) 17 g PO DAILY PRN constipation #119 grams 08/08/20 [Rx Confirmed 01/01/22] empagliflozin 25 mg tablet (Jardiance) 25 mg PO DAILY #90 tabs 01/13/21 [Rx Confirmed 01/01/22] esomeprazole magnesium 40 mg capsule,delayed release 40 mg PO DAILY #90 caps 01/30/21 [Rx Confirmed 01/01/22] blood sugar diagnostic #400 ea 02/27/21 [Rx Confirmed 01/01/22] atenolol 25 mg tablet 25 mg PO BID 30 days #180 tabs 04/12/21 [Rx Confirmed 01/01/22] mirtazapine 15 mg tablet (Remeron) 15 mg PO HS #90 tabs 07/14/21 [Rx Confirmed 01/01/22] glimepiride 2 mg tablet 4 mg PO BID 90 days #360 tabs 10/16/21 [Rx Confirmed 01/01/22] lorazepam 0.5 mg tablet 0.5 mg PO DAILY PRN Anxiety #30 tabs 12/07/21 [Rx Confirmed 01/01/22] melatonin 10 mg capsule 10 mg PO HS 01/01/22 [History Confirmed 01/01/22] Jobst Stockings (misc) #1 ea 01/02/22 [Rx] Jaylen Hose #1 ea 01/05/22 [Rx] ezetimibe 10 mg-simvastatin 40 mg tablet (Vytorin) 1 tab PO PM #90 tabs 01/12/22 [Rx] furosemide 20 mg tablet 20 mg PO Q OTHER DAY #45 tabs 01/12/22 [Rx] lisinopril 20 mg tablet 20 mg PO DAILY #90 tabs 01/12/22 [Rx] nifedipine 30 mg tablet,extended release 24 hr 30 mg PO DAILY #90 tabs 01/12/22 [Rx] rivaroxaban 15 mg tablet (Xarelto) 15 mg PO DAILY #90 tabs 01/12/22 [Rx] multivitamin with minerals (Multiple Vitamin-Minerals tablet) 1 tab PO DAILY 02/09/22 [History Confirmed 02/09/22] Discontinued Medications Furosemide (Furosemide 40 Mg/4 Ml Vial) 40 mg IV ONE STA Stop: 02/09/22 14:57 Last Admin: 02/09/22 15:23 Dose: 40 mg Documented By: KT ECG Additional Comments: Undetermined rhythm Low voltage QRS Borderline ECG When compared with ECG of 27-MAR-2021 11:15, Current undetermined rhythm precludes rhythm comparison, needs review Code Status & VTE Plan Code Status CODE: DNR/DNI VTE: SCDS, Xarelto VTE Prophylaxis Plan VTE Prophylaxis will be ordered: Yes Supervising Physician Co-Signing Physician Notes I supervised VALERIANO Patrick on this admission. I interviewed and examined the patient independently of him. The plan is as written in his note except for any following changes/exceptions: None 86yo F w/ hx of CAD, diastolic CHF who presents with increased edema and shortness of breath requiring some O2. Weight up from prior baselines. Symptoms worsening over last 2 weeks. BNP elevated to 1265, and CXR with some pulmonary congestion. Will diurese with IV Lasix. Limited echo in the AM. Hopefully quick discharge. PG Care Time/CCT Total # of Minutes Spent Total Time Spent with Patient: Total time spent is greater than 50% in coordination of care (as documented) at patient's floor/unit and/or counseling patient: Coding Level of Care Code 97901 Initial Inpt Care Lvl 3 Diagnoses CHF exacerbation I50.9 Heart failure type: unspecified Left knee DJD M17.12 CAD (coronary artery disease) I25.10 Essential hypertension I10 GERD (gastroesophageal reflux disease) K21.9 Hypercholesterolemia E78.00 Controlled type 2 diabetes with neuropathy E11.40 Obesity E66.9 Paroxysmal atrial fibrillation I48.0 (1) CHF exacerbation Heart failure type: unspecified Qualified Code(s): I50.9 - Heart failure, unspecified
[2022-02-09] MEDS ORDERED: DEXTROSE 50% 50 ML SYRINGE IV PRN (20:52)
[2022-02-09] MEDS ORDERED: NITROGLYCERIN SL 0.4 MG/TAB TAB SL PRN (20:52)
[2022-02-09] MEDS ORDERED: CARBOHYDRATES FOR HYPOGLYCEMIA PO PRN (20:52)
[2022-02-09] MEDS ORDERED: GLUCOSE 40% GEL 15 GM TUBE PO PRN (20:52)
[2022-02-09] MEDS ORDERED: GLUCOSE 10 TAB/TUBE PO PRN (20:52)
[2022-02-09] MEDS ORDERED: LORazepam 0.5 MG TAB PO PRN (20:52)
[2022-02-09] MEDS ORDERED: POLYETHYLENE (MIRALAX) 17 GM PACK PO PRN (20:52)
[2022-02-09] MEDS ORDERED: GLUCAGON FOR INJ 1 MG VIAL SQ PRN (20:52)
[2022-02-09] MEDS ORDERED: FUROSEMIDE 40 MG/4 ML VIAL IV ONE (21:00)
[2022-02-09] MEDS: INSULIN ASPART PER UNIT SC SCH (21:33)
--- NOTE | 2022-02-09 21:37 | Electrocardiogram Report ---
Test Reason : Blood Pressure : / mmHG Vent. Rate : 076 BPM Atrial Rate : 073 BPM P-R Int : 000 ms QRS Dur : 096 ms QT Int : 408 ms P-R-T Axes : 000 053 037 degrees QTc Int : 459 ms Atrial fibrillation Low voltage QRS When compared with ECG of 27-MAR-2021 11:15, No significant change Confirmed by Karlos Ham ([id number]) on 02/09/2022 9:37:40 PM Referred By: REFERRED SELF Confirmed By:Karlos Ham
[2022-02-09] MEDS: MELATONIN 3 MG TAB PO SCH (22:04)
[2022-02-09] MEDS: ATENOLOL 25 MG TABLET PO SCH (22:05)
[2022-02-09] MEDS: MIRTAZAPINE TAB 15 MG TAB PO SCH (22:06)
[2022-02-09] MEDS: EZETIMIBE/SIMVASTATIN 10/40MG 1 TAB TAB PO SCH (22:06)
[2022-02-10] MEDS: ACETAMINOPHEN 325 MG TAB PO PRN ×2 (02:37→08:20)
[2022-02-10 08:07] LABS: Basophils # (auto) 0.06 K/uL (0-0.2); Basophils % (auto) 0.9 %; Eosinophils # (auto) 0.34 K/uL (0-0.50); Eosinophils % (auto) 5.1 %; Hematocrit (blood only) 36.4 % (34.1-44.9); Hemoglobin 11.1 g/dl (12.0-16.0); Immature Granulocytes # (auto) 0.02 K/uL (0.00-0.02); Immature Granulocytes % (auto) 0.3 %; Lymphocytes # (auto) 1.59 K/uL (1.2-3.4); Lymphocytes % (auto) 23.7 %; Mean Corpuscular Hemoglobin 26.7 pg (25.0-34.0); Mean Corpuscular Hgb Conc 30.5 g/dL (32.0-36.0); Mean Corpuscular Volume 87.5 fL (80.0-100.0); Mean Platelet Volume 9.3 fL (9.4-12.3); Monocytes # (auto) 0.76 K/uL (0.24-0.82); Monocytes % (auto) 11.3 %; Neutrophils # (auto) 3.95 K/uL (1.4-6.5); Neutrophils % (auto) 58.7 %; Platelet Count 222 K/uL (130-400); RDW Coefficient of Variation 17.8 % (11.5-14.5); RDW Standard Deviation 56.3 fL (36.4-46.3); Red Blood Count 4.16 M/uL (3.93-5.22); White Blood Count 6.72 K/ul (4.8-10.8)
[2022-02-10] MEDS: NIFEdipine EXTENDED REL 30 MG TABCR PO SCH (08:21)
[2022-02-10] MEDS: PANTOprazole 40 MG TAB PO SCH (08:21)
[2022-02-10] MEDS: CALCIUM 600MG + VIT D 400 IU TAB PO SCH (08:22)
[2022-02-10] MEDS: FUROSEMIDE 40 MG/4 ML VIAL IV SCH (08:22)
[2022-02-10] MEDS: ATENOLOL 25 MG TABLET PO SCH ×2 (08:22→20:44)
[2022-02-10] MEDS: lisinopril 20 MG TAB PO SCH (08:22)
[2022-02-10] MEDS: INSULIN ASPART PER UNIT SC SCH ×4 (08:24→20:40)
[2022-02-10 08:34] LABS: BUN Creatinine Ratio 24.1 (10-20); Creatinine Clr Calc Pharmacy 30.4 ml/min; Est GFR (African American) 40.1 ml/min; Est GFR (Non-African American) 34.6 ml/min; Magnesium 2.2 mg/dl (1.7-2.4); Potassium 4.2 mmol/L (3.5-5.1)
--- NOTE | 2022-02-10 10:59 | Electrocardiogram Report ---
Test Reason : Blood Pressure : / mmHG Vent. Rate : 070 BPM Atrial Rate : 048 BPM P-R Int : 000 ms QRS Dur : 100 ms QT Int : 402 ms P-R-T Axes : 000 050 062 degrees QTc Int : 434 ms Atrial fibrillation Low voltage QRS Nonspecific T wave abnormality Abnormal ECG When compared with ECG of 09-FEB-2022 14:28, No significant change was found Confirmed by Kamar Harding ([id number]) on 02/10/2022 10:58:29 AM Referred By: REFERRED SELF Confirmed By:Kamar Harding
--- NOTE | 2022-02-10 11:06 | Hospitalist Progress Note ---
Date of Service February 10, 2022 Assessment & Plan (1) CHF exacerbation: Plan: Acute on chronic heart failure with exacerbation resulting in dyspnea with hypoxia with activity - HFpEF- ECHO 2019 EF 50-55%, mild LVH mild MR - Continue BB - Diuresed with 40mg IV Lasix - goal negative 750-1liter negative - She is normally on 20mg PO lasix every other day - Daily standing weights - Limited ECHO in AM will repeat BMP in AM check BNP as well. (2) Left knee DJD: Plan: Chronic pain with recent injection - PT/OT consultation (3) CAD (coronary artery disease): Plan: NSTEMI in 1989 treated with RCA PTCA- chronic problem controlled - As above continue BB, Xarelto, ACEi, nifedipine, Zetia - NTG prn for chest pain- she reports never using - no angina (4) Essential hypertension: Plan: As above (5) GERD (gastroesophageal reflux disease): Plan: Continue PPI (6) Hypercholesterolemia: Plan: As above (7) Controlled type 2 diabetes with neuropathy: Plan: Hold home oral agents - Aspart sliding scale - carb consistent diet (8) Obesity: Plan: Difficult for her to engage in more activity with her knee pain, but she is doing chair excercises at home - continue management of other co-morbid as above (9) Paroxysmal atrial fibrillation: Plan: Remains on Xarelto- this is her first episode of spont nasal bleeding while being on this - no GI bleeding reported, HGB stable - follow for any re-occurance Admission and Anticipated Discharge Date Admission Date: February 09, 2022 Subjective 86 yo female states that she is less SOB. She reports being close to baseline. Review of Systems Review of Systems: All systems reviewed & are unremarkable except as noted in HPI & below Physical Exam Physical Exam: General: awake, alert, no apparent distress Head: Normocephalic, atraumatic ENT: PERRL, EOMI, no pharyngeal exudate, mucous membranes moist, nose bleed self resolved no trauma Neuro: AAO x 3, speech clear and appropriate, strength intact bilaterally 5/5, sensation intact and equal all extremities and dermatomes, no pronator drift Chest: equal rise and fall of the chest, no accessory muscle use, no heaves or thrills, scattered crackles mid lung bilaterally, on room air, Cardiac: Regular rate and rhythm, telemetry reviewed-NSR, skin warm dry, cap refill <3 seconds, peripheral pulses +2 no JVD, no murmur, +2 edema in ankles and feet GI: NABS x 4 quadrants, soft, nontender to palpation, no rebound, guarding or tenderness : Spontaneously voiding, no pain, no CVA tenderness, Psych: Normal mood and affect Skin: no rash or erythema Results & Data Results & Data ([facility]) Vital Signs (Past 12 Hours) Vital Signs Temp Pulse Pulse Resp BP Pulse Ox O2 Del Method 02/10/22 06:16 63 02/10/22 07:41 37.2 C 62 16 108/67 97 Nasal Cannula 02/10/22 04:10 37 C 62 20 111/68 97 Nasal Cannula O2 Flow Rate 02/10/22 06:16 02/10/22 07:41 2 02/10/22 04:10 2 PG Care Time/CCT Total # of Minutes Spent Total Time Spent with Patient: Total time spent is greater than 50% in coordination of care (as documented) at patient's floor/unit and/or counseling patient: Coding Level of Care Code 34375 Subseq Hosp Care Lvl 2 Diagnoses CHF exacerbation I50.9 Heart failure type: unspecified Left knee DJD M17.12 CAD (coronary artery disease) I25.10 Essential hypertension I10 GERD (gastroesophageal reflux disease) K21.9 Hypercholesterolemia E78.00 Controlled type 2 diabetes with neuropathy E11.40 Obesity E66.9 Paroxysmal atrial fibrillation I48.0 (1) CHF exacerbation Heart failure type: unspecified Qualified Code(s): I50.9 - Heart failure, unspecified
[2022-02-10] MEDS ORDERED: RIVAROXABAN 15 MG TAB PO SCH (16:30)
[2022-02-10] MEDS: MELATONIN 3 MG TAB PO SCH (20:43)
[2022-02-10] MEDS: EZETIMIBE/SIMVASTATIN 10/40MG 1 TAB TAB PO SCH (20:44)
[2022-02-10] MEDS: MIRTAZAPINE TAB 15 MG TAB PO SCH (20:44)
[2022-02-10] MEDS ORDERED: MELATONIN 3 MG TAB PO SCH (21:00)
[2022-02-11 07:07] LABS: Basophils # (auto) 0.06 K/uL (0-0.2); Basophils % (auto) 0.7 %; Eosinophils # (auto) 0.36 K/uL (0-0.50); Eosinophils % (auto) 4.4 %; Hematocrit (blood only) 36.2 % (34.1-44.9); Immature Granulocytes # (auto) 0.03 K/uL (0.00-0.02); Immature Granulocytes % (auto) 0.4 %; Lymphocytes % (auto) 23.3 %; Mean Corpuscular Hemoglobin 26.4 pg (25.0-34.0); Mean Corpuscular Hgb Conc 30.4 g/dL (32.0-36.0); Mean Platelet Volume 9.1 fL (9.4-12.3); Monocytes # (auto) 0.92 K/uL (0.24-0.82); Monocytes % (auto) 11.3 %; Neutrophils # (auto) 4.87 K/uL (1.4-6.5); Neutrophils % (auto) 59.9 %; Platelet Count 215 K/uL (130-400); RDW Coefficient of Variation 17.5 % (11.5-14.5); RDW Standard Deviation 55.3 fL (36.4-46.3); Red Blood Count 4.16 M/uL (3.93-5.22); White Blood Count 8.14 K/ul (4.8-10.8)
[2022-02-11 07:31] LABS: BUN Creatinine Ratio 26.4 (10-20); Calcium 8.8 mg/dl (8.5-10.1); Creatinine Clr Calc Pharmacy 28.7 ml/min; Est GFR (African American) 39.1 ml/min; Est GFR (Non-African American) 33.7 ml/min; Magnesium 2.1 mg/dl (1.7-2.4); Potassium 4.2 mmol/L (3.5-5.1)
[2022-02-11] MEDS: INSULIN ASPART PER UNIT SC SCH ×2 (09:13→12:40)
--- NOTE | 2022-02-11 09:52 | Discharge Summary ---
Date of Service February 11, 2022 Admission HPI Per Admitting Provider [id number] YOF with medical history of: HFpEF, Mitral Regurge, HTN, Anxiety, RLS, DMII, OA, chronic knee pain, HLD, CAD, AFib (on Xarelto), COVID 19 (2020), dyspnea. The patient came to the EMD today for complaints of nose bleed and was noted to have increase in dyspnea, weight gain, and hypoxia with ambulation. Patient reprots that she is to follow up with the CHF clinic . She reports that she normally weighs herself every day but her scale broke yesterday. She normally has been weighing in the 190 range. Patient review of CHF clinic notes have her dry weight around 180-185, which patient and daughter confirm. The patient reports no salty foods but some dietary indiscretions. She has noted that her symptoms have gotten worse over the past 2 weeks. She has been evaluated in the past for her dyspnea with Pulmonary where she was to have walk test and CT scan of chest done in 2019 however this appears to have not been accomplished. She has not missed any doses of her Xarelto. Patient reports difficulty with her knees and did just have injection for her left knee. Patient will be admitted to continue with IV diuresis as well as PT/OT and follow for any further bleeding eppisodes while on her Xarelto. COVID test on admission is: NEGATIVE Principal Diagnosis Acute on chronic CHF with preserved ejection fraction. Discharge Exam General: awake, alert, no apparent distress Head: Normocephalic, atraumatic ENT: PERRL, EOMI, no pharyngeal exudate, mucous membranes moist, nose bleed self resolved no trauma Neuro: AAO x 3, speech clear and appropriate, strength intact bilaterally 5/5, sensation intact and equal all extremities and dermatomes, no pronator drift Chest: equal rise and fall of the chest, no accessory muscle use, no heaves or thrills, scattered crackles mid lung bilaterally, on room air, Cardiac: Regular rate and rhythm, telemetry reviewed-NSR, skin warm dry, cap refill <3 seconds, peripheral pulses +2 no JVD, no murmur, +2 edema in ankles and feet GI: NABS x 4 quadrants, soft, nontender to palpation, no rebound, guarding or tenderness : Spontaneously voiding, no pain, no CVA tenderness, Psych: Normal mood and affect Skin: no rash or erythema Discharge Data Allergies Allergy/AdvReac Type Severity Reaction Status Date / Time Iodinated Contrast Media Allergy Intermediate HIVES Verified 01/01/22 11:33 penicillin G Allergy Unknown HAPPENED Verified 01/01/22 11:33 MANY YEARS AGO Consultations 02/09/22 17:36 ED Decision to Admit Stat Hospital Course (1) CHF exacerbation: Acute on chronic heart failure with preserved ejection fraction with exacerbation resulting in dyspnea with hypoxia with activity - HFpEF- ECHO 2019 EF 50-55%, mild LVH mild MR - Continue BB -Treated with daiy IV lasix of 40 mg. Patient feels back to her normal self on 02/11, will discharge. On day of discharge, ordered one home dose of lasix. -Daily weights are close to home weight. Currently weighs 188 lbs, dry weight is 187. BNP at discharge: 898. recommend resuming lasix sliding scale at home. Patient will followup with Denise SANCHEZ on 02/15 will obtain 2 step prior to discharge. (2) Left knee DJD: Chronic pain with recent injection (3) CAD (coronary artery disease): NSTEMI in 1989 treated with RCA PTCA- chronic problem controlled - As above continue BB, Xarelto, ACEi, nifedipine, Zetia - NTG prn for chest pain- she reports never using - no angina (4) Essential hypertension: As above (5) GERD (gastroesophageal reflux disease): Continue PPI (6) Hypercholesterolemia: As above (7) Controlled type 2 diabetes with neuropathy: Hold home oral agents - Aspart sliding scale - carb consistent diet (8) Obesity: Difficult for her to engage in more activity with her knee pain, but she is doing chair excercises at home - continue management of other co-morbid as above (9) Paroxysmal atrial fibrillation: Remains on Xarelto- this is her first episode of spont nasal bleeding while being on this - no GI bleeding reported, HGB stable - follow for any re-occurance Total Time Total Time Spent Total Time Spent (In Minutes): 35 Discharge Plan Discharge Items Patient Disposition: Home - Self-Care Reason For Visit: CHF EXACERBATION Discharge Diagnosis: CHF exacerbation Activity: Resume your previous activity Non-emergency contact: Primary Care Provider Call non-emergency contact if: you have any medication questions Follow-up/Referrals: Gurmeet Smith, [Primary Care Provider] - 02/20/22 9:20 am Diet: Heart Healthy Addtl Attending Provider Instructions: Good morning Mrs. Gaxiola, It was a pleasure taking care of you. Please weigh yourself at home at home. Your dry weight here is 188, however normally your dry weight at home is 187lb. Would recommend using that range 187-188 as your dry weight. Continue your regular sliding scale for your lasix. Recommend close followup with Vania Sanchez this week. Best regards, Raudel Bentley Pending Studies at Discharge: No Stand-Alone Forms: [facility] [employer], Smoking Cessation Medications and DC Order Prescriptions: Continued (DME) OUTSIDE motorized scooter See Rx Instructions .Route .MEDSUPPLY Qty: 1 0RF Rx Instructions: DIRECTED FOR OUTSIDE USE THERAPIST EVALUATION FOR POWER MOBILITY esomeprazole magnesium 40 mg capsule,delayed release(DR/EC) 40 mg PO DAILY Qty: 90 3RF (DME) blood sugar diagnostic Strip See Rx Instructions .ROUTE .MEDSUPPLY Qty: 400 3RF Dose Instruction: As directed Rx Instructions: Test 4 Times Daily mirtazapine [Remeron] 15 mg tablet 15 mg PO HS Qty: 90 3RF glimepiride 2 mg tablet 4 mg PO BID 90 Days Qty: 360 3RF lorazepam 0.5 mg tablet 0.5 mg PO DAILY PRN (Reason: Anxiety) Qty: 30 0RF (DME) [facility] See Rx Instructions .ROUTE .MEDSUPPLY Qty: 1 0RF Rx Instructions: THERAPIST EVALUATION FOR POWERED MOBILITY (DME) Jaylen Evangelista [facility] See Rx Instructions .MEDSUPPLY Qty: 1 0RF Rx Instructions: As directed Xarelto 15 mg tablet 15 mg PO DAILY Qty: 90 3RF Rx Instructions: must administer with evening meal nifedipine 30 mg tablet extended release 24hr 30 mg PO DAILY Qty: 90 3RF lisinopril 20 mg tablet 20 mg PO DAILY Qty: 90 3RF furosemide 20 mg tablet 20 mg PO Q OTHER DAY Qty: 45 1RF ezetimibe-simvastatin [Vytorin 10-40] 10-40 mg tablet 1 tab PO PM Qty: 90 3RF nitroglycerin [Nitrostat] 0.4 mg tablet, sublingual 0.4 mg Sublingual DIRECTED PRN (Reason: Chest Pain) Qty: 7 5RF atenolol 25 mg tablet 25 mg PO BID 30 Days Qty: 180 3RF polyethylene glycol 3350 [Miralax] 17 gram/dose powder 17 g PO DAILY PRN (Reason: constipation) Qty: 119 2RF melatonin 10 mg capsule 10 mg PO HS coenzyme Q10 100 mg capsule 100 mg PO DAILY cyanocobalamin (vitamin B-12) 2,500 mcg tablet, sublingual 2,500 mcg sublingual DAILY Jardiance 25 mg tablet 25 mg PO DAILY Qty: 90 3RF magnesium 250 mg Tablet 250 mg PO DAILY cholecalciferol (vitamin D3) [Vitamin D3] 1,000 unit Capsule 1,000 unit PO DAILY calcium carbonate-vitamin D3 [Calcium 600 + D(3)] 600 mg(1,500mg) -400 unit Tablet 1 tab PO DAILY Multiple Vitamin-Minerals Tablet 1 tab PO DAILY Discharge Orders: Discharge Order (Routine); Ordered 02/11/22 Ordered By: Raudel Hagan Admission Data Admit Date/Time: 02/09/22 17:43 Attending Provider: Raudel Hagan Admit Provider: Austin Smith Primary Care Provider: Gurmeet Smith Other Providers: Austin Smith Coding Level of Care Code D/C DAY MANAGEMENT >30 MINS Diagnoses CHF exacerbation I50.9 Heart failure type: unspecified Left knee DJD M17.12 CAD (coronary artery disease) I25.10 Essential hypertension I10 GERD (gastroesophageal reflux disease) K21.9 Hypercholesterolemia E78.00 Controlled type 2 diabetes with neuropathy E11.40 Obesity E66.9 Paroxysmal atrial fibrillation I48.0
[2022-02-11] MEDS ORDERED: FUROSEMIDE 20 MG TAB PO ONE (10:00)
[2022-02-11] MEDS: lisinopril 20 MG TAB PO SCH (10:30)
[2022-02-11] MEDS: CALCIUM 600MG + VIT D 400 IU TAB PO SCH (10:30)
[2022-02-11] MEDS: PANTOprazole 40 MG TAB PO SCH (10:30)
[2022-02-11] MEDS: ATENOLOL 25 MG TABLET PO SCH (10:30)
[2022-02-11] MEDS: NIFEdipine EXTENDED REL 30 MG TABCR PO SCH (10:30)
[2022-02-11] MEDS: ACETAMINOPHEN 325 MG TAB PO PRN (10:33)
[2022-02-11] MEDS: FUROSEMIDE 40 MG/4 ML VIAL IV SCH (10:50)
--- NOTE | 2022-02-11 15:15 | Electrocardiogram Report ---
Test Reason : Blood Pressure : / mmHG Vent. Rate : 071 BPM Atrial Rate : 394 BPM P-R Int : 000 ms QRS Dur : 102 ms QT Int : 384 ms P-R-T Axes : 000 049 026 degrees QTc Int : 417 ms Atrial fibrillation Low voltage QRS Nonspecific T wave abnormality Abnormal ECG When compared with ECG of 10-FEB-2022 05:19, No significant change was found Confirmed by Kamar Harding ([id number]) on 02/11/2022 3:15:09 PM Referred By: REFERRED SELF Confirmed By:Kamar Harding
== END 2022-02-11 12:30 | disposition home or self-care (01) | DRG 291 ==
LOC: ED 13:11 → SUATTDRO 17:43 → 2N 17:43

== ENCOUNTER 2022-06-11 12:19 | Inpatient (IN) ==
[2022-06-11] MEDS ORDERED: ALBUT/IPRATROP 3MG/0.5MG NEB 3 ML VIAL NEB STA (12:47)
[2022-06-11] MEDS ORDERED: FUROSEMIDE 40 MG/4 ML VIAL IV ONE (12:47)
[2022-06-11 13:16] LABS: Basophils # (auto) 0.01 K/uL (0-0.2); Basophils % (auto) 0.2 %; Eosinophils # (auto) 0.01 K/uL (0-0.50); Eosinophils % (auto) 0.2 %; Hematocrit (blood only) 45.8 % (34.1-44.9); Hemoglobin 13.7 g/dl (12.0-16.0); Immature Granulocytes # (auto) 0.01 K/uL (0.00-0.02); Immature Granulocytes % (auto) 0.2 %; Lymphocytes # (auto) 2.22 K/uL (1.2-3.4); Lymphocytes % (auto) 39.7 %; Mean Corpuscular Hgb Conc 29.9 g/dL (32.0-36.0); Mean Corpuscular Volume 93.5 fL (80.0-100.0); Mean Platelet Volume 9.5 fL (9.4-12.3); Monocytes % (auto) 8.9 %; Neutrophils # (auto) 2.84 K/uL (1.4-6.5); Neutrophils % (auto) 50.8 %; Platelet Count 162 K/uL (130-400); RDW Coefficient of Variation 19.6 % (11.5-14.5); RDW Standard Deviation 66.5 fL (36.4-46.3); White Blood Count 5.59 K/ul (4.8-10.8)
[2022-06-11 13:33] LABS: Base Excess ABG 3.3 mEq/L (-9-1.8); HCO3 ABG 33 mmol/L (19-24); Oxygen Saturation ABG 94.9 % (90-95); PCO2 ABG 75 mmHg (35-46); PO2 ABG 74 mmHg (80-95); pH ABG 7.25 (7.35-7.45)
[2022-06-11 13:34] LABS: Allen Test Pos (Pos)
--- NOTE | 2022-06-11 13:38 | XRay Report ---
XR chest 1V portable HISTORY: Dyspnea COMPARISON: Chest 02/09/2022. FINDINGS: There are low lung volumes. The cardiac silhouette remains enlarged. Interval progression o f the interstitial/vascular thickening and small bilateral pleural effusions. This likely represents pulmonary edema. Patchy bibasilar densities have also progressed. IMPRESSION: 1. Interval progression of the pulmonary edema and bilateral pleural effusions. 2. Patchy bibasilar densities have also progressed and favor atelectasis from the pleural effusions. A pneumonitis could also have a similar appearance. ACT 112: Negative or not required by law. Electronically signed by: Antonio Rosas M.D. 06/11/2022 1:37 PM
[2022-06-11 13:56] LABS: Albumin Level 3.7 gm/dl (3.4-5.0); BUN Creatinine Ratio 34.1 (10-20); Bilirubin,Total 0.9 mg/dl (0.2-1.0); Calcium 9.2 mg/dl (8.5-10.1); Creatinine Clr Calc Pharmacy 1.5 ml/min; Est GFR (African American) 41.9 ml/min; Est GFR (Non-African American) 36.2 ml/min; Globulin 3.6 gm/dl (2.5-4.0); Magnesium 2.4 mg/dl (1.7-2.4); Potassium 5.3 mmol/L (3.5-5.1); Total Protein 7.3 gm/dl (6.0-8.3)
[2022-06-11 14:14] LABS: Troponin I High Sensitivity 21.9 pg/ml (0-14)
[2022-06-11] MEDS ORDERED: NITROGLYCERIN 2% OINTMENT 30GM TUBE EXT STA (14:24)
--- NOTE | 2022-06-11 14:46 | History & Physical Report ---
Date of Service June 11, 2022 Assessment & Plan (1) Acute respiratory failure with hypoxia and hypercapnia: Plan: -Admit to the PCU -Patient is currently afebrile, hemodynamically stable, and stable on Bipap -Her current clinical status is likely multifactorial including being Covid 19 positive on admission and acute CHF exacerbation -Patient appears volume overloaded on exam with significant pulmonary edema and BL pleural effusions on CXR, BNP elevated in the 1700's, up from 1300's from last admission in February of 2022 -Will continue bipap for a total of 3 hours and then repeat ABG, if not significantly improved will continue bipap, plan confirmed with respiratory therapist -Pulm hygiene including incentive spirometry, flutter therapy, scheduled DuoNebs, and prn robitussin -Unsure when her illness related from Covid started, will start Dexamethasone and will have her nurse obtain repeated vitals for accurate BMI/cr clearance to see if she can receive remdesivir -Continue to monitor on tele and pulse oximetry -Will continue BID lasix dosing at 40 mg IV BID, continue to monitor intake/output and daily weight, farooq has been placed -Denise Sanchez consulted for assistance with management -AM CBC, BMP, and mag (2) Hypercarbia: Plan: -Likely due to CHF exacerbation and increasing her oxygen rate over the past week -Will continue with bipap and follow repeat ABG as explained in CHF exacerbation section (3) Elevated troponin: Plan: -Initial high sensitivity trop elevated at 21, no acute ECG changes and family confirms she has not been complaining of chest discomfort, likely due to demand -Will repeat another on admission and monitor for any concerning changes -Continue to monitor on tele (4) Hyperkalemia: Plan: -Noted to be 5.3 in the ED, no acute T-wave changes -Will repeat another this evening, monitor on tele (5) COVID-19: Plan: -See acute resp failure with hypoxia and hypercapnia (6) Atrial fibrillation: Plan: -Currently rate controlled -Continue Atenlol and Eliquis (7) CAD (coronary artery disease): Plan: -Continue lipid lowering agents (8) Anxiety: Plan: -Hold ativan and remeron for now with her fatigue from hypercarbia (9) Essential hypertension: Plan: -Stable -Continue atenlol -Will hold Lisinopril for now as she currently has soft blood pressures -Was initially started on 0.25 inches of nitro paste, will cancel for now and monitor (10) GERD (gastroesophageal reflux disease): Plan: -Continue PPI (11) Hypercholesterolemia: Plan: -Continue zetia/simvastatin (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 Godinez at the time of the admission History of Present Illness Chief Complaint: SOB Primary Care Provider: Gurmeet Smith DO Hogan is an 86 YOF with medical history of: HFpEF (LVEF of 55-60%, severe Pulm HTN, dilated and severely hypokinetic right ventricle as of 02/11/22), Mitral Regurge, HTN, Anxiety, RLS, DMII, OA, chronic knee pain, HLD, CAD, AFib (on Xarelto), COVID 19 (2020), and dyspnea on chronic O2 therapy who presented to the [facility] ED on 06/11/22 with a chief complaint of worsening dyspnea/SOB. In the ED the patient was found to be afebrile, hemodynamically stable, but hypoxic in the high 80's on 4L NC. Labs were remarkable for a WBC WNL, stable hgb and platelets, ABG showing a pH of 7.25, with a pCO2 of 75, pO2 of 74, and bicarb of 33, cr of 1.37 (baseline appears to be around 1.2), corrected sodium of 133, potassium of 5.3, glucose of 192, stable liver function, initial high sensitivity troponin of 21 with a BNP of 1709 (up from 1311 as of 02/15/22). Chest xray was read as "1. Interval progression of the pulmonary edema and bilateral pleural effusions. 2. Patchy bibasilar densities have also progressed and favor atelectasis from the pleural effusions. A pneumonitis could also have a similar appearance.". Prior to admission the patient was given a DuoNeb treatment, received 0.25 inches of nitro paste, 40 mg IV lasix, started on Bipap, and had a farooq catheter placed. Per chart review, the patient was recently seen by her PCP on 05/30/22 for 10 days of cough. She was given a 7 day course of doxycycline and albuterol as needed. At the time of the exam the patient was resting/sleeping in bed with the Bipap mask on with her daughters sitting bedside. Due to the patient having Bipap on and her fatigue history was obtained from her daughters. They confirmed that she completed a 7 day course of Doxycycline with her last dose on 06/05/22. They state that she initially improve with the Doxycycline and albuterol but started to develop a non-productive cough on 06/07/21 and worsening SOB on her 2L NC at all times. They contacted Denise Sanchez of the heart failure clinic on 06/07/22 who recommended doubling her dose of lasix, but this did not improve her symptoms. Her daughters noted today that she was much more tired and sleepy than normal, at baseline she is usually alert and completely oriented. During my exam the patient would wake when calling her name loudly, she would respond appropriately to questions for a short period of time but would then fall back asleep. I discussed code status with the patient's daughters, they confirmed that she is a DNR/DNI. Please refer to Dr. Godinez's attestation for any changes to the treatment plan Allergies Allergy/AdvReac Type Severity Reaction Status Date / Time Iodinated Contrast Media Allergy Intermediate HIVES Verified 06/11/22 15:29 penicillin G Allergy Unknown CAN'T Verified 06/11/22 15:29 REMEMBER HAPPENED MANY YEARS AGO Home Medications Medication Instructions Recorded Confirmed Type calcium carbonate 600 mg-vitamin 1 tab PO DAILY 03/13/18 06/11/22 History D3 10 mcg (400 unit) tablet (Calcium 600 + D(3)) cholecalciferol (vitamin D3) 25 1,000 unit PO DAILY 03/13/18 06/11/22 History mcg (1,000 unit) capsule (Vitamin D3) nitroglycerin 0.4 mg sublingual 0.4 mg sublingual DIRECTED PRN 03/02/19 06/11/22 Rx tablet (Nitrostat) Chest Pain #7 tabs coenzyme Q10 100 mg capsule 100 mg PO DAILY 02/02/20 06/11/22 History cyanocobalamin (vitamin B-12) 2,500 mcg sublingual DAILY 02/02/20 06/11/22 History 2,500 mcg sublingual tablet OUTSIDE motorized scooter #1 ea 03/15/20 05/30/22 Rx polyethylene glycol 3350 17 17 g PO DAILY PRN constipation 08/08/20 06/11/22 Rx gram/dose oral powder (Miralax) #119 grams atenolol 25 mg tablet 25 mg PO BID 30 days #180 tabs 04/12/21 06/11/22 Rx mirtazapine 15 mg tablet (Remeron) 15 mg PO HS #90 tabs 07/14/21 06/11/22 Rx glimepiride 2 mg tablet 4 mg PO BID 90 days #360 tabs 10/16/21 06/11/22 Rx melatonin 10 mg capsule 10 mg PO HS 01/01/22 06/11/22 History Jobst Stockings (misc) #1 ea 01/02/22 05/30/22 Rx Jaylen Hose #1 ea 01/05/22 05/30/22 Rx ezetimibe 10 mg-simvastatin 40 mg 1 tab PO PM #90 tabs 01/12/22 06/11/22 Rx tablet (Vytorin) lisinopril 20 mg tablet 20 mg PO DAILY #90 tabs 01/12/22 06/11/22 Rx nifedipine 30 mg tablet,extended 30 mg PO DAILY #90 tabs 01/12/22 06/11/22 Rx release 24 hr multivitamin with minerals 1 tab PO DAILY 02/09/22 06/11/22 History (Multiple Vitamin-Minerals tablet) furosemide 20 mg tablet 20 mg PO DAILY #45 tabs 02/15/22 06/11/22 Rx apixaban 2.5 mg tablet (Eliquis) 2.5 mg PO Q12H #180 tabs 03/06/22 06/11/22 Rx humidifiers #1 ea 03/09/22 05/30/22 Rx esomeprazole magnesium 40 mg 40 mg PO DAILY #90 caps 03/15/22 06/11/22 Rx capsule,delayed release lorazepam 0.5 mg tablet 0.5 mg PO DAILY PRN Anxiety #30 04/03/22 06/11/22 Rx tabs Conserving device for continuous O2 #1 ea 04/04/22 05/30/22 Rx O2 concentrator #1 ea 04/20/22 05/30/22 Rx Portable Oxygen #1 ea 05/02/22 05/30/22 Rx blood sugar diagnostic (OneTouch #400 ea 05/24/22 05/30/22 Rx Ultra Test strips) albuterol sulfate 90 mcg/actuation 2 puff inhalation QID PRN 05/30/22 06/11/22 Rx aerosol inhaler shortness of breath or wheezing #8.5 grams coenzyme Q10 100 mg capsule 100 mg PO DAILY 06/11/22 06/11/22 History (CoQ-10) empagliflozin 25 mg tablet 25 mg PO DAILY 06/11/22 06/11/22 History (Jardiance) vitamin B complex 1 tab PO DAILY 06/11/22 06/11/22 History Past Med/Surg History Medical History (Updated 06/11/22 @ 15:57 by Davian Cordero PA-C) Acid reflux Acute on chronic diastolic CHF (congestive heart failure) Acute UTI (urinary tract infection) Candidal intertrigo Diabetes Elevated troponin Fracture of left distal radius Fracture, humerus closed Heart attack Hyperkalemia Hypoxia Hypoxia Influenza Irregular heartbeat Left knee DJD Non-ST elevation OH (NSTEMI) Pulmonary edema Pulmonary hypertension Rupture of UCL of right thumb Seasonal allergies Severe tricuspid regurgitation UTI (urinary tract infection) Surgical History H/O oral surgery No history of previous surgery S/P knee surgery S/P wisdom tooth extraction Family History Mother Myocardial infarction Father Myocardial infarction Other Hearing loss Heart disease No pertinent family history Denies family history of Ovarian cancer Prostate cancer No family history of adverse response to anesthesia No family history of bleeding disorder Allergies Breast cancer Colorectal cancer Cancer Hypertension Stroke Asthma Social History Smoking Status: Never smoker Tobacco Type: Cigarettes Second Hand Exposure: No; Do You Dip or Chew Tobacco: No; Tobacco Cessation Education Requested by Patient: No Hx Alcohol Use: No Hx Substance Use: No Preferred Language: American Communication Ability: Effective Visual Impairment: No Limitations Hearing Ability: Normal Weather Analyst Required: No Beliefs That Will Affect Care: None marital status: / Current Living Situation: Detention current occupational status: retired How many Children do You have: 1 Other Information That Helps Us Care for You: No Feels Safe at Home: Yes Safety Concerns: Feels Safe At This Time Childhood Exposure to Second-Hand Smoke: No caffeine: No Dental Care, Regularly: No Physical Activity Frequency: 3-4 Times per Week Seatbelt Use: always Sunscreen Use: No Assistive Devices: None Review of Systems Review of Systems: ROS unable to be obtained due to patient's current mental status and requiring bipap, please see the HPI Physical Exam Physical Exam: Physical Exam: General: In no acute distress, stated age, chronically ill-appearing HEENT: Normocephalic, atraumatic, no scleral icterus, pupils around round, symmetrical, and reactive to light, patient currently with bipap mask in place, trachea midline, no thyromegaly Chest/Pulm: No respiratory distress, symmetrical chest expansion, decreased breath sounds in the BL lower lung dockery, expiratory wheezing and crackles in all other lung dockery Cardiac: RRR, no murmurs noted Abdomen: Negative for ascites and bruising, normoactive bowel sounds, soft, non-tender to palpation throughout Musculoskeletal: Symmetrical and without signs of acute trauma, upper and lower extremities with full ROM, no atrophy, spasticity, or flaccidity Extremities: Radial, dorsalis pedis, and posterior tibial pulses are intact and symmetrical, 2+ pitting edema noted in the BL LE's Skin: Warm, dry, no rashes , lesions, or scars noted Neuro: Patient is currently fatigued/sleepy, wakes when calling name is responds appropriately to questioning but falls back asleep quickly, no focal defects on neuro exam, CN exam unable to be performed at the present time due to the patient's fatigue and bipap in place Psych: No acute distress, fatigued Results & Data Results & Data ([facility]) Vital Signs (Past 12 Hours) Vital Signs Pulse Resp BP Pulse Ox O2 Del Method O2 Flow Rate 06/11/22 14:00 78 31 H 98 Nasal Cannula 5 06/11/22 14:00 119/68 06/11/22 13:31 105/64 06/11/22 13:31 79 28 H 93 06/11/22 13:30 75 20 90 06/11/22 13:00 79 24 01/09/23 13:00 125/61 06/11/22 12:42 78 28 H 94 06/11/22 12:42 129/81 06/11/22 12:30 78 26 H 92 Nasal Cannula 5 06/11/22 12:34 76 22 93 Nasal Cannula 5 06/11/22 12:11 88 L Nasal Cannula 4 06/11/22 12:11 Nasal Cannula 5 Laboratory Results Abnormal lab results 06/11/22 06/11/22 06/11/22 Range/Units 12:54 12:54 12:54 Hct 45.8 H (34.1-44.9) % MCHC 29.9 L (32.0-36.0) g/dL RDW Std Deviation 66.5 H (36.4-46.3) fL RDW Coeff of Toby 19.6 H (11.5-14.5) % ABG pH (7.35-7.45) ABG pCO2 (35-46) mmHg ABG pO2 (80-95) mmHg ABG HCO3 (19-24) mmol/L ABG Base Excess (-9-1.8) mEq/L Sodium 132 L (136-145) mmol/L Potassium 5.3 H (3.5-5.1) mmol/L Chloride 95 L (98-107) mmol/L BUN 45 H (6-23) mg/dl Creatinine 1.32 H (0.6-1.2) mg/dl BUN/Creatinine Ratio 34.1 H (10-20) Glucose 192 H (70-99(Fasting)) mg/dl Troponin I High Sens 21.9 H (0-14) pg/ml B-Natriuretic Peptide 1709 H (0-100) pg/ml 06/11/22 Range/Units 13:19 Hct (34.1-44.9) % MCHC (32.0-36.0) g/dL RDW Std Deviation (36.4-46.3) fL RDW Coeff of Toby (11.5-14.5) % ABG pH 7.25 L (7.35-7.45) ABG pCO2 75 H (35-46) mmHg ABG pO2 74 L (80-95) mmHg ABG HCO3 33 H (19-24) mmol/L ABG Base Excess 3.3 H (-9-1.8) mEq/L Sodium (136-145) mmol/L Potassium (3.5-5.1) mmol/L Chloride (98-107) mmol/L BUN (6-23) mg/dl Creatinine (0.6-1.2) mg/dl BUN/Creatinine Ratio (10-20) Glucose (70-99(Fasting)) mg/dl Troponin I High Sens (0-14) pg/ml B-Natriuretic Peptide (0-100) pg/ml ECG Additional Comments: Atrial fibrillation Rightward axis Low voltage QRS Cannot rule out Anterior infarct , age undetermined Abnormal ECG When compared with ECG of 11-FEB-2022 05:50, Nonspecific T wave abnormality no longer evident in Lateral leads Code Status & VTE Plan Code Status DNR/DNI VTE Prophylaxis Plan VTE Prophylaxis will be ordered: Yes Supervising Physician Co-Signing Physician Notes I personally saw and examined the patient. I verified all thapa points and agree with Davian Cordero PA-C with the following exceptions and/or additions: 86 year old female admission for shortness of breath. Feeling much improved since admission, lasix and BiPAP use. Wanting to try ice chips and sips. CO2 significantly improved with BiPAP. O/E HS1+2, RRR, no murmurs, Chest - rhonchi b/l but good air entry to bases without wheezing. A/P Acute hypoxic hypercapnic respiratory failure - unable to complete full sentences and using accessory muscles, CO2 improving with BiPAP, advised to continue overnight but ok to take breaks, NPO while in respiratory distress COVID-19 - Dexamethasone 6mg IV daily for 10 days, borderline renal function and unclear duration of illness for remdesivir, COVID isolation Acute on chronic HFpEF - agree with Lasix 40mg IV BID as above, farooq cath, I&Os Hyperkalemia - given continued elevated potassium despite lasix use will give one dose of Veltassa to help bring this down. T2DM - consult pharmacy for glycemic control in setting of steroid use HTN - d/c nifedipine and lisinopril given current low BP, continue atenolol with hold parameters with Lasix as above VTE Prophylaxis - apixaban PG Care Time/CCT Total # of Minutes Spent Total Time Spent with Patient: Total time spent is greater than 50% in coordination of care (as documented) at patient's floor/unit and/or counseling patient: [place] [address] INT INP/OBS CARE MIN Patient Type Established Medical Decision Making High Complexity Diagnoses Acute respiratory failure with hypoxia and hypercapnia J96.01; J96.02 Hypercarbia R06.89 Elevated troponin R77.8 Hyperkalemia E87.5 COVID-19 U07.1 Atrial fibrillation I48.91 CAD (coronary artery disease) I25.10 Anxiety F41.9 Essential hypertension I10 GERD (gastroesophageal reflux disease) K21.9 Hypercholesterolemia E78.00 Controlled type 2 diabetes with neuropathy E11.40 Pulmonary hypertension I27.20
[2022-06-11] MEDS ORDERED: GLUCOSE 10 TAB/TUBE PO PRN (14:47)
[2022-06-11] MEDS ORDERED: GLUCAGON FOR INJ 1 MG VIAL SQ PRN (14:47)
[2022-06-11] MEDS ORDERED: DEXTROSE 50% 50 ML SYRINGE IV PRN (14:47)
[2022-06-11] MEDS ORDERED: INSULIN ASPART PER UNIT SC SCH (15:00)
--- NOTE | 2022-06-11 15:00 | Emergency Department Note ---
Impression & Plan Acute on chronic diastolic CHF (congestive heart failure), SOB (shortness of breath), Atrial fibrillation, Hypercarbia, Acute confusion, COVID-19 ED Provider Note INFORMANT: Patient and family ED PROVIDER(S): Jose Martin Donaldson MD CHIEF COMPLAINT: Shortness of breath PLAN: Disposition: Admitted Condition: Guarded Outpatient prescription management: none Referral: None MEDICAL DECISION MAKING: Patient presented to emergency room because of shortness of breath. She was req uiring supplemental oxygen. She also had some mild confusion. Work-up was initiated. She did not have any obvious finding of STEMI on EKG. She had poor R wave progression. She had minimal elevation of her troponin. Her CBC was unremarkable. BNP was elevated concerning for CHF. Patient did have mild hyperkalemia and signs of a prerenal state on chemistry panel. Chest x-ray was concerning for CHF. Family was updated. Patient was transitioned to BiPAP after an ABG revealed significant hypercarbia. She was also given IV Lasix and Nitropaste was applied. The patient will need further management in the hospital family was in agreement. Consultation was made with the [facility] Hospitalist service. The case was discussed and diagnostics were reviewed. The patient was evaluated in the emergency department by the team and admitted for further management. After medicine evaluation patient's COVID test did come back positive complicating her case even more. Triage Nursing notes reviewed and agree them. Vital Signs: reviewed and remarkable for tachypnea and oxygen Prior /Outside records reviewed: none Differential diagnosis: Reactive airway disease, pneumonia, pneumothorax, COPD, CHF, infections, cardiac ischemia, pulmonary embolism, as well as other pathologies. Diagnostics, as interpreted by me: ECG: Twelve-lead ECG reveals atrial fibrillation at 87 bpm. Rightward axis present. Low voltage QRS. Poor R wave progression anteriorly. Cardiac Monitoring: Cardiac monitoring ordered by me: The patient was placed on continuous cardiac monitoring and observed. It revealed atrial fibrillation at 82 bpm. Medical decision rules: none Imaging studies: Chest x-ray shows bibasilar effusions and pulmonary edema. Car diomegaly present. Radiology questioned possible infectious etiology. HPI: The patient is a 86 year old female who presents to the Emergency Room with complaints of shortness of breath. This started over the last few weeks and is worsening over the weekend. The patient also notes the following associated symptoms, dyspnea on exertion, weakness, leg swelling. The patient has recently been on antibiotics and over the last several days has doubled her Lasix for relieving factors. Current pain is rated as 0/10. Family present, helps with history, and they also note the patient has had some confusion. Pt denies LOC, headache, fevers, chills, diaphoresis, visual changes, neck pain, chest pain, nausea, vomiting, abdominal pain, back pain, melena, hematochezia, urinary symptoms, numbness,lymphadenopathy, rash, or other complaints. PAST MEDICAL HISTORY: See Below, CHF PAST SURGICAL HISTORY: See Below, SOCIAL HISTORY: See Below, non-smoker HOME MEDICATIONS: See Below ALLERGIES: See Below VITALS: See Below PHYSICAL EXAMINATION: GENERAL: Awake, tired, mildly dyspneic appearing, in no distress HENT: Normocephalic, atraumatic. Oropharynx unremarkable. EYES: Normal conjunctiva. Sclera non-icteric. NECK: Inspection normal. Non-tender. Supple. No nuchal rigidity. FROM. No masses. RESPIRATORY: Decreased breath sounds bilaterally. No wheezes. Bibasilar rales. Increased respiratory effort. CARDIAC: Normal rate. Irregular rhythm. No murmurs. No rubs. Extremities warm and well perfused. Pulses equal. Mild JVD. GI: Soft, non-distended. No tenderness to palpation. No rebound or guarding. No masses. RECTAL: Deferred. MUSCULOSKELETAL: Atraumatic. Chest examination reveals no tenderness. The back is symmetrical on inspection without obvious abnormality. There is no CVA tenderness to palpation. No joint edema. LOWER EXTREMITIES: Calves are equal size bilaterally and non-tender. 2+ pitting edema. No discoloration. NEURO: Normal sensorium. No sensory or motor deficits noted. SKIN: No rash or jaundice noted. CRITICAL CARE: I have personally spent greater than 35 minutes of critical care time in the direct management of this patient. This includes bedside care, interpretation of diagnostic studies, and testing, discussion with consultants, patient, and family members, and other required patient management activities. These minutes are in excess of all separately billable procedures. Past Med/Surg History Medical History (Updated 06/12/22 @ 11:26 by Jose Martin Donaldson MD) Acid reflux Acute on chronic diastolic CHF (congestive heart failure) Acute UTI (urinary tract infection) Candidal intertrigo Diabetes Elevated troponin Fracture of left distal radius Fracture, humerus closed Heart attack Hyperkalemia Hypoxia Hypoxia Influenza Irregular heartbeat Left knee DJD Non-ST elevation PR (NSTEMI) Pulmonary edema Pulmonary hypertension Rupture of UCL of right thumb Seasonal allergies Severe tricuspid regurgitation UTI (urinary tract infection) Surgical History H/O oral surgery No history of previous surgery S/P knee surgery S/P wisdom tooth extraction Family History Mother Myocardial infarction Father Myocardial infarction Other Hearing loss Heart disease No pertinent family history Denies family history of Ovarian cancer Prostate cancer No family history of adverse response to anesthesia No family history of bleeding disorder Allergies Breast cancer Colorectal cancer Cancer Hypertension Stroke Asthma Social History Smoking Status: Never smoker Tobacco Type: Cigarettes Second Hand Exposure: No; Do You Dip or Chew Tobacco: No; Tobacco Cessation Education Requested by Patient: No Hx Alcohol Use: No Hx Substance Use: No Preferred Language: Sierra Leonean Communication Ability: Effective Visual Impairment: No Limitations Hearing Ability: Normal Spa Receptionist Required: No Beliefs That Will Affect Care: None marital status: / Current Living Situation: Retirement current occupational status: retired How many Children do You have: 1 Other Information That Helps Us Care for You: No Feels Safe at Home: Yes Safety Concerns: Feels Safe At This Time Childhood Exposure to Second-Hand Smoke: No caffeine: No Dental Care, Regularly: No Physical Activity Frequency: 3-4 Times per Week Seatbelt Use: always Sunscreen Use: No Assistive Devices: None Allergies Allergies Allergy/AdvReac Type Severity Reaction Status Date / Time Iodinated Contrast Media Allergy Intermediate HIVES Verified 06/11/22 15:29 penicillin G Allergy Unknown CAN'T Verified 06/11/22 15:29 REMEMBER HAPPENED MANY YEARS AGO Home Meds Home Medications Medication Instructions Recorded Confirmed calcium carbonate 600 mg-vitamin 1 tab PO DAILY 03/13/18 06/11/22 D3 10 mcg (400 unit) tablet (Calcium 600 + D(3)) cholecalciferol (vitamin D3) 25 1,000 unit PO DAILY 03/13/18 06/11/22 mcg (1,000 unit) capsule (Vitamin D3) coenzyme Q10 100 mg capsule 100 mg PO DAILY 02/02/20 06/11/22 cyanocobalamin (vitamin B-12) 2,500 mcg sublingual DAILY 02/02/20 06/11/22 2,500 mcg sublingual tablet melatonin 10 mg capsule 10 mg PO HS 01/01/22 06/11/22 multivitamin with minerals 1 tab PO DAILY 02/09/22 06/11/22 (Multiple Vitamin-Minerals tablet) coenzyme Q10 100 mg capsule 100 mg PO DAILY 06/11/22 06/11/22 (CoQ-10) empagliflozin 25 mg tablet 25 mg PO DAILY 06/11/22 06/11/22 (Jardiance) vitamin B complex 1 tab PO DAILY 06/11/22 06/11/22 Previous Rx's Medication Instructions Recorded nitroglycerin 0.4 mg sublingual 0.4 mg sublingual DIRECTED PRN 03/02/19 tablet (Nitrostat) Chest Pain #7 tabs OUTSIDE motorized scooter #1 ea 03/15/20 polyethylene glycol 3350 17 17 g PO DAILY PRN constipation 08/08/20 gram/dose oral powder (Miralax) #119 grams atenolol 25 mg tablet 25 mg PO BID 30 days #180 tabs 04/12/21 mirtazapine 15 mg tablet (Remeron) 15 mg PO HS #90 tabs 07/14/21 glimepiride 2 mg tablet 4 mg PO BID 90 days #360 tabs 10/16/21 Jobst Stockings (misc) #1 ea 01/02/22 Jaylen Hose #1 ea 01/05/22 ezetimibe 10 mg-simvastatin 40 mg 1 tab PO PM #90 tabs 01/12/22 tablet (Vytorin) lisinopril 20 mg tablet 20 mg PO DAILY #90 tabs 01/12/22 nifedipine 30 mg tablet,extended 30 mg PO DAILY #90 tabs 01/12/22 release 24 hr furosemide 20 mg tablet 20 mg PO DAILY #45 tabs 02/15/22 apixaban 2.5 mg tablet (Eliquis) 2.5 mg PO Q12H #180 tabs 03/06/22 humidifiers #1 ea 03/09/22 esomeprazole magnesium 40 mg 40 mg PO DAILY #90 caps 03/15/22 capsule,delayed release lorazepam 0.5 mg tablet 0.5 mg PO DAILY PRN Anxiety #30 04/03/22 tabs Conserving device for continuous O2 #1 ea 04/04/22 O2 concentrator #1 ea 04/20/22 Portable Oxygen #1 ea 05/02/22 blood sugar diagnostic (OneTouch #400 ea 05/24/22 Ultra Test strips) albuterol sulfate 90 mcg/actuation 2 puff inhalation QID PRN 05/30/22 aerosol inhaler shortness of breath or wheezing #8.5 grams Results & Data (ED) Vital Signs Vital Signs - 24 hr 06/11/22 12:11 06/11/22 12:11 06/11/22 12:11 Pulse Rate Pulse Rate from SpO2 Sensor Respiratory Rate Respiratory Effort / Characteristics Labored Respiratory Depth Normal Respiratory Pattern Regular Blood Pressure Blood Pressure Mean Pulse Oximetry 88 L Oxygen Delivery Method Nasal Cannula Nasal Cannula Oxygen Flow Rate 5 4 Fraction of Inspired Oxygen Sepsis Recent Fever Within 48 Hours No Sepsis New/Unexplained Change in Mental Status No Sepsis Action Taken by Nursing No Action Required Fraction of Inspired Oxygen - Titration 5 Pulse Oximetry Post Tiitration 93 06/11/22 12:34 06/11/22 12:30 06/11/22 12:42 Pulse Rate 76 78 Pulse Rate from SpO2 Sensor 79 Respiratory Rate 22 26 H Respiratory Effort / Characteristics Respiratory Depth Respiratory Pattern Blood Pressure 129/81 Blood Pressure Mean 97 Pulse Oximetry 93 92 Oxygen Delivery Method Nasal Cannula Nasal Cannula Oxygen Flow Rate 5 5 Fraction of Inspired Oxygen Sepsis Recent Fever Within 48 Hours Sepsis New/Unexplained Change in Mental Status Sepsis Action Taken by Nursing Fraction of Inspired Oxygen - Titration Pulse Oximetry Post Tiitration 06/11/22 12:42 06/11/22 13:00 06/11/22 13:00 Pulse Rate 78 79 Pulse Rate from SpO2 Sensor 79 Respiratory Rate 28 H 24 Respiratory Effort / Characteristics Respiratory Depth Respiratory Pattern Blood Pressure 125/61 Blood Pressure Mean 82 Pulse Oximetry 94 Oxygen Delivery Method Oxygen Flow Rate Fraction of Inspired Oxygen Sepsis Recent Fever Within 48 Hours Sepsis New/Unexplained Change in Mental Status Sepsis Action Taken by Nursing Fraction of Inspired Oxygen - Titration Pulse Oximetry Post Tiitration 06/11/22 13:30 06/11/22 13:31 06/11/22 13:31 Pulse Rate 75 79 Pulse Rate from SpO2 Sensor 77 77 Respiratory Rate 20 28 H Respiratory Effort / Characteristics Respiratory Depth Respiratory Pattern Blood Pressure 105/64 Blood Pressure Mean 77 Pulse Oximetry 90 93 Oxygen Delivery Method Oxygen Flow Rate Fraction of Inspired Oxygen Sepsis Recent Fever Within 48 Hours Sepsis New/Unexplained Change in Mental Status Sepsis Action Taken by Nursing Fraction of Inspired Oxygen - Titration Pulse Oximetry Post Tiitration 06/11/22 14:00 06/11/22 14:00 06/11/22 14:36 Pulse Rate 78 82 Pulse Rate from SpO2 Sensor 81 Respiratory Rate 31 H 23 Respiratory Effort / Characteristics Spontaneous Respiratory Depth Normal Respiratory Pattern Regular Blood Pressure 119/68 Blood Pressure Mean 85 Pulse Oximetry 98 96 Oxygen Delivery Method Nasal Cannula Oxygen Flow Rate 5 Fraction of Inspired Oxygen 35 Sepsis Recent Fever Within 48 Hours Sepsis New/Unexplained Change in Mental Status Sepsis Action Taken by Nursing Fraction of Inspired Oxygen - Titration Pulse Oximetry Post Tiitration 06/11/22 14:30 06/11/22 14:30 Pulse Rate 79 Pulse Rate from SpO2 Sensor 82 Respiratory Rate 27 H Respiratory Effort / Characteristics Respiratory Depth Respiratory Pattern Blood Pressure 122/65 Blood Pressure Mean 84 Pulse Oximetry 91 Oxygen Delivery Method Oxygen Flow Rate Fraction of Inspired Oxygen Sepsis Recent Fever Within 48 Hours Sepsis New/Unexplained Change in Mental Status Sepsis Action Taken by Nursing Fraction of Inspired Oxygen - Titration Pulse Oximetry Post Tiitration Laboratory Data 06/11/22 12:54 06/11/22 12:54 Lab Results 06/11/22 06/11/22 06/11/22 Range/Units 12:54 12:54 12:54 WBC 5.59 (4.8-10.8) K/ul RBC 4.90 (3.93-5.22) M/uL Hgb 13.7 (12.0-16.0) g/dl Hct 45.8 H (34.1-44.9) % MCV 93.5 (80.0-100.0) fL MCH 28.0 (25.0-34.0) pg MCHC 29.9 L (32.0-36.0) g/dL RDW Std Deviation 66.5 H (36.4-46.3) fL RDW Coeff of Toby 19.6 H (11.5-14.5) % Plt Count 162 (130-400) K/uL MPV 9.5 (9.4-12.3) fL Immature Gran % (Auto) 0.2 % Neut % (Auto) 50.8 % Lymph % (Auto) 39.7 % [place] % (Auto) 8.9 % Eos % (Auto) 0.2 % Baso % (Auto) 0.2 % Neut # (Auto) 2.84 (1.4-6.5) K/uL Lymph # (Auto) 2.22 (1.2-3.4) K/uL [place] # (Auto) 0.50 (0.24-0.82) K/uL Eos # (Auto) 0.01 (0-0.50) K/uL Baso # (Auto) 0.01 (0-0.2) K/uL Immature Gran # (Auto) 0.01 (0.00-0.02) K/uL ABG pH (7.35-7.45) ABG pCO2 (35-46) mmHg ABG pO2 (80-95) mmHg ABG HCO3 (19-24) mmol/L ABG O2 Saturation (90-95) % ABG Base Excess (-9-1.8) mEq/L Franc Test (Pos) Oxygen Given Sodium 132 L (136-145) mmol/L Potassium 5.3 H (3.5-5.1) mmol/L Chloride 95 L (98-107) mmol/L Carbon Dioxide 28 (21-32) mmol/L Anion Gap 9 (3-11) BUN 45 H (6-23) mg/dl Creatinine 1.32 H (0.6-1.2) mg/dl Est Cr Clr Drug Dosing 1.5 ml/min Est GFR ( Amer) 41.9 ml/min Est GFR (Non-Af Amer) 36.2 ml/min BUN/Creatinine Ratio 34.1 H (10-20) Glucose 192 H (70-99(Fasting)) mg/dl Lactate (0.4-2.0) mmol/L Calcium 9.2 (8.5-10.1) mg/dl Magnesium 2.4 (1.7-2.4) mg/dl Total Bilirubin 0.9 (0.2-1.0) mg/dl AST 25 (13-39) U/L ALT 13 (7-52) U/L Alkaline Phosphatase 92 (34-104) U/L Troponin I High Sens 21.9 H (0-14) pg/ml B-Natriuretic Peptide 1709 H (0-100) pg/ml Total Protein 7.3 (6.0-8.3) gm/dl Albumin 3.7 (3.4-5.0) gm/dl Globulin 3.6 (2.5-4.0) gm/dl Albumin/Globulin Ratio 1.0 (0.9-2) Procalcitonin (0-0.5) ng/ml 06/11/22 06/11/22 06/11/22 Range/Units 12:54 12:54 13:08 WBC (4.8-10.8) K/ul RBC (3.93-5.22) M/uL Hgb (12.0-16.0) g/dl Hct (34.1-44.9) % MCV (80.0-100.0) fL MCH (25.0-34.0) pg MCHC (32.0-36.0) g/dL RDW Std Deviation (36.4-46.3) fL RDW Coeff of Toby (11.5-14.5) % Plt Count (130-400) K/uL MPV (9.4-12.3) fL Immature Gran % (Auto) % Neut % (Auto) % Lymph % (Auto) % [place] % (Auto) % Eos % (Auto) % Baso % (Auto) % Neut # (Auto) (1.4-6.5) K/uL Lymph # (Auto) (1.2-3.4) K/uL [place] # (Auto) (0.24-0.82) K/uL Eos # (Auto) (0-0.50) K/uL Baso # (Auto) (0-0.2) K/uL Immature Gran # (Auto) (0.00-0.02) K/uL ABG pH (7.35-7.45) ABG pCO2 (35-46) mmHg ABG pO2 (80-95) mmHg ABG HCO3 (19-24) mmol/L ABG O2 Saturation (90-95) % ABG Base Excess (-9-1.8) mEq/L Franc Test (Pos) Oxygen Given Sodium (136-145) mmol/L Potassium (3.5-5.1) mmol/L Chloride (98-107) mmol/L Carbon Dioxide (21-32) mmol/L Anion Gap (3-11) BUN (6-23) mg/dl Creatinine (0.6-1.2) mg/dl Est Cr Clr Drug Dosing ml/min Est GFR ( Amer) ml/min Est GFR (Non-Af Amer) ml/min BUN/Creatinine Ratio (10-20) Glucose (70-99(Fasting)) mg/dl Lactate 1.2 (0.4-2.0) mmol/L Calcium (8.5-10.1) mg/dl Magnesium (1.7-2.4) mg/dl Total Bilirubin (0.2-1.0) mg/dl AST (13-39) U/L ALT (7-52) U/L Alkaline Phosphatase (34-104) U/L Troponin I High Sens 24.8 H (0-14) pg/ml B-Natriuretic Peptide (0-100) pg/ml Total Protein (6.0-8.3) gm/dl Albumin (3.4-5.0) gm/dl Globulin (2.5-4.0) gm/dl Albumin/Globulin Ratio (0.9-2) Procalcitonin 0.05 (0-0.5) ng/ml 06/11/22 Range/Units 13:19 WBC (4.8-10.8) K/ul RBC (3.93-5.22) M/uL Hgb (12.0-16.0) g/dl Hct (34.1-44.9) % MCV (80.0-100.0) fL MCH (25.0-34.0) pg MCHC (32.0-36.0) g/dL RDW Std Deviation (36.4-46.3) fL RDW Coeff of Toby (11.5-14.5) % Plt Count (130-400) K/uL MPV (9.4-12.3) fL Immature Gran % (Auto) % Neut % (Auto) % Lymph % (Auto) % [place] % (Auto) % Eos % (Auto) % Baso % (Auto) % Neut # (Auto) (1.4-6.5) K/uL Lymph # (Auto) (1.2-3.4) K/uL [place] # (Auto) (0.24-0.82) K/uL Eos # (Auto) (0-0.50) K/uL Baso # (Auto) (0-0.2) K/uL Immature Gran # (Auto) (0.00-0.02) K/uL ABG pH 7.25 L (7.35-7.45) ABG pCO2 75 H (35-46) mmHg ABG pO2 74 L (80-95) mmHg ABG HCO3 33 H (19-24) mmol/L ABG O2 Saturation 94.9 (90-95) % ABG Base Excess 3.3 H (-9-1.8) mEq/L Franc Test Pos (Pos) Oxygen Given 5L Sodium (136-145) mmol/L Potassium (3.5-5.1) mmol/L Chloride (98-107) mmol/L Carbon Dioxide (21-32) mmol/L Anion Gap (3-11) BUN (6-23) mg/dl Creatinine (0.6-1.2) mg/dl Est Cr Clr Drug Dosing ml/min Est GFR ( Amer) ml/min Est GFR (Non-Af Amer) ml/min BUN/Creatinine Ratio (10-20) Glucose (70-99(Fasting)) mg/dl Lactate (0.4-2.0) mmol/L Calcium (8.5-10.1) mg/dl Magnesium (1.7-2.4) mg/dl Total Bilirubin (0.2-1.0) mg/dl AST (13-39) U/L ALT (7-52) U/L Alkaline Phosphatase (34-104) U/L Troponin I High Sens (0-14) pg/ml B-Natriuretic Peptide (0-100) pg/ml Total Protein (6.0-8.3) gm/dl Albumin (3.4-5.0) gm/dl Globulin (2.5-4.0) gm/dl Albumin/Globulin Ratio (0.9-2) Procalcitonin (0-0.5) ng/ml Administered Medications Albuterol (Albut/Ipratrop 3mg/0.5mg Neb 3 Ml Vial) 3 ml NEB QIDR [facility]; Protocol Stop: 07/11/22 14:59 Last Admin: 06/12/22 10:29 Dose: 3 ml Documented By: Admin: 06/12/22 07:17 Dose: 3 ml Documented By: Admin: 06/11/22 20:15 Dose: 3 ml Documented By: Admin: 06/11/22 15:01 Dose: 3 ml Documented By: MADDIR Apixaban (Apixaban 2.5 Mg Tab) 2.5 mg PO BID OTILIA Stop: 07/11/22 20:59 Last Admin: 06/12/22 09:35 Dose: 2.5 mg Documented By: Admin: 06/11/22 20:55 Dose: 2.5 mg Documented By: DALIA Atenolol (Atenolol 25 Mg Tablet) 25 mg PO BID OTILIA Stop: 07/11/22 20:59 Last Admin: 06/12/22 09:35 Dose: 25 mg Documented By: Admin: 06/11/22 20:55 Dose: 25 mg Documented By: DALIA Calcium/Vitamin D (Calcium 600mg + Vit D 400 Iu Tab) 1 tab PO DAILY OTILIA Stop: 07/12/22 08:59 Last Admin: 06/12/22 09:35 Dose: 1 tab Documented By: RAHUL Ezetimibe/Simvastatin (Ezetimibe/Simvastatin 10/40mg 1 Tab Tab) 1 tab PO PM OTILIA Stop: 07/11/22 20:59 Last Admin: 06/11/22 20:55 Dose: 1 tab Documented By: DALIA Furosemide (Furosemide 40 Mg/4 Ml Vial) 40 mg IV BID OTILIA Stop: 07/11/22 20:59 Last Admin: 06/12/22 09:03 Dose: 40 mg Documented By: Admin: 06/11/22 20:55 Dose: 40 mg Documented By: DALIA Dexamethasone 6 mg/ Syringe 1.5 mls @ 1 mls/min IV Q24H OTILIA Stop: 06/21/22 10:59 Last Admin: 06/12/22 09:34 Dose: 1 mls/min Documented By: RAHUL Insulin Aspart (Insulin Aspart Per Unit) 0 units SC Q6 OTILIA Stop: 07/11/22 14:59 Last Admin: 06/12/22 06:06 Dose: Not Given Documented By: Admin: 06/11/22 23:40 Dose: 2 units Documented By: DALIA Co-signed By: ESPERANZA Insulin Glargine (Lantus Per Unit Charge) 5 units SQ BID OTILIA Stop: 07/11/22 20:59 Last Admin: 06/11/22 23:38 Dose: 5 units Documented By: DALIA Co-signed By: ESPERANZA Pantoprazole Sodium (Pantoprazole 40 Mg Tab) 40 mg PO DAILY [facility]; Protocol Stop: 07/12/22 08:59 Last Admin: 06/12/22 09:35 Dose: 40 mg Documented By: RAHUL Vitamin D (Cholecalciferol 1,000 Units 25 Mcg Tab) 1,000 units PO DAILY OTILIA Stop: 07/12/22 08:59 Last Admin: 06/12/22 09:35 Dose: 1,000 units Documented By: RAHUL Discontinued Medications Albuterol (Albut/Ipratrop 3mg/0.5mg Neb 3 Ml Vial) 3 ml NEB NOW [facility]; Protocol Stop: 06/11/22 12:48 Last Admin: 06/11/22 14:07 Dose: 3 ml Documented By: BUBBA Furosemide (Furosemide 40 Mg/4 Ml Vial) 40 mg IV ONE ONE Stop: 06/11/22 12:48 Last Admin: 06/11/22 14:07 Dose: 40 mg Documented By: BUBBA Dexamethasone 6 mg/ Syringe 1.5 mls @ 1 mls/min IV Q24H [facility] Stop: 06/21/22 17:59 Last Admin: 06/11/22 20:55 Dose: 1 mls/min Documented By: DALIA Insulin Aspart (Insulin Aspart Per Unit) 0 units SC Q6H OTILIA Stop: 07/11/22 14:59 Last Admin: 06/11/22 16:08 Dose: 1 units Documented By: BUBBA Co-signed By: NEELIMA Nitroglycerin (Nitroglycerin 2% Ointment 30gm Tube) 0.25 inch EXT NOW STA Stop: 06/11/22 14:25 Last Admin: 06/11/22 15:50 Dose: 0.25 inch Documented By: BUBBA Patiromer (Patiromer Calcium Sorbitex 8.4 Gm Pack) 8.4 gm PO NOW ONE Stop: 06/11/22 21:19 Last Admin: 06/11/22 23:38 Dose: 8.4 gm Documented By: DALIA Imaging Data Radiologist's Impression: Chest X-Ray 06/11/22 12:34 XR chest 1V portable HISTORY: Dyspnea COMPARISON: Chest 02/09/2022. FINDINGS: There are low lung volumes. The cardiac silhouette remains enlarged. Interval progression of the interstitial/vascular thickening and small bilateral pleural effusions. This likely represents pulmonary edema. Patchy bibasilar densities have also progressed. IMPRESSION: 1. Interval progression of the pulmonary edema and bilateral pleural effusions. 2. Patchy bibasilar densities have also progressed and favor atelectasis from the pleural effusions. A pneumonitis could also have a similar appearance. ACT 112: Negative or not required by law. Electronically signed by: Antonio Rosas M.D. 06/11/2022 1:37 PM Discharge Plan Visit Data Chief Complaint: Shortness of Breath/Dyspnea ED Provider: Jose Martin Donaldson Discharge Problem: Acute on chronic diastolic CHF (congestive heart failure), SOB (shortness of breath), Atrial fibrillation, Hypercarbia, Acute confusion, COVID-19 Patient Disposition: Admitted As Inpatient Discharge Instructions Interventions: ED Discharge Assessment Last Done: 06/11/22 17:02
[2022-06-11] MEDS: ALBUT/IPRATROP 3MG/0.5MG NEB 3 ML VIAL NEB SCH ×2 (15:01→20:15)
[2022-06-11 15:02] LABS: Appearance Urine Clear (Clear); Bacteria Urine Automated Negative (Negative); Bilirubin Urine Negative (Negative); Blood Urine Negative (Negative); Color Urine Dark Yellow; Glucose Urine UA 3+ (Negative); Ketones Urine Negative (Negative); Leukocyte Esterase Urine Negative (Negative); Nitrite Urine Negative (Negative); Protein Urine 1+ (Negative); RBC Urine Automated 0-4 /hpf (0-4); Specific Gravity Urine 1.021 (1.000-1.030); Urobilinogen Urine Negative (Negative)
[2022-06-11 15:27] LABS: Influenza A virus by PCR Negative (Neg); Influenza B virus by PCR Negative (Neg); RSV by PCR Negative (Neg)
--- NOTE | 2022-06-11 15:30 | Electrocardiogram Report ---
Test Reason : Blood Pressure : / mmHG Vent. Rate : 087 BPM Atrial Rate : 097 BPM P-R Int : 000 ms QRS Dur : 100 ms QT Int : 352 ms P-R-T Axes : 000 093 008 degrees QTc Int : 423 ms Poor data quality, interpretation may be adversely affected Atrial fibrillation Rightward axis Low voltage QRS Abnormal ECG When compared with ECG of 11-FEB-2022 05:50, Nonspecific T wave abnormality no longer evident in Anterior leads Confirmed by Jim Snider ([id number]) on 06/11/2022 3:30:33 PM Referred By: ED Confirmed By:Jim Snider
[2022-06-11 15:50] LABS: SARS CoV2 RNA(COVID-19) Ceph POSITIVE (Negative)
[2022-06-11] MEDS ORDERED: PHARMACY GLYCEMIC MGMT CONSULT PRN (16:09)
--- NOTE | 2022-06-11 16:34 | XCELERA ---
[id number] \\[id number]
[2022-06-11] MEDS ORDERED: dexAMETHasone 6 MG in SYRINGE 0 ML IV SCH (18:00)
[2022-06-11 18:28] LABS: Base Excess ABG 6.4 mEq/L (-9-1.8); HCO3 ABG 34 mmol/L (19-24); Oxygen Saturation ABG 96.6 % (90-95); PCO2 ABG 58 mmHg (35-46); PO2 ABG 76 mmHg (80-95); pH ABG 7.37 (7.35-7.45)
[2022-06-11 18:40] LABS: Allen Test Pos (Pos)
[2022-06-11] MEDS: FUROSEMIDE 40 MG/4 ML VIAL IV SCH (20:55)
[2022-06-11] MEDS: APIXABAN 2.5 MG TAB PO SCH (20:55)
[2022-06-11] MEDS: EZETIMIBE/SIMVASTATIN 10/40MG 1 TAB TAB PO SCH (20:55)
[2022-06-11] MEDS: ATENOLOL 25 MG TABLET PO SCH (20:55)
[2022-06-11] MEDS ORDERED: LANTUS PER UNIT CHARGE SQ SCH (21:00)
[2022-06-11] MEDS ORDERED: PATIROMER CALCIUM SORBITEX 8.4 GM PACK PO ONE (21:18)
[2022-06-11] MEDS: INSULIN ASPART PER UNIT SC SCH (23:40)
[2022-06-12] MEDS: INSULIN ASPART PER UNIT SC SCH ×2 (06:06→12:25)
[2022-06-12] MEDS: ALBUT/IPRATROP 3MG/0.5MG NEB 3 ML VIAL NEB SCH ×4 (07:17→19:15)
[2022-06-12 07:21] LABS: Base Excess ABG 9.8 mEq/L (-9-1.8); HCO3 ABG 35 mmol/L (19-24); Oxygen Saturation ABG 98.3 % (90-95); PCO2 ABG 48 mmHg (35-46); PO2 ABG 94 mmHg (80-95); pH ABG 7.47 (7.35-7.45)
[2022-06-12 07:48] LABS: BUN Creatinine Ratio 40.5 (10-20); Calcium 8.8 mg/dl (8.5-10.1); Creatinine Clr Calc Pharmacy 33.3 ml/min; Est GFR (African American) 46.6 ml/min; Est GFR (Non-African American) 40.2 ml/min; Magnesium 2.1 mg/dl (1.7-2.4)
[2022-06-12 08:06] LABS: Allen Test Pos (Pos); Hematocrit (blood only) 38.3 % (34.1-44.9); Hemoglobin 12.1 g/dl (12.0-16.0); Mean Corpuscular Hemoglobin 28.1 pg (25.0-34.0); Mean Corpuscular Hgb Conc 31.6 g/dL (32.0-36.0); Mean Corpuscular Volume 88.9 fL (80.0-100.0); Mean Platelet Volume 9.4 fL (9.4-12.3); Platelet Count 153 K/uL (130-400); RDW Standard Deviation 61.2 fL (36.4-46.3); Red Blood Count 4.31 M/uL (3.93-5.22)
[2022-06-12] MEDS ORDERED: NIFEdipine EXTENDED REL 30 MG TABCR PO SCH (09:00)
[2022-06-12] MEDS: FUROSEMIDE 40 MG/4 ML VIAL IV SCH ×2 (09:03→19:52)
[2022-06-12] MEDS: dexAMETHasone 6 MG in SYRINGE 0 ML IV SCH (09:34)
[2022-06-12] MEDS: CHOLECALCIFEROL 1,000 UNITS 25 MCG TAB PO SCH (09:35)
[2022-06-12] MEDS: PANTOprazole 40 MG TAB PO SCH (09:35)
[2022-06-12] MEDS: ATENOLOL 25 MG TABLET PO SCH ×2 (09:35→19:52)
[2022-06-12] MEDS: CALCIUM 600MG + VIT D 400 IU TAB PO SCH (09:35)
[2022-06-12] MEDS: APIXABAN 2.5 MG TAB PO SCH ×2 (09:35→19:52)
[2022-06-12] MEDS: CARBOHYDRATES FOR HYPOGLYCEMIA PO PRN ×2 (12:20→16:53)
[2022-06-12] MEDS: GLUCOSE 40% GEL 15 GM TUBE PO PRN (12:20)
--- NOTE | 2022-06-12 12:38 | Hospitalist Progress Note ---
Date of Service June 12, 2022 Assessment & Plan (1) Acute respiratory failure with hypoxia and hypercapnia: Plan: Acute hypoxic respiratory failure, multifactorial with NYHA class II heart failure and COVID-19 positive -Continue on PCU, follow EUFEMIA's -Patient is currently afebrile, hemodynamically stable, and stable both on BiPAP, and on 5 L nasal cannula -Multifactorial respiratory failure Covid 19 positive on admission and acute CHF exacerbation -On admission patient was volume overloaded on exam with significant pulmonary edema and BL pleural effusions on CXR, BNP elevated in the 1700's, up from 1300's from last admission in February of 2022. She is diuresing well, 1300 cc overnight, 600 brisk following morning Lasix. Target 11.5 netneg output daily -Pulm hygiene including incentive spirometry, flutter therapy, scheduled DuoNebs, and prn robitussin -Unsure when her illness related from Covid started. We will continue dexamethasone, remdesivir deferred for kidney function -Continue to monitor on tele and pulse oximetry -CHF clinic following Continue Lasix 40 mg IV twice daily Previously reported dry weight 190 pounds; patient has been below this per daughter although is obviously fluid overloaded. Had a previous dry weight of 170 pounds. Recommend standing weight at discharge to better assess. -Denise Sanchez consulted for assistance with management -AM CBC, BMP, and mag (2) Hypercarbia: Plan: -Likely due to CHF exacerbation and increasing her oxygen rate over the past week -alkalotic this morning with PCO2 of 48, chronic metabolic alkalosis compensati on. Okay for nasal cannula and to eat this morning (3) Elevated troponin: Plan: -Initial high sensitivity trop elevated at 21, no acute ECG changes and family confirms she has not been complaining of chest discomfort, likely due to demand -Repeat troponin 24.8 after admission, no clinical chest pain -Continue to monitor on tele (4) Hyperkalemia: Plan: -Noted to be 5.3 in the ED, no acute T-wave changes -Normalized, 5.0 on 06/12 (5) COVID-19: Plan: -See acute resp failure with hypoxia and hypercapnia (6) Atrial fibrillation: Plan: -Currently rate controlled -Continue Atenlol and Eliquis (7) CAD (coronary artery disease): Plan: -Continue lipid lowering agents (8) Anxiety: Plan: -Hold ativan and remeron for now with her fatigue from hypercarbia (9) Essential hypertension: Plan: -Stable -Continue atenlol -Will hold Lisinopril for now as she currently has soft blood pressures (10) GERD (gastroesophageal reflux disease): Plan: -Continue PPI (11) Hypercholesterolemia: Plan: -Continue zetia/simvastatin (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 Seen in the morning on BiPAP, and on reassessment in the afternoon on nasal cannula. She reports she is told she is peeing a lot, and feels her breathing is improving. She is not short of breath on BiPAP, would like to try breakfast. On later assessment on nasal cannula denies shortness of breath. Daughters present at bedside, update given. Patient is comfortable on nasal cannula, denies chest pain, chest pressure, fever, chills, sweats, nausea, vomiting. Does endorse leg swelling for onset, and continued leg swelling. Per the daughter note that even though she is currently fluid overloaded she is below her suspected dry weight. Recommend obtaining standing weight when able, and reassess dry weight on discharge. No additional questions or concerns at bedside Review of Systems Review of Systems: All systems reviewed & are unremarkable except as noted in Subjective Physical Exam Physical Exam: General: A&Ox3. NAD. Cooperative. HEENT: Atraumatic, normocephalic. Vision/hearing grossly intact, slightly hard of hearing. Pupils equal and reactive to light. Pulm: Diminished, coarse on BiPAP, bibasilar crackles symmetrical chest rise. No increase in work of breathing. No respiratory distress. Cardiac: RRR, -mrg. Radial pulses intact and symmetrical. Abdominal: Nontender, nondistended, soft. BS present. Extremities: Bilateral pitting edema. Sensation soft touch intact in hands and feet. Moving upper extremities equally. Results & Data Results & Data ([facility]) Vital Signs (Past 12 Hours) Vital Signs Temp Pulse Pulse Resp BP Pulse Ox Pulse Ox 06/12/22 11:44 37 C 83 26 H 114/51 L 95 06/12/22 10:29 93 H 26 H 95 06/12/22 10:29 96 H 26 H 94 06/12/22 08:00 06/12/22 08:00 94 06/12/22 08:12 81 20 107/56 L 94 06/12/22 07:00 76 06/12/22 07:18 81 22 93 06/12/22 03:00 37.1 C 75 18 101/53 L 95 06/12/22 02:14 74 21 88 L O2 Del Method O2 Del Method O2 Flow Rate FiO2 06/12/22 11:44 Nasal Cannula 5 06/12/22 10:29 35 06/12/22 10:29 BiPAP 35 06/12/22 08:00 BiPAP 35 06/12/22 08:00 BiPAP 06/12/22 08:12 BiPAP 35 06/12/22 07:00 06/12/22 07:18 Nasal Cannula 4 06/12/22 03:00 BiPAP 06/12/22 02:14 28 PG Care Time/CCT Total # of Minutes Spent Total Time Spent with Patient: Total time spent is greater than 50% in coordination of care (as documented) at patient's floor/unit and/or counseling patient: Coding Level of Care Code 95248 SUB INP/OBS CARE 3/50MIN Diagnoses Acute respiratory failure with hypoxia and hypercapnia J96.01; J96.02 Hypercarbia R06.89 Elevated troponin R77.8 Hyperkalemia E87.5 COVID-19 U07.1 Atrial fibrillation I48.91 CAD (coronary artery disease) I25.10 Anxiety F41.9 Essential hypertension I10 GERD (gastroesophageal reflux disease) K21.9 Hypercholesterolemia E78.00 Controlled type 2 diabetes with neuropathy E11.40 Pulmonary hypertension I27.20
[2022-06-12] MEDS ORDERED: Nursing to Pharmacy Communication SCH (13:30)
--- NOTE | 2022-06-12 13:47 | Heart Failure Consultation ---
Date of Consultation June 12, 2022 Assessment & Plan (1) Acute on chronic diastolic CHF (congestive heart failure): (2) COVID-19: (3) Atrial fibrillation: (4) CAD (coronary artery disease): (5) Essential hypertension: (6) Severe tricuspid regurgitation: (7) Pulmonary hypertension: (8) Mitral regurgitation: Plan Acute on chronic HFpEF: NYHA Class III-IV. Patient is hypervolemic on exam. At the time of my visit she is requiring BiPAP but is noted to be on 5L via NC at the time of documentation. Also with competing diagnosis of COVID19. Difficult to determine how symptomatic she is with this given her volume overload. At home she typically requires supplemental O2 with activity. Her weight is up about 10-15 lb but this has been gradual over the past 6 months. She attributes this to increased caloric intake and less activity. Family notes poor appetite. Suspect her dry weight is lower than previously thought and likely replaced body mass with fluid. Kidney function stable. Continue Lasix 40 mg IV BID with a goal of negative 1-2 L per day. Continue to monitor kidney function and electrolytes. She has evidence of RV dysfunction, pulmonary hypertension, and MR/TR on her recent echo. Could consider adding Spironolactone on discharge for right symptoms. Would repeat echocardiogram as outpatient once her volume status is optimized. Recommend continued documenting of her daily weights. Dry weight 190 lb (?).Strict I&Os while hospitalized. Recommend low sodium diet, less than 2,000 mg daily. Avoid excessive fluid intake. Pulmonary hypertension: As per pulmonology. Continue to optimize volume status. Atrial fibrillation is paroxysmal. She is asymptomatic. Continue anticoagulation. History of nosebleeds. Now on Eliquis. Hypertension: Well controlled. Continue current medical therapy MR/TR: Noted to be severe on recent echo. This was done in the setting of volume overload. Would repeat once optimized. Disposition: Will be away from the hospital tomorrow but will continue to follow upon return. Please call Dr. Snider for any acute concerns. Today's plan was discussed with Dr. Farias with the primary service. History of Present Illness Attending Physician: Arturo Farias MD History of Present Illness Patient is an 86 year old female with a past medial history of diastolic congestive heart failure (2018), CAD, HTN, GERD, anxiety, atrial fibrillation, moderate tricuspid regurgitation, and pulmonary hypertension. Dr. Garcia is her primary depot agent. Recent cardiac studies: 01/26/20 Echo: LV normal size. EF 45-50%. Basal inferior wall akinesis, distal septal severe hypokinesis. RV mild to moderately dilated. Mild AR. Moderate MR. Moderate to severe TR. RVSP elevated > 60 mmHg. IVC moderately dilated. 06/11/22 Echo: LV systolic function is normal. EF 55-60%. Flattened septum consistent with RV overload. Basal and mid inferior wall akinesis. RV is moderately dilated. RV systolic function moderate to severely reduced. Mild AR. Moderate pulmonic valvular regurgitation. Pulmonary artery end-diastolic velocity consistent with significantly elevated pulmonary artery end-diastolic pressure. Moderate to severe MR. left atrium severely dilated. Severe TR. Right atrium severely dilated. RVSP elevated greater than 60. Normal IVC diameter suggests normal central venous pressure. Patient Presented to the ED on 06/11/2022 With progressive shortness of breath. Prior to admission patient has been treated with antibiotics and several days of increased Lasix. Patient continued to decline. BNP was elevated at 1700. chest x-ray concerning for heart failure. Patient then requiring BiPAP. Echo consistent with RV dysfunction and volume overload. She was treated with IV Lasix and nitro paste. She was positive for COVID. Initiated on Dexamethasone. Lasix increased to 40 mg IV BID on admission. Patient is currently in isolation and requiring BiPAP. History difficult to obtain due to the mask. Nursing attempted to take her off BiPAP earlier this am and she needed to go back on after about 10 minutes. Despite that she is able to nod and answer some questions. She is comfortable. She is having increased lower extremity edema. She is unable to get standing weights due to her COVID status but her bed weight is below her typical dry weight (190 lb). She is responding well to IV Lasix and is net negative 1.3 L overnight. She denies chest pain, palpitations, or lightheadedness. SocHx: Patient lives alone in an apartment in [place]. She has 2 daughters who are both local. Serena is retired and typically manages her medically. Former smoker, quit 1989. Denies alcohol use. FamHx: Both parents with heart disease. Mother- at 65, AMI. Father- 77, AMI. Allergies Allergy/AdvReac Type Severity Reaction Status Date / Time Iodinated Contrast Media Allergy Intermediate HIVES Verified 06/11/22 15:29 penicillin G Allergy Unknown CAN'T Verified 06/11/22 15:29 REMEMBER HAPPENED MANY YEARS AGO Home Medications Medication Instructions Recorded Confirmed Type calcium carbonate 600 mg-vitamin 1 tab PO DAILY 03/13/18 06/11/22 History D3 10 mcg (400 unit) tablet (Calcium 600 + D(3)) cholecalciferol (vitamin D3) 25 1,000 unit PO DAILY 03/13/18 06/11/22 History mcg (1,000 unit) capsule (Vitamin D3) nitroglycerin 0.4 mg sublingual 0.4 mg sublingual DIRECTED PRN 03/02/19 06/11/22 Rx tablet (Nitrostat) Chest Pain #7 tabs coenzyme Q10 100 mg capsule 100 mg PO DAILY 02/02/20 06/11/22 History cyanocobalamin (vitamin B-12) 2,500 mcg sublingual DAILY 02/02/20 06/11/22 His tory 2,500 mcg sublingual tablet OUTSIDE motorized scooter #1 ea 03/15/20 05/30/22 Rx polyethylene glycol 3350 17 17 g PO DAILY PRN constipation 08/08/20 06/11/22 Rx gram/dose oral powder (Miralax) #119 grams atenolol 25 mg tablet 25 mg PO BID 30 days #180 tabs 04/12/21 06/11/22 Rx mirtazapine 15 mg tablet (Remeron) 15 mg PO HS #90 tabs 07/14/21 06/11/22 Rx glimepiride 2 mg tablet 4 mg PO BID 90 days #360 tabs 10/16/21 06/11/22 Rx melatonin 10 mg capsule 10 mg PO HS 01/01/22 06/11/22 History Jobst Stockings (misc) #1 ea 01/02/22 05/30/22 Rx Jaylen Hose #1 ea 01/05/22 05/30/22 Rx ezetimibe 10 mg-simvastatin 40 mg 1 tab PO PM #90 tabs 01/12/22 06/11/22 Rx tablet (Vytorin) lisinopril 20 mg tablet 20 mg PO DAILY #90 tabs 01/12/22 06/11/22 Rx nifedipine 30 mg tablet,extended 30 mg PO DAILY #90 tabs 01/12/22 06/11/22 Rx release 24 hr multivitamin with minerals 1 tab PO DAILY 02/09/22 06/11/22 History (Multiple Vitamin-Minerals tablet) furosemide 20 mg tablet 20 mg PO DAILY #45 tabs 02/15/22 06/11/22 Rx apixaban 2.5 mg tablet (Eliquis) 2.5 mg PO Q12H #180 tabs 03/06/22 06/11/22 Rx humidifiers #1 ea 03/09/22 05/30/22 Rx esomeprazole magnesium 40 mg 40 mg PO DAILY #90 caps 03/15/22 06/11/22 Rx capsule,delayed release lorazepam 0.5 mg tablet 0.5 mg PO DAILY PRN Anxiety #30 04/03/22 06/11/22 Rx tabs Conserving device for continuous O2 #1 ea 04/04/22 05/30/22 Rx O2 concentrator #1 ea 04/20/22 05/30/22 Rx Portable Oxygen #1 ea 05/02/22 05/30/22 Rx blood sugar diagnostic (OneTouch #400 ea 05/24/22 05/30/22 Rx Ultra Test strips) albuterol sulfate 90 mcg/actuation 2 puff inhalation QID PRN 05/30/22 06/11/22 Rx aerosol inhaler shortness of breath or wheezing #8.5 grams coenzyme Q10 100 mg capsule 100 mg PO DAILY 06/11/22 06/11/22 History (CoQ-10) empagliflozin 25 mg tablet 25 mg PO DAILY 06/11/22 06/11/22 History (Jardiance) vitamin B complex 1 tab PO DAILY 06/11/22 06/11/22 History Patient History Medical History (Updated 06/12/22 @ 13:34 by Denise Sanchez PA-C) Acid reflux Acute on chronic diastolic CHF (congestive heart failure) Acute UTI (urinary tract infection) Candidal intertrigo Diabetes Elevated troponin Fracture of left distal radius Fracture, humerus closed Heart attack Hyperkalemia Hypoxia Hypoxia Influenza Irregular heartbeat Left knee DJD Non-ST elevation [place] (NSTEMI) Pulmonary edema Pulmonary hypertension Rupture of UCL of right thumb Seasonal allergies Severe tricuspid regurgitation UTI (urinary tract infection) Surgical History H/O oral surgery No history of previous surgery S/P knee surgery S/P wisdom tooth extraction Family History Mother Myocardial infarction Father Myocardial infarction Other Hearing loss Heart disease No pertinent family history Denies family history of Ovarian cancer Prostate cancer No family history of adverse response to anesthesia No family history of bleeding disorder Allergies Breast cancer Colorectal cancer Cancer Hypertension Stroke Asthma Social History Smoking Status: Never smoker Tobacco Type: Cigarettes Second Hand Exposure: No; Do You Dip or Chew Tobacco: No; Tobacco Cessation Education Requested by Patient: No Hx Alcohol Use: No Hx Substance Use: No Preferred Language: Cameroonian Communication Ability: Effective Visual Impairment: No Limitations Hearing Ability: Normal Production Supervisor Required: No Beliefs That Will Affect Care: None marital status: / Current Living Situation: [facility] current occupational status: retired How many Children do You have: 1 Other Information That Helps Us Care for You: No Feels Safe at Home: Yes Safety Concerns: Feels Safe At This Time Childhood Exposure to Second-Hand Smoke: No caffeine: No Dental Care, Regularly: No Physical Activity Frequency: 3-4 Times per Week Seatbelt Use: always Sunscreen Use: No Assistive Devices: None Physical Exam Physical Exam: Constitutional: Alert, oriented, in no acute distress. On BiPAP. HEENT: Head is atraumatic and normocephalic. EOMs intact. Sclera anicteric. Face is symmetric. No perioral cyanosis. Neck: Supple, no JVD, + HJR Pulmonary: Normal respiratory effort, no wheezing. Bibasilar crackles. Cardiac: Irregular rate and rhythm. Normal S1 and S2, no gallops, no rubs, no murmurs Extremities: 2+ radial pulses bilaterally. 2+ posterior tibialis pulses bilaterally. 1-2+ tense edema. No cyanosis or clubbing. No wounds or drainage. Abdomen: Normal bowel sounds, soft, non-tender, no abdominal mass palpated Skin: Normal skin color, turgor, and pigmentation, no rash, no skin lesions Neurological: Patient is awake, alert, and oriented. Pleasant and cooperative. Answers questions appropriately. Normal movement in all 4 extremities. Results & Data ([facility]) Vital Signs (Past 12 Hours) Vital Signs Temp Pulse Pulse Resp BP Pulse Ox Pulse Ox 06/12/22 11:44 98.6 F 83 26 H 114/51 L 95 06/12/22 10:29 93 H 26 H 95 06/12/22 10:29 96 H 26 H 94 06/12/22 08:00 06/12/22 08:00 94 06/12/22 08:12 81 20 107/56 L 94 06/12/22 07:00 76 06/12/22 07:18 81 22 93 06/12/22 03:00 98.8 F 75 18 101/53 L 95 06/12/22 02:14 74 21 88 L O2 Del Method O2 Del Method O2 Flow Rate FiO2 06/12/22 11:44 Nasal Cannula 5 06/12/22 10:29 35 06/12/22 10:29 BiPAP 35 06/12/22 08:00 BiPAP 35 06/12/22 08:00 BiPAP 06/12/22 08:12 BiPAP 35 06/12/22 07:00 06/12/22 07:18 Nasal Cannula 4 06/12/22 03:00 BiPAP 06/12/22 02:14 28 Coding Level of Care Code 34347 INT INP/OBS CARE 3/75MIN Diagnoses Acute on chronic diastolic CHF (congestive heart failure) I50.33 COVID-19 U07.1 Atrial fibrillation I48.91 CAD (coronary artery disease) I25.10 Essential hypertension I10 Severe tricuspid regurgitation I07.1 Pulmonary hypertension I27.20 Mitral regurgitation I34.0
--- NOTE | 2022-06-12 14:07 | Pharmacy Report ---
Pharmacy Glycemic Short Note 2 - Date of Service June 12, 2022 - Glycemic Short BSG Results (Last 24 hours): 06/11/22 06/11/22 06/11/22 12:54 15:26 23:16 Glucose 192 H POC Glucose 183 H 182 H 06/12/22 06/12/22 06/12/22 05:58 06:56 12:13 Glucose 67 L POC Glucose 84 41 L* 06/12/22 06/12/22 12:16 12:37 Glucose POC Glucose 40 L* 66 L* OUTPATIENT ANTIDIABETIC REGIMEN: * Jardiance 25 mg QD * glimepiride 4mg BID * A1c: 7.3% ASSESSMENT: * Patient admitted with acute respiratory failure was initially mildly hyperglycemic. Patient received a conservative dose of 5 units lantus last evening and received 3 units of NovoLog as well. * Patient was slightly hypoglycemic this morning (fasting 67 mg/dL) and then again at lunch despite receiving no additional insulin today. It is possible given renal function, patient still had effects of glimepiride on board. * Patient is ordered a diet for dinner and is ordered dexamethasone, so anticipate BSGs to increase. However, until BSG does trend up will not order any additional basal insulin and continue with a conservative NovoLog scale. PLAN FOR INPATIENT GLYCEMIC CONTROL: * Hold outpatient oral diabetes medications * Basal insulin * Lantus 5 units SQ X 1 last evening * Bolus insulin * NovoLog per scale ACHS or Q6hrs while NPO * Goal Range: Low 110 mg/dL - High 140 mg/dL * Correction Factor: 50 mg/dL/unit * Nutritional / Prandial insulin per carb ratio of 1 unit per 25 grams CHO consumed
[2022-06-12] MEDS ORDERED: INSULIN ASPART PER UNIT SC SCH (16:30)
[2022-06-12] MEDS: EZETIMIBE/SIMVASTATIN 10/40MG 1 TAB TAB PO SCH (19:52)
[2022-06-13] MEDS: CARBOHYDRATES FOR HYPOGLYCEMIA PO PRN ×3 (04:13→14:48)
[2022-06-13 06:03] LABS: Hematocrit (blood only) 37.8 % (34.1-44.9); Mean Corpuscular Hemoglobin 27.8 pg (25.0-34.0); Mean Corpuscular Hgb Conc 31.7 g/dL (32.0-36.0); Mean Corpuscular Volume 87.5 fL (80.0-100.0); Mean Platelet Volume 9.2 fL (9.4-12.3); Platelet Count 167 K/uL (130-400); RDW Coefficient of Variation 19.3 % (11.5-14.5); RDW Standard Deviation 60.5 fL (36.4-46.3); Red Blood Count 4.32 M/uL (3.93-5.22); White Blood Count 7.39 K/ul (4.8-10.8)
[2022-06-13 06:47] LABS: BUN Creatinine Ratio 36.4 (10-20); Calcium 8.5 mg/dl (8.5-10.1); Creatinine Clr Calc Pharmacy 27.8 ml/min; Est GFR (African American) 38.1 ml/min; Est GFR (Non-African American) 32.8 ml/min; Magnesium 1.9 mg/dl (1.7-2.4); Potassium 5.1 mmol/L (3.5-5.1)
[2022-06-13] MEDS: GLUCOSE 40% GEL 15 GM TUBE PO PRN (07:21)
[2022-06-13] MEDS: ALBUT/IPRATROP 3MG/0.5MG NEB 3 ML VIAL NEB SCH ×4 (07:24→19:13)
--- NOTE | 2022-06-13 07:54 | Hospitalist Progress Note ---
Date of Service June 13, 2022 Assessment & Plan (1) Acute respiratory failure with hypoxia and hypercapnia: Plan: Acute hypoxic respiratory failure, acute on chronic systolic heart falure,with NYHA class II heart failure COVID-19 positive, possible covid pneumonia - Has been able to be tapered off of BiPAP now on nasal cannula during the day returning to BiPAP at night -continue dexamethasone, remdesivir deferred for kidney function Continue Lasix 40 mg IV twice daily Previously reported dry weight 190 pounds; patient has been below this per daughter although is obviously fluid overloaded. Had a previous dry weight of 170 pounds. -Denise Sanchez consulted for assistance with management (2) Hypoglycemia: Plan: pt with recurrent hypoglycemia, was given glucose, and glucagon, will be on D5W as persists with low glucose in the morning recheck TSH, send out insulin level as has had none 06/13, cannot check cortisol as is on dexamethasone (3) Controlled type 2 diabetes with neuropathy: Plan: -Hold oral agents -Monitor BSG q6h while NPO on bipap -Goal BSG is 110-140 -Patient hypoglycemic 06/12, correction factor 50, carb ratio increased to 25 (4) Elevated troponin: Plan: -Initial high sensitivity trop elevated at 21->24.8, no acute ECG changes and no complaints of chest discomfort, elevated troponin due to demand (5) Hyperkalemia: Plan: -Noted to be 5.3 in the ED, no acute T-wave changes -Normalized, 5.0 on 06/12 (6) Atrial fibrillation: Plan: -Currently rate controlled -rate controlled with Atenlol and Eliquis (7) CAD (coronary artery disease): Plan: -Continue lipid lowering agents (8) Anxiety: Plan: -Hold ativan and remeron for now with her fatigue from hypercarbia (9) Essential hypertension: Plan: -Stable -Continue atenlol -Will hold Lisinopril for now as she currently has soft blood pressures (10) GERD (gastroesophageal reflux disease): Plan: -Continue PPI (11) Hypercholesterolemia: Plan: -Continue zetia/simvastatin (12) Pulmonary hypertension: Plan: -Continue nifedipine Admission and Anticipated Discharge Date Admission Date: June 11, 2022 Subjective pt has great improvement in respiratory status, has persistent hypoglycemia that has been non responsive to glucogon and po intake, pending insulin level in am, and started on D5W gtt overnight oxygen requirement is slight Review of Systems Review of Systems: Mild distress and fatigue no headache, no visual changes no speech or swallowing issues no chest pain, pressure or palpitations no shortness of breath, cough or wheezes no abdominal pain, nausea or vomiting, diarrhea or constipation no dysuria, hematuria or frequency no focal joint pain or swelling no back pain, CVA tenderness or radicular pain no bruising, bleeding or rashes no focal signs of weakness or numbness or altered sensation no complaints of anxiety or depression.. Physical Exam Physical Exam: The patient appeared well nourished and normally developed. Vital signs as documented. Head exam is normocephalic atraumatic Neck is without JVD, thyromegaly, or carotid bruits. Lungs are diminished throughout, basilar crackles Cardiac exam, Rhythm is regular.. No murmurs, rubs or gallops. Abdominal exam reveals normal bowel sounds, soft non tender, no masses Extremities are nonedematous and both pedal pulses are present Neurologic exam is alert and oriented, no focal loss of strength or sensation Skin is without bruises or rashes Psychologically is without concerns for anxiety or depression.. Results & Data Results & Data ([facility]) Vital Signs (Past 12 Hours) Vital Signs Temp Pulse Pulse Resp BP Pulse Ox O2 Del Method 06/13/22 07:30 92 H 24 92 Nasal Cannula 06/13/22 02:54 99.5 F 78 20 105/55 L 92 Nasal Cannula 06/13/22 00:12 79 23 93 06/13/22 00:00 06/12/22 23:02 98.2 F 82 20 103/59 L 93 Nasal Cannula 06/12/22 20:00 Nasal Cannula O2 Del Method O2 Flow Rate O2 Flow Rate FiO2 06/13/22 07:30 4 06/13/22 02:54 4 06/13/22 00:12 35 06/13/22 00:00 Nasal Cannula 4 06/12/22 23:02 4 06/12/22 20:00 4 PG Care Time/CCT Total # of Minutes Spent Total Time Spent with Patient: Total time spent is greater than 50% in coordination of care (as documented) at patient's floor/unit and/or counseling patient: Coding Level of Care Code 05210 SUB INP/OBS CARE 3/50MIN Diagnoses Acute respiratory failure with hypoxia and hypercapnia J96.01; J96.02 Hypoglycemia E16.2 Controlled type 2 diabetes with neuropathy E11.40 Elevated troponin R77.8 Hyperkalemia E87.5 Atrial fibrillation I48.91 CAD (coronary artery disease) I25.10 Anxiety F41.9 Essential hypertension I10 GERD (gastroesophageal reflux disease) K21.9 Hypercholesterolemia E78.00 Pulmonary hypertension I27.20
[2022-06-13] MEDS: APIXABAN 2.5 MG TAB PO SCH ×2 (09:15→19:53)
[2022-06-13] MEDS: ATENOLOL 25 MG TABLET PO SCH ×2 (09:15→19:53)
[2022-06-13] MEDS: CALCIUM 600MG + VIT D 400 IU TAB PO SCH (09:16)
[2022-06-13] MEDS: PANTOprazole 40 MG TAB PO SCH (09:16)
[2022-06-13] MEDS: CHOLECALCIFEROL 1,000 UNITS 25 MCG TAB PO SCH (09:16)
[2022-06-13] MEDS: dexAMETHasone 6 MG in SYRINGE 0 ML IV SCH (09:16)
[2022-06-13] MEDS: FUROSEMIDE 40 MG/4 ML VIAL IV SCH ×2 (09:27→19:53)
--- NOTE | 2022-06-13 11:45 | Pharmacy Report ---
Pharmacy Glycemic Short Note 2 - Date of Service June 13, 2022 - Glycemic Short BSG Results (Last 24 hours): 06/12/22 06/12/22 06/12/22 12:13 12:16 12:37 Glucose POC Glucose 41 L* 40 L* 66 L* 06/12/22 06/12/22 06/12/22 16:45 16:53 17:08 Glucose POC Glucose 49 L* 43 L* 63 L* 06/12/22 06/12/22 06/12/22 18:09 19:16 20:01 Glucose POC Glucose 112 H 118 H 108 H 06/12/22 06/12/22 06/12/22 20:57 22:08 23:04 Glucose POC Glucose 75 93 116 H 06/12/22 06/13/22 06/13/22 23:56 01:02 01:57 Glucose POC Glucose 120 H 77 113 H 06/13/22 06/13/22 06/13/22 02:56 04:03 04:13 Glucose POC Glucose 111 H 64 L* 65 L* 06/13/22 06/13/22 06/13/22 04:36 05:11 05:44 Glucose 151 H POC Glucose 118 H 145 H 06/13/22 06/13/22 06/13/22 06:11 07:13 07:35 Glucose POC Glucose 118 H 62 L* 67 L* 06/13/22 06/13/22 06/13/22 08:04 09:20 10:28 Glucose POC Glucose 126 H 141 H 68 L* 06/13/22 11:05 Glucose POC Glucose 107 H OUTPATIENT ANTIDIABETIC REGIMEN: * Jardiance 25 mg QD * glimepiride 4mg BID * A1c: 7.3% ASSESSMENT: 06/13 * Intermittent episodes of hypoglycemia continue at this time, again likely lingering effects of glimepiride in setting of poor renal fxn * 0 units of insulin administered in last 36 hours * Will continue to hold all insulin at this time until BSGs have recovered and recurrent hypoglycemia has resolved * IV steroid continues, diabetic diet is ordered 06/12 * Patient admitted with acute respiratory failure was initially mildly hyperglycemic. Patient received a conservative dose of 5 units lantus last evening and received 3 units of NovoLog as well. * Patient was slightly hypoglycemic this morning (fasting 67 mg/dL) and then again at lunch despite receiving no additional insulin today. It is possible given renal function, patient still had effects of glimepiride on board. * Patient is ordered a diet for dinner and is ordered dexamethasone, so anticipate BSGs to increase. However, until BSG does trend up will not order any additional basal insulin and continue with a conservative NovoLog scale. PLAN FOR INPATIENT GLYCEMIC CONTROL: * Hold outpatient oral diabetes medications (glimepiride, Jardiance) * Basal insulin * hold * Bolus insulin * hold
[2022-06-13] MEDS: DEXTROSE 5% 1,000 ML IV SCH (15:30)
[2022-06-13] MEDS: EZETIMIBE/SIMVASTATIN 10/40MG 1 TAB TAB PO SCH (19:53)
[2022-06-14] MEDS: DEXTROSE 5% 1,000 ML IV SCH (04:05)
[2022-06-14 06:59] LABS: Hematocrit (blood only) 40.7 % (34.1-44.9); Hemoglobin 12.8 g/dl (12.0-16.0); Mean Corpuscular Hemoglobin 27.9 pg (25.0-34.0); Mean Corpuscular Hgb Conc 31.4 g/dL (32.0-36.0); Mean Corpuscular Volume 88.9 fL (80.0-100.0); Mean Platelet Volume 9.3 fL (9.4-12.3); Platelet Count 159 K/uL (130-400); Red Blood Count 4.58 M/uL (3.93-5.22); White Blood Count 8.49 K/ul (4.8-10.8)
[2022-06-14] MEDS: ALBUT/IPRATROP 3MG/0.5MG NEB 3 ML VIAL NEB SCH ×4 (07:27→19:10)
[2022-06-14] MEDS: APIXABAN 2.5 MG TAB PO SCH ×2 (09:07→20:20)
[2022-06-14] MEDS: ATENOLOL 25 MG TABLET PO SCH ×2 (09:07→20:21)
[2022-06-14] MEDS: CALCIUM 600MG + VIT D 400 IU TAB PO SCH (09:07)
[2022-06-14] MEDS: CHOLECALCIFEROL 1,000 UNITS 25 MCG TAB PO SCH (09:08)
[2022-06-14] MEDS: PANTOprazole 40 MG TAB PO SCH (09:08)
[2022-06-14 09:09] LABS: BUN Creatinine Ratio 37.3 (10-20); Calcium 9.2 mg/dl (8.5-10.1); Creatinine Clr Calc Pharmacy 31.5 ml/min; Est GFR (African American) 44.4 ml/min; Est GFR (Non-African American) 38.3 ml/min; Magnesium 1.8 mg/dl (1.7-2.4); Potassium 4.6 mmol/L (3.5-5.1)
[2022-06-14] MEDS: FUROSEMIDE 40 MG/4 ML VIAL IV SCH ×2 (09:10→20:23)
[2022-06-14] MEDS: dexAMETHasone 6 MG in SYRINGE 0 ML IV SCH (09:30)
--- NOTE | 2022-06-14 19:34 | Hospitalist Progress Note ---
Date of Service June 14, 2022 Assessment & Plan (1) Acute respiratory failure with hypoxia and hypercapnia: Plan: Acute hypoxic respiratory failure, acute on chronic systolic heart falure,with NYHA class II heart failure COVID-19 positive, possible covid pneumonia - Has been able to be tapered off of BiPAP now on nasal cannula during the day returning to BiPAP at night -continue dexamethasone, remdesivir deferred for kidney function Continue Lasix 40 mg IV twice daily Previously reported dry weight 190 pounds; patient has been below this per daughter although is obviously fluid overloaded. Had a previous dry weight of 170 pounds. -Denise Sanchez consulted for assistance with management Patient continues to have wheezing on 06/14, continue to diurese. (2) Hypoglycemia: Plan: pt with recurrent hypoglycemia, was given glucose, and glucagon, will be on D5W as persists with low glucose in the morning recheck TSH, send out insulin level as has had none 06/13, cannot check cortisol as is on dexamethasone. Blood sugars have improved. will monitor. (3) Controlled type 2 diabetes with neuropathy: Plan: -Hold oral agents -Monitor BSG q6h while NPO on bipap -Goal BSG is 110-140 -Patient hypoglycemic 06/12, correction factor 50, carb ratio increased to 25 (4) Elevated troponin: Plan: -Initial high sensitivity trop elevated at 21->24.8, no acute ECG changes and no complaints of chest discomfort, elevated troponin due to demand (5) Hyperkalemia: Plan: -Noted to be 5.3 in the ED, no acute T-wave changes -Normalized, 5.0 on 06/12 (6) Atrial fibrillation: Plan: -Currently rate controlled -rate controlled with Atenlol and Eliquis (7) CAD (coronary artery disease): Plan: -Continue lipid lowering agents (8) Anxiety: Plan: -Hold ativan and remeron for now with her fatigue from hypercarbia (9) Essential hypertension: Plan: -Stable -Continue atenlol -Will hold Lisinopril for now as she currently has soft blood pressures (10) GERD (gastroesophageal reflux disease): Plan: -Continue PPI (11) Hypercholesterolemia: Plan: -Continue zetia/simvastatin (12) Pulmonary hypertension: Plan: -Continue nifedipine Admission and Anticipated Discharge Date Admission Date: June 11, 2022 Subjective Patient continues to require oxygen. Family is at bedside and has concerns that she may need to go to a SNF as she has been weaker over past few days. Review of Systems Review of Systems: All systems reviewed & are unremarkable except as noted in HPI & below Physical Exam Physical Exam: The patient appeared well nourished and normally developed. Vital signs as documented. Head exam is normocephalic atraumatic Neck is without JVD, thyromegaly, or carotid bruits. Lungs are diminished throughout, basilar crackles, wheezing biaterally. Cardiac exam, Rhythm is regular.. No murmurs, rubs or gallops. Abdominal exam reveals normal bowel sounds, soft non tender, no masses Extremities are nonedematous and both pedal pulses are present Neurologic exam is alert and oriented, no focal loss of strength or sensation Skin is without bruises or rashes Psychologically is without concerns for anxiety or depression Results & Data Results & Data ([facility]) Vital Signs (Past 12 Hours) Vital Signs Temp Pulse Pulse Pulse Resp BP Pulse Ox 06/14/22 19:10 86 18 91 06/14/22 07:45 06/14/22 15:51 84 06/14/22 15:41 36.7 C 95 H 19 119/61 92 06/14/22 14:09 91 H 18 91 06/14/22 11:44 36.9 C 100 H 20 124/69 92 06/14/22 11:00 87 20 91 06/14/22 07:52 76 06/14/22 07:47 36.8 C 93 H 19 144/81 H 92 O2 Del Method O2 Flow Rate 06/14/22 19:10 Nasal Cannula 4 06/14/22 07:45 Nasal Cannula 4 06/14/22 15:51 06/14/22 15:41 Nasal Cannula 4 06/14/22 14:09 Nasal Cannula 4 06/14/22 11:44 Nasal Cannula 4 06/14/22 11:00 Nasal Cannula 4 06/14/22 07:52 06/14/22 07:47 Nasal Cannula 4 PG Care Time/CCT Total # of Minutes Spent Total Time Spent with Patient: Total time spent is greater than 50% in coordination of care (as documented) at patient's floor/unit and/or counseling patient: Coding Level of Care Code 22278 SUB INP/OBS CARE 2/35MIN Diagnoses Acute respiratory failure with hypoxia and hypercapnia J96.01; J96.02 Hypoglycemia E16.2 Controlled type 2 diabetes with neuropathy E11.40 Elevated troponin R77.8 Hyperkalemia E87.5 Atrial fibrillation I48.91 CAD (coronary artery disease) I25.10 Anxiety F41.9 Essential hypertension I10 GERD (gastroesophageal reflux disease) K21.9 Hypercholesterolemia E78.00 Pulmonary hypertension I27.20
[2022-06-14] MEDS: EZETIMIBE/SIMVASTATIN 10/40MG 1 TAB TAB PO SCH (20:22)
[2022-06-14] MEDS: INSULIN ASPART PER UNIT SC SCH (20:44)
[2022-06-14] MEDS: MIRTAZAPINE TAB 15 MG TAB PO SCH (20:49)
[2022-06-15] MEDS: ALBUT/IPRATROP 3MG/0.5MG NEB 3 ML VIAL NEB SCH ×4 (07:31→18:59)
[2022-06-15] MEDS: PANTOprazole 40 MG TAB PO SCH (07:45)
[2022-06-15] MEDS: CALCIUM 600MG + VIT D 400 IU TAB PO SCH (07:45)
[2022-06-15] MEDS: APIXABAN 2.5 MG TAB PO SCH ×2 (07:46→20:54)
[2022-06-15] MEDS: CHOLECALCIFEROL 1,000 UNITS 25 MCG TAB PO SCH (07:46)
[2022-06-15] MEDS: ATENOLOL 25 MG TABLET PO SCH ×2 (07:46→20:59)
[2022-06-15] MEDS: INSULIN ASPART PER UNIT SC SCH ×4 (08:51→21:25)
[2022-06-15] MEDS: dexAMETHasone 6 MG in SYRINGE 0 ML IV SCH (08:57)
[2022-06-15] MEDS: FUROSEMIDE 40 MG/4 ML VIAL IV SCH ×2 (08:58→21:01)
--- NOTE | 2022-06-15 13:24 | Pharmacy Report ---
Pharmacy Glycemic Short Note 2 - Date of Service June 15, 2022 - Glycemic Short BSG Results (Last 24 hours): 06/14/22 06/14/22 06/14/22 11:38 16:43 20:23 POC Glucose 159 H 291 H 344 H* 06/14/22 06/15/22 06/15/22 23:34 06:01 07:37 POC Glucose 241 H 129 H 201 H 06/15/22 11:39 POC Glucose 143 H OUTPATIENT ANTIDIABETIC REGIMEN: * Jardiance 25 mg QD * glimepiride 4mg BID * A1c: 7.3% ASSESSMENT: 06/15 * Patient was placed on IV D5W 06/13-06/14 due to recurrent hypoglycemia despite no receipt of insulin. She continued to receive IV dexamethasone 6mg each morning since admission. * BSG did climb to 291 and subsequently to 344 following d/c of D5W in the later afternoon yesterday. As a result low dose Novolog scale was added. * Fasting BSG was at goal this AM with no basal insulin on board (FBS 129) - will continue to hold * A verly low dose of Novolog correction and prandial coverage has performed well thus far - will continue for now as it is too soon to say adjustments are necessary 06/13 * Intermittent episodes of hypoglycemia continue at this time, again likely lingering effects of glimepiride in setting of poor renal fxn * 0 units of insulin administered in last 36 hours * Will continue to hold all insulin at this time until BSGs have recovered and recurrent hypoglycemia has resolved * IV steroid continues, diabetic diet is ordered 06/12 * Patient admitted with acute respiratory failure was initially mildly hyperglycemic. Patient received a conservative dose of 5 units lantus last evening and received 3 units of NovoLog as well. * Patient was slightly hypoglycemic this morning (fasting 67 mg/dL) and then again at lunch despite receiving no additional insulin today. It is possible given renal function, patient still had effects of glimepiride on board. * Patient is ordered a diet for dinner and is ordered dexamethasone, so anticipate BSGs to increase. However, until BSG does trend up will not order any additional basal insulin and continue with a conservative NovoLog scale. PLAN FOR INPATIENT GLYCEMIC CONTROL: * Hold outpatient oral diabetes medications (glimepiride, Jardiance) * Basal insulin * hold * Bolus insulin * Novolog SQ ACHS * Goal: 120-180mg/dL * Correction factor: 50mg/dL/unit * Carb ratio: 1 unit per 30 grams carbs eaten
[2022-06-15 14:48] LABS: Hematocrit (blood only) 41.8 % (34.1-44.9); Hemoglobin 13.6 g/dl (12.0-16.0); Mean Corpuscular Hemoglobin 28.2 pg (25.0-34.0); Mean Corpuscular Hgb Conc 32.5 g/dL (32.0-36.0); Mean Corpuscular Volume 86.5 fL (80.0-100.0); Mean Platelet Volume 9.9 fL (9.4-12.3); Platelet Count 163 K/uL (130-400); RDW Coefficient of Variation 18.9 % (11.5-14.5); RDW Standard Deviation 58.2 fL (36.4-46.3); Red Blood Count 4.83 M/uL (3.93-5.22); White Blood Count 10.02 K/ul (4.8-10.8)
[2022-06-15 15:19] LABS: Anion Gap 9 (3-11); BUN Creatinine Ratio 41.4 (10-20); Blood Urea Nitrogen 53 mg/dl (6-23); C Reactive Protein < 0.50 mg/dl (0-0.5); Calcium 9.5 mg/dl (8.5-10.1); Carbon Dioxide 38 mmol/L (21-32); Chloride 85 mmol/L (98-107); Creatinine Clr Calc Pharmacy 30.1 ml/min; Est GFR (African American) 43.5 ml/min; Est GFR (Non-African American) 37.6 ml/min; Glucose 309 mg/dl (70-99(Fasting)); Potassium 4.4 mmol/L (3.5-5.1); Sodium 132 mmol/L (136-145)
[2022-06-15] MEDS: EZETIMIBE/SIMVASTATIN 10/40MG 1 TAB TAB PO SCH (21:00)
[2022-06-15] MEDS: MIRTAZAPINE TAB 15 MG TAB PO SCH (21:01)
[2022-06-15] MEDS: MELATONIN 3 MG TAB PO PRN (21:02)
--- NOTE | 2022-06-15 22:00 | Hospitalist Progress Note ---
Date of Service June 15, 2022 Assessment & Plan (1) Acute respiratory failure with hypoxia and hypercapnia: Plan: Acute hypoxic respiratory failure, acute on chronic systolic heart falure,with NYHA class II heart failure COVID-19 positive, possible covid pneumonia - Has been able to be tapered off of BiPAP now on nasal cannula during the day returning to BiPAP at night -continue dexamethasone, remdesivir deferred for kidney function Continue Lasix 40 mg IV twice daily Previously reported dry weight 190 pounds; patient has been below this per daughter although is obviously fluid overloaded. Had a previous dry weight of 170 pounds. -Denise Sanchez consulted for assistance with management Patient continues to require nasal cannula of 4 liters, continue to diurese. about 11 liters negative (2) Hypoglycemia: Plan: pt with recurrent hypoglycemia, was given glucose, and glucagon, will be on D5W as persists with low glucose in the morning recheck TSH, send out insulin level as has had none 06/13, cannot check cortisol as is on dexamethasone. Blood sugars have improved. D?W with endocrinology. Appears this is due to glimepiride. will recommend cutting dose. (3) Controlled type 2 diabetes with neuropathy: Plan: -Hold oral agents -Monitor BSG q6h while NPO on bipap -Goal BSG is 110-140 -Patient hypoglycemic 06/12, correction factor 50, carb ratio increased to 25 (4) Elevated troponin: Plan: -Initial high sensitivity trop elevated at 21->24.8, no acute ECG changes and no complaints of chest discomfort, elevated troponin due to demand (5) Hyperkalemia: Plan: -Noted to be 5.3 in the ED, no acute T-wave changes -Normalized, 5.0 on 06/12 (6) Atrial fibrillation: Plan: -Currently rate controlled -rate controlled with Atenlol and Eliquis (7) CAD (coronary artery disease): Plan: -Continue lipid lowering agents (8) Anxiety: Plan: -Hold ativan and remeron for now with her fatigue from hypercarbia (9) Essential hypertension: Plan: -Stable -Continue atenlol -Will hold Lisinopril for now as she currently has soft blood pressures (10) GERD (gastroesophageal reflux disease): Plan: -Continue PPI (11) Hypercholesterolemia: Plan: -Continue zetia/simvastatin (12) Pulmonary hypertension: Plan: -Continue nifedipine Admission and Anticipated Discharge Date Admission Date: June 11, 2022 Subjective Patient reports feeling well. She has no new complaints. Updated daughter at bedside. Review of Systems Review of Systems: All systems reviewed & are unremarkable except as noted in HPI & below Physical Exam Physical Exam: The patient appeared well nourished and normally developed. Vital signs as documented. Head exam is normocephalic atraumatic Neck is without JVD, thyromegaly, or carotid bruits. Lungs are diminished throughout, basilar crackles, wheezing biaterally. Cardiac exam, Rhythm is regular.. No murmurs, rubs or gallops. Abdominal exam reveals normal bowel sounds, soft non tender, no masses Extremities are nonedematous and both pedal pulses are present Neurologic exam is alert and oriented, no focal loss of strength or sensation Skin is without bruises or rashes Psychologically is without concerns for anxiety or depression Results & Data Results & Data ([facility]) Vital Signs (Past 12 Hours) Vital Signs Temp Pulse Pulse Resp BP Pulse Ox Pulse Ox 06/15/22 20:00 37.0 C 83 20 127/64 92 06/15/22 18:59 80 18 92 06/15/22 15:51 89 06/15/22 14:55 37.4 C 95 H 25 H 122/73 93 06/15/22 14:55 95 06/15/22 14:51 92 06/15/22 14:35 85 16 93 06/15/22 11:37 36.7 C 86 17 119/72 94 06/15/22 11:18 81 18 94 Pulse Ox O2 Del Method O2 Flow Rate O2 Flow Rate O2 Flow Rate 06/15/22 20:00 Nasal Cannula 4 06/15/22 18:59 Nasal Cannula 4 06/15/22 15:51 06/15/22 14:55 Nasal Cannula 4 06/15/22 14:55 06/15/22 14:51 95 4 4 06/15/22 14:35 Nasal Cannula 4 06/15/22 11:37 Nasal Cannula 4 06/15/22 11:18 Nasal Cannula 4 PG Care Time/CCT Total # of Minutes Spent Total Time Spent with Patient: Total time spent is greater than 50% in coordination of care (as documented) at patient's floor/unit and/or counseling patient: Coding Level of Care Code 53641 SUB INP/OBS CARE 3/50MIN Diagnoses Acute respiratory failure with hypoxia and hypercapnia J96.01; J96.02 Hypoglycemia E16.2 Controlled type 2 diabetes with neuropathy E11.40 Elevated troponin R77.8 Hyperkalemia E87.5 Atrial fibrillation I48.91 CAD (coronary artery disease) I25.10 Anxiety F41.9 Essential hypertension I10 GERD (gastroesophageal reflux disease) K21.9 Hypercholesterolemia E78.00 Pulmonary hypertension I27.20 Time Spent (min) 50
[2022-06-16] MEDS: ALBUT/IPRATROP 3MG/0.5MG NEB 3 ML VIAL NEB SCH ×4 (07:40→20:49)
[2022-06-16 08:11] LABS: Hematocrit (blood only) 41.6 % (34.1-44.9); Mean Corpuscular Hemoglobin 27.6 pg (25.0-34.0); Mean Corpuscular Hgb Conc 31.3 g/dL (32.0-36.0); Mean Corpuscular Volume 88.3 fL (80.0-100.0); Mean Platelet Volume 9.4 fL (9.4-12.3); Platelet Count 163 K/uL (130-400); RDW Coefficient of Variation 18.4 % (11.5-14.5); RDW Standard Deviation 58.4 fL (36.4-46.3); Red Blood Count 4.71 M/uL (3.93-5.22); White Blood Count 11.16 K/ul (4.8-10.8)
[2022-06-16] MEDS: ATENOLOL 25 MG TABLET PO SCH ×2 (08:14→21:01)
[2022-06-16] MEDS: APIXABAN 2.5 MG TAB PO SCH ×2 (08:14→21:01)
[2022-06-16] MEDS: dexAMETHasone 6 MG in SYRINGE 0 ML IV SCH (08:15)
[2022-06-16] MEDS: CHOLECALCIFEROL 1,000 UNITS 25 MCG TAB PO SCH (08:15)
[2022-06-16] MEDS: CALCIUM 600MG + VIT D 400 IU TAB PO SCH (08:15)
[2022-06-16] MEDS: FUROSEMIDE 40 MG/4 ML VIAL IV SCH ×2 (08:16→21:06)
[2022-06-16] MEDS: PANTOprazole 40 MG TAB PO SCH (08:17)
[2022-06-16] MEDS: INSULIN ASPART PER UNIT SC SCH ×4 (08:45→20:52)
[2022-06-16 08:54] LABS: Anion Gap 6 (3-11); BUN Creatinine Ratio 51.4 (10-20); Blood Urea Nitrogen 54 mg/dl (6-23); C Reactive Protein < 0.50 mg/dl (0-0.5); Calcium 9.1 mg/dl (8.5-10.1); Carbon Dioxide 42 mmol/L (21-32); Chloride 86 mmol/L (98-107); Creatinine Clr Calc Pharmacy 36.4 ml/min; Est GFR (African American) 55.3 ml/min; Est GFR (Non-African American) 47.7 ml/min; Glucose 136 mg/dl (70-99(Fasting)); Potassium 4.2 mmol/L (3.5-5.1); Sodium 134 mmol/L (136-145)
--- NOTE | 2022-06-16 16:16 | Hospitalist Progress Note ---
Date of Service June 16, 2022 Assessment & Plan (1) Acute respiratory failure with hypoxia and hypercapnia: Plan: Acute hypoxic respiratory failure, acute on chronic systolic heart falure,with NYHA class II heart failure COVID-19 positive, possible covid pneumonia - Has been able to be tapered off of BiPAP now on nasal cannula during the day returning to BiPAP at night -continue dexamethasone, remdesivir deferred for kidney function Continue Lasix 40 mg IV twice daily Previously reported dry weight 190 pounds; patient has been below this per daughter although is obviously fluid overloaded. Had a previous dry weight of 170 pounds. -Denise Sanchez consulted for assistance with management Patient improved and is now on nasal cannula with 4 liters, continue to diurese. about 12.5 liters negative Patient has been getting decadron for covid, however, due to negative crp. will stop decadron. will monitor crp. (2) Hypoglycemia: Plan: pt with recurrent hypoglycemia, was given glucose, and glucagon, will be on D5W as persists with low glucose in the morning recheck TSH, send out insulin level as has had none 06/13, cannot check cortisol as is on dexamethasone. Blood sugars have improved. D?W with endocrinology. Appears this is due to glimepiride. will recommend cutting dose. (3) Controlled type 2 diabetes with neuropathy: Plan: -Hold oral agents -Monitor BSG q6h while NPO on bipap -Goal BSG is 110-140 -Patient hypoglycemic 06/12, correction factor 50, carb ratio increased to 25 (4) Elevated troponin: Plan: -Initial high sensitivity trop elevated at 21->24.8, no acute ECG changes and no complaints of chest discomfort, elevated troponin due to demand (5) Hyperkalemia: Plan: -Noted to be 5.3 in the ED, no acute T-wave changes -Normalized, 5.0 on 06/12 (6) Atrial fibrillation: Plan: -Currently rate controlled -rate controlled with Atenlol and Eliquis (7) CAD (coronary artery disease): Plan: -Continue lipid lowering agents (8) Anxiety: Plan: -Hold ativan and remeron for now with her fatigue from hypercarbia (9) Essential hypertension: Plan: -Stable -Continue atenlol -Will hold Lisinopril for now as she currently has soft blood pressures (10) GERD (gastroesophageal reflux disease): Plan: -Continue PPI (11) Hypercholesterolemia: Plan: -Continue zetia/simvastatin (12) Pulmonary hypertension: Plan: -Continue nifedipine Admission and Anticipated Discharge Date Admission Date: June 11, 2022 Subjective 86 yo female reports feeling better today. Now on 3 liters. Review of Systems Review of Systems: All systems reviewed & are unremarkable except as noted in HPI & below Physical Exam Physical Exam: The patient appeared well nourished and normally developed. Vital signs as documented. Head exam is normocephalic atraumatic Neck is without JVD, thyromegaly, or carotid bruits. Lungs are diminished throughout, basilar crackles, wheezing biaterally. Cardiac exam, Rhythm is regular.. No murmurs, rubs or gallops. Abdominal exam reveals normal bowel sounds, soft non tender, no masses Extremities are nonedematous and both pedal pulses are present Neurologic exam is alert and oriented, no focal loss of strength or sensation Skin is without bruises or rashes Psychologically is without concerns for anxiety or depression Results & Data Results & Data ([facility]) Vital Signs (Past 12 Hours) Vital Signs Temp Pulse Pulse Resp BP Pulse Ox O2 Del Method 06/16/22 15:46 37.2 C 82 24 124/70 97 Nasal Cannula 06/16/22 14:58 82 22 92 Nasal Cannula 06/16/22 11:50 36.5 C 80 24 123/62 92 Nasal Cannula 06/16/22 11:06 73 16 96 Nasal Cannula 06/16/22 08:00 Nasal Cannula 06/16/22 08:05 36.7 C 100 H 18 121/63 95 Nasal Cannula 06/16/22 07:40 74 16 95 Nasal Cannula O2 Flow Rate 06/16/22 15:46 3 06/16/22 14:58 3 06/16/22 11:50 3 06/16/22 11:06 4 06/16/22 08:00 4 06/16/22 08:05 4 06/16/22 07:40 4 PG Care Time/CCT Total # of Minutes Spent Total Time Spent with Patient: Total time spent is greater than 50% in coordination of care (as documented) at patient's floor/unit and/or counseling patient: Coding Level of Care Code 94477 SUB INP/OBS CARE 2/35MIN Diagnoses Acute respiratory failure with hypoxia and hypercapnia J96.01; J96.02 Hypoglycemia E16.2 Controlled type 2 diabetes with neuropathy E11.40 Elevated troponin R77.8 Hyperkalemia E87.5 Atrial fibrillation I48.91 CAD (coronary artery disease) I25.10 Anxiety F41.9 Essential hypertension I10 GERD (gastroesophageal reflux disease) K21.9 Hypercholesterolemia E78.00 Pulmonary hypertension I27.20
[2022-06-16] MEDS: MELATONIN 3 MG TAB PO PRN (21:00)
[2022-06-16] MEDS: EZETIMIBE/SIMVASTATIN 10/40MG 1 TAB TAB PO SCH (21:02)
[2022-06-16] MEDS: MIRTAZAPINE TAB 15 MG TAB PO SCH (21:06)
[2022-06-17 07:08] LABS: Hematocrit (blood only) 41.3 % (34.1-44.9); Hemoglobin 13.2 g/dl (12.0-16.0); Mean Corpuscular Volume 87.7 fL (80.0-100.0); Mean Platelet Volume 10.3 fL (9.4-12.3); Platelet Count 173 K/uL (130-400); RDW Coefficient of Variation 18.2 % (11.5-14.5); RDW Standard Deviation 57.2 fL (36.4-46.3); Red Blood Count 4.71 M/uL (3.93-5.22); White Blood Count 12.69 K/ul (4.8-10.8)
[2022-06-17] MEDS: ALBUT/IPRATROP 3MG/0.5MG NEB 3 ML VIAL NEB SCH ×4 (07:11→19:22)
[2022-06-17 07:33] LABS: Anion Gap 6 (3-11); BUN Creatinine Ratio 61.4 (10-20); Blood Urea Nitrogen 62 mg/dl (6-23); C Reactive Protein < 0.50 mg/dl (0-0.5); Calcium 9.1 mg/dl (8.5-10.1); Carbon Dioxide 43 mmol/L (21-32); Chloride 86 mmol/L (98-107); Creatinine Clr Calc Pharmacy 37.8 ml/min; Glucose 131 mg/dl (70-99(Fasting)); Potassium 3.8 mmol/L (3.5-5.1); Sodium 135 mmol/L (136-145)
[2022-06-17] MEDS: CALCIUM 600MG + VIT D 400 IU TAB PO SCH (08:36)
[2022-06-17] MEDS: FUROSEMIDE 40 MG/4 ML VIAL IV SCH ×2 (08:36→20:58)
[2022-06-17] MEDS: CHOLECALCIFEROL 1,000 UNITS 25 MCG TAB PO SCH (08:36)
[2022-06-17] MEDS: APIXABAN 2.5 MG TAB PO SCH ×2 (08:36→20:57)
[2022-06-17] MEDS: ATENOLOL 25 MG TABLET PO SCH ×2 (08:36→20:59)
[2022-06-17] MEDS: PANTOprazole 40 MG TAB PO SCH (08:36)
[2022-06-17] MEDS: INSULIN ASPART PER UNIT SC SCH ×4 (08:48→21:10)
[2022-06-17] MEDS: MELATONIN 3 MG TAB PO PRN (20:56)
[2022-06-17] MEDS: MIRTAZAPINE TAB 15 MG TAB PO SCH (20:58)
[2022-06-17] MEDS: EZETIMIBE/SIMVASTATIN 10/40MG 1 TAB TAB PO SCH (20:58)
--- NOTE | 2022-06-17 21:01 | Hospitalist Progress Note ---
Date of Service June 17, 2022 Assessment & Plan (1) Acute respiratory failure with hypoxia and hypercapnia: Plan: Acute hypoxic respiratory failure, acute on chronic systolic heart falure,with NYHA class II heart failure COVID-19 positive, possible covid pneumonia - Has been able to be tapered off of BiPAP now on nasal cannula during the day returning to BiPAP at night -continue dexamethasone, remdesivir deferred for kidney function Continue Lasix 40 mg IV twice daily Previously reported dry weight 190 pounds; patient has been below this per daughter although is obviously fluid overloaded. Had a previous dry weight of 170 pounds. -Denise Sanchez consulted for assistance with management Patient improved and is now on nasal cannula with 4 liters, continue to diurese. about 15 liters negative continue IV diuretics. Patient has been getting decadron for covid, however, due to negative crp. continue to hold decadron. will monitor crp. (2) Hypoglycemia: Plan: pt with recurrent hypoglycemia, was given glucose, and glucagon, will be on D5W as persists with low glucose in the morning recheck TSH, send out insulin level as has had none 06/13, cannot check cortisol as is on dexamethasone. Blood sugars have improved. D?W with endocrinology. Appears this is due to glimepiride. will recommend cutting dose. (3) Controlled type 2 diabetes with neuropathy: Plan: -Hold oral agents -Monitor BSG q6h while NPO on bipap -Goal BSG is 110-140 -Patient hypoglycemic 06/12, correction factor 50, carb ratio increased to 25 (4) Elevated troponin: Plan: -Initial high sensitivity trop elevated at 21->24.8, no acute ECG changes and no complaints of chest discomfort, elevated troponin due to demand (5) Hyperkalemia: Plan: -Noted to be 5.3 in the ED, no acute T-wave changes -Normalized, 5.0 on 06/12 (6) Atrial fibrillation: Plan: -Currently rate controlled -rate controlled with Atenlol and Eliquis (7) CAD (coronary artery disease): Plan: -Continue lipid lowering agents (8) Anxiety: Plan: -Hold ativan and remeron for now with her fatigue from hypercarbia (9) Essential hypertension: Plan: -Stable -Continue atenlol -Will hold Lisinopril for now as she currently has soft blood pressures (10) GERD (gastroesophageal reflux disease): Plan: -Continue PPI (11) Hypercholesterolemia: Plan: -Continue zetia/simvastatin (12) Pulmonary hypertension: Plan: -Continue nifedipine Admission and Anticipated Discharge Date Admission Date: June 11, 2022 Subjective 86 yo female reports feeling better. She still is requiring 3 liters nasal cannula. Review of Systems Review of Systems: All systems reviewed & are unremarkable except as noted in HPI & below Physical Exam Physical Exam: The patient appeared well nourished and normally developed. Vital signs as documented. Head exam is normocephalic atraumatic Neck is without JVD, thyromegaly, or carotid bruits. Lungs are diminished throughout, basilar crackles, wheezing biaterally. Cardiac exam, Rhythm is regular.. No murmurs, rubs or gallops. Abdominal exam reveals normal bowel sounds, soft non tender, no masses Extremities are nonedematous and both pedal pulses are present Neurologic exam is alert and oriented, no focal loss of strength or sensation Skin is without bruises or rashes Psychologically is without concerns for anxiety or depression Results & Data Results & Data ([facility]) Vital Signs (Past 12 Hours) Vital Signs Temp Pulse Resp BP Pulse Ox O2 Del Method O2 Flow Rate 06/17/22 19:22 83 18 93 Nasal Cannula 3 06/17/22 19:19 36.6 C 83 18 109/59 L 93 Nasal Cannula 3 06/17/22 16:42 37 C 82 18 116/58 L 94 Nasal Cannula 06/17/22 09:55 Nasal Cannula 3 PG Care Time/CCT Total # of Minutes Spent Total Time Spent with Patient: Total time spent is greater than 50% in coordination of care (as documented) at patient's floor/unit and/or counseling patient: Coding Level of Care Code 87064 SUB INP/OBS CARE 2/35MIN Diagnoses Acute respiratory failure with hypoxia and hypercapnia J96.01; J96.02 Hypoglycemia E16.2 Controlled type 2 diabetes with neuropathy E11.40 Elevated troponin R77.8 Hyperkalemia E87.5 Atrial fibrillation I48.91 CAD (coronary artery disease) I25.10 Anxiety F41.9 Essential hypertension I10 GERD (gastroesophageal reflux disease) K21.9 Hypercholesterolemia E78.00 Pulmonary hypertension I27.20
[2022-06-18] MEDS: ALBUT/IPRATROP 3MG/0.5MG NEB 3 ML VIAL NEB SCH ×2 (07:06→19:22)
[2022-06-18] MEDS: CHOLECALCIFEROL 1,000 UNITS 25 MCG TAB PO SCH (08:12)
[2022-06-18] MEDS: ATENOLOL 25 MG TABLET PO SCH ×2 (08:13→20:53)
[2022-06-18] MEDS: CALCIUM 600MG + VIT D 400 IU TAB PO SCH (08:13)
[2022-06-18] MEDS: PANTOprazole 40 MG TAB PO SCH (08:13)
[2022-06-18] MEDS: APIXABAN 2.5 MG TAB PO SCH ×2 (08:14→20:53)
[2022-06-18] MEDS: FUROSEMIDE 40 MG/4 ML VIAL IV SCH (08:17)
[2022-06-18] MEDS: INSULIN ASPART PER UNIT SC SCH ×4 (08:20→20:58)
[2022-06-18 08:59] LABS: BUN Creatinine Ratio 57.9 (10-20); Blood Urea Nitrogen 62 mg/dl (6-23); Calcium 8.7 mg/dl (8.5-10.1); Chloride 85 mmol/L (98-107); Creatinine Clr Calc Pharmacy 35.1 ml/min; Est GFR (African American) 54.1 ml/min; Est GFR (Non-African American) 46.6 ml/min; Glucose 156 mg/dl (70-99(Fasting)); Potassium 3.5 mmol/L (3.5-5.1); Sodium 134 mmol/L (136-145)
[2022-06-18 09:00] LABS: Carbon Dioxide > 45 mmol/L (21-32)
[2022-06-18 10:38] LABS: Base Excess VBG 17.6 mEq/L; HCO3 VBG 45 mmol/L; Oxygen Saturation VBG 92.3 %; PCO2 VBG 65 mmHg (38-50); PO2 VBG 61 mmHg; pH VBG 7.45 (7.36-7.41)
--- NOTE | 2022-06-18 12:52 | Pharmacy Report ---
Pharmacy Glycemic Short Note 2 - Date of Service June 18, 2022 - Glycemic Short BSG Results (Last 24 hours): 06/17/22 06/17/22 06/18/22 16:38 20:11 07:30 Glucose 156 H POC Glucose 119 H 208 H 06/18/22 06/18/22 06/18/22 07:48 11:49 11:50 Glucose POC Glucose 149 H 316 H* 340 H* OUTPATIENT ANTIDIABETIC REGIMEN: * Jardiance 25 mg QD * glimepiride 4mg BID * A1c: 7.3% ASSESSMENT: 06/18: * Steroid discontinued on 06/16. Fasting this morning 149 mg/dL- continue to hold basal for now * Lunch BSG significantly elevated (used carb ratio of 25) after 80 gm CHO this morning- will tighten carb ratio * Continue same correction factor- monitor for changes 06/15 * Patient was placed on IV D5W 06/13-06/14 due to recurrent hypoglycemia despite no receipt of insulin. She continued to receive IV dexamethasone 6mg each morning since admission. * BSG did climb to 291 and subsequently to 344 following d/c of D5W in the later afternoon yesterday. As a result low dose Novolog scale was added. * Fasting BSG was at goal this AM with no basal insulin on board (FBS 129) - will continue to hold * A verly low dose of Novolog correction and prandial coverage has performed well thus far - will continue for now as it is too soon to say adjustments are necessary 06/13 * Intermittent episodes of hypoglycemia continue at this time, again likely lingering effects of glimepiride in setting of poor renal fxn * 0 units of insulin administered in last 36 hours * Will continue to hold all insulin at this time until BSGs have recovered and recurrent hypoglycemia has resolved * IV steroid continues, diabetic diet is ordered 06/12 * Patient admitted with acute respiratory failure was initially mildly hyperglycemic. Patient received a conservative dose of 5 units lantus last evening and received 3 units of NovoLog as well. * Patient was slightly hypoglycemic this morning (fasting 67 mg/dL) and then again at lunch despite receiving no additional insulin today. It is possible given renal function, patient still had effects of glimepiride on board. * Patient is ordered a diet for dinner and is ordered dexamethasone, so anticipate BSGs to increase. However, until BSG does trend up will not order any additional basal insulin and continue with a conservative NovoLog scale. PLAN FOR INPATIENT GLYCEMIC CONTROL: * Hold outpatient oral diabetes medications (glimepiride, Jardiance) * Basal insulin * hold * Bolus insulin * Novolog SQ ACHS * Goal: 120-160mg/dL * Correction factor: 45 mg/dL/unit * Carb ratio: 1 unit per 15 grams carbs eaten
--- NOTE | 2022-06-18 15:41 | XRay Report ---
XR chest 1V portable CLINICAL HISTORY: SOB TECHNIQUE: Single frontal radiograph of the chest was obtained. Comparison: Comparison is made to chest radiograph 06/11/2022 FINDINGS: No lines and tubes are seen. Cardiomegaly is noted. The aortic arch is calcified. Left greater than r ight lower lung airspace opacities are somewhat improved from prior exam. Moderate right and small le ft pleural effusions are seen. IMPRESSION: Airspace opacities are minimally improved from prior exam. Bilateral pleural effusions are similar in appearance from prior. ACT 112: Negative or not required by law. Electronically signed by: Federico Robbins M.D. 06/18/2022 3:39 PM
[2022-06-18] MEDS: EZETIMIBE/SIMVASTATIN 10/40MG 1 TAB TAB PO SCH (20:53)
[2022-06-18] MEDS: MIRTAZAPINE TAB 15 MG TAB PO SCH (20:53)
--- NOTE | 2022-06-18 22:03 | Hospitalist Progress Note ---
Date of Service June 18, 2022 Assessment & Plan (1) Acute respiratory failure with hypoxia and hypercapnia: Plan: Acute hypoxic respiratory failure, acute on chronic systolic heart falure,with NYHA class II heart failure COVID-19 positive, possible covid pneumonia - Has been able to be tapered off of BiPAP now on nasal cannula during the day returning to BiPAP at night -continue dexamethasone, remdesivir deferred for kidney function Continue Lasix 40 mg IV twice daily Previously reported dry weight 190 pounds; patient has been below this per daughter although is obviously fluid overloaded. Had a previous dry weight of 170 pounds. -Denise Sanchez consulted for assistance with management Patient improved and is now on nasal cannula with 4 liters, continue to diurese. about 16 liters negative as patient has been improving and is becoming alkalotic, will hold off further diuretics. Will recheck in AM> Patient has been getting decadron for covid, however, due to negative crp. continue to hold decadron. will monitor crp. (2) Hypoglycemia: Plan: pt with recurrent hypoglycemia, was given glucose, and glucagon, will be on D5W as persists with low glucose in the morning recheck TSH, send out insulin level as has had none 06/13, cannot check cortisol as is on dexamethasone. Blood sugars have improved. D?W with endocrinology. Appears this is due to glimepiride. will recommend cutting dose. (3) Controlled type 2 diabetes with neuropathy: Plan: -Hold oral agents -Monitor BSG q6h while NPO on bipap -Goal BSG is 110-140 -Patient hypoglycemic 06/12, correction factor 50, carb ratio increased to 25 (4) Elevated troponin: Plan: -Initial high sensitivity trop elevated at 21->24.8, no acute ECG changes and no complaints of chest discomfort, elevated troponin due to demand (5) Hyperkalemia: Plan: -Noted to be 5.3 in the ED, no acute T-wave changes -Normalized, 5.0 on 06/12 (6) Atrial fibrillation: Plan: -Currently rate controlled -rate controlled with Atenlol and Eliquis (7) CAD (coronary artery disease): Plan: -Continue lipid lowering agents (8) Anxiety: Plan: -Hold ativan and remeron for now with her fatigue from hypercarbia (9) Essential hypertension: Plan: -Stable -Continue atenlol -Will hold Lisinopril for now as she currently has soft blood pressures (10) GERD (gastroesophageal reflux disease): Plan: -Continue PPI (11) Hypercholesterolemia: Plan: -Continue zetia/simvastatin (12) Pulmonary hypertension: Plan: -Continue nifedipine Admission and Anticipated Discharge Date Admission Date: June 11, 2022 Subjective 86 yo female reports no new symptoms. Review of Systems Review of Systems: All systems reviewed & are unremarkable except as noted in HPI & below Physical Exam Physical Exam: The patient appeared well nourished and normally developed. Vital signs as documented. Head exam is normocephalic atraumatic Neck is without JVD, thyromegaly, or carotid bruits. Lungs are diminished throughout, basilar crackles, wheezing biaterally. Cardiac exam, Rhythm is regular.. No murmurs, rubs or gallops. Abdominal exam reveals normal bowel sounds, soft non tender, no masses Extremities are nonedematous and both pedal pulses are present Neurologic exam is alert and oriented, no focal loss of strength or sensation Skin is without bruises or rashes Psychologically is without concerns for anxiety or depression Results & Data Results & Data ([facility]) Vital Signs (Past 12 Hours) Vital Signs Temp Pulse Pulse Resp BP Pulse Ox O2 Del Method 06/18/22 19:24 80 18 91 Nasal Cannula 06/18/22 19:14 37.0 C 74 18 104/51 L 91 Nasal Cannula 06/18/22 15:19 37.1 C 74 22 115/62 93 Oxymask 06/18/22 12:15 37.1 C 83 20 107/56 L 92 Nasal Cannula O2 Flow Rate 06/18/22 19:24 2 06/18/22 19:14 06/18/22 15:19 3 06/18/22 12:15 3 PG Care Time/CCT Total # of Minutes Spent Total Time Spent with Patient: Total time spent is greater than 50% in coordination of care (as documented) at patient's floor/unit and/or counseling patient: Coding Level of Care Code 82278 SUB INP/OBS CARE 2/35MIN Diagnoses Acute respiratory failure with hypoxia and hypercapnia J96.01; J96.02 Hypoglycemia E16.2 Controlled type 2 diabetes with neuropathy E11.40 Elevated troponin R77.8 Hyperkalemia E87.5 Atrial fibrillation I48.91 CAD (coronary artery disease) I25.10 Anxiety F41.9 Essential hypertension I10 GERD (gastroesophageal reflux disease) K21.9 Hypercholesterolemia E78.00 Pulmonary hypertension I27.20
[2022-06-19] MEDS: ALBUT/IPRATROP 3MG/0.5MG NEB 3 ML VIAL NEB SCH ×2 (05:50→19:44)
--- NOTE | 2022-06-19 07:26 | XRay Report ---
XR chest 1V portable HISTORY: 86 years-old Female hypoxia acute hypoxia COMPARISON: Chest radiograph 06/18/2022 TECHNIQUE: AP view of the chest FINDINGS: Cardiac silhouette is enlarged. Atherosclerosis of the aorta. The right lung apex is partially obscur ed by the patient's chin. No pneumothorax. Right greater than left layering pleural effusions with bi basilar consolidation. Pulmonary vascular congestion with interstitial coarsening. Unchanged chronic deformity of the proximal right humerus. IMPRESSION: 1. Cardiomegaly with unchanged pulmonary edema. 2. Stable right greater than left pleural effusions with bibasilar consolidation. ACT 112: Negative or not required by law. The above report was generated using voice recognition software. It may contain grammatical, syntax o r spelling errors. Electronically signed by: Asa Martinez M.D. 06/19/2022 7:24 AM
[2022-06-19 07:27] LABS: BUN Creatinine Ratio 59.3 (10-20); C Reactive Protein 14.7 mg/dl (0-0.5); Creatinine Clr Calc Pharmacy 33.3 ml/min; Est GFR (African American) 50.6 ml/min; Est GFR (Non-African American) 43.7 ml/min; Potassium 3.5 mmol/L (3.5-5.1)
[2022-06-19 08:02] LABS: Base Excess VBG 16.9 mEq/L; HCO3 VBG 43 mmol/L; Oxygen Saturation VBG 99.7 %; PCO2 VBG 55 mmHg (38-50); PO2 VBG 136 mmHg
[2022-06-19] MEDS ORDERED: dexAMETHasone 6 MG in SYRINGE 0 ML IV ONE (08:30)
[2022-06-19] MEDS: INSULIN ASPART PER UNIT SC SCH ×4 (08:32→20:40)
[2022-06-19] MEDS ORDERED: FUROSEMIDE 40 MG/4 ML VIAL IV SCH (09:00)
[2022-06-19] MEDS ORDERED: LANTUS PER UNIT CHARGE SQ SCH (09:00)
--- NOTE | 2022-06-19 09:16 | Pulmonary Consultation ---
Date of Consultation June 19, 2022 Assessment & Plan (1) Bilateral pleural effusion: Secondary to volume overload state. We will obtain a CT chest to further characterize the effusions and the parenchymal findings. Would need to be off anticoagulation for few days prior to thoracentesis. (2) Acute on chronic diastolic heart failure: Lasix being held by the hospitalist service due to metabolic alkalosis. I will start the patient on acetazolamide 250 mg twice daily for the next couple days to help improve the alkalosis. Recommend continuing with BiPAP anytime during sleep due to the chronic respiratory acidosis. (3) Paroxysmal atrial fibrillation: If thoracentesis is to be considered, the patient will need to be off anticoagulation for 2 days. (4) COVID-19: Likely an incidental finding. I would not recommend treatment at this time. (5) Metabolic alkalosis: Acetazolamide as above. (6) Chronic respiratory acidosis: BiPAP when sleeping as above. May be contributing to altered mental status. (7) Lethargic: Likely combination of chronic hypercapnia and hypoactive delirium. Recommend CT head to rule out intracranial abnormality especially with her being on Eliquis. Discussed with hospitalist at bedside. (8) Hypoxia: Likely due to VQ mismatch and hypoventilation. Doubt PE given that she is currently anticoagulated with Eliquis. Plan Discussed with hospitalist, Dr. Butler. Thank you for the consultation. We will continue to follow. History of Present Illness Reason for Consultation: Pleural effusion Attending Physician: Raudel Hagan History of Present Illness 86-year-old female with a history of atrial fibrillation, diastolic heart failure, mitral valvulopathy, hypertension, anxiety, diabetes mellitus type 2 and chronic anticoagulation on Eliquis presenting to the hospital due to increasing shortness of breath. Pulmonary is being consulted for bilateral pleural effusions. Patient has not intermittently required BiPAP for increased work of breathing and hypoxia. Her ABGs actually reveal metabolic alkalosis and chronic respiratory acidosis. Her serum bicarbonate level has been climbing due to diuresis. Her latest chest x-ray was noted from this morning which reveals stable right greater than left pleural effusions. Patient was on Decadron earlier this hospitalization due to positive finding of SARS-CoV-2 on a nasal swab. This was discontinued due to hyperglycemia and trending down and her CRP. She has had elevated Pro-Kenny's which have been unremarkable and an echo consistent with valvulopathy and diastolic heart failure. Cough is minimal. It does not appear that she is ever had a thoracentesis in the past. Review of systems is limited as patient is quite lethargic. She denies any shortness of breath at rest or chest pain. She is able to squeeze my fingers and wiggle her toes. She does occasionally answer questions verbally. She is currently saturating 86% on 12 L via nasal cannula. Allergies Allergy/AdvReac Type Severity Reaction Status Date / Time Iodinated Contrast Media Allergy Intermediate HIVES Verified 06/11/22 15:29 penicillin G Allergy Unknown CAN'T Verified 06/11/22 15:29 REMEMBER HAPPENED MANY YEARS AGO Home Medications Medication Instructions Recorded Confirmed Type calcium carbonate 600 mg-vitamin 1 tab PO DAILY 03/13/18 06/11/22 History D3 10 mcg (400 unit) tablet (Calcium 600 + D(3)) cholecalciferol (vitamin D3) 25 1,000 unit PO DAILY 03/13/18 06/11/22 History mcg (1,000 unit) capsule (Vitamin D3) nitroglycerin 0.4 mg sublingual 0.4 mg sublingual DIRECTED PRN 03/02/19 06/11/22 Rx tablet (Nitrostat) Chest Pain #7 tabs coenzyme Q10 100 mg capsule 100 mg PO DAILY 02/02/20 06/11/22 History cyanocobalamin (vitamin B-12) 2,500 mcg sublingual DAILY 02/02/20 06/11/22 History 2,500 mcg sublingual tablet OUTSIDE motorized scooter #1 ea 03/15/20 05/30/22 Rx polyethylene glycol 3350 17 17 g PO DAILY PRN constipation 08/08/20 06/11/22 Rx gram/dose oral powder (Miralax) #119 grams atenolol 25 mg tablet 25 mg PO BID 30 days #180 tabs 04/12/21 06/11/22 Rx mirtazapine 15 mg tablet (Remeron) 15 mg PO HS #90 tabs 07/14/21 06/11/22 Rx glimepiride 2 mg tablet 4 mg PO BID 90 days #360 tabs 10/16/21 06/11/22 Rx melatonin 10 mg capsule 10 mg PO HS 01/01/22 06/11/22 History Jobst Stockings (misc) #1 ea 01/02/22 05/30/22 Rx Jaylen Rosene #1 ea 01/05/22 05/30/22 Rx ezetimibe 10 mg-simvastatin 40 mg 1 tab PO PM #90 tabs 01/12/22 06/11/22 Rx tablet (Vytorin) lisinopril 20 mg tablet 20 mg PO DAILY #90 tabs 01/12/22 06/11/22 Rx nifedipine 30 mg tablet,extended 30 mg PO DAILY #90 tabs 01/12/22 06/11/22 Rx release 24 hr multivitamin with minerals 1 tab PO DAILY 02/09/22 06/11/22 History (Multiple Vitamin-Minerals tablet) furosemide 20 mg tablet 20 mg PO DAILY #45 tabs 02/15/22 06/11/22 Rx apixaban 2.5 mg tablet (Eliquis) 2.5 mg PO Q12H #180 tabs 03/06/22 06/11/22 Rx humidifiers #1 ea 03/09/22 05/30/22 Rx esomeprazole magnesium 40 mg 40 mg PO DAILY #90 caps 03/15/22 06/11/22 Rx capsule,delayed release lorazepam 0.5 mg tablet 0.5 mg PO DAILY PRN Anxiety #30 04/03/22 06/11/22 Rx tabs Conserving device for continuous O2 #1 ea 04/04/22 05/30/22 Rx O2 concentrator #1 ea 04/20/22 05/30/22 Rx Portable Oxygen #1 ea 05/02/22 05/30/22 Rx blood sugar diagnostic (OneTouch #400 ea 05/24/22 05/30/22 Rx Ultra Test strips) albuterol sulfate 90 mcg/actuation 2 puff inhalation QID PRN 05/30/22 06/11/22 Rx aerosol inhaler shortness of breath or wheezing #8.5 grams coenzyme Q10 100 mg capsule 100 mg PO DAILY 06/11/22 06/11/22 History (CoQ-10) empagliflozin 25 mg tablet 25 mg PO DAILY 06/11/22 06/11/22 History (Jardiance) vitamin B complex 1 tab PO DAILY 06/11/22 06/11/22 History Patient History Medical History (Updated 06/19/22 @ 10:00 by Tank Sidhu MD) Acid reflux Acute on chronic diastolic CHF (congestive heart failure) Acute on chronic diastolic heart failure Acute UTI (urinary tract infection) Bilateral pleural effusion Candidal intertrigo Chronic respiratory acidosis Diabetes Elevated troponin Fracture of left distal radius Fracture, humerus closed Heart attack Hyperkalemia Hypoxia Hypoxia Hypoxia Influenza Irregular heartbeat Left knee DJD Lethargic Metabolic alkalosis Non-ST elevation RI (NSTEMI) Pulmonary edema Pulmonary hypertension Rupture of UCL of right thumb Seasonal allergies Severe tricuspid regurgitation UTI (urinary tract infection) Surgical History H/O oral surgery No history of previous surgery S/P knee surgery S/P wisdom tooth extraction Family History Mother Myocardial infarction Father Myocardial infarction Other Hearing loss Heart disease No pertinent family history Denies family history of Ovarian cancer Prostate cancer No family history of adverse response to anesthesia No family history of bleeding disorder Allergies Breast cancer Colorectal cancer Cancer Hypertension Stroke Asthma Social History Smoking Status: Never smoker Tobacco Type: Cigarettes Second Hand Exposure: No; Do You Dip or Chew Tobacco: No; Tobacco Cessation Education Requested by Patient: No Hx Alcohol Use: No Hx Substance Use: No Preferred Language: Turkish Communication Ability: Unable Visual Impairment: No Limitations Hearing Ability: Normal Radiology Asst Required: No Beliefs That Will Affect Care: None marital status: / Current Living Situation: Long Term current occupational status: retired How many Children do You have: 1 Other Information That Helps Us Care for You: No Feels Safe at Home: Yes Safety Concerns: Feels Safe At This Time Childhood Exposure to Second-Hand Smoke: No caffeine: No Dental Care, Regularly: No Physical Activity Frequency: 3-4 Times per Week Seatbelt Use: always Sunscreen Use: No Assistive Devices: Cane, Scooter/Electric Scooter and Walker Review of Systems Review of Systems: All systems reviewed & are unremarkable except as noted in HPI & below Physical Exam Physical Exam: Constitutional: Patient appears to be of their stated age. Mildly tachypneic Eyes: Pupils are equal round and reactive to light. Conjunctivae are normal. Anicteric sclera. Ears nose, mouth and throat: Mallampati class 2. Normal posterior oropharynx. Uvula is midline. Neck: Trachea is midline. Visual inspection is normal. Respiratory: Diminished bibasilar breath sounds. Crackles on the right. Cardiovascular: Regular rate and rhythm. No murmurs. No edema. Gastrointestinal: Normal bowel sounds, soft, nontender and nondistended. No hepatosplenomegaly noted. Musculoskeletal: No cyanosis. Patient is able to move all extremities. 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 Diffusely weak throughout. Skin: No rashes, warm dry and intact. Neurologic: Right facial droop. No other focal signs. Psychiatric: Lethargic. Difficult to obtain full mental status. Results & Data Results & Data ([facility]) Vital Signs (Past 12 Hours) Vital Signs Temp Pulse Pulse Resp BP BP Pulse Ox 06/19/22 07:29 116/65 06/19/22 07:29 82 21 95 06/19/22 07:00 88 26 H 95 06/19/22 07:30 37.2 C 89 26 H 116/65 94 06/19/22 05:50 83 27 H 92 06/19/22 05:50 85 27 H 92 06/19/22 02:37 36.8 C 85 20 127/70 91 06/19/22 00:57 06/18/22 23:00 93 06/18/22 22:42 36.6 C 80 18 137/78 88 L O2 Del Method O2 Flow Rate FiO2 06/19/22 07:29 06/19/22 07:29 06/19/22 07:00 06/19/22 07:30 BiPAP 60 06/19/22 05:50 60 06/19/22 05:50 BiPAP 60 06/19/22 02:37 Oxymask 6 06/19/22 00:57 Oxymask 6 06/18/22 23:00 Oxymask 3 06/18/22 22:42 Nasal Cannula PG Care Time/CCT Total # of Minutes Spent Total Time Spent with Patient: Total time spent is greater than 50% in coordination of care (as documented) at patient's floor/unit and/or counseling patient: Coding Level of Care Code 74993 INT INP/OBS CARE 3/75MIN Diagnoses Bilateral pleural effusion J90 Acute on chronic diastolic heart failure I50.33 Paroxysmal atrial fibrillation I48.0 COVID-19 U07.1 Metabolic alkalosis E87.3 Chronic respiratory acidosis J96.12 Lethargic R53.83 Hypoxia R09.02
[2022-06-19] MEDS: APIXABAN 2.5 MG TAB PO SCH ×2 (09:23→20:28)
[2022-06-19 09:24] LABS: Basophils # (auto) 0.04 K/uL (0-0.2); Basophils % (auto) 0.2 %; Eosinophils # (auto) 0.01 K/uL (0-0.50); Hematocrit (blood only) 44.7 % (34.1-44.9); Hemoglobin 14.2 g/dl (12.0-16.0); Immature Granulocytes # (auto) 0.24 K/uL (0.00-0.02); Immature Granulocytes % (auto) 1.1 %; Lymphocytes # (auto) 1.54 K/uL (1.2-3.4); Lymphocytes % (auto) 6.8 %; Mean Corpuscular Hgb Conc 31.8 g/dL (32.0-36.0); Mean Corpuscular Volume 88.2 fL (80.0-100.0); Mean Platelet Volume 11.3 fL (9.4-12.3); Monocytes # (auto) 1.77 K/uL (0.24-0.82); Monocytes % (auto) 7.8 %; Neutrophils # (auto) 18.98 K/uL (1.4-6.5); Neutrophils % (auto) 84.1 %; Platelet Count 245 K/uL (130-400); RDW Coefficient of Variation 18.7 % (11.5-14.5); Red Blood Count 5.07 M/uL (3.93-5.22); White Blood Count 22.58 K/ul (4.8-10.8)
[2022-06-19 09:31] LABS: Magnesium 1.7 mg/dl (1.7-2.4)
[2022-06-19] MEDS: PANTOprazole 40 MG TAB PO SCH (09:33)
[2022-06-19] MEDS: ATENOLOL 25 MG TABLET PO SCH ×2 (09:33→20:29)
[2022-06-19] MEDS: CALCIUM 600MG + VIT D 400 IU TAB PO SCH (09:33)
[2022-06-19] MEDS: CHOLECALCIFEROL 1,000 UNITS 25 MCG TAB PO SCH (09:33)
[2022-06-19] MEDS: acetaZOLAMIDE 250 MG in SYRINGE 0 ML IV SCH ×2 (10:51→17:45)
--- NOTE | 2022-06-19 12:18 | CT Scan Report ---
HEAD CT NONCONTRAST CT DOSE: 1458.01 mGy.cm HISTORY: change of mental status TECHNIQUE: Multiaxial CT images of the head were performed without the use of intravenous contrast. A utomated exposure control was utilized for this study. A dose lowering technique was utilized adheri ng to the principles of ALARA. Comparison: Head CT 05/12/2021. Findings: Small right and moderate left maxillary sinus fluid levels. There are small fluid levels wi thin the sphenoid sinuses. This is consistent with acute sinusitis. The left mastoid air cells are cl ear. The right mastoid air cells are partially opacified. The calvarium and skull base are intact. Th e ventricles and sulci are within normal limits. There is no mass, hematoma, midline shift, or acute infarct. Impression: 1. No acute intracranial abnormality. 2. Acute paranasal sinusitis as described above. ACT 112: Negative or not required by law. Electronically signed by: Antonio Rosas M.D. 06/19/2022 12:16 PM
--- NOTE | 2022-06-19 12:22 | Pharmacy Report ---
Pharmacy Glycemic Short Note 2 - Date of Service June 19, 2022 - Glycemic Short BSG Results (Last 24 hours): 06/18/22 06/18/22 06/19/22 16:34 20:21 06:30 Glucose 210 H POC Glucose 161 H 195 H 06/19/22 06/19/22 07:29 11:58 Glucose POC Glucose 190 H 210 H OUTPATIENT ANTIDIABETIC REGIMEN: * Jardiance 25 mg QD * glimepiride 4mg BID * A1c: 7.3% ASSESSMENT: 06/19: * Steroid restarted this morning with elevated CRP. * Fasting and postprandial BSGs elevated today. * Will add a low basal dose today and reassess tomorrow. Will also conservatively tighten novolog scale. * Patient has been tolerating a diet however did not appear to eat breakfast 06/18: * Steroid discontinued on 06/16. Fasting this morning 149 mg/dL- continue to hold basal for now * Lunch BSG significantly elevated (used carb ratio of 25) after 80 gm CHO this morning- will tighten carb ratio * Continue same correction factor- monitor for changes 06/15 * Patient was placed on IV D5W 06/13-06/14 due to recurrent hypoglycemia despite no receipt of insulin. She continued to receive IV dexamethasone 6mg each morning since admission. * BSG did climb to 291 and subsequently to 344 following d/c of D5W in the later afternoon yesterday. As a result low dose Novolog scale was added. * Fasting BSG was at goal this AM with no basal insulin on board (FBS 129) - will continue to hold * A verly low dose of Novolog correction and prandial coverage has performed well thus far - will continue for now as it is too soon to say adjustments are necessary 06/13 * Intermittent episodes of hypoglycemia continue at this time, again likely jax gering effects of glimepiride in setting of poor renal fxn * 0 units of insulin administered in last 36 hours * Will continue to hold all insulin at this time until BSGs have recovered and recurrent hypoglycemia has resolved * IV steroid continues, diabetic diet is ordered 06/12 * Patient admitted with acute respiratory failure was initially mildly hyperglycemic. Patient received a conservative dose of 5 units lantus last evening and received 3 units of NovoLog as well. * Patient was slightly hypoglycemic this morning (fasting 67 mg/dL) and then again at lunch despite receiving no additional insulin today. It is possible given renal function, patient still had effects of glimepiride on board. * Patient is ordered a diet for dinner and is ordered dexamethasone, so anticipate BSGs to increase. However, until BSG does trend up will not order any additional basal insulin and continue with a conservative NovoLog scale. PLAN FOR INPATIENT GLYCEMIC CONTROL: * Hold outpatient oral diabetes medications (glimepiride, Jardiance) * Basal insulin * Lantus 5 units SC X 1 * Bolus insulin * Novolog SQ ACHS * Goal: 120-150mg/dL * Correction factor: 35 mg/dL/unit * Carb ratio: 1 unit per 15 grams carbs eaten
--- NOTE | 2022-06-19 12:58 | CT Scan Report ---
CT chest diagnostic wo con CLINICAL HISTORY: hypoxia TECHNIQUE: Multidetector row helical CT of the chest was performed. Coronal and sagittal reformations were obtained. Automated dose lowering techniques and/or adjustment according to patient size were u tilized for this exam. Comparison: Chest radiograph 06/19/2022 FINDINGS: Lungs and pleura: Trace bilateral pleural effusions are seen. There is dense consolidation in the mya ateral lower lobes as well as groundglass and consolidative opacities in the right greater than left upper lungs. Heart and pericardium: Cardiomegaly is seen with biatrial enlargement. Vessels: Moderate atherosclerotic changes in the aorta and coronary arteries. Pulmonary trunk measure s 37 mm. Mediastinum and serenity: Subcentimeter lymph nodes are seen. Chest wall and lower neck: Small thyroid nodules are noted which do not require follow-up by ACR juliane campbell. Abdomen: Unremarkable. Bones: Old healed humeral fracture is seen on the right. Degenerative changes are seen in the spine. IMPRESSION: 1. Multifocal pneumonia is seen. There are small bilateral pleural effusions. 2. Cardiomegaly and pulmonary hypertension. ACT 112: Negative or not required by law. Electronically signed by: Federico Robbins M.D. 06/19/2022 12:57 PM
[2022-06-19] MEDS: metroNIDAZOLE 500 MG/100 ML BAG IV SCH ×2 (14:11→20:25)
[2022-06-19] MEDS: CEFEPIME 2,000 MG in SYRINGE 0 ML IV SCH ×2 (14:11→23:43)
[2022-06-19] MEDS: SODIUM CHLOR 7% 4 ML NEB NEB SCH (19:44)
[2022-06-19] MEDS: EZETIMIBE/SIMVASTATIN 10/40MG 1 TAB TAB PO SCH (20:28)
[2022-06-19] MEDS: MIRTAZAPINE TAB 15 MG TAB PO SCH (20:29)
[2022-06-19] MEDS ORDERED: dexAMETHasone 6 MG in SYRINGE 0 ML IV SCH (21:00)
--- NOTE | 2022-06-19 22:27 | Hospitalist Progress Note ---
Date of Service June 19, 2022 Assessment & Plan (1) Acute respiratory failure with hypoxia and hypercapnia: Plan: Acute hypoxic respiratory failure, acute on chronic systolic heart falure,with NYHA class II heart failure COVID-19 positive, possible covid pneumonia - Has been able to be tapered off of BiPAP now on nasal cannula during the day returning to BiPAP at night -continue dexamethasone, remdesivir deferred for kidney function Continue Lasix 40 mg IV twice daily Previously reported dry weight 190 pounds; patient has been below this per daughter although is obviously fluid overloaded. Had a previous dry weight of 170 pounds. -Denise Sanchez consulted for assistance with management Patient improved and is now on nasal cannula with 4 liters, continue to diurese. about 17 liters negative. Patient is more hypoxic today despite brianna so negative. This is greatly complicated by her valvuopathy noted on her echo, however concer she may have a superimposed infection. Seems unlikely that this is a flair of her covid, however due to elevated CRP, will place on dexamethasone as a one time dose. After obtain ct scan which should bilateral infiltrates, placed on cefepime and flagyl. (2) Hypoglycemia: Plan: pt with recurrent hypoglycemia, was given glucose, and glucagon, will be on D5W as persists with low glucose in the morning recheck TSH, send out insulin level as has had none 06/13, cannot check cortisol as is on dexamethasone. Blood sugars have improved. D?W with endocrinology. Appears this is due to glimepiride. will recommend cutting dose. (3) Controlled type 2 diabetes with neuropathy: Plan: -Hold oral agents -Monitor BSG q6h while NPO on bipap -Goal BSG is 110-140 -Patient hypoglycemic 06/12, correction factor 50, carb ratio increased to 25 (4) Elevated troponin: Plan: -Initial high sensitivity trop elevated at 21->24.8, no acute ECG changes and no complaints of chest discomfort, elevated troponin due to demand (5) Hyperkalemia: Plan: -Noted to be 5.3 in the ED, no acute T-wave changes -Normalized, 5.0 on 06/12 (6) Atrial fibrillation: Plan: -Currently rate controlled -rate controlled with Atenlol and Eliquis (7) CAD (coronary artery disease): Plan: -Continue lipid lowering agents (8) Anxiety: Plan: -Hold ativan and remeron for now with her fatigue from hypercarbia (9) Essential hypertension: Plan: -Stable -Continue atenlol -Will hold Lisinopril for now as she currently has soft blood pressures (10) GERD (gastroesophageal reflux disease): Plan: -Continue PPI (11) Hypercholesterolemia: Plan: -Continue zetia/simvastatin (12) Pulmonary hypertension: Plan: -Continue nifedipine Admission and Anticipated Discharge Date Admission Date: June 11, 2022 Subjective 86 yo female is more lethargic today. Overnight, she required BIPAP as she was saturating below 88 on nasal cannula. D/W pulmonary and updated family after seeing patient. Review of Systems 2 Review of Systems: All systems reviewed & are unremarkable except as noted in HPI & below Physical Exam Physical Exam: The patient appeared well nourished and normally developed. Vital signs as documented. Head exam is normocephalic atraumatic Neck is without JVD, thyromegaly, or carotid bruits. Lungs are diminished throughout, basilar crackles, wheezing biaterally. Cardiac exam, Rhythm is regular.. No murmurs, rubs or gallops. Abdominal exam reveals normal bowel sounds, soft non tender, no masses Extremities are nonedematous and both pedal pulses are present Neurologic exam is alert and oriented, no focal loss of strength or sensation Skin is without bruises or rashes Psychologically is without concerns for anxiety or depression Results & Data Results & Data ([facility]) Vital Signs (Past 12 Hours) Vital Signs Temp Pulse Pulse Resp BP Pulse Ox O2 Del Method 06/19/22 20:00 Nasal Cannula 06/19/22 20:12 36.6 C 79 26 H 115/52 L 96 Nasal Cannula 06/19/22 19:50 79 20 94 High Flow Nasal Cannula 06/19/22 14:30 78 06/19/22 16:56 37.6 C H 83 16 104/57 L 93 Room Air 06/19/22 12:55 37.1 C 83 30 H 122/62 91 High Flow Nasal Cannula O2 Flow Rate 06/19/22 20:00 15 06/19/22 20:12 14 06/19/22 19:50 15 06/19/22 14:30 06/19/22 16:56 06/19/22 12:55 15 PG Care Time/CCT Total # of Minutes Spent Total Time Spent with Patient: Total time spent is greater than 50% in coordination of care (as documented) at patient's floor/unit and/or counseling patient: Prolonged Care Time Prolonged Care Time: Yes (90 ) Total Prolonged Care Time: 90 7:30 to 9:00 Coding Level of Care Code 36326 SUB INP/OBS CARE 3/50MIN (25 - SIGNIFICANT, SEPARATELY IDENTIFIABLE ) Diagnoses Acute respiratory failure with hypoxia and hypercapnia J96.01; J96.02 Hypoglycemia E16.2 Controlled type 2 diabetes with neuropathy E11.40 Elevated troponin R77.8 Hyperkalemia E87.5 Atrial fibrillation I48.91 CAD (coronary artery disease) I25.10 Anxiety F41.9 Essential hypertension I10 GERD (gastroesophageal reflux disease) K21.9 Hypercholesterolemia E78.00 Pulmonary hypertension I27.20 Additional Codes Prolonged Care Time - Prolonged Care Time: Yes ([id number])
[2022-06-20] MEDS: metroNIDAZOLE 500 MG/100 ML BAG IV SCH ×3 (04:31→20:26)
[2022-06-20] MEDS: SODIUM CHLOR 7% 4 ML NEB NEB SCH ×2 (06:55→19:04)
[2022-06-20] MEDS: ALBUT/IPRATROP 3MG/0.5MG NEB 3 ML VIAL NEB SCH ×2 (06:55→19:04)
[2022-06-20 07:53] LABS: Hematocrit (blood only) 44.3 % (34.1-44.9); Hemoglobin 13.5 g/dl (12.0-16.0); Mean Corpuscular Hemoglobin 27.6 pg (25.0-34.0); Mean Corpuscular Hgb Conc 30.5 g/dL (32.0-36.0); Mean Corpuscular Volume 90.6 fL (80.0-100.0); Platelet Count 239 K/uL (130-400); RDW Coefficient of Variation 18.6 % (11.5-14.5); Red Blood Count 4.89 M/uL (3.93-5.22); White Blood Count 22.15 K/ul (4.8-10.8)
[2022-06-20 08:26] LABS: Calcium 8.8 mg/dl (8.5-10.1); Potassium 3.5 mmol/L (3.5-5.1)
[2022-06-20 08:36] LABS: BUN Creatinine Ratio 51.5 (10-20); C Reactive Protein 26.12 mg/dl (0-0.5); Creatinine Clr Calc Pharmacy 22.2 ml/min; Est GFR (African American) 30.7 ml/min; Est GFR (Non-African American) 26.5 ml/min
[2022-06-20] MEDS: INSULIN ASPART PER UNIT SC SCH ×4 (08:44→20:07)
[2022-06-20] MEDS: acetaZOLAMIDE 250 MG in SYRINGE 0 ML IV SCH ×2 (08:53→17:10)
[2022-06-20] MEDS: LANTUS PER UNIT CHARGE SQ SCH (10:17)
[2022-06-20] MEDS: PANTOprazole 40 MG TAB PO SCH (10:33)
[2022-06-20] MEDS: ATENOLOL 25 MG TABLET PO SCH ×2 (10:33→20:29)
[2022-06-20] MEDS: CHOLECALCIFEROL 1,000 UNITS 25 MCG TAB PO SCH (10:33)
[2022-06-20] MEDS: APIXABAN 2.5 MG TAB PO SCH (10:33)
[2022-06-20] MEDS: CALCIUM 600MG + VIT D 400 IU TAB PO SCH (10:33)
[2022-06-20] MEDS ORDERED: LACTATED RINGER'S 1,000 ML IV SCH (11:00)
[2022-06-20 11:28] LABS: Base Excess VBG 14.8 mEq/L; HCO3 VBG 44 mmol/L; Oxygen Saturation VBG < 60.0 %; PCO2 VBG 76 mmHg (38-50); PO2 VBG 23 mmHg; pH VBG 7.37 (7.36-7.41)
[2022-06-20] MEDS: CEFEPIME 1,000 MG in SYRINGE 0 ML IV SCH (12:27)
--- NOTE | 2022-06-20 16:17 | Pulmonology Progress Note ---
Date of Service June 20, 2022 Assessment & Plan (1) Aspiration pneumonia: Plan: NPO. Speech evaluation. Continue antibiotics for anaerobic coverage. Continue percussive vest therapy and hypertonic saline twice daily for airway clearance. Discussed with RT at bedside and also recommended CoughAssist twice a day to help expectorate mucus. Not a good candidate for bronchoscopy given her advanced age and comorbidities. (2) Bilateral pleural effusion: Plan: Minimal noted on CT chest. Likely an element of volume overload plus possible component parapneumonic effusion. The effusions are too small for sampling or drainage at this time. (3) Acute on chronic diastolic heart failure: Plan: Holding Lasix today given worsening BUN and creatinine. Recommended to give 1 L fluid bolus over 4 hours and follow urine output closely. (4) Paroxysmal atrial fibrillation: Plan: Rate controlled at present and anticoagulated with Eliquis. Consider transitioning to heparin in lieu of the renal failure. (5) COVID-19: Plan: Likely an incidental finding. I would not recommend treatment at this time. (6) Metabolic alkalosis: Plan: Continue acetazolamide twice daily and BiPAP therapy as needed. (7) Chronic respiratory acidosis: Plan: BiPAP when sleeping as above. May be contributing to altered mental status. (8) Lethargic: Plan: Likely combination of chronic hypercapnia and hypoactive delirium and uremia. CT head negative. (9) Hypoxia: Plan: Secondary to severe aspiration pneumonia. Continue to wean oxygen to maintain saturations of 90%. Plan Discussed with hospitalist, Dr. Butler. Thank you for the consultation. We will continue to follow. Discussed with patient's daughter at bedside and she was appreciative. Admission and Anticipated Discharge Date Admission Date: June 11, 2022 Subjective Patient seen and examined. She is very lethargic, but able to follow simple commands. She has been coughing with sips of water so she has been made NPO. Her daughters at bedside at present. We switched her from BiPAP to high flow nasal cannula which she is currently tolerating. She is also using the vest therapy 4 times a day. Review of Systems Review of Systems: All systems reviewed & are unremarkable except as noted in HPI & below Physical Exam Physical Exam: Constitutional: Patient appears to be of their stated age. Mildly tachypneic Eyes: Pupils are equal round and reactive to light. Conjunctivae are normal. Anicteric sclera. Ears nose, mouth and throat: Mallampati class 2. Normal posterior oropharynx. Uvula is midline. Neck: Trachea is midline. Visual inspection is normal. Respiratory: Diminished bibasilar breath sounds. Crackles on the right. Cardiovascular: Regular rate and rhythm. No murmurs. No edema. Gastrointestinal: Normal bowel sounds, soft, nontender and nondistended. No hepatosplenomegaly noted. Musculoskeletal: No cyanosis. Patient is able to move all extremities. Cp Bleacher Operator strength 2 out of 5. Diffusely weak throughout. Skin: No rashes, warm dry and intact. Neurologic: Right facial droop. No other focal signs. Psychiatric: Lethargic. Difficult to obtain full mental status. Results & Data Results & Data ([facility]) Vital Signs (Past 12 Hours) Vital Signs Temp Pulse Pulse Resp BP Pulse Ox O2 Del Method 06/20/22 15:19 77 22 92 High Flow Nasal Cannula 06/20/22 15:08 74 20 93 High Flow Nasal Cannula 06/20/22 11:38 36.4 C L 80 22 116/70 90 Oxymask 06/20/22 08:00 80 06/20/22 08:00 BiPAP 06/20/22 08:14 74 23 127/68 92 BiPAP 06/20/22 07:01 80 26 H 97 06/20/22 06:56 72 22 98 BiPAP 06/20/22 05:10 74 25 H 98 O2 Flow Rate FiO2 06/20/22 15:19 30 40 06/20/22 15:08 30 40 06/20/22 11:38 06/20/22 08:00 06/20/22 08:00 40 06/20/22 08:14 06/20/22 07:01 50 06/20/22 06:56 60 06/20/22 05:10 60 PG Care Time/CCT Total # of Minutes Spent Total Time Spent with Patient: Total time spent is greater than 50% in coordination of care (as documented) at patient's floor/unit and/or counseling patient: Coding Level of Care Code 23574 SUB INP/OBS CARE 3/50MIN Diagnoses Aspiration pneumonia J69.0 Bilateral pleural effusion J90 Acute on chronic diastolic heart failure I50.33 Paroxysmal atrial fibrillation I48.0 COVID-19 U07.1 Metabolic alkalosis E87.3 Chronic respiratory acidosis J96.12 Lethargic R53.83 Hypoxia R09.02
[2022-06-20] MEDS: EZETIMIBE/SIMVASTATIN 10/40MG 1 TAB TAB PO SCH (20:30)
[2022-06-20] MEDS: MIRTAZAPINE TAB 15 MG TAB PO SCH (20:31)
--- NOTE | 2022-06-20 22:51 | Hospitalist Progress Note ---
Date of Service June 20, 2022 Assessment & Plan (1) Acute respiratory failure with hypoxia and hypercapnia: Plan: Acute hypoxic respiratory failure, acute on chronic systolic heart falure,with NYHA class II heart failure COVID-19 positive, possible covid pneumonia Transition note: During course of the week, patient had been improving with lasix and had about 17 liters of net loss. Her oxygen requirements even decreased to about 2 liters. Given that her CRP had been negative and majortiy of her symptoms were due to heart failure decadron had been stopped. Patient received about 6 doses. Patient again became feverish, and more hypoxic on evening on 06/18 into AM of 06/19 Patient placed on BIPAP. Gave decadron as a one time dose, obtain a ct scan which showed bilateral infiltrates. Bacterial pneumonia was likely the cause and cefepime and flagyl were ordered. Consulted pulmonary. Updated family. Placed on hypertonic saline and percussion treatment. Patient appeared to improve on 06/20, now on high flow. Lasix was stopped due to alkalosis and placed on acetazolamide. Eliquis on hold for possible thoracocenthesis. Previously reported dry weight 190 pounds; patient has been below this per daughter although is obviously fluid overloaded. Had a previous dry weight of 170 pounds. -Denise Sanchez consulted for assistance with management ] (2) Hypoglycemia: Plan: pt with recurrent hypoglycemia, was given glucose, and glucagon, will be on D5W as persists with low glucose in the morning recheck TSH, send out insulin level as has had none 06/13, cannot check cortisol as is on dexamethasone. Blood sugars have improved. D/W with endocrinology. Appears this is due to glimepiride. will recommend cutting dose to half at discharge, with folllowup with Dr. Earlene eng. (3) Controlled type 2 diabetes with neuropathy: Plan: -Hold oral agents -Monitor BSG q6h while NPO on bipap -Goal BSG is 110-140 -Patient hypoglycemic 06/12, correction factor 50, carb ratio increased to 25 (4) Elevated troponin: Plan: -Initial high sensitivity trop elevated at 21->24.8, no acute ECG changes and no complaints of chest discomfort, elevated troponin due to demand (5) Hyperkalemia: Plan: -Noted to be 5.3 in the ED, no acute T-wave changes -Normalized, 5.0 on 06/12 (6) Atrial fibrillation: Plan: -Currently rate controlled -rate controlled with Atenlol and Eliquis (7) CAD (coronary artery disease): Plan: -Continue lipid lowering agents (8) Anxiety: Plan: -Hold ativan and remeron for now with her fatigue from hypercarbia (9) Essential hypertension: Plan: -Stable -Continue atenlol -Will hold Lisinopril for now as she currently has soft blood pressures (10) GERD (gastroesophageal reflux disease): Plan: -Continue PPI (11) Hypercholesterolemia: Plan: -Continue zetia/simvastatin (12) Pulmonary hypertension: Plan: -Continue nifedipine Admission and Anticipated Discharge Date Admission Date: June 11, 2022 Subjective Patient remains lethargic. On supplementantal oxygen, while in room, her oxygen was switched from bipap to high flow. Her daughter is at bedside and she is updated. Review of Systems Review of Systems: All systems reviewed & are unremarkable except as noted in HPI & below Physical Exam Physical Exam: The patient appeared well nourished and normally developed. Vital signs as documented. Head exam is normocephalic atraumatic Neck is without JVD, thyromegaly, or carotid bruits. Lungs are diminished throughout, basilar crackles, wheezing biaterally. Cardiac exam, Rhythm is regular.. No murmurs, rubs or gallops. Abdominal exam reveals normal bowel sounds, soft non tender, no masses Extremities are nonedematous and both pedal pulses are present Neurologic exam is alert and oriented, no focal loss of strength or sensation Skin is without bruises or rashes Psychologically is without concerns for anxiety or depression Results & Data Results & Data ([facility]) Vital Signs (Past 12 Hours) Vital Signs Temp Pulse Pulse Resp BP Pulse Ox O2 Del Method 06/20/22 20:00 High Flow Nasal Cannula 06/20/22 20:33 36.7 C 78 32 H 116/57 L 94 High Flow Nasal Cannula 06/20/22 19:05 73 30 H 93 High Flow Nasal Cannula 06/20/22 16:51 37.1 C 72 32 H 121/71 95 High Flow Nasal Cannula 06/20/22 15:19 77 22 92 High Flow Nasal Cannula 06/20/22 15:08 74 20 93 High Flow Nasal Cannula 06/20/22 11:38 36.4 C L 80 22 116/70 90 Oxymask O2 Flow Rate FiO2 06/20/22 20:00 30 40 06/20/22 20:33 30 06/20/22 19:05 30 40 06/20/22 16:51 30 40 06/20/22 15:19 30 40 06/20/22 15:08 30 40 06/20/22 11:38 PG Care Time/CCT Total # of Minutes Spent Total Time Spent with Patient: Total time spent is greater than 50% in coordination of care (as documented) at patient's floor/unit and/or counseling patient: Coding Level of Care Code 80205 SUB INP/OBS CARE 3/50MIN Diagnoses Acute respiratory failure with hypoxia and hypercapnia J96.01; J96.02 Hypoglycemia E16.2 Controlled type 2 diabetes with neuropathy E11.40 Elevated troponin R77.8 Hyperkalemia E87.5 Atrial fibrillation I48.91 CAD (coronary artery disease) I25.10 Anxiety F41.9 Essential hypertension I10 GERD (gastroesophageal reflux disease) K21.9 Hypercholesterolemia E78.00 Pulmonary hypertension I27.20 Time Spent (min) 60
[2022-06-21] MEDS: CEFEPIME 1,000 MG in SYRINGE 0 ML IV SCH ×3 (00:43→23:42)
[2022-06-21] MEDS: metroNIDAZOLE 500 MG/100 ML BAG IV SCH ×3 (04:10→21:00)
[2022-06-21] MEDS: INSULIN ASPART PER UNIT SC SCH ×4 (05:44→23:32)
[2022-06-21] MEDS: ALBUT/IPRATROP 3MG/0.5MG NEB 3 ML VIAL NEB SCH ×2 (07:40→19:25)
[2022-06-21] MEDS: SODIUM CHLOR 7% 4 ML NEB NEB SCH ×2 (07:40→19:25)
[2022-06-21 07:44] LABS: Basophils # (auto) 0.03 K/uL (0-0.2); Basophils % (auto) 0.2 %; Hematocrit (blood only) 40.4 % (34.1-44.9); Hemoglobin 12.9 g/dl (12.0-16.0); Immature Granulocytes # (auto) 0.19 K/uL (0.00-0.02); Lymphocytes # (auto) 1.44 K/uL (1.2-3.4); Lymphocytes % (auto) 7.4 %; Mean Corpuscular Hemoglobin 28.4 pg (25.0-34.0); Mean Corpuscular Hgb Conc 31.9 g/dL (32.0-36.0); Mean Corpuscular Volume 88.8 fL (80.0-100.0); Mean Platelet Volume 10.6 fL (9.4-12.3); Monocytes # (auto) 1.96 K/uL (0.24-0.82); Neutrophils # (auto) 15.97 K/uL (1.4-6.5); Neutrophils % (auto) 81.4 %; Platelet Count 230 K/uL (130-400); RDW Coefficient of Variation 18.6 % (11.5-14.5); RDW Standard Deviation 59.8 fL (36.4-46.3); Red Blood Count 4.55 M/uL (3.93-5.22); White Blood Count 19.59 K/ul (4.8-10.8)
--- NOTE | 2022-06-21 08:38 | Hospitalist Progress Note ---
Date of Service June 21, 2022 Assessment & Plan (1) Acute respiratory failure with hypoxia and hypercapnia: Plan: Acute hypoxic respiratory failure, acute on chronic systolic heart falure,with NYHA class II heart failure COVID-19 positive, possible covid pneumonia majority of her symptoms were due to heart failure decadron stopped. received about 6 doses. decompensated AM of 06/19 recurrence of respiratory failure, needed NIPPV respiratory support ct scan which showed bilateral infiltrates concern for gram negative Bacterial pneumonia-> cefepime and flagyl were ordered. Consulted pulmonary.recommended hypertonic saline and percussion treatment. Lasix was stopped due to alkalosis and placed on acetazolamide. Eliquis on hold for possible thoracocentesis. -Denise Sanchez consulted for assistance with management (2) Hypoglycemia: Plan: chronic diabetes now unstable with recurrent hypoglycemia secondary to prolonged metabolism of glimeparide Blood sugars have improved. D/W with endocrinology recommend cutting dose of glimepiride to half at discharge, with folllow up with Dr. Hwang. (3) Controlled type 2 diabetes with neuropathy: Plan: -Hold oral agents -Monitor BSG q6h while NPO on bipap -Goal BSG is 110-140 -Patient hypoglycemic 06/12, correction factor 50, carb ratio increased to 25 (4) Elevated troponin: Plan: -Initial high sensitivity trop elevated at 21->24.8, no acute ECG changes and no complaints of chest discomfort, elevated troponin due to demand (5) Hyperkalemia: Plan: -Noted to be 5.3 in the ED, no acute T-wave changes -Normalized, 5.0 on 06/12 (6) Atrial fibrillation: Plan: -chronic and stable with Atenlol and Eliquis (7) CAD (coronary artery disease): Plan: -Continue lipid lowering agents (8) Anxiety: Plan: -Hold ativan and remeron for now with her fatigue from hypercarbia (9) Essential hypertension: Plan: -chronic but not Stable needed to hold lisinpril and nifedapine, -Continue atenolol (10) GERD (gastroesophageal reflux disease): Plan: -Continue PPI (11) Hypercholesterolemia: Plan: -Continue zetia/simvastatin (12) Pulmonary hypertension: Admission and Anticipated Discharge Date Admission Date: June 11, 2022 Subjective pt was sleeping, breathing with little distress, on reducing oxygen supplmentation Physical Exam Physical Exam: pulmonary exam is coarse, decreased at bases, no wheezes or focal loss Results & Data Results & Data ([facility]) Vital Signs (Past 12 Hours) Vital Signs Temp Pulse Pulse Pulse Resp BP Pulse Ox 06/21/22 07:40 72 22 92 06/21/22 04:11 98.4 F 68 33 H 104/66 93 06/21/22 02:26 70 70 20 93 06/21/22 00:44 99.1 F 75 30 H 103/57 L 92 06/20/22 22:42 68 68 26 H 94 06/20/22 23:10 70 06/20/22 20:33 98.0 F 78 32 H 116/57 L 94 O2 Del Method O2 Flow Rate FiO2 06/21/22 07:40 High Flow Nasal Cannula 30 40 06/21/22 04:11 High Flow Nasal Cannula 30 40 06/21/22 02:26 High Flow Nasal Cannula 30 40 06/21/22 00:44 High Flow Nasal Cannula 30 40 06/20/22 22:42 High Flow Nasal Cannula 30 40 06/20/22 23:10 06/20/22 20:33 High Flow Nasal Cannula 30 Diagnostic Findings reviewed CBC with leukocytosis bnp is elevated at 961 which is improved procalcitonin is also elevated and trending upward ordered repeat mrsa nasal swab PG Care Time/CCT Total # of Minutes Spent Total Time Spent with Patient: Total time spent is greater than 50% in coordination of care (as documented) at patient's floor/unit and/or counseling patient: Coding Level of Care Code 61609 SUB INP/OBS CARE 3/50MIN Diagnoses Acute respiratory failure with hypoxia and hypercapnia J96.01; J96.02 Hypoglycemia E16.2 Controlled type 2 diabetes with neuropathy E11.40 Elevated troponin R77.8 Hyperkalemia E87.5 Atrial fibrillation I48.91 CAD (coronary artery disease) I25.10 Anxiety F41.9 Essential hypertension I10 GERD (gastroesophageal reflux disease) K21.9 Hypercholesterolemia E78.00 Pulmonary hypertension I27.20
[2022-06-21 08:41] LABS: BUN Creatinine Ratio 52.9 (10-20); C Reactive Protein 16.09 mg/dl (0-0.5); Calcium 8.2 mg/dl (8.5-10.1); Creatinine Clr Calc Pharmacy 18.2 ml/min; Est GFR (African American) 23.9 ml/min; Est GFR (Non-African American) 20.6 ml/min; Potassium 3.2 mmol/L (3.5-5.1)
[2022-06-21] MEDS: PANTOprazole 40 MG TAB PO SCH (09:20)
[2022-06-21] MEDS: CHOLECALCIFEROL 1,000 UNITS 25 MCG TAB PO SCH (09:20)
[2022-06-21] MEDS: CALCIUM 600MG + VIT D 400 IU TAB PO SCH (09:20)
[2022-06-21] MEDS: ATENOLOL 25 MG TABLET PO SCH ×2 (09:20→21:00)
[2022-06-21] MEDS: LANTUS PER UNIT CHARGE SQ SCH (09:37)
[2022-06-21] MEDS: acetaZOLAMIDE 250 MG in SYRINGE 0 ML IV SCH (09:45)
--- NOTE | 2022-06-21 14:00 | Pharmacy Report ---
Pharmacy Glycemic Short Note 2 - Date of Service June 21, 2022 - Glycemic Short BSG Results (Last 24 hours): 06/20/22 06/20/22 06/21/22 16:50 20:04 05:42 Glucose POC Glucose 196 H 181 H 125 H 06/21/22 06/21/22 07:22 11:35 Glucose 127 H POC Glucose 134 H OUTPATIENT ANTIDIABETIC REGIMEN: * Jardiance 25 mg QD * glimepiride 4mg BID * A1c: 7.3% ASSESSMENT: 06/21: * Fasting 125 mg/dL this morning- continue current lantus dose * Currently NPO- switched to q6H novolog- continue to monitor 06/19: * Steroid restarted this morning with elevated CRP. * Fasting and postprandial BSGs elevated today. * Will add a low basal dose today and reassess tomorrow. Will also conservatively tighten novolog scale. * Patient has been tolerating a diet however did not appear to eat breakfast 06/18: * Steroid discontinued on 06/16. Fasting this morning 149 mg/dL- continue to hold basal for now * Lunch BSG significantly elevated (used carb ratio of 25) after 80 gm CHO this morning- will tighten carb ratio * Continue same correction factor- monitor for changes 06/15 * Patient was placed on IV D5W 06/13-06/14 due to recurrent hypoglycemia despite no receipt of insulin. She continued to receive IV dexamethasone 6mg each morning since admission. * BSG did climb to 291 and subsequently to 344 following d/c of D5W in the later afternoon yesterday. As a result low dose Novolog scale was added. * Fasting BSG was at goal this AM with no basal insulin on board (FBS 129) - will continue to hold * A verly low dose of Novolog correction and prandial coverage has performed well thus far - will continue for now as it is too soon to say adjustments are necessary 06/13 * Intermittent episodes of hypoglycemia continue at this time, again likely lingering effects of glimepiride in setting of poor renal fxn * 0 units of insulin administered in last 36 hours * Will continue to hold all insulin at this time until BSGs have recovered and recurrent hypoglycemia has resolved * IV steroid continues, diabetic diet is ordered 06/12 * Patient admitted with acute respiratory failure was initially mildly hyperglycemic. Patient received a conservative dose of 5 units lantus last evening and received 3 units of NovoLog as well. * Patient was slightly hypoglycemic this morning (fasting 67 mg/dL) and then again at lunch despite receiving no additional insulin today. It is possible given renal function, patient still had effects of glimepiride on board. * Patient is ordered a diet for dinner and is ordered dexamethasone, so anticipate BSGs to increase. However, until BSG does trend up will not order any additional basal insulin and continue with a conservative NovoLog scale. PLAN FOR INPATIENT GLYCEMIC CONTROL: * Hold outpatient oral diabetes medications (glimepiride, Jardiance) * Basal insulin * Lantus 5 units SC qAM * Bolus insulin * Novolog SQ ACHS * Goal: 120-150mg/dL * Correction factor: 35 mg/dL/unit * Carb ratio: 1 unit per 12 grams carbs eaten
--- NOTE | 2022-06-21 14:13 | Pulmonology Progress Note ---
Date of Service June 21, 2022 Assessment & Plan (1) Aspiration pneumonia: Plan: Continue antibiotics for anaerobic coverage. Continue percussive vest therapy and hypertonic saline twice daily for airway clearance. Continue CoughAssist twice daily. Poor candidate for bronchoscopy given frailty and comorbid conditions. (2) Bilateral pleural effusion: Plan: Minimal noted on CT chest. No role for thoracentesis. (3) Acute on chronic diastolic heart failure: Plan: Appears euvolemic if not a bit on the dry side. Consider the addition of IV fluids. Will defer to primary team. We will discontinue acetazolamide. (4) Paroxysmal atrial fibrillation: Plan: Rate controlled at present and anticoagulated with Eliquis. Consider transitioning to heparin in lieu of the renal failure. (5) COVID-19: Plan: Likely an incidental finding. I would not recommend treatment at this time. (6) Metabolic alkalosis: Plan: Improving. We will discontinue acetazolamide as noted above. (7) Chronic respiratory acidosis: Plan: Continue BiPAP when sleeping. PCO2 yesterday was elevated to 76. pH no longer alkalotic. Acetazolamide discontinued. (8) Lethargic: Plan: Likely combination of chronic hypercapnia, hypoactive delirium and uremia. CT head negative. (9) Hypoxia: Plan: Secondary to severe aspiration pneumonia. Continue to wean oxygen to maintain saturations of 90%. Plan Please call with questions. Thank you for the consultation. Admission and Anticipated Discharge Date Admission Date: June 11, 2022 Subjective Patient seen and examined. Little bit more alert today. Remains NPO. Currently on 30 L of oxygen 40% FiO2. Review of Systems Review of Systems: All systems reviewed & are unremarkable except as noted in HPI & below Physical Exam Physical Exam: Constitutional: Patient appears to be of their stated age. Mildly tachypneic Eyes: Pupils are equal round and reactive to light. Conjunctivae are normal. Anicteric sclera. Ears nose, mouth and throat: Deferred. Neck: Trachea is midline. Visual inspection is normal. Respiratory: Diminished bibasilar breath sounds. Crackles on the right. Cardiovascular: Regular rate and rhythm. No murmurs. No edema. Gastrointestinal: Normal bowel sounds, soft, nontender and nondistended. No hepatosplenomegaly noted. Musculoskeletal: No cyanosis. Patient is able to move all extremities. Diffusely weak throughout. Skin: No rashes, warm dry and intact. Neurologic: No focal signs. Psychiatric: Lethargic. Difficult to obtain full mental status. Results & Data Results & Data ([facility]) Vital Signs (Past 12 Hours) Vital Signs Temp Pulse Pulse Pulse Resp BP Pulse Ox 06/21/22 12:05 80 24 92 06/21/22 09:19 06/21/22 06:00 69 06/21/22 08:28 37 C 68 22 108/60 93 06/21/22 07:40 72 22 92 06/21/22 04:11 36.9 C 68 33 H 104/66 93 06/21/22 02:26 70 70 20 93 O2 Del Method O2 Flow Rate FiO2 06/21/22 12:05 High Flow Nasal Cannula 30 40 06/21/22 09:19 High Flow Nasal Cannula 30 40 06/21/22 06:00 06/21/22 08:28 High Flow Nasal Cannula 30 40 06/21/22 07:40 High Flow Nasal Cannula 30 40 06/21/22 04:11 High Flow Nasal Cannula 30 40 06/21/22 02:26 High Flow Nasal Cannula 30 40 PG Care Time/CCT Total # of Minutes Spent Total Time Spent with Patient: Total time spent is greater than 50% in coordination of care (as documented) at patient's floor/unit and/or counseling patient: Coding Level of Care Code 04183 SUB INP/OBS CARE 2/35MIN Diagnoses Aspiration pneumonia J69.0 Bilateral pleural effusion J90 Acute on chronic diastolic heart failure I50.33 Paroxysmal atrial fibrillation I48.0 COVID-19 U07.1 Metabolic alkalosis E87.3 Chronic respiratory acidosis J96.12 Lethargic R53.83 Hypoxia R09.02
[2022-06-21] MEDS: MIRTAZAPINE TAB 15 MG TAB PO SCH (20:59)
[2022-06-21] MEDS: EZETIMIBE/SIMVASTATIN 10/40MG 1 TAB TAB PO SCH (20:59)
[2022-06-22] MEDS: metroNIDAZOLE 500 MG/100 ML BAG IV SCH ×3 (03:42→19:46)
[2022-06-22] MEDS: INSULIN ASPART PER UNIT SC SCH ×4 (05:49→23:20)
[2022-06-22] MEDS: ALBUT/IPRATROP 3MG/0.5MG NEB 3 ML VIAL NEB SCH ×2 (07:02→18:32)
[2022-06-22] MEDS: SODIUM CHLOR 7% 4 ML NEB NEB SCH ×2 (07:02→18:32)
[2022-06-22] MEDS: ATENOLOL 25 MG TABLET PO SCH ×2 (09:48→21:04)
[2022-06-22] MEDS: PANTOprazole 40 MG TAB PO SCH (09:48)
[2022-06-22] MEDS: CALCIUM 600MG + VIT D 400 IU TAB PO SCH (09:49)
[2022-06-22] MEDS: CHOLECALCIFEROL 1,000 UNITS 25 MCG TAB PO SCH (09:49)
[2022-06-22] MEDS: LANTUS PER UNIT CHARGE SQ SCH (09:58)
[2022-06-22] MEDS: CEFEPIME 1,000 MG in SYRINGE 0 ML IV SCH ×2 (11:19→23:30)
[2022-06-22] MEDS ORDERED: SODIUM CHLORIDE 0.65% NA SOLN 45 ML (OCEAN) ONE (12:38)
[2022-06-22] MEDS ORDERED: ALBUMIN 25% 100 mL 25 GM/100 ML VIAL IV ONE (13:16)
--- NOTE | 2022-06-22 13:30 | Pharmacy Report ---
Pharmacy Glycemic Short Note 2 - Date of Service June 22, 2022 - Glycemic Short BSG Results (Last 24 hours): 06/21/22 06/21/22 06/22/22 17:33 23:29 05:47 POC Glucose 132 H 110 H 119 H 06/22/22 11:22 POC Glucose 95 OUTPATIENT ANTIDIABETIC REGIMEN: * Jardiance 25 mg QD * glimepiride 4mg BID * A1c: 7.3% ASSESSMENT: 06/22: * Fasting 119 mg/dL this morning- continue current lantus dose * BSGs ranging 117-134 mg/dL without any novolog- patient continues to be NPO 06/21: * Fasting 125 mg/dL this morning- continue current lantus dose * Currently NPO- switched to q6H novolog- continue to monitor 06/19: * Steroid restarted this morning with elevated CRP. * Fasting and postprandial BSGs elevated today. * Will add a low basal dose today and reassess tomorrow. Will also conservatively tighten novolog scale. * Patient has been tolerating a diet however did not appear to eat breakfast 06/18: * Steroid discontinued on 06/16. Fasting this morning 149 mg/dL- continue to hold basal for now * Lunch BSG significantly elevated (used carb ratio of 25) after 80 gm CHO this morning- will tighten carb ratio * Continue same correction factor- monitor for changes 06/15 * Patient was placed on IV D5W 06/13-06/14 due to recurrent hypoglycemia despite no receipt of insulin. She continued to receive IV dexamethasone 6mg each morning since admission. * BSG did climb to 291 and subsequently to 344 following d/c of D5W in the later afternoon yesterday. As a result low dose Novolog scale was added. * Fasting BSG was at goal this AM with no basal insulin on board (FBS 129) - will continue to hold * A verly low dose of Novolog correction and prandial coverage has performed well thus far - will continue for now as it is too soon to say adjustments are necessary 06/13 * Intermittent episodes of hypoglycemia continue at this time, again likely lingering effects of glimepiride in setting of poor renal fxn * 0 units of insulin administered in last 36 hours * Will continue to hold all insulin at this time until BSGs have recovered and recurrent hypoglycemia has resolved * IV steroid continues, diabetic diet is ordered 06/12 * Patient admitted with acute respiratory failure was initially mildly hyperglycemic. Patient received a conservative dose of 5 units lantus last evening and received 3 units of NovoLog as well. * Patient was slightly hypoglycemic this morning (fasting 67 mg/dL) and then again at lunch despite receiving no additional insulin today. It is possible given renal function, patient still had effects of glimepiride on board. * Patient is ordered a diet for dinner and is ordered dexamethasone, so anti cipate BSGs to increase. However, until BSG does trend up will not order any additional basal insulin and continue with a conservative NovoLog scale. PLAN FOR INPATIENT GLYCEMIC CONTROL: * Hold outpatient oral diabetes medications (glimepiride, Jardiance) * Basal insulin * Lantus 5 units SC qAM * Bolus insulin * Novolog SQ ACHS * Goal: 120-150mg/dL * Correction factor: 35 mg/dL/unit * Carb ratio: 1 unit per 12 grams carbs eaten
--- NOTE | 2022-06-22 13:35 | Pulmonology Progress Note ---
Date of Service June 22, 2022 Assessment & Plan (1) Aspiration pneumonia: Plan: Continue antibiotics for anaerobic coverage. Continue percussive vest therapy and hypertonic saline twice daily for airway clearance. Continue CoughAssist twice daily. Poor candidate for bronchoscopy given frailty and comorbid conditions. (2) Bilateral pleural effusion: Plan: Minimal noted on CT chest. No role for thoracentesis. (3) Acute on chronic diastolic heart failure: Plan: Primary team managing. (4) Paroxysmal atrial fibrillation: Plan: Rate controlled at present and anticoagulated with Eliquis. Consider transitioning to heparin in lieu of the renal failure. (5) COVID-19: Plan: Likely an incidental finding. I would not recommend treatment at this time. (6) Metabolic alkalosis: Plan: Repeat labs pending. (7) Chronic respiratory acidosis: Plan: Continue BiPAP when sleeping. (8) Lethargic: Plan: Likely combination of chronic hypercapnia, hypoactive delirium and uremia. CT head negative. (9) Hypoxia: Plan: Secondary to severe aspiration pneumonia. O2 sats substantially improved today and down to 5 L. (10) Acute renal failure: Plan: Recommend repeating a BMP today. Likely secondary to insensible losses from respiratory failure and poor p.o. intake due to altered mental status. Plan Please call with questions. Thank you for the consultation. Admission and Anticipated Discharge Date Admission Date: June 11, 2022 Subjective Patient has been lethargic. No significant events overnight. Discussed with nursing. Review of Systems Review of Systems: All systems reviewed & are unremarkable except as noted in HPI & below Physical Exam Physical Exam: Constitutional: Patient appears to be of their stated age. Mildly tachypneic Eyes: Pupils are equal round and reactive to light. Conjunctivae are normal. Anicteric sclera. Ears nose, mouth and throat: Deferred. Neck: Trachea is midline. Visual inspection is normal. Respiratory: Diminished bibasilar breath sounds. Crackles on the right. Cardiovascular: Regular rate and rhythm. No murmurs. No edema. Gastrointestinal: Normal bowel sounds, soft, nontender and nondistended. No hepatosplenomegaly noted. Musculoskeletal: No cyanosis. Patient is able to move all extremities. Diffusely weak throughout. Skin: No rashes, warm dry and intact. Neurologic: No focal signs. Psychiatric: Lethargic. Difficult to obtain full mental status. Results & Data Results & Data ([facility]) Vital Signs (Past 12 Hours) Vital Signs Temp Pulse Pulse Pulse Resp BP Pulse Ox 06/22/22 05:59 69 06/22/22 09:47 06/22/22 11:20 37.0 C 76 20 103/57 L 94 06/22/22 08:15 36.7 C 68 20 102/59 L 93 06/22/22 07:04 70 18 95 06/22/22 03:01 36.7 C 74 20 92/53 L 95 O2 Del Method O2 Flow Rate 06/22/22 05:59 06/22/22 09:47 Nasal Cannula 5 06/22/22 11:20 Free Flow/Blow-by 5 06/22/22 08:15 Nasal Cannula 5 06/22/22 07:04 Nasal Cannula 5 06/22/22 03:01 Nasal Cannula 5 PG Care Time/CCT Total # of Minutes Spent Total Time Spent with Patient: Total time spent is greater than 50% in coordination of care (as documented) at patient's floor/unit and/or counseling patient: Coding Level of Care Code 11380 SUB INP/OBS CARE 1/25MIN Diagnoses Aspiration pneumonia J69.0 Bilateral pleural effusion J90 Acute on chronic diastolic heart failure I50.33 Paroxysmal atrial fibrillation I48.0 COVID-19 U07.1 Metabolic alkalosis E87.3 Chronic respiratory acidosis J96.12 Lethargic R53.83 Hypoxia R09.02 Acute renal failure N17.9
[2022-06-22] MEDS: SODIUM CHLORIDE 0.9% 1000ML 1,000 ML IV SCH ×2 (13:42→23:30)
[2022-06-22] MEDS ORDERED: HYDROCORTISONE SOD 50 MG in SYRINGE 0 ML IV ONE (13:45)
--- NOTE | 2022-06-22 13:51 | XRay Report ---
SINGLE VIEW CHEST CLINICAL HISTORY: Pneumonitis. FINDINGS: An AP, portable, upright chest radiograph is compared to chest x-ray and chest CT dated 06/03. The heart is markedly enlarged noting atherosclerotic calcification of the thoracic aorta. Pu lmonary edema has modestly improved from previous. There are layering pleural effusions, right larger than left with dependent consolidation. The upper lobes appear clear. No pneumothorax is seen. The s keletal structures are osteopenic. The bony thorax is grossly intact. Advanced arthritic change is se en in the right shoulder. IMPRESSION: 1. Marked cardiomegaly. Pulmonary edema has improved from previous. 2. Right large left pleural effusions with dependent consolidation. This is similar to previous ACT 112: Negative or not required by law. Electronically signed by: Sterling Aguirre M.D. 06/22/2022 1:50 PM
[2022-06-22 17:01] LABS: Calcium 8.2 mg/dl (8.5-10.1); Potassium 3.3 mmol/L (3.5-5.1)
--- NOTE | 2022-06-22 17:24 | Hospitalist Progress Note ---
Date of Service June 22, 2022 Assessment & Plan (1) Acute respiratory failure with hypoxia and hypercapnia: Plan: Acute hypoxic respiratory failure, acute on chronic systolic heart falure,with NYHA class II heart failure COVID-19 positive, pneumonia not visualized on x-ray of 06/23/2022 majority of her symptoms were due to heart failure decadron stopped. received about 6 doses. decompensated AM of 06/19 recurrence of respiratory failure, needed NIPPV respir atory support Decompensated once again the effort of 06/23/2022 question of the patient could have pulmonary embolism. Eliquis has been previously held with consideration for procedure this is not planned. Tachycardia may be blunted by beta-saul use we will reinitiate anticoagulation ct scan which showed bilateral infiltrates concern for gram negative Bacterial pneumonia-> cefepime and flagyl were ordered. Consulted pulmonary.recommended hypertonic saline and percussion treatment. Lasix was stopped due to alkalosis (2) Hypoglycemia: Plan: chronic diabetes now unstable with recurrent hypoglycemia secondary to prolonged metabolism of glimeparide Blood sugars have improved. D/W with endocrinology recommend cutting dose of glimepiride to half at discharge, with folllow up with Dr. Hwang. (3) Controlled type 2 diabetes with neuropathy: Plan: -Hold oral agents -Monitor BSG q6h while NPO on bipap -Goal BSG is 110-140 -Patient hypoglycemic 06/12, correction factor 50, carb ratio increased to 25 (4) Elevated troponin: Plan: -Initial high sensitivity trop elevated at 21->24.8, no acute ECG changes and no complaints of chest discomfort, elevated troponin due to demand (5) Hyperkalemia: Plan: -Noted to be 5.3 in the ED, no acute T-wave changes -Normalized, 5.0 on 06/12 (6) Atrial fibrillation: Plan: -chronic and stable with Atenlol and Eliquis (7) CAD (coronary artery disease): Plan: -Continue lipid lowering agents (8) Anxiety: Plan: -Hold ativan and remeron for now with her fatigue from hypercarbia (9) Essential hypertension: Plan: -chronic but not Stable needed to hold lisinpril and nifedapine, -Continue atenolol (10) GERD (gastroesophageal reflux disease): Plan: -Continue PPI (11) Hypercholesterolemia: Plan: -Continue zetia/simvastatin (12) Pulmonary hypertension: Admission and Anticipated Discharge Date Admission Date: June 11, 2022 Subjective pt is awake and somewhat responsive, she had a decline in pulmonary status af ternoon of 06/22/22, with increased oxygen need. CXR looks improved, Physical Exam Physical Exam: lethargic weak cough no cardiac murmurs Results & Data Results & Data ([facility]) Vital Signs (Past 12 Hours) Vital Signs Temp Pulse Pulse Resp BP Pulse Ox O2 Del Method 06/22/22 14:11 68 06/22/22 05:59 69 06/22/22 09:47 Nasal Cannula 06/22/22 11:20 98.6 F 76 20 103/57 L 94 Free Flow/Blow-by 06/22/22 08:15 98.1 F 68 20 102/59 L 93 Nasal Cannula 06/22/22 07:04 70 18 95 Nasal Cannula O2 Flow Rate 06/22/22 14:11 06/22/22 05:59 06/22/22 09:47 5 06/22/22 11:20 5 06/22/22 08:15 5 06/22/22 07:04 5 Diagnostic Findings Review of CBC with persistent leukocytosis no significant anemia Review electrolytes show mild hypokalemia MRSA nasal screen collected yesterday is negative PG Care Time/CCT Total # of Minutes Spent Total Time Spent with Patient: Total time spent is greater than 50% in coordination of care (as documented) at patient's floor/unit and/or counseling patient: Coding Level of Care Code 87474 SUB INP/OBS CARE 3/50MIN Diagnoses Acute respiratory failure with hypoxia and hypercapnia J96.01; J96.02 Hypoglycemia E16.2 Controlled type 2 diabetes with neuropathy E11.40 Elevated troponin R77.8 Hyperkalemia E87.5 Atrial fibrillation I48.91 CAD (coronary artery disease) I25.10 Anxiety F41.9 Essential hypertension I10 GERD (gastroesophageal reflux disease) K21.9 Hypercholesterolemia E78.00 Pulmonary hypertension I27.20
[2022-06-22 18:18] LABS: Base Excess ABG 3.2 mEq/L (-9-1.8); HCO3 ABG 32 mmol/L (19-24); Oxygen Saturation ABG 96.5 % (90-95); PCO2 ABG 64 mmHg (35-46); PO2 ABG 80 mmHg (80-95)
[2022-06-22 18:19] LABS: Allen Test Pos (Pos)
[2022-06-22] MEDS: POTASSIUM CHLORIDE / WTR 10 MEQ/100 ML PLCT IV SCH ×3 (18:29→20:37)
[2022-06-22 20:47] LABS: BUN Creatinine Ratio 49.8 (10-20); C Reactive Protein 13.2 mg/dl (0-0.5); Est GFR (African American) 15.6 ml/min; Est GFR (Non-African American) 13.5 ml/min
[2022-06-22] MEDS: APIXABAN 5 MG TABLET PO SCH (21:04)
[2022-06-22] MEDS: MIRTAZAPINE TAB 15 MG TAB PO SCH (21:04)
[2022-06-22] MEDS: EZETIMIBE/SIMVASTATIN 10/40MG 1 TAB TAB PO SCH (21:04)
[2022-06-23 00:23] LABS: C-Peptide 19.97 ng/mL (0.80-3.85); Proinsulin 313.3 pmol/L (< OR = 18.8)
[2022-06-23] MEDS: metroNIDAZOLE 500 MG/100 ML BAG IV SCH (04:03)
[2022-06-23] MEDS: INSULIN ASPART PER UNIT SC SCH ×2 (06:09→11:59)
[2022-06-23 06:28] LABS: Hematocrit (blood only) 40.5 % (34.1-44.9); Hemoglobin 12.4 g/dl (12.0-16.0); Mean Corpuscular Hemoglobin 27.9 pg (25.0-34.0); Mean Corpuscular Hgb Conc 30.6 g/dL (32.0-36.0); Mean Corpuscular Volume 91.2 fL (80.0-100.0); Mean Platelet Volume 10.8 fL (9.4-12.3); Platelet Count 266 K/uL (130-400); RDW Coefficient of Variation 18.8 % (11.5-14.5); RDW Standard Deviation 62.4 fL (36.4-46.3); Red Blood Count 4.44 M/uL (3.93-5.22); White Blood Count 13.64 K/ul (4.8-10.8)
[2022-06-23 06:50] LABS: Calcium 8.1 mg/dl (8.5-10.1); Potassium 3.8 mmol/L (3.5-5.1)
[2022-06-23] MEDS: ALBUT/IPRATROP 3MG/0.5MG NEB 3 ML VIAL NEB SCH (06:56)
[2022-06-23] MEDS: SODIUM CHLOR 7% 4 ML NEB NEB SCH (06:56)
--- NOTE | 2022-06-23 07:13 | Hospitalist Progress Note ---
Date of Service June 23, 2022 Assessment & Plan (1) Goals of care, counseling/discussion: Plan: Called family earlier this morning as patient had progressive decline in respiratory status with hypercarbic respiratory failure with also hypoxic respiratory failure. Patient now has acute kidney injury and anuria on top of chronic kidney disease. Given her valvular heart disease and pulmonary hypertension her renal failure is progressive and likely based upon poor perfusion of her kidneys due to severe mitral regurgitation. Subsequently with family at the bedside agreement was made to pursue comfort care measures understanding that her demise will likely occur more quickly at this time as her blood pressures plummeted throughout the morning despite attempts at volume resuscitation (2) Acute respiratory failure with hypoxia and hypercapnia: Plan: Acute hypoxic respiratory failure, acute on chronic systolic heart falure,with NYHA class II heart failure COVID-19 positive, pneumonia not visualized on x-ray of 06/22/2022 Pt has evidence of CO2 retention on ABG 06/22, placed on Bipap, not clear if copd history Decompensated once again the effort of 06/22/2022 ct scan which showed bilateral infiltrates concern for gram negative Bacterial pneumonia-> cefepime and flagyl were ordered. Consulted pulmonary.recommended (3) Acute renal failure: Plan: Pt with acute kidney injury on CKD 3 she has had decreased po intake, significant valvular heart disease and pulmonary hypertension reducing perfusion and now developed acute renal failure likely causing some metabolic acidosis Patient has not responded to supportive care with iv volume repletion pt has likely ATN from decreased po intake and now inability to swallow ? if covid has any play in renal failure (4) Controlled type 2 diabetes with neuropathy: Plan: -chornic unstable, did have some hypoglyucemia earlier Hold oral agents -basal bolus insulin (5) Elevated troponin: Plan: acute self limited problem-Initial high sensitivity trop elevated at 21->24.8, no acute ECG changes and no complaints of chest discomfort, elevated troponin due to demand (6) Hyperkalemia: (7) Atrial fibrillation: (8) CAD (coronary artery disease): (9) Anxiety: Plan: -Hold ativan and remeron for now with her fatigue from hypercarbia (10) Essential hypertension: Plan: -chronic but not Stable needed to hold lisinpril and nifedapine, -Continue atenolol (11) GERD (gastroesophageal reflux disease): Plan: -Continue PPI (12) Pulmonary hypertension: Admission and Anticipated Discharge Date Admission Date: June 11, 2022 Subjective Patient had dramatic decline in status. She is not responsive. She is wearing a BiPAP mask. Family is at the bedside discussions were had to enter into comfort care measures with persistent progressive hypotension and renal failure with anuria Physical Exam Physical Exam: Patient appears comfortable but not responsive. She is markedly uremic which likely has a play in this family we confirmed she did not want aggressive measures or dialysis Results & Data Results & Data ([facility]) Vital Signs (Past 12 Hours) Vital Signs Temp Pulse Pulse Pulse Resp BP Pulse Ox 06/23/22 06:57 65 19 95 06/23/22 06:57 64 19 95 06/23/22 04:02 67 22 95 06/23/22 02:24 98.4 F 99 H 20 100/60 95 06/22/22 23:57 67 06/22/22 23:20 97.7 F 83 23 91/46 L 94 06/22/22 22:54 71 22 94 06/22/22 19:56 06/22/22 19:44 97.5 F L 72 24 107/64 93 O2 Del Method FiO2 06/23/22 06:57 55 06/23/22 06:57 BiPAP 55 06/23/22 04:02 55 06/23/22 02:24 BiPAP 06/22/22 23:57 06/22/22 23:20 BiPAP 06/22/22 22:54 60 06/22/22 19:56 BiPAP 06/22/22 19:44 BiPAP Laboratory Results Reviewed ABG from the previous night showing respiratory acidosis with CO2 retention BiPAP initiated Reviewed CBC with leukocytosis stable hemoglobin PG Care Time/CCT Total # of Minutes Spent Total Time Spent with Patient: Total time spent is greater than 50% in coordination of care (as documented) at patient's floor/unit and/or counseling patient: Coding Level of Care Code 76473 SUB INP/OBS CARE 3/50MIN Diagnoses Goals of care, counseling/discussion Z71.89 Acute respiratory failure with hypoxia and hypercapnia J96.01; J96.02 Acute renal failure N17.9 Controlled type 2 diabetes with neuropathy E11.40 Elevated troponin R77.8 Hyperkalemia E87.5 Atrial fibrillation I48.91 CAD (coronary artery disease) I25.10 Anxiety F41.9 Essential hypertension I10 GERD (gastroesophageal reflux disease) K21.9 Pulmonary hypertension I27.20
[2022-06-23 07:48] LABS: BUN Creatinine Ratio 50.6 (10-20); C Reactive Protein 12.37 mg/dl (0-0.5); Creatinine Clr Calc Pharmacy 11.9 ml/min
[2022-06-23] MEDS: LANTUS PER UNIT CHARGE SQ SCH (09:36)
[2022-06-23] MEDS: APIXABAN 5 MG TABLET PO SCH ×2 (09:43→10:17)
[2022-06-23] MEDS: CALCIUM 600MG + VIT D 400 IU TAB PO SCH ×2 (09:44→10:16)
[2022-06-23] MEDS: CHOLECALCIFEROL 1,000 UNITS 25 MCG TAB PO SCH ×2 (09:44→10:16)
[2022-06-23] MEDS: PANTOprazole 40 MG TAB PO SCH ×2 (09:44→10:17)
[2022-06-23] MEDS ORDERED: SODIUM CHLORIDE 0.9% 1000ML 250 ML IV ONE (09:49)
[2022-06-23] MEDS: ATENOLOL 25 MG TABLET PO SCH (10:13)
[2022-06-23] MEDS ORDERED: SODIUM CHLORIDE 0.9% 1000ML 500 ML IV ONE ×2 (10:42→11:31)
[2022-06-23] MEDS: CEFEPIME 1,000 MG in SYRINGE 0 ML IV SCH (11:58)
[2022-06-23] MEDS ORDERED: Heparin IV Adult Wt-Based Standard *NO* Bolus Protocol IV STA (11:59)
[2022-06-23] MEDS ORDERED: HEPARIN SODIUM/DEXTROSE 25,000 UNITS/500 ML BAG IV SCH (12:15)
[2022-06-23] MEDS ORDERED: ONDANSETRON INJ 2 MG/ML 2 ML VIAL IV PRN (13:16)
[2022-06-23] MEDS ORDERED: LORazepam 0.5 MG TAB PO PRN (13:16)
[2022-06-23] MEDS ORDERED: ONDANSETRON 4 MG OD TAB SL PRN (13:16)
[2022-06-23] MEDS ORDERED: MoRPHine SULFATE 2 MG/ML CARP IV PRN (13:16)
[2022-06-23] MEDS ORDERED: GLYCOPYRROLATE 0.2 MG/ML VIAL IV PRN (13:16)
[2022-06-23] MEDS ORDERED: ACETAMINOPHEN 650 MG SUPP PR PRN (13:16)
[2022-06-23] MEDS ORDERED: LORazepam 2 MG/1 ML VIAL IV PRN (13:16)
--- NOTE | 2022-06-23 15:35 | XRay Report ---
XR chest 1V portable CLINICAL HISTORY: eval for hf TECHNIQUE: Single frontal radiograph of the chest was obtained. Comparison: Comparison is made to chest radiograph 06/22/2022 FINDINGS: Exam is limited by patient rotation. Cardiomegaly is noted. Right greater than left airspace opacitie s are seen. IMPRESSION: 1. Cardiomegaly is seen without evidence of pulmonary edema. 2. Right greater than left pleural effusions, unchanged from prior exam. Airspace opacities likely r epresent atelectasis with or without superimposed pneumonia and/or aspiration, similar to prior exam. ACT 112: Negative or not required by law. Electronically signed by: Federico Robbins M.D. 06/23/2022 3:33 PM
--- NOTE | 2022-06-23 19:47 | Death Pronouncement Note ---
Date of Service June 23, 2022 Pronouncement Note Admission Date Admission Date: June 11, 2022 Date and Time of Date of : 06/23/22 Time of : 19:38 Contributing Factors (1) Goals of care, counseling/discussion: (2) Acute respiratory failure with hypoxia and hypercapnia: (3) Acute renal failure: (4) Controlled type 2 diabetes with neuropathy: (5) Elevated troponin: (6) Hyperkalemia: (7) Atrial fibrillation: (8) CAD (coronary artery disease): (9) Anxiety: (10) Essential hypertension: (11) GERD (gastroesophageal reflux disease): (12) Pulmonary hypertension: Summary Additional details: Was notified by nurse that patient had . Proceeded upstairs to the patient's room, where members of her family were present. Following introduction and explanation of pronouncement process, began examining the patient. There was an absence of heartbeat using stethoscope at multiple points on the chest. Did not detect a brachial pulse bilaterally. Patient's pupils were fully dilated and completely unreactive to light bilaterally. There was an absence of corneal scratch reflex bilaterally, also noted on exam. Following completion of examination, pronounced patient at 7:38 PM 06/23/2022. Family remained at bedside throughout. Additional Data Attending physician: Parish Shepard MD Resident Activity Tracking Resident Involvement: Resident Care Provided Care Provided: Adult Hospital Medicine
[2022-06-23] MEDS ORDERED: HEPARIN SOD 5,000 UNIT/0.5 ML VIAL SQ SCH (21:00)
[2022-06-23] MEDS ORDERED: FAMOTIDINE 20 MG in SYRINGE 3 ML IV SCH (21:00)
--- NOTE | 2022-06-29 11:49 | Discharge Summary ---
Date of Service June Admission HPI Per Admitting Provider Samira is an 86 YOF with medical history of: HFpEF (LVEF of 55-60%, severe Pulm HTN, dilated and severely hypokinetic right ventricle as of 02/11/22), Mitral Regurge, HTN, Anxiety, RLS, DMII, OA, chronic knee pain, HLD, CAD, AFib (on Xarelto), COVID 19 (2020), and dyspnea on chronic O2 therapy who presented to the [facility] ED on 06/11/22 with a chief complaint of worsening dyspnea/SOB. In the ED the patient was found to be afebrile, hemodynamically stable, but hypoxic in the high 80's on 4L NC. Labs were remarkable for a WBC WNL, stable hgb and platelets, ABG showing a pH of 7.25, with a pCO2 of 75, pO2 of 74, and bicarb of 33, cr of 1.37 (baseline appears to be around 1.2), corrected sodium of 133, potassium of 5.3, glucose of 192, stable liver function, initial high sensitivity troponin of 21 with a BNP of 1709 (up from 1311 as of 02/15/22). Chest xray was read as "1. Interval progression of the pulmonary edema and bilateral pleural effusions. 2. Patchy bibasilar densities have also progressed and favor atelectasis from the pleural effusions. A pneumonitis could also have a similar appearance.". Prior to admission the patient was given a DuoNeb treatment, received 0.25 inches of nitro paste, 40 mg IV lasix, started on Bipap, and had a farooq catheter placed. Per chart review, the patient was recently seen by her PCP on 05/30/22 for 10 days of cough. She was given a 7 day course of doxycycline and albuterol as needed. At the time of the exam the patient was resting/sleeping in bed with the Bipap mask on with her daughters sitting bedside. Due to the patient having Bipap on and her fatigue history was obtained from her daughters. They confirmed that she completed a 7 day course of Doxycycline with her last dose on 06/05/22. They state that she initially improve with the Doxycycline and albuterol but started to develop a non-productive cough on 06/07/21 and worsening SOB on her 2L NC at all times. They contacted Denise Sanchez of the heart failure clinic on 06/07/22 who recommended doubling her dose of lasix, but this did not improve her symptoms. Her daughters noted today that she was much more tired and sleepy than normal, at baseline she is usually alert and completely oriented. During my exam the patient would wake when calling her name loudly, she would respond appropriately to questions for a short period of time but would then fall back asleep. I discussed code status with the patient's daughters, they confirmed that she is a DNR/DNI. Please refer to Dr. Godinez's attestation for any changes to the treatment plan Principal Diagnosis pt @ 193706/23/22 Discharge Data Allergies Allergy/AdvReac Type Severity Reaction Status Date / Time Iodinated Contrast Media Allergy Intermediate HIVES Verified 06/11/22 15:29 penicillin G Allergy Unknown CAN'T Verified 06/11/22 15:29 REMEMBER HAPPENED MANY YEARS AGO Consultations 06/11/22 14:53 ED Decision to Admit Stat 06/11/22 15:34 [facility] CHF Program Referral Routine 06/19/22 08:29 Consult Pulmonology Routine 06/23/22 13:16 Consult Palliative Care Routine Ordered Studies 06/19/22 09:09 CT chest diagnostic wo con Urgent 06/19/22 09:33 CT head/brain wo con Urgent Hospital Course (1) Goals of care, counseling/discussion: Called family earlier this morning as patient had progressive decline in respiratory status with hypercarbic respiratory failure with also hypoxic respiratory failure. Patient now has acute kidney injury and anuria on top of chronic kidney disease. Given her valvular heart disease and pulmonary hypertension her renal failure is progressive and likely based upon poor perfusion of her kidneys due to severe mitral regurgitation. Subsequently with family at the bedside agreement was made to pursue comfort care measures understanding that her demise will likely occur more quickly at this time as her blood pressures plummeted throughout the morning despite attempts at volume resuscitation Pt while on comfort care 193706/23/22 the notes below are from earlier in the hsopital stay (2) Acute respiratory failure with hypoxia and hypercapnia: Acute hypoxic respiratory failure, acute on chronic systolic heart falure,with NYHA class II heart failure COVID-19 positive, pneumonia not visualized on x-ray of 06/22/2022 Pt has evidence of CO2 retention on ABG 06/22, placed on Bipap, not clear if copd history Decompensated once again the effort of 06/22/2022 ct scan which showed bilateral infiltrates concern for gram negative Bacterial pneumonia-> cefepime and flagyl were ordered. (3) Acute renal failure: Pt with acute kidney injury on CKD 3 she has had decreased po intake, significant valvular heart disease and pulmonary hypertension reducing perfusion and now developed acute renal failure likely causing some metabolic acidosis Patient has not responded to supportive care with iv volume repletion pt has likely ATN from decreased po intake and now inability to swallow ? if covid has any play in renal failure (4) Controlled type 2 diabetes with neuropathy: -chornic unstable, did have some hypoglyucemia earlier Hold oral agents -basal bolus insulin (5) Elevated troponin: acute self limited problem-Initial high sensitivity trop elevated at 21->24.8, no acute ECG changes and no complaints of chest discomfort, elevated troponin due to demand (6) Hyperkalemia: (7) Atrial fibrillation: (8) CAD (coronary artery disease): (9) Anxiety: -Hold ativan and remeron for now with her fatigue from hypercarbia (10) Essential hypertension: -chronic but not Stable needed to hold lisinpril and nifedapine, -Continue atenolol (11) GERD (gastroesophageal reflux disease): -Continue PPI (12) Pulmonary hypertension: Total Time Total Time Spent Total Time Spent (In Minutes): pt before note written Discharge Plan Discharge Items Patient Disposition: Other Date/Time: 06/23/22 19:38 Coding Level of Care Code None Diagnoses Goals of care, counseling/discussion Z71.89 Acute respiratory failure with hypoxia and hypercapnia J96.01; J96.02 Acute renal failure N17.9 Controlled type 2 diabetes with neuropathy E11.40 Elevated troponin R77.8 Hyperkalemia E87.5 Atrial fibrillation I48.91 CAD (coronary artery disease) I25.10 Anxiety F41.9 Essential hypertension I10 GERD (gastroesophageal reflux disease) K21.9 Pulmonary hypertension I27.20
== END 2022-06-23 21:30 | disposition expired | DRG 291 ==
LOC: ED 12:19 → 2E 14:47 → SUATTDRO 14:47 → 2E 17:02